=== PATIENT | female | born 1940 | race Caucasian/White ===

== ENCOUNTER → 2018-04-23 11:26 | Outpatient (CLI) | payer MEDICARE, SELFPAY ==
--- NOTE | 2018-04-23 11:29 | RAD_ITS ---
STUDY: X-RAY - LUMBAR SPINE REASON FOR EXAM: Female, 78 years old. Low back pain. TECHNIQUE: 5 view(s) of the lumbar spine were obtained. # of Images: 5 COMPARISON: 5 views of the lumbar spine December 20, 2013. FINDINGS: Normal lumbar lordosis. There is a 10 degree dextroscoliosis of the lumbar spine centered at L5. Stable minor anterolisthesis of L3 on L4. Mild anterolistheses of L4 on L5 as well as L5 on S1 are mildly worsened. There is stable multilevel endplate spondylosis of the lumbar vertebrae. There is multi-level degenerative disc disease with multi-level disc space narrowing. Disc height narrowing has worsened at L4-5 and L5-S1, and vacuum phenomena due to disc dehydration are now present at those levels. There is no demonstrated osseous destructive lesion or fracture. There is multilevel degenerative arthroses of the bilateral facet articulations. Are stable degenerative arthroses of the bilateral sacroiliac joints. The soft tissue structures are unremarkable. RAD/L/S Spine Min 4 Views IMPRESSION: Degenerative changes of the spine, as detailed above, progressed since 2013, is prominently at L4-5 and L5-S1. Electronically Signed: Teddy Barrera MD at 19:30 EDT , Service support ,
--- NOTE | 2018-04-23 11:29 | RAD_ITS ---
STUDY: X-RAY - PELVIS AND LEFT HIP REASON FOR EXAM: Female, 78 years old. Left hip pain. TECHNIQUE: Radiological exam, hip, unilateral, with pelvis when performed; 2 or 3 views. # of Images: 3 COMPARISON: 5 films of the lumbar spine December 20, 2013. FINDINGS: There is a non-specific bowel gas pattern. There is a small calcified phlebolith in the left pelvic soft tissues, and faint atherosclerotic vascular calcifications are noted. There is stable degenerative changes of the visualized lumbar spine. There is stable mild degenerative osteoarthritic changes bilateral sacroiliac joints. Normal bilateral iliac wings and visualized sacrum. Normal bilateral superior and inferior pubic rami. Normal pubic symphysis. Normal bilateral ischial tuberosities. Normal visualized femoral head. Cortical spurring noted along the greater trochanter. There is mild osteoarthritic spur formation of the acetabular rim. Normal hip joint. There is no demonstrated osseous destructive lesion or acute fracture. RAD/HIP, UNI W/ Pelvis 2-3 Views IMPRESSION: Mild degenerative changes of the lower lumbar spine, bilateral sacral iliac joints, and left hip. Electronically Signed: Teddy Barrera MD at 19:21 EDT , Service support ,
== END ==
PROVIDERS: Family Provider Internal Medicine; PCP Internal Medicine; Referring Provider Internal Medicine; Visit Provider Internal Medicine
DX: M54.5 Low back pain (principal); M25.552 Pain in left hip
CPT/HCPCS: 72110; 73502

== ENCOUNTER → 2018-05-11 09:28 | Outpatient (CLI) | payer MEDICARE, SELFPAY ==
[2018-05-11 10:27] LABS: Vitamin D,25 Hydroxy 27.8 ng/mL (29.95-100.01)
[2018-05-11 10:32] LABS: CRP, High Sensitivity Cardiac 8.72 mg/L; Free T3 2.6 pg/mL (2.18-3.98); T4 Total, Thyroxin 11.7 ug/dL (4.8-13.9); Thyroid Stim Hormone (TSH) 2.91 uIU/mL (0.358-3.74)
== END ==
PROVIDERS: Family Provider Internal Medicine; PCP Internal Medicine; Referring Provider Internal Medicine; Visit Provider Internal Medicine
DX: R94.6 Abnormal results of thyroid function studies (principal); E55.9 Vitamin D deficiency, unspecified; R79.82 Elevated C-reactive protein (CRP)
CPT/HCPCS: 36415; 82306; 84436; 84443; 84481; 86141

== ENCOUNTER → 2018-06-23 08:50 | Outpatient (CLI) | payer MEDICARE, SELFPAY ==
[2018-06-08 15:19] VITALS: BMI 32.6
--- NOTE | 2018-06-23 08:58 | CDU_ITS ---
Reason For Study: Carotid stenosis Rt. Velocities/BP Lt. Velocities/BP Prox CCA 81.5/15.2 cm/sec. Prox CCA 80.9/21.1 cm/sec. Mid CCA 85.0/20.5 cm/sec. Mid CCA 80.3/19.9 cm/sec. Dist CCA 78.6/19.3 cm/sec. Dist CCA 79.2/18.8 cm/sec. Prox ICA 58.6/14.7 cm/sec. Prox ICA 72.7/17.6 cm/sec. Mid ICA 80.3/21.9 cm/sec. Mid ICA 89.7/18.8 cm/sec. Dist ICA 65.7/15.2 cm/sec. Dist ICA 82.7/19.3 cm/sec. Rt. ICA/CCA = .94. Lt. ICA/CCA = 1.1. Prox ECA 99.1/12.3 cm/sec. Prox ECA 78.6/10.6 cm/sec. Rt. Vert. 61.0/15.8 cm/sec. Lt. Vert. 39.3/8.3 cm/sec. Right Extracranial There is intimal thickening but no significant atherosclerotic plaque noted in the right common carotid artery. There is heterogeneous, irregular atherosclerotic plaque noted in the right internal carotid artery. There is no significant atherosclerotic plaque noted in the right external carotid artery. Antegrade flow is noted in the right vertebral artery. Left Extracranial There is intimal thickening but no significant atherosclerotic plaque noted in the left common carotid artery. There is heterogeneous, irregular atherosclerotic plaque noted in the left internal carotid artery. There is no significant atherosclerotic plaque noted in the left external carotid artery. Antegrade flow is noted in the left vertebral artery. Procedure Carotid Duplex [id number]. Exam performed in department. Interpretation Summary Mild (<50%) stenosis right extracranial internal carotid. Mild (<50%) stenosis left extracranial internal carotid. Flow within the vertebral arteries is antegrade bilaterally. Ordering Physician: Sheridan Zaman Referring Physician: Sheridan Zaman Performed By: Brii Kruger RVT
--- NOTE | 2018-06-23 09:23 | BI_ITS ---
MAMMOGRAPHY - BILATERAL SCREENING REASON FOR EXAM: Female, 78 years old. Routine annual screening examination. PERTINENT HISTORY: Mother with breast cancer. TECHNIQUE: Digital bilateral breast haris (3D mammographic acquisition) in the CC and MLO projections. 2-D mediolateral oblique (MLO) and craniocaudad (CC) views of both breasts were obtained. CAD: Full Field Digital Mammography with Computer Added Detection was performed. COMPARISON: Comparison is made with prior study dated June 19, 2017 and June 18, 2016. FINDINGS: Breast Composition: The breasts are almost entirely fatty. There are no dominant masses or suspicious calcifications. No other significant abnormalities are identified. There has been no significant change since the prior study. BI/SCREENING MAMM (CAD), BILAT IMPRESSION: Stable bilateral screening mammogram. Yearly follow-up mammogram recommended. (A) ASSESSMENT CATEGORY: BIRADS Category 1: Negative. A letter regarding these results will be sent to the patient by the facility within 30 days. Approximately 10% of breast cancers are not detected by mammography. A normal mammogram should not delay biopsy of a clinically suspicious abnormality. [id number] Electronically Signed: Dayton Sheikh MD at 10:31 EST Tel [phone], Service support ,
--- NOTE | 2018-06-23 09:53 | BD_ITS ---
STUDY: DUAL ENERGY X-RAY ABSORPTIOMETRY / DXA REASON FOR EXAM: Female, 78 years old. The patient is postmenopausal. Loss of height. TECHNIQUE: Bone Mineral Density (BMD) measurements of lumbar spine and bilateral hips were obtained. COMPARISON: Comparison is made with prior study dated June 18, 2016. FINDINGS: Lumbar Spine (L1-L4): g/cm2 (1.114) / T-score (-0.4) / Z-score (1.4) Findings are suggestive of normal bone density with a low fracture risk. Left Femur Total: g/cm2 (0.933) / T-score (-0.6) / Z-score (1.3) Left Femoral Neck: g/cm2 (0.884) / T-score (-1.1) / Z-score (1.0) Right Femur Total: g/cm2 (0.961) / T-score (-0.4) / Z-score (1.5) Right Femoral Neck: g/cm2 (0.874) / T-score (-1.2) / Z-score (0.9) The T-Scores on the most recent prior examination were: Lumbar Spine (L1-L4): There has been improvement of bone density since the previous examination. Left Femur Total: which represents a worsening of 2.4%. Right Femur Total: which represents an improvement of 2.6%. BD/Dexa Bone Density Study IMPRESSION: The patient is considered osteopenic as outlined below according to World David Organization (WHO) criteria with a low fracture risk. There has been improvement of bone density since the previous examination. Reference Information: The T-score is the number of standard deviations above or below the standard which is normal for young adults at their peak bone mineral density. The World Health Organization (WHO) interprets the T-scores as follows: Above -1 Normal bone density Between -1 and -2.5 Osteopenia Equal to / or below -2.5 Osteoporosis As a practical clinical guideline, osteopenia may be graded as follows: Mild -1 through -1.5 Moderate -1.6 through -2.0 Severe -2.1 through -2.4 The Z-score is the number of standard deviations above or below age-matched controls. A Z-score of less than -1.5 would be considered abnormal. References: 1. NIH Osteoporosis and Related Bone Diseases http://www.osteo.org 2. International Society for Clinical Densitometry http://www.iscd.org 3. National Osteoporosis Foundation http://www.nof.org Electronically Signed: Dayton Sheikh MD at 14:19 EST Tel [phone], Service support ,
--- OUTSIDE RECORDS SUMMARY | 2018-09-24 14:56 | XMS RPT_ITS | Continuity of Care Document ---
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 Provider: Nelson Romero MD Age/Sex: 77/F Location: [facility] Status: Signed HPI HPI Chief Complaint: Follow-up visit. Details: FEMI NAYLOR, is a 77 F who presents to the office today for a follow-up visit. She is a lady with a history of supraventricular tachyarrhythmias who returns for a yearly follow-up visit. She tells me that she has been doing quite well except fo r 1 day when she had some salt laden soup and her blood pressure went high. Occasionally she does feel a fluttering sensation in her chest but nothing unusual. She has not had any dizziness or diaphores is no near syncope or syncope she continues to have bilateral pitting edema secondary to her knee replacement as well as varicose veins. Her physical exam today demonstrates clear lung alamo regular ra te and rhythm and 1+ edema. You do remember her last echocardiogram had demonstrated an ejection fraction of 55% with pulmonary artery systolic pressure of 30 mmHg. 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: No A ccompanied by: None Is patient in pain?: No Allergies No Known Allergies Allergy (Verified 11/13/17 09:09) Medications cholecalciferol (vitamin D3) 1,000 unit tablet 1,000 unit PO QDAY 11/10/17 [Hi story Confirmed 11/13/17] lorazepam 0.5 mg tablet 0.5 mg PO Q8H PRN tab 11/10/17 [History Confirmed 11/13/17] sertraline 25 mg tablet 12.5 mg PO QDAY tab 11/10/17 [History Confirmed 11/13/17] metoprolol succinate ER 25 mg tablet,extended release 24 hr 12.5 mg PO BID #180 tab 11/13/17 [Rx Confirmed 11/13/17] Ejection fraction %: 55 to 59 (55% per echo 03/04/2016 at [facility] Medical History (Reviewe d 11/13/17 @ 09:18 by Nelson Romero MD) RBBB (Chronic) Palpitations (Chronic) Borderline hyperlipidemia (Chronic) Sciatica (Chronic) Ventricular premature depolarization (Chronic) Paroxysmal SVT (suprav entricular tachycardia) (Chronic) Anxiety (Chronic) Carotid stenosis (Chronic) GERD (gastroesophageal reflux disease) (Chronic) PVCs (premature ventricular contractions) (Chronic) Surgical History (Re viewed 11/13/17 @ 09:18 by Nelson Romero MD) History of hysterectomy (Chronic) 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) Family History Mother Breast cancer Diabetes Father Heart disease Cancer Social History Smoking Status: Never smoker alcohol intake: current alcohol intake frequency: holidays/special occasions only Alc ohol type: beer, wine substance use type: does not use caffeine: Yes Type: coffee, tea, carbonated beverages what type of physical activity do you participate in: other details: Silver sneakers, lanre chi frequency: 3-4 times per week duration: 30-45 minutes/day seatbelt use: always do you feel safe at home: Yes ROS Const Const: Negative for body ache, fever(s), chills, night sweats, daytime sleepiness, difficulty sleeping, weight gain, weight loss, increased appetite, poor appetite, anorexia, other, frequent falls, headache(s), weakness, fatigue or excessive sweating Eyes Eyes: Negative f or blind spots, loss of peripheral vision, transient loss of vision, change in vision, floaters, tunnel vision, other, blurry vision or double vision ENT ENT: Positive for dry mouth; negative for hearin g loss, tinnitus, Nosebleed/epistaxis, post nasal drip, bleeding gums, hoarseness, neck pain, other, balance problems, dizziness or headache(s) Cardio Chest Pain: No Palpitations: Yes Edema: Bilateral ( lower extremities) Muscle aches with walking: None Resp Respiratory: Negative for SOB with activity, SOB at rest, SOB orthopnea\SOB lying down, Cough, Coughing up blood/hemoptysis, chest congestion, haleigh n on inspiration, snoring, stridor, wheezing, crackles, paroxysmal nocturnal dyspnea or other GI GI: Negative nausea, vomiting, heartburn, constipation, belching, bloating, cramping, vomiting blood/keith temesis, bright, red blood in stools, black,tarry stools, loose stools, Difficulty Swallowing or other : Negative for hematuria, frequent nighttime urination/ nocturia, erectile dysfunction or abno rmal vaginal bleeding Musc Musc: Positive for joint pain; negative for muscle aches/ myalgia, muscle weakness or balance problems Skin Skin: Negative redness, non-healing lesions, rash, unusual bruising , skin ulcer, wounds, jaundice or other Neuro Neuro: Positive for lightheadedness and vertigo; negative for dizziness, near syncope, syncope, orthostatic symptoms, frequent falls, headache(s), weakness, confusion, memory loss, restless legs, blurry vision, double vision, seizures, lack of coordination or other Keith Hematologic/Lymphatic: Negative for easy bleeding, easy bruising, enlarged lymph nodes or other Endo Endo: Negative for fatigue, cold intolerance, heat intolerance, excessive sweating, flushing, increased thirst/drinking, increased hunger, hair loss, hair growth or other Psych Psych: Posi tive for anxiety; negative for depression, thoughts of harming anyone, thoughts of harming yourself, visual hallucinations, panic attacks or audible hallucinations Allergy Allergy/Immunology: Negative f or rash Cardiology Exam Const Appearance: cooperative, healthy appearing, well developed, well groomed and no acute distress Nutritional Appearance: well nourished and average body habitus Orientation : alert, awake and oriented x3 Head Head: normal to inspection, normocephalic and atraumatic Ears: hearing grossly normal bilaterally and external ears normal Nose: external nose normal, nasal mucous me mbranes and turbinates normal, nares normal, septum normal, no nasal discharge Face and Sinus: face symmetric Mouth: oral mucosae normal, tongue normal, oropharynx normal and moist mucous membranes Teet h and gingiva: dentition normal Throat: posterior oropharynx normal, tonsils normal and uvula midline Eyes General: appearance normal, both eyes and all related structures Eyelids: eyelids normal Conjun ctivae: conjunctivae normal Pupils: PERRL, normal by confrontation and accommodation normal EOM: EOM intact bilaterally Neck Neck: normal visual inspection, trachea midline and no JVD JVD: +5 Carotids: normal carotid upstroke and bounding pulses Chest Chest inspection: normal inspection of the chest, symmetric chest movement and normal respiratory effort Auscultation: Bilateral: Clear to Auscultation Cardio Palpation: normal PMI Rate: regular rate Rhythm: regular rhythm Heart sounds: S1 normal, S2 normal and normal, physiologic split S2; negative rub, gallop or murmur GI GI: normal to inspection, so ft, no hepatosplenomegaly and bowel sounds present Neuro General: alert, awake, oriented x3, no focal sensory deficit, gait normal and moves all extremities Skin Skin: no rashes or lesions noted Extremi ties Pulses: Normal: Right Femoral Pulse, Left Femoral Pulse, Right Dorsalis Pedis Pulse, Left Dorsalis Pedis Pulse, Right Posterior Tibial Pulse, Left Posterior Tibial Pulse, Right Radial Pulse, Left R adial Pulse Lower Extremity Edema: None: Bilateral Musculoskel Musculoskeletal: No joint tenderness Psych Psychological: normal affect Assessment AND Plan 1. Paroxysmal SVT (supraventricular tachycard ia) I47.1 Plan Patient has a history of supraventricular tachyarrhythmia. The above appears to be doing quite well at this time with no recurrence my recommendation is for her to continue the current me dical therapy without making any changes. I have asked her that she can always take a as needed metoprolol if she should feel that she is getting into a tachyarrhythmia. At this time no other changes wi ll be made. Thank you for allowing me to participate in the care of your patient. Please don't hesitate to call if any issues arise Plan Detail Other Medications New: Follow Up 1 Year (drapery sewer hand) Coding Level of Care Code Off vis,est,level 3 Diagnoses Paroxysmal SVT (supraventricular tachycardia) I47.1 Coding Level of Care Code Off vis,est,level 3 Diagnoses Paroxysmal SVT (supraventricular tachycar eusebia) I47.1 11/13/17 0925 <Electronically signed by Nelson Romero MD> Date Nelson Romero MD Cosigner Signature: Date (if applicable) CC: Sheridan Zaman MD 11-Jul-2017 Knee 4 or More Views Result: Comments: See Note; NOTES: [facility] [address] [place] [id number] Knee 4 or More Views MR#: [id number] Acct: [id number] Name: FEMI NAYLOR Rep #: [id number] : 1940 F 77 From: Dayton Cordero MD PCP: Sheridan Zaman MD Status: REG CLI Study: Knee 4 or More Views Date of Exam: 07/11/17 Exam# [id number] Ordering Dr: Sheridan Zaman MD STUDY: X-RAY - RIGHT KNEE REASON FOR EXAM: Female, 77 years old. Knee pain. TECHNIQUE: 4 view(s) of the knee. COMPARISON: Comparison is made with prior examination dated November 08, 2014. FINDINGS: Normal visualized distal femur. Normal visualized proximal tibia and fibula. Normal proximal tibiofibular articulation. The patient is status post total knee replacement. There is goo d alignment. Small joint effusion. RAD/Knee 4 or More Views IMPRESSION: Status post total knee replacement. There is good alignment. Small joint effusion. Electronically Signed: Dayton Cordero MD at 14:18 EST Tel [phone], Service support , CC: Sheridan Zaman MD Commercial Teller: Signed 11-Jul-2017 Knee 4 or More Views Result: Comments: See Note; NOTES: [facility] [address] [place] [address] Knee 4 or More Views MR#: [id number] Acct: [id number] Name: FEMI NAYLOR Rep #: [id number] : 1940 F 77 From: Dayton Cordero MD PCP: Sheridan Zaman MD Status: REG CLI Study: Knee 4 or More Views Date of Exam: 07/11/17 Exam# [id number] Ordering Dr: Sheridan Zaman MD STUDY: X-RAY - LEFT KNEE REASON FOR EXAM: Female, 77 years old. Bilateral knee pain. TECHNIQUE: 4 view(s) of the knee. COMPARISON: Comparison is made with prior study of November 08, 2014. FINDINGS: Normal visualized distal femur. Normal visualized proximal tibia and fibula. Normal proximal tibiofibular articulation. There is mild degenerative arthrosis of the medial femorotibial compartment. There is severe degenerative arthrosis of the lateral femorotibial compartment with severe joint space narrowing. There is moderate degenerative arthrosis of the patellofemoral articulatio n. Joint effusion. RAD/Knee 4 or More Views IMPRESSION: Degenerative arthrosis. Joint effusion. Stable examination. Electronically Signed: Siobhan Cordero MD at 15:07 EST Tel [phone], Service support , CC: Sheridan Zaman MD Commercial Teller: Signed 19-Jun-2017 SCREENING MAMM (CAD), BILAT Result: Comments: See Note; NOTES: [facility] [address] [place] [address] SCREENING MAMM (CAD), BILAT MR#: [id number] Acct: [id number] Name: FEMI NAYLOR Rep #: [id number] : 1940 F 77 From: Dayton Cordero MD PCP: Sheridan Zaman MD Status: REG CLI Study: SCREENING MAMM (CAD), BILAT Date of Exam: 06/19/17 Exam# [id number] Ordering Dr: Sheridan Zaman MD MAMMOGRAPHY - BILATERAL SCREENING REASON FOR EXAM: Female, 77 years old. Routine annual screening examination. PERTINENT HISTORY: Mother with breast cancer. TECHNIQUE: Digital bilateral breast haris (3D mammographic acquisition) in the CC and MLO projections. 2-D mediolateral oblique (MLO) and craniocaudad (CC) views of both breasts were obtained. CAD: Full Field Digital Mammography with Computer A dded Detection was performed. COMPARISON: Comparison is made with prior study dated June 18, 2016 and June 16, 2015. FINDINGS: Breast Composition: The breas ts are almost entirely fatty. There are no dominant masses or suspicious calcifications. No other significant abnormalities are identified. There has been no significant change since the prior study. HPBI/SCREENING MAMM (CAD), BILAT IMPRESSION: Stable bilateral screening mammogram. Yearly follow-up mammogram recommended. (A) ASSESSMENT CATEGORY: BIRADS Category 1: Negative. A letter regarding these results will be sent to the patient by the facility within 30 days. Approximately 10% of breast cancers ar e not detected by mammography. A normal mammogram should not delay biopsy of a clinically suspicious abnormality. [id number] Electronically Signed: Dayton Cordero MD at 12:44 EST Tel [phone], Service support , CC: Sheridan Zaman MD Commercial Teller: Signed 31-Jan-2017 Inital Evaluation (1) - PT Result: Comments: See Note; NOTES: [facility] [address] [place], [place] [id number] Fax REHABILITATION SERVICES INITIAL EVALUATION MR#: [id number] Acct: [id number] Name: FEMI NAYLOR Rep #: [id number] : 1940 76 From: Lisa Fuchs PT Referring Dr.: Sheridan Zaman MD Status: REG RCR Insurance: [facility] Patient's Visit Information FEMI NAYLOR is a 76 year old F referred to Physical Therapy by Sheridan Zaman with a diagnosis of R Hamstring Strain. Date of Evaluation: 01/31/17 Physical Therapist: Consuelo Fuchs, PT - Visit Plan Frequency: 2x /Week Duration: 4 Weeks Plan: Therapeutic exercises and activities to target BLE strength. Exercises and activities also to target gait training, endurance, flexibility and range of motion. Modalies and manual as needed to decrease pain and improve motion. Incorporate HEP to promote maintainence and independence. - Subjective Subjective: Patient presents i n therapy today with chief complaint of hamstring pain. She states that she hurt it in July after transitioning too fast in Silver sneakers and doing backwards kicks. She states it never really heale d due to activities she does at home which caused her to go to her doctor about a two weeks ago. She pain is worse in the morning, walking, and WB activities. She states that she takes ibuprofen to help relieve the pain and has tried an ice pack and rice pack which seemed to help a little. Patient reported she tried stretching a little and that seemed to help a little as well. Reports periodic tinglin g in right foot. She saw Yusuf Holm PT, DPT last year for strengthening for hip drop. Typically patient walks with a cane in right hand but did not have one at evaluation. PMHx: R TKA 2013, PVCs contro lled, R thrombophelbitis - Pain right hamstring Pain Intensity (Out of 10): 3 Pain Intensity Range: 2, 8 Comment: worsen with activity. - Objective Posture: Sitting sloched in chair with increased posterior pelvic tilt; Static standing increased kyphotic posturing. Appearance/Palpation: Tenderness to palpation along BLE extremities around ankles with moderate swelling right and minimal left that is non pitting; Tenderness to palpation along right hamstrings with increased tenderness and pain when palpated medially. Range of Motion: BLE WNL; Right Knee 0-120 and Left knee 0-130. Flexibility: Mil d tightness of bilateral hamstrings lacking 10* of knee extension; Mild tightness bilateral hip flexors. Strength: BLE grossly 4+/5 except right knee flexion 4- /5, bilateral hip extension 4- /5, bilater al hip abduction 4/5, bilateral hip adduction 4/5, left knee extension 4/5, left knee flexion 4-/5, bilateral ER 4/5, bilateral IR 4/5; core 4-/5. Balance: Tandem stance 30 seconds bilaterally with mini mal sway right leading and moderate sway left leading. Gait: Patient ambulates with heel/toe to flat foot progression. She demonstrates hip drop bilaterally and increased toe off on the right to help cl ear LLE. Stair negotiation step to pattern with B handrail support right leading ascending and left leading descending. HEP: Added isometric hamstring hold 10 seconds x 10 patient reported mild soreness with activity. - Goals Goal 1:: Walk with a heel/toe foot progression 1 block with cane support safely and indepedently to perform ADLs Goal Time Frame: 4-6 Weeks Goal 2:: Patient will increase BLE st rength by 1 muscle grade for improved performance with functional activities Goal Time Frame: 4-6 Weeks Goal 3:: Patient will hold tandem stance bilaterally for 30 seconds with minimal sway for improved balance Goal Time Frame: 4-6 Weeks Goal 4:: Patient will be independent with HEP Goal Time Frame: 4-6 Weeks - Rehabilitation Potential Physical Therapy Diagnosis: Muscle Weakness, Impaired Gait Rehabi litation Potential: Good - Anticipated Interventions Patient/Client Instruction: Educate patient on: Condition, Plan of Care For the Purpose of:: To decrease pain, To increase ROM, To improve muscle pe rformance and motor function, To improve ability to perform ADL's, To improve ability of physical actions for home/ community/work/leisure, To improve gait and locomotor functions, To increase flexibili ty/ROM, To improve endurance, To improve balance, To improve safety with gait Therapeutic Exercise to Include: Strength training, Endurance training, Balance training, Body mechanics, Postural training, Flexibilty training, Gait and locomotor training, Passive ROM, Active ROM For the Purpose of:: To increase ROM, To improve muscle performance and motor function, To improve ability to perform ADL's, To improve ability of physical actions for home/community/ work/leisure, To improve gait and locomotor functions, To increase flexibility/ROM, To improve endurance, To improve balance, To improve safety w ith gait Functional Training to Include: Gait training For the Purpose of:: To improve gait and locomotor functions, To improve safety with gait Comment: MASSAGE NOT COVERED For the Purpose of:: To decr ease pain, To decrease swelling/inflammation, To increase ROM Iontophoresis (with Dexamethozone, with Acetic acid): - NOT COVERED For the Purpose of:: To decrease pain, To decrease swelling/inflammation , To increase ROM Thank you for the opportunity to evaluate your patient. For Medicare and Medicare HMO plans, please review the plan of care and approve it. It will need to be FAXED BACK to us at [phone] for Medicare purposes. Please let me know if there are questions or concerns regarding this plan of care. Physician Signature: Date: <Electronically signed by Lisa Fuchs PT> 01/31/17 0952 CC: Sheridan Zaman MD RICARDA Signed For Medicare only, by signing this I certify the plan o f care. Physicians Signature Date 15-Jul-2016 PT D/C Summary (1) Result: Comments: See Note; NOTES: [facility] [address] [place], [place] [address] Fax REHABILITATION SERVICES [facility] [facility] SUMMARY MR#: [id number] Acct: [id number] Name: FEMI NAYLOR Rep #: [id number] : 1940 76 From: Yusuf Holm DPT Referring Dr.: Sheridan Zaman MD Status: REG RCR [facility] - PT D/C Summary It has been my pleasure to treat FEMI NAYLOR under orders from Sheridan Zaman, for the diagnosis of left leg weakness, low back pain, and degenerative disc disease for a total of 5 visit(s). Discharge Date: 07/15/16 Please see the following information for a summary of their discharge status. - Subjective Subjective: Pt. reports I am doing pretty well. She r eports I don't have much back pain any more, but I still get some hip pain. She does sitll notice some limping, with days that are worse than others. He reports no back pain today, but has 1/10 L hip pain. - Pain L lumbar spine Pain Intensity (Out of 10): 0 L hip Pain Intensity (Out of 10): 1 - Objective Objective/Function: ROM: lumbar spine- flexion nil loss NE, ext min/mod loss NE, SB min loss NE bilaterally, rotation min loss bilaterally NE. HS length 80deg LLE, 92deg RLE. Pt. reports no back pain currently, 1/10 L hip (posterior/lateral). Pt. had an 3/8 of inch leg marvin gth discrepency pre treatment, 1/8 of an inch post PT. She continues to have lateral hip sway with L lateral lean during gait. - Goals Goal 1:: Pt. to be I with HEP. (pt. is currently I with HEP). Goal Progress: Goal Met Goal 2:: Pt. to have decreased lumbar spine pain to 0/10 while sitting and sleeping. (pt. currently having 0/10 pain in lumbar spine with sitting and sleeping, but does have L hip pa in at times, currently 1/10). Goal Progress: Goal Met Goal 3:: Pt. to have decreased lumbar spine pain to 0-1/10 while walking upto 1 mile allowing for increased recreational walking. (Pt. is currently able to ambulate without problems, but has not trialed walking upto a mile yet.) Goal Progress: Progressing Goal 4:: Pt. to have increased core strength to fair, reducing stress applied to lumbar spine with all functional mobility. (currently- Pt. has Fair- core strength at this point in time.) Goal Progress: Progressing - Plan Plan: Pt. will be DC to HEP and deshaun toro at this point in time at pt. request. - D/C Information Discharge Comments: Pt. has made progress with therapy, see reports being 50% better overall, but has days where she feels 75% better. She reports overall reduction in lo w back pain, but does continue to have intermittent posterior hip pain. She has progressed with core and lateral hip strengthening as expected. She does continue to have a slight leg length discrepency, but I do believe this to be a pelvic positioning issue secondary to core and hip weakness. I was able to correct discrepency with reduction (not full correction) in gait issues, but does return. She is to continue with current HEP with core and lateral hip strengthening to reduce hip sway with gait, increase pelvic positioning and reduce stress applied to lumbar spine with all functional mobility. If there are questions or concerns regarding this patient's physical therapy, please feel free to call me at [phone]. Thank you for the referral of this patient. Sincerely, Yusuf Holm < Electronically signed by Yusuf Holm DPT> 07/15/16 1800 CC: Sheridan Zaman MD CLS Signed 18-Jun-2016 Bilat Scrn Digital AND CAD Result: Comments: See Note; NOTES: [facility] [address] [place] [address] Verdana 4d Bilat Scrn Digital AND CAD MR#: [id number] Acct: [id number] Name: FEMI NAYLOR Rep #: [id number] : 1940 F 76 From: Dayton Cordero MD PCP: Sheridan Zaman MD Status: REG CLI Study: Bilat Scrn Digital AND CAD Date of Exam: 06/18/16 Exam# [id number] Ordering Dr: Sheridan Zaman MD MAMMOGRAPHY - BILATERAL SCREENING REASON FOR EXAM: Female, 76 years old. Routine annual screening examination. PERTINENT HISTORY: Mother with breast cancer. TECHNIQUE: Digital bilateral boogie ast haris (3D mammographic acquisition) in the CC and MLO projections. 2-D mediolateral oblique (MLO) and craniocaudad (CC) views of both breasts were obtained. CAD: Full Field Digital Mammography with C omputer Added Detection was performed. COMPARISON: Comparison is made with prior study dated June 16, 2015 and June 08, 2014. FINDINGS: Breast Composition: T here are scattered areas of fibroglandular density. There are no dominant masses or suspicious calcifications. No other significant abnormalities are identified. There has been no significant change s mono the prior study. HPBI/Bilat Scrn Digital AND CAD IMPRESSION: Stable bilateral screening mammogram. Yearly follow-up mammogram recommended. ( A) ASSESSMENT CATEGORY: BIRADS Category 1: Negative. A letter regarding these results will be sent to the patient by the facility within 30 days. Approximately 10% of breast cancers are not detected by mammography. A normal mammogram should not delay biopsy of a clinically suspicious abnormality. [id number] Electronically Signed: Dayton Cordero MD a t 14:09 EST Tel [phone], Service support [phone], CC: Sheridan Zaman MD Commercial Teller: Signed 18-Jun-2016 Dexa Bone Density Study (HP) Result: Comments: See Note; NOTES: [facility] [address] [place] [address] Verdana 4d Dexa Bone Density Study (HP) MR#: [id number] Acct: [id number] Name: ABIMAEL ANYLOR Rep #: [id number] : 1940 F 76 From: Dayton Cordero MD PCP: Sheridan Zaman MD Status: REG CLI Study: Dexa Bone Density Study () Date of Exam: 06/18/16 Exam# [id number] Ordering Dr: Sheridan Ledbetter MD STUDY: DUAL ENERGY X-RAY ABSORPTIOMETRY / DXA REASON FOR EXAM: Female, 76 years old. The patient is postmenopausal. TECHNIQUE: Bone Mineral Density (BMD) measurements of lumbar spine and bilateral hips were obtained. COMPARISON: Comparison is made with prior study dated June 08, 2014. FINDINGS: Lumbar Spine (L1-L4): g/cm2 (1.090) / T-score (-0. 6) / Z-score (1.1) Findings are suggestive of normal bone density with a low fracture risk. Left Femur Total: g/cm2 (0.956) / T-score (-0.4) / Z-score (1.4) Left Femoral Neck: g/cm2 (0.872) / T-score ( -1.2) / Z-score (0.8) Right Femur Total: g/cm2 (0.937) / T-score (-0.6) / Z-score (1.2) Right Femoral Neck: g/cm2 (0.846) / T-score (-1.4) / Z-score (0.6) The T-Scores on the most recent prior examinat ion were: Lumbar Spine (L1-L4): There has been worsening of bone density since the previous examination. Left Femur Total: which represents a worsening of 1.9%. Right Femur Total: which represents a w orsening of 4.0%. HPBD/Dexa Bone Density Study () IMPRESSION: The patient is considered osteopenic as outlined below according to World David O rganization (WHO) criteria with a moderate fracture risk. There has been worsening of bone density since the previous examination. Reference Information: The T-scor e is the number of standard deviations above or below the standard which is normal for young adults at their peak bone mineral density. The World Health Organization (WHO) interprets the T-scores as fol lows: Above -1 Normal bone density Between -1 and -2.5 Osteopenia Equal to / or below -2.5 Osteoporosis As a practical clinical guideline, osteopenia may be graded as follows: Mild -1 through -1.5 Mod erate -1.6 through -2.0 Severe -2.1 through -2.4 The Z-score is the number of standard deviations above or below age-matched controls. A Z-score of less than -1.5 would be considered abnormal. Referen ronald: 1. NIH Osteoporosis and Related Bone Diseases http://www.osteo.org 2. International Society for Clinical Densitometry http://www.iscd.org 3. National Osteoporosis Foundation http://www.nof.org Tayler ctronically Signed: Dayton Cordero MD at 13:38 EST Tel [phone], Service support [phone], CC: Sheridan Zaman MD Commercial Teller: Signed 11-Jun-2016 Inital Evaluation (1) - PT Result: Comments: See Note; NOTES: [facility] [place] [address] Fax REHABILITATION SERVICES INITIAL EVALUATION MR#: [id number] Acct: [id number] Name: FEMI NAYLOR Rep #: [id number] : 1940 76 From: Yusuf Holm DPT Referring Dr.: Sheridan Zaman MD Status: REG RCR Insurance: AETNA [facility] Patient's Visit Information FEMI NAYLOR is a 76 year old F referred to Physical Therapy by Sheridan Zaman with a diagnosis of left leg weakness, low back pain, and degenerative disc disease. Date of Evaluation: 06/10/16 Physical Therapist: Yusuf Holm - Visit Plan Frequency: 2x /Week Duration: 4 Weeks Plan: Start with SKTC/DKTC, light hip flexor stretching in SL to allow for greater glute acti vitation. Increase core and bilateral hip strength. Re assess leg length discrepency, as pt. uses lift to assist already. - Subjective Subjective: Pt. is here today for initial evaluation with left leg weakness, low back pain, and degenerative disc disease. She also has a history of R TKA and leg length discrepencey. She reports having low back pain on and off for the last 4 years. She also reports h aving a constant limp with her gait. She reports increased pain with prolonged standing and walking that reduces with sitting. She also have pain with any lifting. She reports trying lifts in shoes with minimal success. She reports recent increase in symptoms after going on trip with increased walking, plane ride and carrying objects. She denies pain down LEs. She has trialed ice and heat with success with heat, but does not last. She is hopeful to reduce symptoms in order get back to silver sneaks and gym exercises with walking with decreased symptoms. - Pain L lumbar spine Pain Intensity (Out of 10): 2 Pain Intensity Range: 0, 8 - Objective POSTURE: Pt. has decreased lumbar lordosis, slight flexed posture, fwrd head posture. PALAPTION: Pt. has increased tenderness to palpation of L PSIS, L side of lumbar paraspinals and L latissamus dorsi. Pt. does have increased edema of R knee and increased tenderness noted throughout R knee. NEUROLOGICAL: Pt. has normal sensation to light touch of bila teral LEs. Pt. has 2+ achilles and patellar DTR bilaterally. ROM: LUMBAR SPINE: flexion nil loss NE, Ext mod loss increase NW, SB R min loss NE, SB L min/mod loss increase NW, rotation nil/min loss bila terally NE. Hip- bilateral hip ROM WNL. L hip- IR 32deg, ER 41deg. R hip- IR 34deg, ER 40deg. No pain with hip rotation testing. Pt. has a 1/4inch leg length discrepency with L being shorter than R. MMT : RLE- ankle- 5/5 throughout; knee- 5/5 throughout; hip- flexion 4/5, abd 4/5, ext 4/5. LLE- ankle 5/5 throughout; knee 5/5 throughout; hip- flexion 4/5, abd 4/5, ext 4/5. Core strength- poor. GAIT- Pt. has increased contralateral hip drop bilaterally. She tends to have vault over here L LE. She is able to complete the stairs with mild icnrease in symptoms, and did report increased LLE weakness. - Sp ecial Tests L/S Slump test left side: Negative L/S Slump test right side: Negative L/S Left Straight Leg Raise: Negative L/S Right Straight Leg Raise: Negative Lumbar Standing: Flexion - Mechanical Resp onse: No effect Lumbar Standing: Flexion - Symptoms During Testing: No effect Lumbar Standing: Flexion - Symptoms After Testing: No effect Lumbar Standing: Extension - Mechanical Response: No effect Lum bar Standing: Extension - Symptoms During Testing: Increases Lumbar Standing: Extension - Symptoms After Testing: No worse - Goals Goal 1:: Pt. to be I with HEP. Goal Time Frame: 2-4 Weeks Goal 2:: Pt. to have decreased lumbar spine pain to 0/10 while sitting and sleeping. Goal Time Frame: 2-4 Weeks Goal 3:: Pt. to have decreased lumbar spine pain to 0-1/10 while walking upto 1 mile allowing for incr eased recreational walking. Goal Time Frame: 4-6 Weeks Goal 4:: Pt. to have increased core strength to fair, reducing stress applied to lumbar spine with all functional mobility. Goal Time Frame: 2-4 We eks - Rehabilitation Potential Physical Therapy Diagnosis: left leg weakness, low back pain, and degenerative disc disease with signs of lumbar spinal stenosis. She would benefit from PT to increase bi lateral and core strength to reduce stress applied to lumbar spine. She also presence with a leg length discrepency without elevation of either ASIS. Pt. to trial increased heel lifet to determine if be neficial. Rehabilitation Potential: Good - Anticipated Interventions Patient/Client Instruction: Educate patient on: Condition, Plan of Care, Risk Factors, Benefits of Fitness Program For the Purpose o f:: To improve safety, To improve health and function, To foster healthy habits, To improve decision making, To facilitate caregiver knowledge, To improve self management, To prevent re-injury Therapeut ic Exercise to Include: Strength training, Power training, Postural training, Flexibilty training, Gait and locomotor training, Passive ROM, Active ROM, Dynamic Lumbar Stabilization, [place] Exercises For the Purpose of:: To decrease pain, To increase ROM, To improve nutrient delivery to tissue, To improve muscle performance and motor function, To improve health of tissue, To decrease soft tissue res triction, To increase flexibility/ROM Manual Therapy Techniques to Include: Mobilization, Passive ROM, Soft tissue mobilization For the Purpose of:: To decrease pain, To increase ROM IF ES: Yes Cryother apy (ice pack, ice massage): Yes Ultrasound (thermal/non thermal): Yes For the Purpose of:: To decrease pain, To increase ROM Thank you for the opportunity to evaluate your patient. For Medicare an d Medicare HMO plans, please review the plan of care and approve it. It will need to be FAXED BACK to us at [phone] for Medicare purposes. Please let me know if there are questions or concerns re garding this plan of care. Physician Signature: Date: <Electronically signed by Yusuf Holm DPT> 06/11/16 0746 CC: Lux Zaman MD CLS Signed For Medicare only, by signing this I certify the plan of care. Physicians Signature Date 13-Mar-2016 Carotid Duplex Ultrasound Result: Comments: See Note; NOTES: [facility] Cardiovascular Services [address] [place] [address] Carotid Duplex Ultrasound 03/04/16 1004 MR#: [id number] Acct: [id number] Name: FEMI LUEVANO LT Rep #: [id number] : 1940 76 From: Tom Medel MD Attending Dr: Sheridan Zaman MD Status: REG CLI Ordering Dr: Sheridan Zaman MD Date: 03/04/16 Location: [facility] Sex: F C Admitted: Reason For Study: carotid stenosis Rt. Velocities/BP Lt. Velocities/BP Prox CCA 85.6/14.7 cm/sec. Prox CCA 79.7/18.2 cm/sec. Mid CCA 83.8/17.0 cm/sec. Mid CCA 83.3/21.7 cm/sec. Dist CCA 68.0/21.1 cm/s ec. Dist CCA 81.5/22.3 cm/sec. Prox ICA 55.0/14.5 cm/sec. Prox ICA 59.7/16.1 cm/sec. Mid ICA 87.9/25.8 cm/sec. Mid ICA 105.0/29.3 cm/sec. Dist ICA 56.6/18.1 cm/sec. Dist ICA 74.5/25.2 cm/sec. Rt. ICA/CC A = 87.9/83.8=1.0. Lt. ICA/CCA = 105.0/83.3=1.3. Prox ECA 70.4/11.7 cm/sec. Prox ECA 73.3/12.3 cm/sec. Rt. Vert. 29.5/1.96 cm/sec. Lt. Vert. 48.7/13.0 cm/sec. Right Extracranial There is homogeneous, s mooth atherosclerotic plaque noted in the right common carotid artery. There is heterogeneous, smooth atherosclerotic plaque noted in the right internal carotid artery. There is homogeneous, smooth athe rosclerotic plaque noted in the right external carotid artery. Antegrade flow is noted in the right vertebral artery. Left Extracranial There is homogeneous, smooth atherosclerotic plaque noted in the left common carotid artery. There is heterogeneous, smooth atherosclerotic plaque noted in the left internal carotid artery. There is homogeneous, smooth atherosclerotic plaque noted in the left externa l carotid artery. Antegrade flow is noted in the left vertebral artery. Procedure Carotid Duplex 12001. The exam was diagnostic. Exam performed in department. Interpretation Summary Mild (<50% ) stenosis right extracranial internal carotid. Mild (<50%) stenosis left extracranial internal carotid. Flow within the vertebral arteries is antegrade bilaterally. Ordering Physician: Sheridan Zaman Performed By: Kanchan Jackson, MITCH, RVT Electronically signed by: MD Tom Medel on 01/2016 08:16 AM 03/13/16815 Date Tom Medel MD CC: Sheridan Zaman MD Date Dictated: 03/04/16 1004 Date Transcribed: 03/13/16815 Commercial Teller: Signed 04-Mar-2016 Echocardiogram Complete Result: Comments: See Note; NOTES: [facility] Cardiovascular Services [address] [place] [address] Echo Complete 03/04/16 1034 MR#: [id number] Acct: [id number] Name: FEMI NAYLOR Rep #: [id number] : 1940 76 From: Jim Blankenship MD Attending Dr: Sheridan Zaman MD Status: REG CLI Ordering Dr: Sheridan Zaman MD Date: 03/04/16 Location: [facility] Sex: F C Admitted: Reason For Study: PVCs, arrhythmia. Procedure This was a 2D Doppler, Color Flow transthoracic echocardiogram. The exam was of fair technical quality due to diminished acoustic windows. The study was technically d ifficult. Exam performed in department. Left Ventricle Normal LV size. Sigmoid septum. Left ventricular systolic function is normal. The estimated ejection fraction is 55 %. No regional wall motion abn ormalities noted. Right Ventricle Normal RV size. Normal systolic function. Atria Normal left atrium. Normal right atrium. No doppler evidence for ASD. Mitral Valve There is no mitral annular calcifi cation. Normal mitral valve. Mild (1+) mitral valve insufficiency. Tricuspid Valve Normal tricuspid valve. Mild tricuspid valve insufficiency. Right ventricular systolic pressure estimated to be 30 mmH g. Aortic Valve Trisinus/trileaflet aortic valve. Normal aortic valve. Pulmonic Valve The pulmonic valve is not well visualized. Trivial pulmonic valve insufficiency. Great Vessels Normal sized aortic root. Pericardium/Pleural No pericardial effusion. MMode/2D Measurements & Calculations LVIDd: 4.8 cm IVSd: 1.1 cm Ao root diam: 2.5 cm LVIDs: 3.0 cm LVPWd: 1.1 cm LA dimension: 3.4 cm RVDd: 2.7 cm FS: 37.3 % LAV(MOD-bp): 51.8 ml LA A4 area: 18.0 cm2 RA A4 area: 14.8 cm2 LAV(MOD-bp) Indexed: 26.4 ml/m2 LAV(MOD -sp2): 51.5 ml LAV(MOD-sp4): 46.8 ml Doppler Measurements & Calculations MV E max chaz: 64.2 cm/sec Lat Peak E' Chaz: 4.9 cm/sec Med Peak E' Chaz: 5.3 cm/sec MV A max chaz: 84.8 cm/sec E/E' lat: 13 .0 E/E' med: 12.2 MV E/A: 0.76 Ao V2 max: 119.8 cm/sec LV V1 max: 70.4 cm/sec PA V2 max: 81.3 cm/sec Ao max P.8 mmHg LV V1 max P.0 mmHg TR max chaz: 259.5 cm/sec TR max P.9 mmHg Interpretation Summary The study was technically d ifficult. Left ventricular systolic function is normal. The estimated ejection fraction is 55 %. Sigmoid septum. Mild (1+) mitral valve insufficiency. Mild tricuspid valve insufficiency. Trivial pulmon ic valve insufficiency. Right ventricular systolic pressure estimated to be 30 mmHg. Ordering Phy sician: Sheridan Zaman Performed By: Kanchan Jackson, RDJULIO, RVT 03/04/16 1623 Date [facility] Krzysztof RODRIGUEZ CC: Sheridan Zaman MD Date Dictated: 03/04/16 1034 Date Transcribed: 03/04/161622 Commercial Teller: Signed 20-Jun-2015 Vascular Test/LEAS/UEAS Result: Comments: See Note; NOTES: [facility] Cardiovascular Services [address] [place] [address] Verdana 4d Lower Ext Art Exam w/o Exercis MR#: [id number] Acct: [id number] Name: FEMI NAYLOR Rep #: [id number] : 1940 75 From: Dangelo Hogue MD Primary Care: Sheridan Zaman MD Status: REG CLI Ordering Dr: Dangelo Hogue MD Sex: F C DATE OF SERVICE: NONINVASIVE LOWER EXTREMITY ARTERY STUDY: DATE OF STUDY: June 19, 2015. This is a 75-year-old female with bilateral pain, heaviness and discomfort in her lower extremities. Suspectin g the presence of atherosclerotic peripheral arterial occlusive disease, the patient was brought to the noninvasive vascular laboratory at this time for the purpose of bilateral noninvasive lower extr emity arterial assessment. Doppler signal assessment was used to evaluate the pulses at ankle level bilaterally. Posterior tibial and dorsalis pedis pulses were triphasic bilaterally. Segmental yi b pressures were obtained at ankle level bilaterally. The right ankle pressure, as determined by posterior tibial pulse, was measured at 174 mmHg. The right ankle pressure, as determined by dorsalis p bing pulse, was measured at 179 mmHg. The left ankle pressure, as determined by posterior tibial pulse, was measured at 193 mmHg. The left ankle pressure, as determined by dorsalis pedis pulse, was me asured at 190 mmHg. Resting ankle-brachial indices were calculated bilaterally. The resting right ankle-brachial index was calculated to be 1.11. Resting left ankle-brachial index was calculated to be 1.20. IMPRESSION: Based on the findings of this resting noninvasive lower extremity artery study, there is no evidence of significant atherosclerotic peripheral arterial occlusive disease in the lower extremities bilaterally. Triphasic wave forms were noted at ankle level bilaterally. Resting ankle-brachial indices were bilaterally normal. In summary, this represents a normal resting noninv asive lower extremity artery study bilaterally. Dangelo Hogue MD T: NTS JOB: [id number] 06/20/15 0736 <Electronically signed by Dangelo Hogue MD> Date Dangelo Hogue MD CC: Sheridan Zamna MD; Dangelo Hogue MD Date Dictated: 06/19/152229 Date Transcribed: 06/19/152229 Commercial Teller: Signed 16-Jun-2015 Bilat Scrn Digital AND CAD Result: Comments: See Note; NOTES: [facility] Imaging Services [address] [place] [address] Verdana 4d Bilat Scrn Digital AND CAD MR#: [id number] Acct: [id number] Name: FEMI NAYLOR Rep #: [id number] : 1940 F 75 From: Dayton Cordero MD PCP: Sheridan Zaman MD Status: REG CLI Study: Bilat Scrn Digital AND CAD Date of Exam: 06/16/15 Exam# [id number] Order ing Dr: Sheridan Zaman MD MAMMOGRAPHY - BILATERAL SCREENING REASON FOR EXAM: Female, 75 years old. Routine annual screening examination. PERTINENT HISTORY: Mother with breast cancer. TECHNIQUE : Digital examination. Mediolateral oblique (MLO) and craniocaudad (CC) views of both breasts were obtained. CAD: CAD was performed on this study. COMPARISON: Comparison is made with prior study kamilah ed June 08, 2014 and June 07, 2013. FINDINGS: Breast Composition: There are scattered areas of fibroglandular density. There are no dominant masses or mora spicious calcifications. No other significant abnormalities are identified. There has been no significant change since the prior study. IMPRESSION: Stable bila teral screening mammogram. Yearly follow-up recommended. (A) ASSESSMENT CATEGORY: BIRADS Category 1: Negative. A letter regarding these results will be sent to the patient by the facility within 30 days. Approximately 10% of breast cancers are not detected by mammography. A normal mammogram should not delay biopsy of a clinically suspicious abnormality. [id number] Electronically Signed: Dayton Cordero MD at 9:49 EST Tel [phone], Service support [phone], CC: Sheridan Zaman MD Commercial Teller: Signed 07-Jun-2015 Initial Evaluation - OT Result: Comments: See Note; NOTES: [facility] [address] [place] [address]. [address] [place] [address] Fax REHABILITATIO N SERVICES INITIAL EVALUATION MR#: [id number] Acct: [id number] Name: FEMI NAYLOR Rep #: [id number] : 1940 75 From: Vielka Baez Referring Dr.: Tracey Moore Status: DIS RCR Insura nce: [employer]ET[employer] MCR Eval Date: DATE OF SERVICE: PHYSICIAN: Dr. Tracey Moore. SUBJECTIVE: This 75-year-old female was seen for initial occupational therapy evaluation on May 25, 2015. The patie nt was referred with the diagnosis of right leg lymphedema. The patient after some discussion admitted that in her early 20s, her leg did start to swell. She just figured it was her makeup and that sh e had thicker ankles, and then the typical individual she states. She has been utilizing compression hose, thigh-high, Jobst 15-20 and it has not really seemed to help. The patient had a right total k nee replacement about 2 years ago and recently had a bout of cellulitis 5-6 weeks ago. The patient has been through multiple tasks and nothing conclusive with her right lower extremity. Currently, sh e is done with her antibiotics and appears to be doing well. OBJECTIVE: Left foot is 20.5 cm, right is 21 cm. Right ankle is 29 cm, left is 30. Right lower calf is 30 cm, left is 37. Right upper c bing is 41.5, left is 45. Left below knee is 39 cm, right is 43 cm. ASSESSMENT: The patient presents with good rehab potential. Functional problems include decreased understanding and knowledge of l ymphedema management, decreased knowledge of wrapping lower extremities and decreased knowledge of understanding of her lymph system physiology. GOALS: 1. The patient's spouse will demonstrate knowl edge and understanding of utilizing short stretch bandages and demonstrating independent wrapping to lower extremities by discharge. 2. The patient will demonstrate a reduction in edema by 20 percent or greater by discharge. 3. The patient will demonstrate proper donning and doffing of appropriate compression garment by discharge. TREATMENT PLAN: I plan to see the patient 2-3 visits to ensure the patient is understanding management of lymphedema, educating on manual lymph drainage, lymph exercises and proper donning and doffing of compression garments. A home exercise program will be desig cadence to meet the patient's needs and demonstrate level of understanding. G code status G8978 is CK, goal status 8979 is CJ. Vielka Baez OTR/L T: TREASURE JOB: [id number] <Electronically signed by Vielka Baez > 06/07/15 0846 CC: Signed For Medicare only, by signing this I certify the plan of care. Physicians Signature Date 07-Jun-2015 OT Discharge Summary Result: Comments: See Note; NOTES: [facility] [address] [place], [place] [address] Fax REHABILITATIO N SERVICES DISCHARGE SUMMARY MR#: [id number] Acct: [id number] Name: FEMI NAYLOR Rep #: [id number] : 1940 75 From: Vielka Baez Referring DrMacey: Tracey Moore Status: DIS RCR Eval Da te: Discharge Date: 05/29/15 DATE OF SERVICE: PHYSICIAN: Dr. Tracey Moore. This 75-year-old female was seen for initial occupational therapy evaluation on May 25, 2015. The patient was ref erred with a diagnosis of right lower extremity lymphedema. Today, she presents after utilizing short stretch bandages with a decrease in her limb size by 20 percent. The patient is agreeable to miladys nue with the short stretch bandaging and utilizing compression garment 20-30 mmHg. The patient demonstrated knowledge and understanding of therapeutic exercises that would be beneficial to her, utiliz ing Silver Sneakers and open pool time to help manage lymphedema. At this time, the patient has met functional goals set and is discharged. G code discharge status 8980 is CJ. LUIS Staley /L T: TREASURE JOB: [id number] <Electronically signed by Vielka Baez > 06/07/15 0846 CC: Signed 09-May-2015 Abdomen/Pelvis WITH Contrast Result: Comments: See Note; NOTES: [facility] Imaging Services [address] [place] [address] Nasreen 4d Abdomen/Pelvis WITH Contrast MR#: [id number] Acct: [id number] Name : FEMI NAYLOR Rep #: [id number] : 1940 F 75 From: Dayton Cordero MD PCP: Sheridan Zaman MD Status: REG CLI Study: Abdomen/Pelvis WITH Contrast Date of Exam: 05/09/15 Exam# [id number] O rdering Dr: Sheridan Zaman MD STUDY: CT ABDOMEN AND PELVIS WITH CONTRAST REASON FOR EXAM: Female, 75 years old. Bilateral lower extremity swelling. RADIATION DOSAGE (If Supplied By Facility): CT DIvol = ( 13.40 ) mGy, DLP = ( 1818.53 ) mGycm TECHNIQUE: Transaxial images were obtained from the dome of the diaphragm to the symphysis pubis without oral contrast. 100mL ml of Isovue 300 contras t was administered. Sagittal and coronal images were reconstructed. Delayed imaging was obtained as well. COMPARISON: Comparison is made with prior examination dated August 02, 2011. FINDINGS: Mild degree of linear scarring in the lingular segment of the left upper lobe. The previously seen nodular density is not seen at this time. Minimal scarring at the right lung base. The visualized portions of the heart are within normal limits. There is decreased attenuation of the liver consistent with steatosis. Stable 6 mm cyst in the dome of the right lobe of the liver. A tiny cyst is also seen along the anterior superior aspect of the left lobe of the liver. Normal gallbladder and extrahepatic biliary system. Normal spleen. There is diffuse atrophy o f the pancreas. Normal bilateral adrenal glands. Normal right kidney. Normal left kidney. There is a small hiatal hernia. Normal small intestine. Moderate amount of fecal material is seen in the rectosigmoid colon. The appendix is visualized and appears normal. There is scattered atherosclerotic calcification of the abdominal aorta, without a demonstrated aneurysm. Normal inferior vena cava . Normal retroperitoneum. Normal urinary bladder. There is absence of the uterus consistent with a prior hysterectomy. There is a small umbilical hernia containing fat. There are diffuse degenera tive changes of the visualized lumbar spine. IMPRESSION: No pelvic mass is seen. There has been essentially no change since prior study. Electronically Signed: Dayton Cordero MD at 12:40 EST Tel [phone], Service support [phone], CC: Sheridan Zaman MD Commercial Teller: Signed 22-Dec-2014 Ankle min 3 Views Result: Comments: See Note; NOTES: [facility] Imaging Services [address] [place] [address] Radiology Report MR#: [id number] Acct: [id number] Name: FEMI NAYLOR Rep #: [id number] : 1940 F 74 From: Sharri Boudreaux MD PCP: Sheridan Zaman MD Status: REG CLI Study: Ankle min 3 Views Date of Exam: 12/22/14 Exam# [id number] Ordering Dr: Camille Hernandez DO STUDY: X-RA Y - LEFT ANKLE REASON FOR EXAM: Female, 74 years old. Lateral ankle pain. TECHNIQUE: 3 view(s) of the ankle. COMPARISON: None. FINDINGS: Normal visualized d istal tibia and fibula. Normal medial and lateral malleoli. Normal tibiotalar articulation and ankle mortise. There are small superior and inferior calcaneal spurs. The visualized subtalar, talonav icular, calcaneocuboid and tarsal articulations are normal. There is marked soft tissue swelling over the lateral malleolus. IMPRESSION: Calcaneal spurs. Sof t tissue swelling. No acute osseous abnormality. Electronically Signed: Sharri Boudreaux MD at 14:24 EDT , Service support [phone], 0074 RAD/Ankle min 3 Views IMPRESSION: Calcaneal spurs. Soft tissue swelling. No acute osseous abnormality. Electronically Signed: Sharri Boudreaux MD at 14:24 EDT , Se rvice support [phone], CC: Camille Hernandez DO; Sheridan Zaman MD Commercial Teller: Signed 22-Dec-2014 Foot min 3 Views Result: Comments: See Note; NOTES: [facility] [address] [place] [address] Radiology Report MR#: [id number] Acct: [id number] Name: FEMI NAYLOR Rep #: [id number] : 1940 F 74 From: Sharri Boudreaux MD PCP: Sheridan Zamna MD Status: REG CLI Study: Foot min 3 Views Date of Exam: 12/22/14 Exam# [id number] Ordering Dr: Camille Hernandez DO STUDY: X-RAY - LEFT FOOT CLINICAL: Female, 74 years old. Pain across the top of the foot with swelling. No known injury. TECHNIQUE: 3 view(s) of the foot. COMPARISON: None. __ FINDINGS: There are small superior and inferior calcaneal spurs. Normal visualized subtalar, talonavicular, calcaneocuboid, tarsal and tarsometatarsal articulations. Normal metatarsi. There is degenerative arthrosis of the metatarsophalangeal joint of the hallux . Normal tibial and fibular sesamoid bones. There is degenerative arthrosis of the interphalangeal joint of the great toe. Nor mal phalanges of the great toe. There is mild arthrosis at the second through fifth metatarsal phalangeal and interphalangeal joints. There are hammertoe deformities. The soft tissue structures ar e unremarkable. IMPRESSION: Calcaneal spurs. Mild osteoarthritic change. Electronically Signed: Sharri Boudreaux MD at 14:25 EDT , S ervice support [phone], RAD/Foot min 3 Views IMPRESSION: Calcaneal spurs. Mild osteoarthritic change. Electronically Signed: Sharri Boudreaux MD at 14:25 EDT , Service support [phone], CC: Camille Hernandez DO; Sheridan Zaman MD Commercial Teller: Signed 08-Nov-2014 Knee 4 or More Views Result: Comments: See Note; NOTES: [facility] [address] [place] [address] Radiology Report MR#: [id number] Acct: [id number] Name: FEMI NAYLOR Rep #: [id number] : 1940 F 74 From: Sharri Boudreaux MD PCP: Sheridan Zaman MD Status: REG CLI Study: Knee 4 or More Views Date of Exam: 11/08/14 Exam# [id number] Ordering Dr: Camille Hernandez DO STUDY: X- RAY - LEFT KNEE REASON FOR EXAM: Female, 74 years old. Knee pain. TECHNIQUE: 4 view(s) of the knee. COMPARISON: None. FINDINGS: Normal visualized distal fem ur. Normal visualized proximal tibia and fibula. Normal proximal tibiofibular articulation. There is moderate degenerative arthrosis of the medial femorotibial compartment with moderate joint space narrowing. There is severe degenerative arthrosis of the lateral femorotibial compartment with severe joint space narrowing. There is moderate degenerative arthrosis of the patellofemoral articulatio n. There is a small suprapatellar joint effusion. The soft tissue structures are unremarkable. IMPRESSION: Tricompartmental arthrosis with suprapatellar effusi on. Electronically Signed: Sharri Boudreaux MD at 11:46 EDT , Service support [phone], CC: Camille Hernandez DO; Sheridan Zaman MD Commercial Teller: Signed 08-Jun-2014 Bilat Scrn Digital & CAD Result: Comments: See Note; NOTES: [facility] [address] [place] [address] Breast Imaging Report MR#: [id number] Acct: [id number] Name: FEMI NAYLOR Rep #: [id number] : 1940 F 74 From: Dayton Cordero MD PCP: Sheridan Zaman MD Status: REG CLI Exam# [id number] Ordering Dr: Sheridan Zaman MD MAMMOGRAPHY - BILATERAL SCREENING REASON FOR EXAM : Female, 74 years old. Routine annual screening examination. PERTINENT HISTORY: Mother with breast cancer. TECHNIQUE: Digital examination. Mediolateral oblique (MLO) and craniocaudad (CC) views o f both breasts were obtained. CAD: CAD was performed on this study. COMPARISON: Comparison is made with prior study dated June 07, 2013 and October 04, 2011. FINDINGS: Breast Composition: The breasts are almost entirely fatty. There are no dominant masses or suspicious calcifications. No other significant abnormalities are identified. There has been no significant change since the prior study. IMPRESSION: Stable bilateral screening mammogram. Yearly follow-up recommended. (A) _ ASSESSMENT CATEGORY: BIRADS Category 2: Benign. A letter regarding these results will be sent to the patient by the facility within 30 days. Approximately 10% of breast cancers are not detected by mammography. A normal mammogram should not delay biopsy of a clinically suspicious abnormality. Electronically Signed: Dayton Cordero MD at 9:08 EST Tel [phone], Service sup port [phone], CC: Sheridan Zaman MD Commercial Teller: Signed 08-Jun-2014 Dexa Bone Density Study (HP) Result: Comments: See Note; NOTES: [facility] [address] [place] [address] Bone Density Report MR#: [id number] Acct: [id number] Name: FEMI NAYLOR Rep #: [id number] : 1940 F 74 From: Dayton Cordero MD PCP: Sheridan Zaman MD Status: REG CLI Study: Dexa Bone Density Study (HP) Date of Exam: 06/08/14 Exam# [id number] Ordering Dr: Sheridan Zaman STUDY: DUAL ENERGY X-RAY ABSORPTIOMETRY / DXA REASON FOR EXAM: Female, 74 years old. The patient is postmenopausal. TECHNIQUE: Bone Mineral Density (BMD) measurements of lumbar spine and bila teral hips were obtained. COMPARISON: None. FINDINGS: Lumbar Spine (L1-L4): g/cm2 (1.102) / T-score (-0.5) / Z-score (1.2) Findings are suggestive of normal b one density with a low fracture risk. Left Femur Total: g/cm2 (0.975) / T-score (-0.3) / Z-score (1.4) Left Femoral Neck: g/cm2 (0.908) / T-score (0.9) / Z- score (0.9) Right Femur Total: g/cm2 (0.97 6) / T-score (-0.3) / Z-score (1.4) Right Femoral Neck: g/cm2 (0.899) / T-score (-1.0) / Z-score (0.9) IMPRESSION: The patient is considered normal as outlined below according to World David Organization (WHO) criteria with a low fracture risk. Reference Information: The T- score is the number of standard deviations abov e or below the standard which is normal for young adults at their peak bone mineral density. The World Health Organization (WHO) interprets the T-scores as follows: Above -1 Normal bone density Be tween -1 and -2.5 Osteopenia Equal to / or below -2.5 Osteoporosis As a practical clinical guideline, osteopenia may be graded as follows: Mild -1 through -1.5 Moderate -1.6 through -2.0 Severe -2 .1 through -2.4 The Z-score is the number of standard deviations above or below age-matched controls. A Z-score of less than -1.5 would be considered abnormal. References: 1. NIH Osteoporosis and Related Bone Diseases http://www.osteo.org 2. International Society for Clinical Densitometry http://www.iscd.org 3. National Osteoporosis Foundation http://www.nof.org Electronically Signed: Jose J Cordero MD at 11:28 EST Tel [phone], Service support [phone], CC: Sheridan Zaman MD Commercial Teller: Signed 13-Jan-2014 PT Discharge Summary Result: Comments: See Note; NOTES: [facility] [facility] [address] [place], [place] [address] Fax REHABILITATION SERVICES DISCHARGE SUMMARY MR#: [id number] Acct: [id number] Name: FEMI NAYLOR Rep #: [id number] : 1940 73 From: Alisha Pandey Referring DrMacey: Alec Mcwilliams Status: PRE RCR Eval Date: Discharge Date: DATE OF SERVICE: Femi Naylor was referred to our care by Dr. Mcwilliams on the date of November 10, 2013. She attended physical therapy for 7 sessions. Her last session, she canceled because she was ill and did not reschedule and has not been seen since December 01, 2013. PT feels at this point, it is appropriate that she be discharged from [facility] and return to doctor's ca re. Alisha Pandey DPT T: NTS JOB: [id number] <Electronically signed by Alisha Pandey > 01/13/14 0737 CC: Signed 20-Dec-2013 L/S Spine Min 4 Views Result: Comments: See Note; NOTES: [facility] [address] [place] [address] Radiology Report MR#: [id number] Acct: [id number] Name: FEMI NAYLOR Rep #: [id number] : 1940 F 73 From: Dayton Cordero MD PCP: Sheridan Zaman MD Status: REG CLI Study: L/S Spine Min 4 Views Date of Exam: 12/20/13 Exam# [id number] Ordering Dr: Alec Mcwilliams Y: X-RAY - LUMBAR SPINE REASON FOR EXAM: Female, 73 years old. Back pain. TECHNIQUE: 5 view(s) of the lumbar spine were obtained including oblique views. COMPARISON: None FINDINGS: Normal lumbar lordosis. There is no substantial scoliosis. Minimal anterior listhesis of L3 on L4 and L4 on L5. There is multilevel endplate spondylosis of the lumbar verteb kelsy. There is multi-level degenerative disc disease with multi-level disc space narrowing. Facet joint osteoarthritis. The soft tissue structures are unremarkable. __ IMPRESSION: Degenerative changes of the spine, as detailed above. Electronically Signed: Dayton Cordero MD at 14:50 EDT Tel [phone], Service support [phone], Fax CC: Sheridan Zaman MD; Alec Mcwilliams Commercial Teller: Signed 03-Dec-2013 Foot min 3 Views Result: Comments: See Note; NOTES: [facility] [address] [place] [address] Radiology Report MR#: [id number] Acct: [id number] Name: FEMI NAYLOR Rep #: [id number] : 1940 F 73 From: Dayton Cordero MD PCP: Sheridan Zaman MD Status: REG CLI Study: Foot min 3 Views Date of Exam: 12/03/13 Exam# [id number] Ordering Dr: Alec Mcwilliams DO STUDY: X- RAY - RIGHT FOOT CLINICAL: Female, 73 years old. Pain of the third fourth and fifth metatarsals following injury. TECHNIQUE: 3 view(s) of the foot. COMPARISON: None. FINDINGS: There is a plantar calcaneal spur. Normal visualized subtalar, talonavicular, calcaneocuboid, tarsal and tarsometatarsal articulations. Normal metatarsi. Normal metatarsophal angeal joint of the great toe. Normal tibial and fibular sesamoid bones. Normal interphalangeal joint of the great toe. Normal phalanges of the great toe. Normal second through fifth metatarsophalan geal joints. Normal interphalangeal joints and phalanges of the lesser toes. Periarticular osteopenia. RSD should be ruled out. Diffuse soft tissue swelling. IMPRESSION: Soft tissue swelling. RSD should be ruled out. Electronically Signed: Dayton Cordero MD at 14:32 EDT Tel [phone], Service support [phone], RAD/Foot min 3 Views IMPRESSION: Soft tissue swelling. RSD should be ruled out. Electronically Signed: Dayton Cordero MD at 14:32 EDT Tel [phone], Service support [phone], CC: Sheridan Zaman MD; Alec Mcwilliams Commercial Teller: Signed 11-Nov-2013 Inital Evaluation - PT Result: Comments: See Note; NOTES: [facility] [address] [facility] [address] [place], [place] [address] Fax REHABILITATION SERVICES INITIAL EVALUATION MR#: [id number] Acct: [id number] Name: FEMI NAYLOR Rep #: [id number] : 1940 73 From: Alisha Pandey Referring Dr.: Alec Mcwilliams Status: REG RCR Insurance: [facility] R O Eval Date: DATE OF SERVICE: 11/10/2013 Femi Naylor is a 73-year-old female referred to physical therapy by Dr. Mcwilliams with a medical diagnosis of left hip. SUBJECTIVE: The patient repo rts that she has had ongoing hip problems on the right side for approximately [address] Izaiah Stuart, PT, who did a balance assessment and noticed that she was having significant problems w ith her right knee. She had a right total knee replacement. When she was rehabbing for her right total knee replacement, she was doing a leg press and felt a pop in her left knee and has now had left hip problems. She reports that she had cortisone injection 2 weeks ago with decreased pain, but not decreased hip pain. She reports it calmed it down, but did not make it go away. Pain at its wors t is a 4/10, best is 0/10. She reports she has significant left knee pain, pinching in the meniscus in the left, aggravated by rolling in bed. Eases are a glass of wine before she goes to bed. The pa roberta reports she has been bending over gardening seems to start up the problems. 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 She has no other exercises except for those classes. She does wear a shoe lift on the left side. PAST MEDICAL HISTORY: Includes a right total knee replacement [place] and anxiety. MEDICATIONS: Ibuprofen. OBJECTIVE: POSTURE: Forward head, rounded lucius ulders, increased kyphosis. GAIT: Antalgic. She has decreased stance time on the left lower extremity. She walks and has a Trendelenburg gait pattern. PALPATION: Tender along paraspinals and the glu teus on the upper right side and the left side. RANGE OF MOTION: Significant knee pain with any motion of knee, flexion or extension. When attempting to do any hip motion, she reports pain in her kn ee. Hip is within normal limits. SENSATION/REFLEXES: Intact. FLEXIBILITY: Hamstrings have a moderate restriction, gastrocs has a moderate restriction. Hip flexibility has a severe restriction. ST RENGTH: Hip is 2+/5. She is unable to straight leg raise without assistance. BALANCE: She is unable to single leg stance; however, she can weight shift. SPECIAL TESTS: Ascend and descend stairs non- reciprocally. INITIAL TREATMENT EVALUATION: Educated the patient on diagnosis and plan of care. The patient agreeable to plan of care. Instructed the patient on home exercise program which included postural education. ASSESSMENT: Femi Naylor is a 73-year-old female referred to physical therapy with medical diagnosis of left hip pain. The patient presents with hypomobility. The patient has decreased lower extremity strength, flexibility, muscular endurance and decreased core strength/stabilization and no abnormal gait pattern. The patient's rehabilitation potential is fair. The rolando ent will benefit from skilled physical therapy to solve some problems and meet the following goals. PROBLEM LIST: 1. Decreased knowledge of exercise program. 2. Decreased strength. 3. Abnormal ga it pattern. 4. Decreased core strength/stabilization. GOALS: 1. The patient will be independent with home exercise program progression. 2. The patient will demonstrate 4+/5 strength in the left low er extremity where deficit to ease ADLs. 3. The patient will ambulate greater than 300 feet with a more normalized gait pattern and least restrictive device. 4. The patient will maintain proper pos ture throughout treatment session to demonstrate increased core strength/stabilization. PLAN OF CARE: The patient will be seen 2-3 times a week for 4 weeks. The patient will be educated on diagno sis and plan of care. The patient will be educated on home exercise program progression. Interventions to include therapeutic exercise, therapeutic activity, neuromuscular education, gait and manual modalities. The patient's anticipated discharge plan is independent with home exercise program and return to [place] [employer] with decreased pain. Alisha Pandey DPT T: TREASURE JOB: [id number] &amp ;#60;Electronically signed by Alisha Pandey > 11/11/13 0947 CC: Signed For Medicare only, by signing this I certify the plan of care. Physicians Signature Date 07-Jun-2013 Bilat Scrn Digital & CAD Result: Comments: See Note; NOTES: [facility] [address] [facility] [place] [address] Breast Imaging Report MR#: [id number] Acct: [id number] Name: FEMI NAYLOR Rep #: [id number] : 1940 F 73 From: Dayton Cordero MD PCP: Sheridan Zaman MD Status: REG CLI Exam# [id number] Ordering Dr: Sheridan Zaman MD MAMMOGRAPHY - BILATERAL SCREENING REASON FOR EXAM : Female, 73 years old. Routine annual screening examination. PERTINENT HISTORY: Mother with breast cancer. TECHNIQUE: Digital examination. Mediolateral oblique (MLO) and craniocaudad (CC) views o f both breasts were obtained. CAD: CAD was performed on this study. COMPARISON: Comparison is made with prior examination dated October 04, 2011 and August 28, 2010. ____ FINDINGS: The breast composition is almost entirely fat. Glandular tissue is less than 25%. There are no dominant masses or suspicious calcifications. No other significant abnormalities are identified. There has been no significant change since the prior study. IMPRESSION: Stable bilateral screening mammogram. Yearly follow-up recommended. (A) ___ ASSESSMENT CATEGORY: BIRADS Category 2: Benign finding(s). A letter regarding these results will be sent to the patient by the facility within 30 days. Approximate ly 10% of breast cancers are not detected by mammography. A normal mammogram should not delay biopsy of a clinically suspicious abnormality. Electronically Signed: Dayton Cordero M.D. at 16:31 EST , Service support [phone], CC: Sheridan Zaman MD Commercial Teller: Signed Immunization Name Dates Details Influenza, injectable, quadrivalent Comments: [facility] 03-20 Family History Unknown Family Member Name Dates Details Daughter 1 Comments: healthy Status: Active Father Comments: bladder cancer in 70's, mild [place] later, alcoholism after first . Status: Active Mother Comments: , 56 y.o. breast at 35 yo & 56 and ovarian cancer 56 yo diabetic. 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 chair yoga at [employer] with dragan bernardo done silver sneakereliana Status: Active Living Situation Comments: , Lives with spouse Status: Active No Drug Use Status: Active Non Smoker/No Tobacco Use Status: Active Tobacco use: Never smoker. Status: Active Smoking Status Name Dates Details Never smoker Vital Signs Date Test Result Details [id number]:04 Comments: had half ativan this am Temperature 97.6 f Comments: Method: Temporal Pulse 70 /min Comments: Pattern: Regular Respiration Rate 20 /min Comments: Pattern: Unlabored O2 SAT 98 % Comments: Room air BP Systolic 104 mm[Hg] Comments: Patient Position: Sitting; Cuff Location: Left Arm; Cuff Size: Large BP Diastolic 74 mm[Hg] Comments: Patient Position: Sitting; Cuff Location: Left Arm; Cuff Size: Large Weight 196 lb Height 66 in Body Mass Index Calculated 31.63 kg/m2 Body Surface Area Calculated 1.98 m2 :10 Temperature 98 f Comments: Method: Temporal Pulse 82 /min Comments: Pattern: Regular Respiration Rate 20 /min Comments: Pattern: Unlabored O2 SAT 97 % Comments: Room air BP Systolic 140 mm[Hg] Comments: Patient Position: Sitting; Cuff Location: Left Arm; Cuff Size: Large BP Diastolic 80 mm[Hg] Comments: Patient Position: Sitting; Cuff Location: Left Arm; Cuff Size: Large Weight 196 lb Height 66 in Body Mass Index Calculated 31.63 kg/m2 Body Surface Area Calculated 1.98 m2 :56 Temperature 97.8 f Comments: Method: Temporal Pulse 84 /min Comments: Pattern: Regular Respiration Rate 20 /min Comments: Pattern: Unlabored O2 SAT 98 % Comments: Room air BP Systolic 118 mm[Hg] Comments: Patient Position: Sitting; Cuff Location: Left Arm; Cuff Size: Large BP Diastolic 80 mm[Hg] Comments: Patient Position: Sitting; Cuff Location: Left Arm; Cuff Size: Large Weight 195 lb Height 67 in Body Mass Index Calculated 30.54 kg/m2 Body Surface Area Calculated 2 m2 [id number]:28 Weight 195 lb Height 67 in Body Mass Index Calculated 30.54 kg/m2 Body Surface Area Calculated 2 m2 :34 Temperature 97.9 f Comments: Method: Temporal Pulse 84 /min Comments: Pattern: Regular Respiration Rate 20 /min Comments: Pattern: Unlabored O2 SAT 97 % Comments: Room air BP Systolic 118 mm[Hg] Comments: Patient Position: Sitting; Cuff Location: Left Arm; Cuff Size: Large BP Diastolic 78 mm[Hg] Comments: Patient Position: Sitting; Cuff Location: Left Arm; Cuff Size: Large Weight 196 lb Height 67 in Body Mass Index Calculated 30.7 kg/m2 Body Surface Area Calculated 2 m2 :12 Temperature 97.9 f Comments: Method: Temporal Pulse 90 /min Comments: Pattern: Regular Respiration Rate 20 /min Comments: Pattern: Unlabored O2 SAT 98 % Comments: Room air BP Systolic 120 mm[Hg] Comments: Patient Position: Sitting; Cuff Location: Left Arm; Cuff Size: Large BP Diastolic 74 mm[Hg] Comments: Patient Position: Sitting; Cuff Location: Left Arm; Cuff Size: Large Weight 196 lb Height 67 in Body Mass Index Calculated 30.7 kg/m2 Body Surface Area Calculated 2 m2 :10 Temperature 97.2 f Comments: Method: Temporal Pulse 93 /min Comments: Pattern: Regular Respiration Rate 16 /min Comments: Pattern: Unlabored O2 SAT 97 % Comments: Room air BP Systolic 132 mm[Hg] Comments: Patient Position: Sitting; Cuff Location: Left Arm; Cuff Size: Standard BP Diastolic 70 mm[Hg] Comments: Patient Position: Sitting; Cuff Location: Left Arm; Cuff Size: Standard Weight 195 lb Height 67 in Body Mass Index Calculated 30.54 kg/m2 Body Surface Area Calculated 2 m2 :18 Temperature 97 f Comments: Method: Temporal Pulse 83 /min Comments: Pattern: Regular Respiration Rate 18 /min Comments: Pattern: Unlabored O2 SAT 97 % Comments: Room air BP Systolic 142 mm[Hg] Comments: Patient Position: Sitting; Cuff Location: Left Arm; Cuff Size: Large BP Diastolic 82 mm[Hg] Comments: Patient Position: Sitting; Cuff Location: Left Arm; Cuff Size: Large Weight 192 lb Height 67 in Body Mass Index Calculated 30.07 kg/m2 Body Surface Area Calculated 1.99 m2 :05 Temperature 97.6 f Comments: Method: Temporal Pulse 76 /min Comments: Pattern: Regular Respiration Rate 18 /min Comments: Pattern: Unlabored O2 SAT 98 % Comments: Room air BP Systolic 142 mm[Hg] Comments: Patient Position: Sitting; Cuff Location: Left Arm; Cuff Size: Standard BP Diastolic 86 mm[Hg] Comments: Patient Position: Sitting; Cuff Location: Left Arm; Cuff Size: Standard Weight 192 lb Height 67 in Body Mass Index Calculated 30.07 kg/m2 Body Surface Area Calculated 1.99 m2 :28 Temperature 97.6 f Comments: Method: Temporal Pulse 72 /min Comments: Pattern: Regular Respiration Rate 20 /min Comments: Pattern: Unlabored O2 SAT 97 % Comments: Room air BP Systolic 140 mm[Hg] Comments: Patient Position: Sitting; Cuff Location: Left Arm; Cuff Size: Large BP Diastolic 90 mm[Hg] Comments: Patient Position: Sitting; Cuff Location: Left Arm; Cuff Size: Large Weight 192 lb Height 67 in Body Mass Index Calculated 30.07 kg/m2 Body Surface Area Calculated 1.99 m2 :29 Temperature 96.5 f Comments: Method: Temporal Pulse 83 /min Comments: Pattern: Regular Respiration Rate 16 /min Comments: Pattern: Unlabored O2 SAT 98 % Comments: Room air BP Systolic 138 mm[Hg] Comments: Patient Position: Sitting; Cuff Location: Left Arm; Cuff Size: Standard BP Diastolic 62 mm[Hg] Comments: Patient Position: Sitting; Cuff Location: Left Arm; Cuff Size: Standard Weight 192 lb Height 67 in Body Mass Index Calculated 30.07 kg/m2 Body Surface Area Calculated 1.99 m2 :03 Temperature 97.6 f Comments: Method: Temporal Pulse 70 /min Comments: Pattern: Regular Respiration Rate 20 /min Comments: Pattern: Unlabored O2 SAT 95 % Comments: Room air BP Systolic 120 mm[Hg] Comments: Patient Position: Sitting; Cuff Location: Left Arm; Cuff Size: Large BP Diastolic 78 mm[Hg] Comments: Patient Position: Sitting; Cuff Location: Left Arm; Cuff Size: Large Weight 195 lb Height 67 in Body Mass Index Calculated 30.54 kg/m2 Body Surface Area Calculated 2 m2 :14 Pulse 87 /min Comments: Pattern: Regular Respiration Rate 16 /min Comments: Pattern: Unlabored O2 SAT 98 % Comments: Room air BP Systolic 126 mm[Hg] Comments: Patient Position: Sitting; Cuff Location: Left Arm; Cuff Size: Standard BP Diastolic 64 mm[Hg] Comments: Patient Position: Sitting; Cuff Location: Left Arm; Cuff Size: Standard Weight 195 lb Height 67 in Body Mass Index Calculated 30.54 kg/m2 Body Surface Area Calculated 2 m2 :52 Temperature 97.8 f Comments: Method: Temporal Pulse 86 /min Comments: Pattern: Regular Respiration Rate 20 /min Comments: Pattern: Unlabored O2 SAT 97 % Comments: Room air BP Systolic 122 mm[Hg] Comments: Patient Position: Sitting; Cuff Location: Left Arm; Cuff Size: Large BP Diastolic 78 mm[Hg] Comments: Patient Position: Sitting; Cuff Location: Left Arm; Cuff Size: Large Weight 195 lb Height 67 in Body Mass Index Calculated 30.54 kg/m2 Body Surface Area Calculated 2 m2 :37 Temperature 97.6 f Comments: Method: Temporal Pulse 74 /min Comments: Pattern: Regular Respiration Rate 20 /min Comments: Pattern: Unlabored O2 SAT 98 % Comments: Room air BP Systolic 120 mm[Hg] Comments: Patient Position: Sitting; Cuff Location: Left Arm; Cuff Size: Large BP Diastolic 78 mm[Hg] Comments: Patient Position: Sitting; Cuff Location: Left Arm; Cuff Size: Large Weight 188 lb Height 67 in Body Mass Index Calculated 29.44 kg/m2 Body Surface Area Calculated 1.97 m2 :12 Temperature 97.9 f Comments: Method: Temporal Pulse 84 /min Comments: Pattern: Regular Respiration Rate 20 /min Comments: Pattern: Unlabored O2 SAT 97 % Comments: Room air BP Systolic 140 mm[Hg] Comments: Patient Position: Sitting; Cuff Location: Left Arm; Cuff Size: Large BP Diastolic 90 mm[Hg] Comments: Patient Position: Sitting; Cuff Location: Left Arm; Cuff Size: Large Weight 188 lb Height 67 in Body Mass Index Calculated 29.44 kg/m2 Body Surface Area Calculated 1.97 m2 :23 Temperature 97.6 f Comments: Method: Temporal Pulse 74 /min Comments: Pattern: Regular Respiration Rate 20 /min Comments: Pattern: Unlabored O2 SAT 98 % Comments: Room air BP Systolic 120 mm[Hg] Comments: Patient Position: Sitting; Cuff Location: Left Arm; Cuff Size: Large BP Diastolic 80 mm[Hg] Comments: Patient Position: Sitting; Cuff Location: Left Arm; Cuff Size: Large Weight 188 lb Height 67 in Body Mass Index Calculated 29.44 kg/m2 Body Surface Area Calculated 1.97 m2 :03 Temperature 97.6 f Comments: Method: Temporal Pulse 82 /min Comments: Pattern: Regular Respiration Rate 20 /min Comments: Pattern: Unlabored O2 SAT 97 % Comments: Room air BP Systolic 116 mm[Hg] Comments: Patient Position: Sitting; Cuff Location: Left Arm; Cuff Size: Large BP Diastolic 76 mm[Hg] Comments: Patient Position: Sitting; Cuff Location: Left Arm; Cuff Size: Large Weight 188 lb Height 67 in Body Mass Index Calculated 29.44 kg/m2 Body Surface Area Calculated 1.97 m2 :55 Temperature 97.6 f Comments: Method: Temporal Pulse 86 /min Comments: Pattern: Regular Respiration Rate 20 /min Comments: Pattern: Unlabored O2 SAT 97 % Comments: Room air BP Systolic 120 mm[Hg] Comments: Patient Position: Sitting; Cuff Location: Left Arm; Cuff Size: Large BP Diastolic 80 mm[Hg] Comments: Patient Position: Sitting; Cuff Location: Left Arm; Cuff Size: Large Weight 193 lb Height 67 in Body Mass Index Calculated 30.23 kg/m2 Body Surface Area Calculated 1.99 m2 :44 Temperature 96.8 f Pulse 68 /min Comments: Pattern: Regular Respiration Rate 16 /min Comments: Pattern: Unlabored O2 SAT 94 % Comments: Room air BP Systolic 124 mm[Hg] Comments: Patient Position: Sitting; Cuff Location: Left Arm; Cuff Size: Standard BP Diastolic 82 mm[Hg] Comments: Patient Position: Sitting; Cuff Location: Left Arm; Cuff Size: Standard Weight 193 lb Height 67 in Body Mass Index Calculated 30.23 kg/m2 Body Surface Area Calculated 1.99 m2 :40 Temperature 97.9 f Comments: Method: Temporal Pulse 78 /min Comments: Pattern: Regular Respiration Rate 18 /min Comments: Pattern: Unlabored O2 SAT 98 % Comments: Room air BP Systolic 146 mm[Hg] Comments: Patient Position: Sitting; Cuff Location: Left Arm; Cuff Size: Large BP Diastolic 84 mm[Hg] Comments: Patient Position: Sitting; Cuff Location: Left Arm; Cuff Size: Large Weight 193 lb Height 67 in Body Mass Index Calculated 30.23 kg/m2 Body Surface Area Calculated 1.99 m2 :07 Temperature 97.6 f Comments: Method: Oral Pulse 86 /min Comments: Pattern: Regular Respiration Rate 16 /min Comments: Pattern: Unlabored O2 SAT 98 % Comments: Room air BP Systolic 118 mm[Hg] Comments: Patient Position: Sitting; Cuff Location: Left Arm; Cuff Size: Standard BP Diastolic 70 mm[Hg] Comments: Patient Position: Sitting; Cuff Location: Left Arm; Cuff Size: Standard Weight 190.375 lb Height 67 in Body Mass Index Calculated 29.82 kg/m2 Body Surface Area Calculated 1.98 m2 :44 Temperature 97.1 f Comments: Method: Oral Pulse 89 /min Comments: Pattern: Regular Respiration Rate 16 /min Comments: Pattern: Unlabored O2 SAT 98 % Comments: Room air BP Systolic 124 mm[Hg] Comments: Patient Position: Sitting; Cuff Location: Left Arm; Cuff Size: Standard BP Diastolic 68 mm[Hg] Comments: Patient Position: Sitting; Cuff Location: Left Arm; Cuff Size: Standard Weight 190.375 lb Height 67 in Body Mass Index Calculated 29.82 kg/m2 Body Surface Area Calculated 1.98 m2 :07 Temperature 98.2 f Comments: Method: Oral Pulse 102 /min Comments: Pattern: Regular Respiration Rate 16 /min O2 SAT 97 % Comments: Room air BP Systolic 160 mm[Hg] Comments: Patient Position: Sitting; Cuff Location: Left Arm; Cuff Size: Standard BP Diastolic 98 mm[Hg] Comments: Patient Position: Sitting; Cuff Location: Left Arm; Cuff Size: Standard Weight 190.375 lb Height 67 in Body Mass Index Calculated 29.82 kg/m2 Body Surface Area Calculated 1.98 m2 :51 Temperature 97.5 f Pulse 98 /min Comments: Pattern: Regular Respiration Rate 18 /min Comments: Pattern: Unlabored O2 SAT 97 % Comments: Room air BP Systolic 116 mm[Hg] Comments: Patient Position: Sitting; Cuff Location: Left Arm; Cuff Size: Standard BP Diastolic 78 mm[Hg] Comments: Patient Position: Sitting; Cuff Location: Left Arm; Cuff Size: Standard Weight 189.25 lb Height 67 in Body Mass Index Calculated 29.64 kg/m2 Body Surface Area Calculated 1.98 m2 :22 Temperature 97 f Pulse 98 /min Comments: Pattern: Regular Respiration Rate 16 /min Comments: Pattern: Unlabored O2 SAT 98 % Comments: Room air BP Systolic 122 mm[Hg] Comments: Patient Position: Sitting; Cuff Location: Left Arm; Cuff Size: Standard BP Diastolic 78 mm[Hg] Comments: Patient Position: Sitting; Cuff Location: Left Arm; Cuff Size: Standard Weight 189.25 lb Height 67 in Body Mass Index Calculated 29.64 kg/m2 Body Surface Area Calculated 1.98 m2 :08 Temperature 96.3 f Comments: Method: Temporal Pulse 87 /min Comments: Pattern: Regular Respiration Rate 18 /min Comments: Pattern: Unlabored O2 SAT 98 % Comments: Room air BP Systolic 137 mm[Hg] Comments: Patient Position: Sitting; Cuff Location: Left Arm; Cuff Size: Standard BP Diastolic 86 mm[Hg] Comments: Patient Position: Sitting; Cuff Location: Left Arm; Cuff Size: Standard Weight 189.25 lb Height 67 in Body Mass Index Calculated 29.64 kg/m2 Body Surface Area Calculated 1.98 m2 :20 Pulse 93 /min Comments: Pattern: Regular Respiration Rate 16 /min Comments: Pattern: Unlabored BP Systolic 115 mm[Hg] Comments: Patient Position: Sitting; Cuff Location: Left Arm; Cuff Size: Standard BP Diastolic 70 mm[Hg] Comments: Patient Position: Sitting; Cuff Location: Left Arm; Cuff Size: Standard Weight 194.25 lb Height 67 in Body Mass Index Calculated 30.42 kg/m2 Body Surface Area Calculated 2 m2 :48 Temperature 97 f Comments: Method: Temporal Pulse 83 /min Comments: Pattern: Regular Respiration Rate 15 /min Comments: Pattern: Unlabored O2 SAT 97 % Comments: Room air BP Systolic 122 mm[Hg] Comments: Patient Position: Sitting; Cuff Location: Left Arm; Cuff Size: Standard BP Diastolic 74 mm[Hg] Comments: Patient Position: Sitting; Cuff Location: Left Arm; Cuff Size: Standard Weight 192.4 lb Height 67 in Body Mass Index Calculated 30.13 kg/m2 Body Surface Area Calculated 1.99 m2 :13 Temperature 97.2 f Pulse 82 /min Comments: Pattern: Regular Respiration Rate 16 /min Comments: Pattern: Unlabored BP Systolic 140 mm[Hg] Comments: Patient Position: Sitting; Cuff Location: Left Arm; Cuff Size: Large BP Diastolic 82 mm[Hg] Comments: Patient Position: Sitting; Cuff Location: Left Arm; Cuff Size: Large Weight 188 lb Height 67 in Body Mass Index Calculated 29.44 kg/m2 Body Surface Area Calculated 1.97 m2 :40 Temperature 97.6 f Comments: Method: Oral Pulse 70 /min Comments: Pattern: Regular Respiration Rate 20 /min Comments: Pattern: Unlabored BP Systolic 142 mm[Hg] Comments: Patient Position: Sitting; Cuff Location: Left Arm; Cuff Size: Large BP Diastolic 84 mm[Hg] Comments: Patient Position: Sitting; Cuff Location: Left Arm; Cuff Size: Large Weight 185 lb Height 67 in Body Mass Index Calculated 28.97 kg/m2 Body Surface Area Calculated 1.96 m2 :04 Temperature 97.4 f Comments: Method: Oral Pulse 111 /min Comments: Pattern: Regular Respiration Rate 20 /min Comments: Pattern: Unlabored O2 SAT 98 % Comments: Room air BP Systolic 120 mm[Hg] Comments: Patient Position: Sitting; Cuff Location: Left Arm; Cuff Size: Large BP Diastolic 78 mm[Hg] Comments: Patient Position: Sitting; Cuff Location: Left Arm; Cuff Size: Large Weight 185 lb Height 67 in Body Mass Index Calculated 28.97 kg/m2 Body Surface Area Calculated 1.96 m2 :34 Temperature 98.5 f Comments: Method: Oral Pulse 70 /min Comments: Pattern: Regular Respiration Rate 16 /min Comments: Pattern: Unlabored BP Systolic 118 mm[Hg] Comments: Patient Position: Sitting; Cuff Location: Left Arm; Cuff Size: Standard BP Diastolic 80 mm[Hg] Comments: Patient Position: Sitting; Cuff Location: Left Arm; Cuff Size: Standard Weight 185 lb Height 67 in Body Mass Index Calculated 28.97 kg/m2 Body Surface Area Calculated 1.96 m2 :07 Temperature 98 f Comments: Method: Oral Pulse 72 /min Comments: Pattern: Regular Respiration Rate 18 /min Comments: Pattern: Unlabored BP Systolic 118 mm[Hg] Comments: Patient Position: Sitting; Cuff Location: Left Arm; Cuff Size: Standard BP Diastolic 72 mm[Hg] Comments: Patient Position: Sitting; Cuff Location: Left Arm; Cuff Size: Standard Weight 185 lb Height 67 in Body Mass Index Calculated 28.97 kg/m2 Body Surface Area Calculated 1.96 m2 :28 Temperature 98 f Pulse 72 /min Comments: Pattern: Regular Respiration Rate 18 /min Comments: Pattern: Unlabored BP Systolic 128 mm[Hg] Comments: Patient Position: Sitting; Cuff Location: Left Arm; Cuff Size: Large BP Diastolic 72 mm[Hg] Comments: Patient Position: Sitting; Cuff Location: Left Arm; Cuff Size: Large Weight 185 lb Height 67 in Body Mass Index Calculated 28.97 kg/m2 Body Surface Area Calculated 1.96 m2 :25 Temperature 98.2 f Comments: Method: Oral Pulse 72 /min Comments: Pattern: Regular Respiration Rate 16 /min Comments: Pattern: Unlabored BP Systolic 132 mm[Hg] Comments: Patient Position: Sitting; Cuff Location: Left Arm; Cuff Size: Standard BP Diastolic 76 mm[Hg] Comments: Patient Position: Sitting; Cuff Location: Left Arm; Cuff Size: Standard Weight 185 lb Height 67 in Body Mass Index Calculated 28.97 kg/m2 Body Surface Area Calculated 1.96 m2 :07 Temperature 97.9 f Comments: Method: Oral Pulse 76 /min Comments: Pattern: Regular Respiration Rate 16 /min Comments: Pattern: Unlabored BP Systolic 130 mm[Hg] Comments: Patient Position: Sitting; Cuff Location: Left Arm; Cuff Size: Large BP Diastolic 82 mm[Hg] Comments: Patient Position: Sitting; Cuff Location: Left Arm; Cuff Size: Large Weight 185 lb Height 67 in Body Mass Index Calculated 28.97 kg/m2 Body Surface Area Calculated 1.96 m2 :55 Temperature 97.2 f Pulse 72 /min Comments: Pattern: Regular Respiration Rate 18 /min Comments: Pattern: Unlabored BP Systolic 118 mm[Hg] Comments: Patient Position: Sitting; Cuff Location: Left Arm; Cuff Size: Large BP Diastolic 72 mm[Hg] Comments: Patient Position: Sitting; Cuff Location: Left Arm; Cuff Size: Large Weight 184 lb Height 67 in Body Mass Index Calculated 28.82 kg/m2 Body Surface Area Calculated 1.95 m2 :43 Comments: patient refuses weight today Temperature 98 f Comments: Method: Oral Pulse 64 /min Comments: Pattern: Regular Respiration Rate 18 /min Comments: Pattern: Unlabored BP Systolic 120 mm[Hg] Comments: Patient Position: Sitting; Cuff Location: Left Arm; Cuff Size: Standard BP Diastolic 78 mm[Hg] Comments: Patient Position: Sitting; Cuff Location: Left Arm; Cuff Size: Standard Height 67 in :36 Temperature 97.9 f Comments: Method: Oral Pulse 68 /min Comments: Pattern: Regular Respiration Rate 18 /min Comments: Pattern: Unlabored BP Systolic 124 mm[Hg] Comments: Patient Position: Sitting; Cuff Location: Left Arm; Cuff Size: Standard BP Diastolic 78 mm[Hg] Comments: Patient Position: Sitting; Cuff Location: Left Arm; Cuff Size: Standard Weight 183 lb Height 67 in Body Mass Index Calculated 28.66 kg/m2 Body Surface Area Calculated 1.95 m2 :38 Temperature 97.9 f Comments: Method: Oral Pulse 74 /min Comments: Pattern: Regular Respiration Rate 18 /min Comments: Pattern: Unlabored BP Systolic 120 mm[Hg] Comments: Patient Position: Sitting; Cuff Location: Left Arm; Cuff Size: Standard BP Diastolic 80 mm[Hg] Comments: Patient Position: Sitting; Cuff Location: Left Arm; Cuff Size: Standard Weight 182 lb Height 67 in Body Mass Index Calculated 28.5 kg/m2 Body Surface Area Calculated 1.94 m2 :44 Temperature 98.1 f Comments: Method: Oral Pulse 85 /min Comments: Pattern: Regular Respiration Rate 18 /min Comments: Pattern: Unlabored O2 SAT 98 % Comments: Room air BP Systolic 130 mm[Hg] Comments: Patient Position: Sitting; Cuff Location: Left Arm; Cuff Size: Standard BP Diastolic 78 mm[Hg] Comments: Patient Position: Sitting; Cuff Location: Left Arm; Cuff Size: Standard Weight 182 lb Height 67 in Body Mass Index Calculated 28.5 kg/m2 Body Surface Area Calculated 1.94 m2 :45 Temperature 98.2 f Comments: Method: Oral Pulse 76 /min Comments: Pattern: Regular Respiration Rate 16 /min Comments: Pattern: Unlabored BP Systolic 124 mm[Hg] Comments: Patient Position: Sitting; Cuff Location: Left Arm; Cuff Size: Standard BP Diastolic 64 mm[Hg] Comments: Patient Position: Sitting; Cuff Location: Left Arm; Cuff Size: Standard Weight 182 lb Height 67 in Body Mass Index Calculated 28.5 kg/m2 Body Surface Area Calculated 1.94 m2 :48 Temperature 97.9 f Comments: Method: Oral Pulse 72 /min Comments: Pattern: Regular Respiration Rate 16 /min Comments: Pattern: Unlabored BP Systolic 138 mm[Hg] Comments: Patient Position: Sitting; Cuff Location: Left Arm; Cuff Size: Standard BP Diastolic 76 mm[Hg] Comments: Patient Position: Sitting; Cuff Location: Left Arm; Cuff Size: Standard Weight 188.7 lb Height 67 in Body Mass Index Calculated 29.55 kg/m2 Body Surface Area Calculated 1.97 m2 :54 Temperature 97.7 f Comments: Method: Oral Pulse 74 /min Comments: Pattern: Regular Respiration Rate 18 /min Comments: Pattern: Unlabored BP Systolic 134 mm[Hg] Comments: Patient Position: Sitting; Cuff Location: Left Arm; Cuff Size: Standard BP Diastolic 74 mm[Hg] Comments: Patient Position: Sitting; Cuff Location: Left Arm; Cuff Size: Standard Weight 180 lb Height 67 in Body Mass Index Calculated 28.19 kg/m2 Body Surface Area Calculated 1.93 m2 :18 Temperature 97.8 f Comments: Method: Oral Pulse 58 /min Comments: Pattern: Regular Respiration Rate 16 /min Comments: Pattern: Unlabored BP Systolic 140 mm[Hg] Comments: Patient Position: Sitting; Cuff Location: Left Arm; Cuff Size: Standard BP Diastolic 78 mm[Hg] Comments: Patient Position: Sitting; Cuff Location: Left Arm; Cuff Size: Standard Weight 180.0375 lb Height 67 in Body Mass Index Calculated 28.2 kg/m2 Body Surface Area Calculated 1.93 m2 :03 Temperature 97 f Comments: Method: Oral Pulse 70 /min Comments: Pattern: Regular Respiration Rate 16 /min Comments: Pattern: Unlabored BP Systolic 132 mm[Hg] Comments: Patient Position: Sitting; Cuff Location: Left Arm; Cuff Size: Standard BP Diastolic 72 mm[Hg] Comments: Patient Position: Sitting; Cuff Location: Left Arm; Cuff Size: Standard Weight 180.5 lb Height 67 in Body Mass Index Calculated 28.27 kg/m2 Body Surface Area Calculated 1.94 m2 :12 Pulse 68 /min Comments: Pattern: Regular Respiration Rate 20 /min Comments: Pattern: Unlabored BP Systolic 142 mm[Hg] Comments: Patient Position: Sitting; Cuff Location: Left Arm; Cuff Size: Standard BP Diastolic 82 mm[Hg] Comments: Patient Position: Sitting; Cuff Location: Left Arm; Cuff Size: Standard Weight 181 lb Height 67 in Body Mass Index Calculated 28.35 kg/m2 Body Surface Area Calculated 1.94 m2 :01 Temperature 97.6 f Comments: Method: Oral Pulse 76 /min Comments: Pattern: Regular Respiration Rate 18 /min Comments: Pattern: Unlabored BP Systolic 130 mm[Hg] Comments: Patient Position: Sitting; Cuff Location: Left Arm; Cuff Size: Standard BP Diastolic 80 mm[Hg] Comments: Patient Position: Sitting; Cuff Location: Left Arm; Cuff Size: Standard Weight 181 lb Height 67 in Body Mass Index Calculated 28.35 kg/m2 Body Surface Area Calculated 1.94 m2 :26 Temperature 98.2 f Comments: Method: Oral Pulse 74 /min Comments: Pattern: Regular Respiration Rate 18 /min Comments: Pattern: Unlabored BP Systolic 144 mm[Hg] Comments: Patient Position: Sitting; Cuff Location: Left Arm; Cuff Size: Standard BP Diastolic 84 mm[Hg] Comments: Patient Position: Sitting; Cuff Location: Left Arm; Cuff Size: Standard Weight 181 lb Height 67 in Body Mass Index Calculated 28.35 kg/m2 Body Surface Area Calculated 1.94 m2 :01 Temperature 98.3 f Comments: Method: Oral Pulse 86 /min Comments: Pattern: Regular Respiration Rate 20 /min Comments: Pattern: Unlabored BP Systolic 164 mm[Hg] Comments: Patient Position: Sitting; Cuff Location: Left Arm; Cuff Size: Standard BP Diastolic 100 mm[Hg] Comments: Patient Position: Sitting; Cuff Location: Left Arm; Cuff Size: Standard Weight 181 lb Height 67 in Body Mass Index Calculated 28.35 kg/m2 Body Surface Area Calculated 1.94 m2 :06 Temperature 96.9 f Comments: Method: Oral Pulse 72 /min Comments: Pattern: Regular Respiration Rate 18 /min Comments: Pattern: Unlabored BP Systolic 142 mm[Hg] Comments: Patient Position: Sitting; Cuff Location: Left Arm; Cuff Size: Standard BP Diastolic 80 mm[Hg] Comments: Patient Position: Sitting; Cuff Location: Left Arm; Cuff Size: Standard Weight 181 lb Height 67 in Body Mass Index Calculated 28.35 kg/m2 Body Surface Area Calculated 1.94 m2 :04 Temperature 97.9 f Comments: Method: Oral Pulse 72 /min Comments: Pattern: Regular Respiration Rate 18 /min Comments: Pattern: Unlabored BP Systolic 130 mm[Hg] Comments: Patient Position: Sitting; Cuff Location: Left Arm; Cuff Size: Standard BP Diastolic 78 mm[Hg] Comments: Patient Position: Sitting; Cuff Location: Left Arm; Cuff Size: Standard Weight 181 lb Height 67 in Body Mass Index Calculated 28.35 kg/m2 Body Surface Area Calculated 1.94 m2 :25 Temperature 97.3 f Pulse 84 /min Comments: Pattern: Regular Respiration Rate 18 /min Comments: Pattern: Unlabored BP Systolic 126 mm[Hg] Comments: Patient Position: Sitting; Cuff Location: Left Arm; Cuff Size: Large BP Diastolic 78 mm[Hg] Comments: Patient Position: Sitting; Cuff Location: Left Arm; Cuff Size: Large Weight 182 lb :43 Temperature 98.2 f Comments: Method: Oral Pulse 80 /min Comments: Pattern: Regular Respiration Rate 20 /min Comments: Pattern: Unlabored BP Systolic 140 mm[Hg] Comments: Patient Position: Sitting; Cuff Location: Left Arm; Cuff Size: Large BP Diastolic 80 mm[Hg] Comments: Patient Position: Sitting; Cuff Location: Left Arm; Cuff Size: Large Weight 184 lb Height 67 in Body Mass Index Calculated 28.82 kg/m2 Body Surface Area Calculated 1.95 m2 :06 Temperature 98.1 f Pulse 80 /min Comments: Pattern: Regular Respiration Rate 18 /min Comments: Pattern: Unlabored BP Systolic 158 mm[Hg] Comments: Patient Position: Sitting; Cuff Location: Left Arm; Cuff Size: Standard BP Diastolic 88 mm[Hg] Comments: Patient Position: Sitting; Cuff Location: Left Arm; Cuff Size: Standard Weight 182 lb :21 Temperature 97.1 f Comments: Method: Oral Pulse 72 /min Comments: Pattern: Regular Respiration Rate 16 /min Comments: Pattern: Unlabored BP Systolic 126 mm[Hg] Comments: Patient Position: Sitting; Cuff Location: Left Arm; Cuff Size: Standard BP Diastolic 78 mm[Hg] Comments: Patient Position: Sitting; Cuff Location: Left Arm; Cuff Size: Standard Weight 186 lb :15 Temperature 97 f Comments: Method: Oral Pulse 78 /min Comments: Pattern: Regular Respiration Rate 16 /min Comments: Pattern: Unlabored BP Systolic 134 mm[Hg] Comments: Patient Position: Sitting; Cuff Location: Left Arm; Cuff Size: Standard BP Diastolic 72 mm[Hg] Comments: Patient Position: Sitting; Cuff Location: Left Arm; Cuff Size: Standard Weight 186 lb :54 Pulse 80 /min Comments: Pattern: Regular Respiration Rate 20 /min Comments: Pattern: Unlabored BP Systolic 130 mm[Hg] Comments: Patient Position: Sitting; Cuff Location: Left Arm; Cuff Size: Standard BP Diastolic 78 mm[Hg] Comments: Patient Position: Sitting; Cuff Location: Left Arm; Cuff Size: Standard Weight 186 lb :56 Pulse 74 /min Comments: Pattern: Regular Respiration Rate 16 /min Comments: Pattern: Unlabored BP Systolic 132 mm[Hg] Comments: Patient Position: Sitting; Cuff Location: Left Arm; Cuff Size: Standard BP Diastolic 82 mm[Hg] Comments: Patient Position: Sitting; Cuff Location: Left Arm; Cuff Size: Standard :19 Temperature 98.3 f Comments: Method: Oral Pulse 72 /min Comments: Pattern: Regular Respiration Rate 16 /min Comments: Pattern: Unlabored BP Systolic 122 mm[Hg] Comments: Patient Position: Sitting; Cuff Location: Left Arm; Cuff Size: Large BP Diastolic 78 mm[Hg] Comments: Patient Position: Sitting; Cuff Location: Left Arm; Cuff Size: Large Weight 189 lb Height 0 in Head Circumference 0.00 cm :01 Pulse 86 /min Comments: Pattern: Irregular Respiration Rate 18 /min Comments: Pattern: Unlabored BP Systolic 152 mm[Hg] Comments: Patient Position: Sitting; Cuff Location: Left Arm; Cuff Size: Standard BP Diastolic 84 mm[Hg] Comments: Patient Position: Sitting; Cuff Location: Left Arm; Cuff Size: Standard Weight 0 lb Height 0 in Head Circumference 0.00 cm :15 Pulse 76 /min Comments: Pattern: Regular Respiration Rate 16 /min Comments: Pattern: Unlabored BP Systolic 126 mm[Hg] Comments: Patient Position: Sitting; Cuff Location: Left Arm; Cuff Size: Large BP Diastolic 84 mm[Hg] Comments: Patient Position: Sitting; Cuff Location: Left Arm; Cuff Size: Large Weight 0 lb Height 0 in Head Circumference 0.00 cm :08 Pulse 70 /min Comments: Pattern: Regular Respiration Rate 16 /min Comments: Pattern: Unlabored BP Systolic 124 mm[Hg] Comments: Patient Position: Sitting; Cuff Location: Left Arm; Cuff Size: Large BP Diastolic 80 mm[Hg] Comments: Patient Position: Sitting; Cuff Location: Left Arm; Cuff Size: Large Weight 0 lb Height 0 in Head Circumference 0.00 cm :01 Pulse 68 /min Comments: Pattern: Regular BP Systolic 134 mm[Hg] Comments: Patient Position: Sitting; Cuff Location: Left Arm; Cuff Size: Large BP Diastolic 80 mm[Hg] Comments: Patient Position: Sitting; Cuff Location: Left Arm; Cuff Size: Large Weight 188 lb Height 0 in Head Circumference 0.00 cm :52 Temperature 98.2 f Comments: Method: Oral Pulse 70 /min Comments: Pattern: Regular Respiration Rate 16 /min Comments: Pattern: Unlabored BP Systolic 140 mm[Hg] Comments: Patient Position: Sitting; Cuff Location: Left Arm; Cuff Size: Large BP Diastolic 78 mm[Hg] Comments: Patient Position: Sitting; Cuff Location: Left Arm; Cuff Size: Large Weight 0 lb Height 0 in Head Circumference 0.00 cm :51 Temperature 97.3 f Comments: Method: Oral Pulse 72 /min Comments: Pattern: Regular Respiration Rate 17 /min Comments: Pattern: Unlabored BP Systolic 126 mm[Hg] Comments: Patient Position: Sitting; Cuff Location: Left Arm; Cuff Size: Standard BP Diastolic 80 mm[Hg] Comments: Patient Position: Sitting; Cuff Location: Left Arm; Cuff Size: Standard Weight 187.375 lb Height 66 in Body Mass Index Calculated 30.24 kg/m2 Body Surface Area Calculated 1.95 m2 Head Circumference 0.00 cm :38 Pulse 80 /min Comments: Pattern: Regular Respiration Rate 16 /min Comments: Pattern: Unlabored BP Systolic 138 mm[Hg] Comments: Patient Position: Sitting; Cuff Location: Left Arm; Cuff Size: Standard BP Diastolic 78 mm[Hg] Comments: Patient Position: Sitting; Cuff Location: Left Arm; Cuff Size: Standard Weight 187.375 lb Height 66 in Body Mass Index Calculated 30.24 kg/m2 Body Surface Area Calculated 1.95 m2 Head Circumference 0.00 cm :31 Temperature 97.6 f Comments: Method: Oral Pulse 70 /min Comments: Pattern: Regular Respiration Rate 18 /min Comments: Pattern: Unlabored BP Systolic 120 mm[Hg] Comments: Patient Position: Sitting; Cuff Location: Left Arm; Cuff Size: Standard BP Diastolic 80 mm[Hg] Comments: Patient Position: Sitting; Cuff Location: Left Arm; Cuff Size: Standard Weight 0 lb Height 0 in Head Circumference 0.00 cm :29 Temperature 97.8 f Comments: Method: Oral Pulse 70 /min Comments: Pattern: Regular Respiration Rate 18 /min Comments: Pattern: Unlabored BP Systolic 120 mm[Hg] Comments: Patient Position: Sitting; Cuff Location: Left Arm; Cuff Size: Standard BP Diastolic 80 mm[Hg] Comments: Patient Position: Sitting; Cuff Location: Left Arm; Cuff Size: Standard Weight 187 lb Height 0 in Head Circumference 0.00 cm :29 Temperature 98.2 f Comments: Method: Oral Pulse 70 /min Comments: Pattern: Regular Respiration Rate 18 /min Comments: Pattern: Unlabored BP Systolic 120 mm[Hg] Comments: Patient Position: Sitting; Cuff Location: Left Arm; Cuff Size: Standard BP Diastolic 78 mm[Hg] Comments: Patient Position: Sitting; Cuff Location: Left Arm; Cuff Size: Standard Weight 0 lb Height 0 in Head Circumference 0.00 cm :31 Temperature 98.4 f Comments: Method: Oral Pulse 64 /min Comments: Pattern: Regular Respiration Rate 18 /min Comments: Pattern: Unlabored BP Systolic 120 mm[Hg] Comments: Patient Position: Sitting; Cuff Location: Left Arm; Cuff Size: Standard BP Diastolic 80 mm[Hg] Comments: Patient Position: Sitting; Cuff Location: Left Arm; Cuff Size: Standard Weight 187 lb Height 0 in Head Circumference 0.00 cm :05 Temperature 98.6 f Comments: Method: Oral Pulse 72 /min Comments: Pattern: Regular Respiration Rate 18 /min Comments: Pattern: Unlabored BP Systolic 122 mm[Hg] Comments: Patient Position: Sitting; Cuff Location: Left Arm; Cuff Size: Standard BP Diastolic 80 mm[Hg] Comments: Patient Position: Sitting; Cuff Location: Left Arm; Cuff Size: Standard Weight 188 lb Height 0 in Head Circumference 0.00 cm :39 Pulse 80 /min Comments: Pattern: Regular BP Systolic 130 mm[Hg] Comments: Patient Position: Standing; Cuff Location: Left Arm; Cuff Size: Standard BP Diastolic 90 mm[Hg] Comments: Patient Position: Standing; Cuff Location: Left Arm; Cuff Size: Standard Weight 0 lb Height 0 in Head Circumference 0.00 cm :38 Pulse 78 /min Comments: Pattern: Regular BP Systolic 128 mm[Hg] Comments: Patient Position: Sitting; Cuff Location: Left Arm; Cuff Size: Standard BP Diastolic 90 mm[Hg] Comments: Patient Position: Sitting; Cuff Location: Left Arm; Cuff Size: Standard Weight 0 lb Height 0 in Head Circumference 0.00 cm :37 Temperature 97.6 f Comments: Method: Oral Pulse 74 /min Comments: Pattern: Regular Respiration Rate 20 /min Comments: Pattern: Unlabored BP Systolic 140 mm[Hg] Comments: Patient Position: Supine; Cuff Location: Left Arm; Cuff Size: Standard BP Diastolic 90 mm[Hg] Comments: Patient Position: Supine; Cuff Location: Left Arm; Cuff Size: Standard Weight 184 lb Height 0 in Head Circumference 0.00 cm :07 Pulse 84 /min Comments: Pattern: Regular BP Systolic 118 mm[Hg] Comments: Patient Position: Sitting; Cuff Location: Left Arm; Cuff Size: Standard BP Diastolic 74 mm[Hg] Comments: Patient Position: Sitting; Cuff Location: Left Arm; Cuff Size: Standard Weight 0 lb Height 0 in Head Circumference 0.00 cm :13 Temperature 98 f Comments: Method: Oral Pulse 84 /min Comments: Pattern: Regular Respiration Rate 14 /min Comments: Pattern: Unlabored BP Systolic 136 mm[Hg] Comments: Patient Position: Sitting; Cuff Location: Left Arm; Cuff Size: Standard BP Diastolic 80 mm[Hg] Comments: Patient Position: Sitting; Cuff Location: Left Arm; Cuff Size: Standard Weight 183.4375 lb Height 66 in Body Mass Index Calculated 29.61 kg/m2 Body Surface Area Calculated 1.93 m2 Head Circumference 0.00 cm Results Date Description Value Details :34 CRP, High Sensitivity Cardiac Comments: [facility] Mypefxznoq[address] [place], [id number] CRP HIGH SENS 8.72 mg/L (Abnormal) Comments: Low Relative Risk of CVD <1.0 mg/L Average Relative Risk of CVD 1.0 - 3.0 mg/L High Relative Risk of CVD >3.0 mg/L :34 Free T3 Comments: [address] [place], [address] FREE T3 2.6 pg/mL (Normal) Range: 2.18-3.98 :34 T4 Total, Thyroxin Comments: [address] [place], [address] T4 THYROXIN 11.7 ug/dL (Normal) Range: 4.8-13.9 :34 Thyroid Stim Hormone (TSH) Comments: [address] [place], [address] TSH 2.91 {uIU/mL} (Normal) Range: 0.358-3.74 :34 Vitamin D,25 Hydroxy Comments: [address] [place], [id number] Vitamin D 25-OH 27.8 ng/mL (Abnormal) Range: 29.95-100.01 Comments: Vitamin D 25(OH) Status Range Deficiency <20 ng/mL (50nmol/L) Insuffciency 20 - 30 ng/mL (50 - 75 nmol/L) Sufficiency 30 - 100 ng/mL (75 - 250 nmol/L) Toxicity >100 ng/mL (>250 nmol/L) :17 MICROALBUMIN: CREATININE RATIO Comments: PATIENT WAS FASTINGPERFORMED BY: Avnera Tllpxq7177 [facility] [id number] (69393) AND (85314) Alb/Creat Ratio <6.5 {mg/g_creat} (Normal) Range: 0.0-30.0 Comments: Normal: 0.0 - 30.0 Albuminuria: 31.0 - 300.0 Clinical albuminuria: >300.0 Albumin, Urine <3.0 ug/mL (Normal) Creatinine, Urine 46.4 mg/dL (Normal) :17 URINALYSIS (14393) Comments: PATIENT WAS FASTINGPERFORMED BY: imbookin (Pogby) [facility] [id number] Microscopic Examination MICNIP (Normal) Comments: Microscopic not indicated and not performed. Nitrite, Urine Negative (Normal) Urobilinogen,Semi-Qn 0.2 mg/dL (Normal) Range: 0.2-1.0 Bilirubin Negative (Normal) Occult Blood Negative (Normal) Ketones Negative (Normal) Glucose Negative (Normal) Protein Negative (Normal) WBC Esterase Negative (Normal) Appearance Clear (Normal) Urine-Color Yellow (Normal) pH 7.0 (Normal) Range: 5.0-7.5 Specific Presho 1.015 (Normal) Range: 1.005-1.030 :17 Metabolic Panel, Comprehensive Comments: PATIENT WAS FASTINGPERFORMED BY: Avnera Akabhl5362 [facility] [id number] (90161) ALT (SGPT) 9 [iU]/L (Normal) Range: 0-32 AST (SGOT) 12 [iU]/L (Normal) Range: 0-40 Alkaline Phosphatase 81 [iU]/L (Normal) Range: 39-117 Bilirubin, Total 0.6 mg/dL (Normal) Range: 0.0-1.2 A/G Ratio 1.3 (Normal) Range: 1.2-2.2 Globulin, Total 2.9 g/dL (Normal) Range: 1.5-4.5 Albumin 3.9 g/dL (Normal) Range: 3.5-4.8 Protein, Total 6.8 g/dL (Normal) Range: 6.0-8.5 Calcium 9.1 mg/dL (Normal) Range: 8.7-10.3 Carbon Dioxide, Total 23 mmol/L (Normal) Range: 20-29 Chloride 104 mmol/L (Normal) Range: 96-106 Potassium 4.1 mmol/L (Normal) Range: 3.5-5.2 Sodium 143 mmol/L (Normal) Range: 134-144 BUN/Creatinine Ratio 33 (Abnormal) Range: 12-28 eGFR If Africn Am 102 mL/min/1.73 (Normal) eGFR If NonAfricn Am 89 mL/min/1.73 (Normal) Creatinine 0.58 mg/dL (Normal) Range: 0.57-1.00 BUN 19 mg/dL (Normal) Range: 8-27 Glucose 97 mg/dL (Normal) Range: 65-99 56-Gwm-54110:17 CBC WITH MANUAL DIFF (15772) Comments: PATIENT WAS FASTINGPERFORMED BY: [facility] Tfhgfy8546 [facility] [id number] Immature Grans (Abs) 0.0 {x10E3/uL} (Normal) Range: 0.0-0.1 Immature Granulocytes 0 % (Normal) Baso (Absolute) 0.0 {x10E3/uL} (Normal) Range: 0.0-0.2 Eos (Absolute) 0.1 {x10E3/uL} (Normal) Range: 0.0-0.4 Monocytes(Absolute) 0.3 {x10E3/uL} (Normal) Range: 0.1-0.9 Lymphs (Absolute) 1.3 {x10E3/uL} (Normal) Range: 0.7-3.1 Neutrophils (Absolute) 2.4 {x10E3/uL} (Normal) Range: 1.4-7.0 Basos 1 % (Normal) Eos 3 % (Normal) Monocytes 7 % (Normal) Lymphs 32 % (Normal) Neutrophils 57 % (Normal) Platelets 242 {x10E3/uL} (Normal) Range: 150-379 RDW 14.2 % (Normal) Range: 12.3-15.4 MCHC 33.8 g/dL (Normal) Range: 31.5-35.7 MCH 28.9 pg (Normal) Range: 26.6-33.0 MCV 86 fL (Normal) Range: 79-97 Hematocrit 38.8 % (Normal) Range: 34.0-46.6 Hemoglobin 13.1 g/dL (Normal) Range: 11.1-15.9 RBC 4.54 {x10E6/uL} (Normal) Range: 3.77-5.28 WBC 4.2 {x10E3/uL} (Normal) Range: 3.4-10.8 96-Lnf-769880:10 HgA1C , Office (48134) HgA1C , Office 5.9 % (Normal) Range: 4.6 - 7.1 34-Pep-690639:00 VANDANA CULTURE-OTHER (06419) Comments: PATIENT NOT FASTINGPERFORMED BY: MedaforMarlton Rehabilitation HospitalUuvygy[address] [place] [address] [id number] Information: SRC: Result 1 RRF (Normal) Comments: Routine respiratory yamila Upper Respiratory Culture Final report (Normal) :36 Rapid Strep Test, Office (89968) Rapid Strep Test, Office Negative (Normal) :25 HgA1C , Office (54176) HgA1C , Office 5.8 % (Normal) Range: 4.6 - 7.1 51-Qgk-37613:39 CBC with auto diff Comments: PATIENT WAS FASTINGPERFORMED BY: [address] [id number] BY: MedaforMarlton Rehabilitation HospitalAoeese8371 [facility] [id number] (51448) Immature Grans (Abs) 0.0 {x10E3/uL} (Normal) Range: 0.0-0.1 Immature Granulocytes 0 % (Normal) Baso (Absolute) 0.0 {x10E3/uL} (Normal) Range: 0.0-0.2 Eos (Absolute) 0.2 {x10E3/uL} (Normal) Range: 0.0-0.4 Monocytes(Absolute) 0.3 {x10E3/uL} (Normal) Range: 0.1-0.9 Lymphs (Absolute) 1.4 {x10E3/uL} (Normal) Range: 0.7-3.1 Neutrophils (Absolute) 2.2 {x10E3/uL} (Normal) Range: 1.4-7.0 Basos 1 % (Normal) Eos 4 % (Normal) Monocytes 8 % (Normal) Lymphs 33 % (Normal) Neutrophils 54 % (Normal) Platelets 247 {x10E3/uL} (Normal) Range: 150-379 RDW 15.0 % (Normal) Range: 12.3-15.4 MCHC 33.2 g/dL (Normal) Range: 31.5-35.7 MCH 28.0 pg (Normal) Range: 26.6-33.0 MCV 85 fL (Normal) Range: 79-97 Hematocrit 38.9 % (Normal) Range: 34.0-46.6 Hemoglobin 12.9 g/dL (Normal) Range: 11.1-15.9 RBC 4.60 {x10E6/uL} (Normal) Range: 3.77-5.28 WBC 4.1 {x10E3/uL} (Normal) Range: 3.4-10.8 82-Yoa-27037:39 HGB A1C (48628) Comments: PATIENT WAS FASTINGPERFORMED BY: [employer] [place] [address] [id number] BY: AvneraCrownpoint Health Care FacilityHebslo4050 [facility] [id number] Hemoglobin A1c 5.7 % (Abnormal) Range: 4.8-5.6 Comments: . Pre-diabetes: 5.7 - 6.4 Diabetes: >6.4 Glycemic control for adults with diabetes: <7.0 93-Jfk-88835:39 CALCIFIDIOL (01948) VIT D Comments: PATIENT WAS FASTINGPERFORMED BY: [facility] [id number] BY: Avnera Szfejb7864 [facility] [id number] 25 Vitamin D, 25-Hydroxy 30.8 ng/mL (Normal) Range: 30.0-100.0 Comments: Vitamin D deficiency has been defined by the [place] ofMedicine and an Endocrine Society practice guideline as alevel of serum 25-OH vitamin D less than 20 ng/mL (1,2).The Endocrine Society went on to further define vitamin Dinsufficiency as a level between 21 and 29 ng/mL (2).1. IOM ([place] of Medicine). 2010. Dietary reference intakes for calcium and D. [place]: The National Academies Press.2. Carlota MF, Ursula BACON, Taryn RECINOS, et al. Evaluation, treatment, and prevention of vitamin D deficiency: an Endocrine Society clinical practice guideline. JCEM. 2010; 96(7):1911-30. 84-Ytm-96249:39 Metabolic Panel, Comments: PATIENT WAS FASTINGPERFORMED BY: BN [facility] Zdrhstnkjy3592 [facility] [id number] BY: CB [facility] Xnrzrq7911 [facility] [id number] Comprehensive (58041) ALT (SGPT) 10 [iU]/L (Normal) Range: 0-32 AST (SGOT) 11 [iU]/L (Normal) Range: 0-40 Alkaline Phosphatase 75 [iU]/L (Normal) Range: 39-117 Bilirubin, Total 0.6 mg/dL (Normal) Range: 0.0-1.2 A/G Ratio 1.5 (Normal) Range: 1.2-2.2 Globulin, Total 2.6 g/dL (Normal) Range: 1.5-4.5 Albumin 3.9 g/dL (Normal) Range: 3.5-4.8 Protein, Total 6.5 g/dL (Normal) Range: 6.0-8.5 Calcium 9.0 mg/dL (Normal) Range: 8.7-10.3 Carbon Dioxide, Total 23 mmol/L (Normal) Range: 18-29 Chloride 102 mmol/L (Normal) Range: 96-106 Potassium 4.1 mmol/L (Normal) Range: 3.5-5.2 Sodium 141 mmol/L (Normal) Range: 134-144 BUN/Creatinine Ratio 40 (Abnormal) Range: 12-28 eGFR If Africn Am 101 mL/min/1.73 (Normal) eGFR If NonAfricn Am 87 mL/min/1.73 (Normal) Creatinine 0.62 mg/dL (Normal) Range: 0.57-1.00 BUN 25 mg/dL (Normal) Range: 8-27 Glucose 98 mg/dL (Normal) Range: 65-99 32-Von-32437:39 LIPOPROTEIN, BLD, BY NMR Comments: PATIENT WAS FASTINGPERFORMED BY: BN [facility] Eyzbjehumd2318 [facility] [id number] BY: CB [facility] Tvvmcf3549 [facility] [id number] (85746) LP-IR Score 31 (Normal) Comments: INSULIN RESISTANCE MARKER <--Insulin Sensitive Insulin Resistant--> Percentile in Reference PopulationInsulin Resistance ScoreLP-IR Score Low 25th 50th 75th High <27 27 45 63 >63LP-IR Score is inaccurate if patient is non-fasting. .The LP-IR score is a laboratory developed i [facility] [place] that has beenassociated with insulin resistance and diabetes risk and should beused as one component of a physician's clinical assessment. TheLP-IR score listed above has not been cleared by the [place] Food andDrug Administration. LDL Size 20.9 nm (Normal) Comments: INTERPRETATIVE INFORMATION PARTICLE CONCENTRATION AND SIZE <--Lower CVD Risk Highe r CVD Risk--> LDL AND HDL PARTICLES Percentile in Reference Population HDL-P (total) High 75th 50th 25th Low >34.9 34.9 30.5 26.7 <26.7 . Small LDL-P Low 25th 50th 75th High <117 117 527 839 >839 . LDL Size <-Large (Pattern A)-> <-Small (Pattern B)-> 23.0 20.6 20.5 19.0 Small LDL-P and LDL Size are associated with CVD risk, but not afterLDL-P is taken into account. .These assays were developed and their performance characteristicsdetermined by [employer]. These assays have not been cleared by [place] Food and Drug Administration. The clinical utility of theselaboratory values have not been fully established. Small LDL-P 285 nmol/L (Normal) HDL-P (Total) 32.9 umol/L (Normal) Cholesterol, Total 157 mg/dL (Normal) Range: 100-199 Triglycerides 84 mg/dL (Normal) Range: 0-149 HDL-C 48 mg/dL (Normal) LDL-C 92 mg/dL (Normal) Range: 0-99 Comments: . Optimal < 100 Above optimal 100 - 129 Borderline 1 30 - 159 High 160 - 189 Very high > 189 .LDL-C is inaccurate if patient is non-fasting. LDL-P 864 nmol/L (Normal) Comments: Low < 1000 Moderate 1000 - 1299 Borderline-High 1300 - 1599 High 1600 - 2000 Very High > 2000 03-Vha-42449:39 C-REACT PROT HIGH Comments: PATIENT WAS FASTINGPERFORMED BY: Medafor[address] [id number] BY: [employer]70 [facility] [facility] TechnologiesSpring [facility] Hospital [id number]; can review on 10/16 SENS(hsCRP) (24063) C-Reactive Protein, Cardiac 5.80 mg/L (Abnormal) Range: 0.00-3.00 Comments: Relative Risk for Future Cardiovascular Event Low <1.00 Average 1.00 - 3.00 High >3.00 90-Wvw-412400:43 C-REACT PROT HIGH SENS(hsCRP) Comments: PATIENT NOT FASTINGPERFORMED BY: [employer]70 [facility] [id number] (24807) C-Reactive Protein, Cardiac 26.86 mg/L (Abnormal) Range: 0.00-3.00 Comments: Results confirmed ondilution. Relative Risk for Future Cardiovascular Event Low <1.00 Average 1.00 - 3.00 High >3.00 95-Nys-372278:43 CALCIFIDIOL (11664) VIT D 25 Comments: PATIENT NOT FASTINGPERFORMED BY: [employer]70 [facility]Nov[facility] [id number] Vitamin D, 25-Hydroxy 29.8 ng/mL (Abnormal) Range: 30.0-100.0 Comments: Vitamin D deficiency has been defined by the [place] ofMedicine and an Endocrine Society practice guideline as alevel of serum 25-OH vitamin D less than 20 ng/mL (1,2).The Endocrine Society went on to further define vitamin Dinsufficiency as a level between 21 and 29 ng/mL (2).1. IOM ([place] of Medicine). 2010. Dietary reference intakes for calcium and D. [place]: The National Academies Press.2. Carlota MF, Ursula BACON, Taryn RECINOS, et al. Evaluation, treatment, and prevention of vitamin D deficiency: an Endocrine Society clinical practice guideline. JCEM. 2010; 96(7):1911-30. 59-Pge-711050:37 MICROALBUMIN: CREATININE RATIO Comments: PATIENT NOT FASTINGPERFORMED BY: [employer] [id number] (39694) AND (59200) Microalb/Creat Ratio 6.0 {mg/g_creat} (Normal) Range: 0.0-30.0 Microalbumin, Urine 9.7 ug/mL (Normal) Creatinine, Urine 160.5 mg/dL (Normal) :37 URINALYSIS (12870) Comments: PATIENT NOT FASTINGPERFORMED BY: [employer]6370 [facility]Nov[facility] [id number] Microscopic Examination MICNIP (Normal) Comments: Microscopic not indicated and not performed. Nitrite, Urine Negative (Normal) Urobilinogen,Semi-Qn 0.2 mg/dL (Normal) Range: 0.2-1.0 Bilirubin Negative (Normal) Occult Blood Negative (Normal) Ketones Trace (Abnormal) Glucose Negative (Normal) Protein Negative (Normal) WBC Esterase Negative (Normal) Appearance Clear (Normal) Urine-Color Yellow (Normal) pH 6.0 (Normal) Range: 5.0-7.5 Specific Presho 1.021 (Normal) Range: 1.005-1.030 :37 CBC WITH MANUAL DIFF Comments: PATIENT NOT FASTINGPERFORMED BY: friendfundNovant Health [facility] [id number] Information: NURSE DRAW (09340) Immature Grans (Abs) 0.0 {x10E3/uL} (Normal) Range: 0.0-0.1 Immature Granulocytes 0 % (Normal) Baso (Absolute) 0.0 {x10E3/uL} (Normal) Range: 0.0-0.2 Eos (Absolute) 0.1 {x10E3/uL} (Normal) Range: 0.0-0.4 Monocytes(Absolute) 0.5 {x10E3/uL} (Normal) Range: 0.1-0.9 Lymphs (Absolute) 1.1 {x10E3/uL} (Normal) Range: 0.7-3.1 Neutrophils (Absolute) 3.1 {x10E3/uL} (Normal) Range: 1.4-7.0 Basos 0 % (Normal) Eos 2 % (Normal) Monocytes 11 % (Normal) Lymphs 23 % (Normal) Neutrophils 64 % (Normal) Platelets 303 {x10E3/uL} (Normal) Range: 150-379 RDW 14.8 % (Normal) Range: 12.3-15.4 MCHC 31.9 g/dL (Normal) Range: 31.5-35.7 MCH 26.7 pg (Normal) Range: 26.6-33.0 MCV 84 fL (Normal) Range: 79-97 Hematocrit 39.2 % (Normal) Range: 34.0-46.6 Hemoglobin 12.5 g/dL (Normal) Range: 11.1-15.9 RBC 4.69 {x10E6/uL} (Normal) Range: 3.77-5.28 WBC 4.9 {x10E3/uL} (Normal) Range: 3.4-10.8 67-Xvr-410221:37 Metabolic Panel, Comprehensive Comments: PATIENT NOT FASTINGPERFORMED BY: LabCoMarlton Rehabilitation HospitalMeitsm7748 [facility] [id number] (34510) ALT (SGPT) 12 [iU]/L (Normal) Range: 0-32 AST (SGOT) 11 [iU]/L (Normal) Range: 0-40 Alkaline Phosphatase, S 80 [iU]/L (Normal) Range: 39-117 Bilirubin, Total 0.7 mg/dL (Normal) Range: 0.0-1.2 A/G Ratio 1.4 (Normal) Range: 1.2-2.2 Globulin, Total 2.8 g/dL (Normal) Range: 1.5-4.5 Albumin, Serum 4.0 g/dL (Normal) Range: 3.5-4.8 Protein, Total, Serum 6.8 g/dL (Normal) Range: 6.0-8.5 Calcium, Serum 8.9 mg/dL (Normal) Range: 8.7-10.3 Carbon Dioxide, Total 22 mmol/L (Normal) Range: 18-29 Chloride, Serum 99 mmol/L (Normal) Range: 96-106 Potassium, Serum 3.9 mmol/L (Normal) Range: 3.5-5.2 Sodium, Serum 142 mmol/L (Normal) Range: 134-144 BUN/Creatinine Ratio 40 (Abnormal) Range: 12-28 eGFR If Africn Am 103 mL/min/1.73 (Normal) eGFR If NonAfricn Am 90 mL/min/1.73 (Normal) Creatinine, Serum 0.57 mg/dL (Normal) Range: 0.57-1.00 BUN 23 mg/dL (Normal) Range: 8-27 Glucose, Serum 110 mg/dL (Abnormal) Range: 65-99 20-Flp-308469:44 CALCIFIDIOL (91453) VIT D 25 Comments: PATIENT NOT FASTINGPERFORMED BY: LabCoMarlton Rehabilitation HospitalWanzdg2280 [facility] [id number] Vitamin D, 25-Hydroxy 29.8 ng/mL (Abnormal) Range: 30.0-100.0 Comments: Vitamin D deficiency has been defined by the [place]akeman ofBerger Hospitalcine and an Endocrine Society practice guideline as alevel of serum 25-OH vitamin D less than 20 ng/mL (1,2).The Endocrine Society went on to further define vitamin Dinsufficiency as a level between 21 and 29 ng/mL (2).1. IOM ([place] of Medicine). 2010. Dietary reference intakes for calcium and D. [place]: The National Academies Press.2. Carlota MF, Ursula BACON, Taryn RECINOS, et al. Evaluation, treatment, and prevention of vitamin D deficiency: an Endocrine Society clinical practice guideline. JCEM. 2010; 96(7):1911-30. 99-Hdd-487950:44 Metabolic Panel, Comprehensive Comments: PATIENT NOT FASTINGPERFORMED BY: LabCoMarlton Rehabilitation HospitalKfvhqv9573 [facility] [id number] (62093) ALT (SGPT) 10 [iU]/L (Normal) Range: 0-32 AST (SGOT) 15 [iU]/L (Normal) Range: 0-40 Alkaline Phosphatase, S 83 [iU]/L (Normal) Range: 39-117 Bilirubin, Total 0.4 mg/dL (Normal) Range: 0.0-1.2 A/G Ratio 1.3 (Normal) Range: 1.2-2.2 Globulin, Total 2.9 g/dL (Normal) Range: 1.5-4.5 Albumin, Serum 3.9 g/dL (Normal) Range: 3.5-4.8 Protein, Total, Serum 6.8 g/dL (Normal) Range: 6.0-8.5 Calcium, Serum 9.2 mg/dL (Normal) Range: 8.7-10.3 Carbon Dioxide, Total 24 mmol/L (Normal) Range: 18-29 Chloride, Serum 105 mmol/L (Normal) Range: 96-106 Potassium, Serum 4.5 mmol/L (Normal) Range: 3.5-5.2 Sodium, Serum 144 mmol/L (Normal) Range: 134-144 BUN/Creatinine Ratio 36 (Abnormal) Range: 12-28 eGFR If Africn Am 100 mL/min/1.73 (Normal) eGFR If NonAfricn Am 87 mL/min/1.73 (Normal) Creatinine, Serum 0.64 mg/dL (Normal) Range: 0.57-1.00 BUN 23 mg/dL (Normal) Range: 8-27 Glucose, Serum 123 mg/dL (Abnormal) Range: 65-99 92-Ypn-717892:57 HgA1C , Office (70826) HgA1C , Office 5.7 % (Normal) Range: 4.6 - 7.1 11-Sij-999040:00 Methymalonic Acid, Serum Comments: PATIENT NOT FASTINGPERFORMED BY: LabCoMarlton Rehabilitation HospitalMbmhid9156 [facility] [id number] BY: [address] [id number] (70611) Methylmalonic Acid, Serum 157 nmol/L (Normal) Range: 0-378 87-Aql-552879:00 Vitamin B-12 Comments: PATIENT NOT FASTINGPERFORMED BY: [facility] Bhmool7864 [address]choa RoadDublin [place] [id number] BY: [address] [id number] (cyanocobalamin) (80543) Vitamin B12 778 pg/mL (Normal) Range: 211-946 76-Qbe-721164:00 CALCIFIDIOL (42070) VIT D Comments: PATIENT NOT FASTINGPERFORMED BY: CB [facility] Bxesyv1269 [address]choa RoadDublin [place] [id number] BY: LabCo[address] [id number]; fu 2-28 25 Vitamin D, 25-Hydroxy 27.7 ng/mL (Abnormal) Range: 30.0-100.0 Comments: Vitamin D deficiency has been defined by the [place] ofMedicine and an Endocrine Society practice guideline as alevel of serum 25-OH vitamin D less than 20 ng/mL (1,2).The Endocrine Society went on to further define vitamin Dinsufficiency as a level between 21 and 29 ng/mL (2).1. IOM ([place] of Medicine). 2010. Dietary reference intakes for calcium and D. [place]: The National Academies Press.2. Carlota MF, Ursula NC, Taryn RECINOS, et al. Evaluation, treatment, and prevention of vitamin D deficiency: an Endocrine Society clinical practice guideline. JCEM. 2010; 96(7):1911-30. 06-Fkb-583204:48 Sed Rate Erythrocyte Comments: PATIENT NOT FASTINGPERFORMED BY: CB [facility] Domhmo0697 [address] RoadDublin [place] [id number] Information: [id number] (75304) Sedimentation Rate-Westergren 13 mm/h (Normal) Range: 0-40 97-Ahc-499373:48 C-Reactive Protein (40329) Comments: PATIENT NOT FASTINGPERFORMED BY: CB [facility] Qhgzyx2201 [address] RoadDublin [place] [id number] C-Reactive Protein, Quant 20.2 mg/L (Abnormal) Range: 0.0-4.9 :43 CBC W/Diff, Automated Comments: [facility] [address] [place], [address] Absolute Lymph 0.82 {X10_3/ul} (Abnormal) Range: 0.83-4.51 Absolute Neut 2.8 {X10_3/uL} (Normal) Range: 2.0-7.7 IM GRAN % 0.200 % (Normal) Range: 0.0-0.9 Comments: IG% - Immature Granulocytes (promyelocytes, myelocytes andmetamyelocytes) > 1% indicates that a LEFT SHIFT is Present. BASO% 0.4 % (Normal) Range: 0-1 EO% 2.9 % (Normal) Range: 0-5 MONO% 15.1 % (Abnormal) Range: 0-10 LY% 18.2 % (Abnormal) Range: 19-41 NEUT% 63.2 % (Normal) Range: 47-70 MPV 9.0 fL (Normal) Range: 6.2-12.0 PLT 305 K/mm3 (Normal) Range: 150-450 RDW SD 42.5 fL (Normal) Range: 35.1-43.9 RDW CV 13.5 % (Normal) Range: 11.6-14.6 MCHC 32.6 {g/gl} (Normal) Range: 32-36 MCH 27.9 pg (Normal) Range: 27.0-32.0 MCV 85.6 fL (Normal) Range: 81-99 HCT 38.6 % (Normal) Range: 37-47 HGB 12.6 g/dL (Normal) Range: 12.0-15.0 RBC 4.51 {M/mm3} (Normal) Range: 4.2-5.4 WBC 4.5 K/mm3 (Normal) Range: 4.4-11.0 :43 Comprehensive Metabolic Profil Comments: [facility] [address] [place], [place], [id number] ; [address] GAP 7 (Normal) Range: 5-15 CO2 27.0 mmol/L (Normal) Range: 21.0-32.0 CL 107 mmol/L (Normal) Range: 98-107 K 4.2 mmol/L (Normal) Range: 3.5-5.1 NA 141 mmol/L (Normal) Range: 136-145 T BILI 0.50 mg/dL (Normal) Range: 0.20-1.00 ALT 18 U/L (Normal) Range: 12-78 ALK P 89 U/L (Normal) Range: 50-136 AST 17 U/L (Normal) Range: 15-37 CA 8.6 mg/dL (Normal) Range: 8.5-10.1 A/G 0.8 {RATIO} (Abnormal) Range: 0.9-2.4 GLOB 4.1 g/dL (Abnormal) Range: 2.3-3.5 ALB 3.2 g/dL (Abnormal) Range: 3.4-5.0 T PROT 7.3 g/dL (Normal) Range: 6.4-8.2 BUN/CRE 29.7 {RATIO} (Abnormal) Range: 10-20 EST GFR - AA 98 mL/min (Normal) Comments: GFR Calc EST GFR 81 mL/min (Normal) Comments: Non- GFR Calc CREAT,SERUM 0.74 mg/dL (Normal) Range: 0.55-1.20 Comments: The validity of the calculated GFR AND GFRAA in patients over70 years has not been determined. Clinical correlation isessential. BUN 22 mg/dL (Abnormal) Range: 7-18 GLU 96 mg/dL (Normal) Range: 70-110 0-Vjz-529256:43 T4 Free Direct Comments: [facility] [address] [place], [address] T4 FREE DIRECT 1.24 ng/dL (Normal) Range: 0.76-1.46 2-Awr-941441:43 Thyroid Stim Hormone (TSH) Comments: [facility] [address] [place], [address] TSH 1.97 {uIU/mL} (Normal) Range: 0.358-3.74 02-Lbo-83981:33 MICROALBUMIN: CREATININE Comments: PATIENT NOT FASTINGPERFORMED BY: [facility] [place] [id number] Information: [id number] RATIO (32115) AND (26742) Microalb/Creat Ratio 4.3 {mg/g_creat} (Normal) Range: 0.0-30.0 Microalbumin, Urine 5.2 ug/mL (Normal) Range: 0.0-17.0 Creatinine, Urine 120.2 mg/dL (Normal) Range: 15.0-278.0 25-Chm-455874:30 CBCD ALC 1.09 {X10_3/ul} (Normal) Range: 0.83-4.51 ANC 2.2 {X10_3/uL} (Normal) Range: 2.0-7.7 IG% 0.300 % (Normal) Range: 0.0-0.9 Comments: IG% - Immature Granulocytes (promyelocytes, myelocytes andmetamyelocytes) > 1% indicates that a LEFT SHIFT is Present. B% 0.3 % (Normal) Range: 0-1 E% 3.1 % (Normal) Range: 0-5 M% 10.5 % (Abnormal) Range: 0-10 L% 28.5 % (Normal) Range: 19-41 N% 57.3 % (Normal) Range: 47-70 MPV 9.4 fL (Normal) Range: 6.2-12.0 PLT 273 K/mm3 (Normal) Range: 150-450 RDWSD 40.5 fL (Normal) Range: 35.1-43.9 RDWCV 13.1 % (Normal) Range: 11.6-14.6 MCHC 33.5 {g/gl} (Normal) Range: 32-36 MCH 29.1 pg (Normal) Range: 27.0-32.0 MCV 86.8 fL (Normal) Range: 81-99 HCT 39.4 % (Normal) Range: 37-47 HGB 13.2 g/dL (Normal) Range: 12.0-15.0 RBC 4.54 {M/mm3} (Normal) Range: 4.2-5.4 WBC 3.8 K/mm3 (Abnormal) Range: 4.4-11.0 :30 CPK 67 U/L (Normal) Range: 26-192 :30 PROEL tPROELN Comment (Normal) Comments: The SPE pattern appears essentially unremarkable. Evidenceof monoclonal protein is not apparent.Performed at: [address] [id number] Director: uTtu Cobian PhD, Phone: [phone] tPROELIN Comment (Normal) Comments: Protein electrophoresis scan will follow via computer,mail, or puzzle assembler delivery. tPROELAG 1.3 (Normal) Range: 0.7-2.0 tPROELGL 2.7 g/dL (Normal) Range: 2.0-4.5 tPROELMS (Normal) Comments: NOT OBSERVED G/DL tPROELGA 0.9 g/dL (Normal) Range: 0.5-1.6 tPROELBE 0.9 g/dL (Normal) Range: 0.6-1.3 tPROELAL2 0.6 g/dL (Normal) Range: 0.4-1.2 tPROELAL1 0.2 g/dL (Normal) Range: 0.1-0.4 tPROELALB 3.6 g/dL (Normal) Range: 3.2-5.6 $tPROELTP 6.3 g/dL (Normal) Range: 6.0-8.5 :30 URIC 3.1 mg/dL (Normal) Range: 2.6-6.0 74-Rws-426025:05 Microscopic Examination Comments: PATIENT NOT FASTINGPERFORMED BY: [employer] [id number] BY: [address] [id number] Bacteria Few (Normal) Mucus Threads Present (Normal) Crystal Type Calcium Oxalate (Normal) Crystals Present (Abnormal) Epithelial Cells (non renal) 0-10 {/hpf} (Normal) Range: 0 - 10 RBC 0-2 {/hpf} (Normal) Range: 0 - 2 WBC 0-5 {/hpf} (Normal) Range: 0 - 5 34-Ngd-257875:05 URINALYSIS, W/ MICRO Comments: PATIENT NOT FASTINGPERFORMED BY: [address] [id number] BY: [facility] [id number] (83363) Microscopic Examination See below: (Normal) Comments: Microscopic was indicated and was performed. Microscopic Examination MICRON (Normal) Comments: Microscopic follows if indicated. Nitrite, Urine Negative (Normal) Urobilinogen,Semi-Qn 0.2 mg/dL (Normal) Range: 0.0-1.9 Bilirubin Negative (Normal) Occult Blood Negative (Normal) Ketones Negative (Normal) Glucose Negative (Normal) Protein Negative (Normal) WBC Esterase Negative (Normal) Appearance Clear (Normal) Urine-Color Yellow (Normal) pH 6.0 (Normal) Range: 5.0-7.5 Specific Presho 1.022 (Normal) Range: 1.005-1.030 71-Fdz-119449:05 CCP ANTIBODY (04971) Comments: PATIENT NOT FASTINGPERFORMED BY: [employer] [facility] [id number] BY: [address] [id number] CCP Antibodies IgG/IgA 23 {units} (Abnormal) Range: 0-19 Comments: Negative <20 Weak positive 20 - 39 Moderate positive 40 - 59 Strong positive >59 71-Vym-333729:05 SED RATE ERYTHROCYTE Comments: PATIENT NOT FASTINGPERFORMED BY: [facility] HospitalGhdolq3321 [facility] [id number] BY: [place] [id number] (38113) Sedimentation Rate-Westergren 13 mm/h (Normal) Range: 0-40 71-Ojt-460973:05 C-REACTIVE PROTEIN Comments: PATIENT NOT FASTINGPERFORMED BY: [facility] Znmxbx7558 [facility] [id number] BY: [place] [id number] (79455) C-Reactive Protein, Quant 4.5 mg/L (Normal) Range: 0.0-4.9 43-Mxv-070446:05 TSH (97882) Comments: PATIENT NOT FASTINGPERFORMED BY: [employer] [address] [place] [address] [id number] BY: [address] [id number] TSH 2.750 {uIU/mL} (Normal) Range: 0.450-4.500 08-Zvt-221136:05 RHEUMATOID FACTOR-QUANT Comments: PATIENT NOT FASTINGPERFORMED BY: LabCoRonald [place] 5918770 [facility] [id number] BY: [address] [id number] (15007) RA Latex Turbid. 7.4 {IU/mL} (Normal) Range: 0.0-13.9 52-Xbe-413206:05 JAELYN (ANTINUCLEAR ANTIBODY) Comments: PATIENT NOT FASTINGPERFORMED BY: [facility] HospitalItjhyd1751 [facility] [id number] BY: [address] [id number] (40017) JAELYN Direct Negative (Normal) 14-Yyr-756013:05 METABOLIC PANEL, Comments: PATIENT NOT FASTINGPERFORMED BY: [facility]CoR[place] 5918770 [facility] [id number] BY: [address] [id number] Inf ormation: [id number] COMPREHENSIVE (86183) ALT (SGPT) 12 [iU]/L (Normal) Range: 0-32 AST (SGOT) 13 [iU]/L (Normal) Range: 0-40 Alkaline Phosphatase, S 87 [iU]/L (Normal) Range: 39-117 Bilirubin, Total 0.6 mg/dL (Normal) Range: 0.0-1.2 A/G Ratio 1.6 (Normal) Range: 1.1-2.5 Globulin, Total 2.7 g/dL (Normal) Range: 1.5-4.5 Albumin, Serum 4.3 g/dL (Normal) Range: 3.5-4.8 Protein, Total, Serum 7.0 g/dL (Normal) Range: 6.0-8.5 Calcium, Serum 9.4 mg/dL (Normal) Range: 8.6-10.2 Carbon Dioxide, Total 25 mmol/L (Normal) Range: 18-29 Chloride, Serum 100 mmol/L (Normal) Range: 97-108 Potassium, Serum 4.4 mmol/L (Normal) Range: 3.5-5.2 Sodium, Serum 142 mmol/L (Normal) Range: 134-144 BUN/Creatinine Ratio 33 (Abnormal) Range: 11-26 eGFR If Africn Am 104 mL/min/1.73 (Normal) eGFR If NonAfricn Am 90 mL/min/1.73 (Normal) Creatinine, Serum 0.60 mg/dL (Normal) Range: 0.57-1.00 BUN 20 mg/dL (Normal) Range: 8-27 Glucose, Serum 96 mg/dL (Normal) Range: 65-99 35-Ept-72716:45 Urinalysis, Office (18292) UA - BILIRUBIN Negative (Normal) UA - BLOOD Negative (Normal) UA - GLUCOSE Negative (Normal) UA - KETONES Negative mg/dL (Normal) UA - LEUKOCYTE ESTERASE Negative (Normal) UA - NITRITE Negative (Normal) UA - PH 6.0 (Normal) UA - PROTEIN Negative mg/dL (Normal) UA - SPECIFIC GRAVITY 1.020 (Normal) URINE UROBILINGN KATE TIMED Normal mg/dL (Normal) 71-Tfl-275565:37 CERV SPINE,MIN 4 VIEWS Radiology Report See Note (Normal) Comments: PROCEDURE: X-RAY - CERVICAL SPINE REASON FOR EXAM: Female, 72 years old. Pain TECHNIQUE: Six views of the cervical spine were obtained. COMPARISON: None FINDINGS:Normal craniovertebral junction . Normal anterior atlantoaxialarticulation. Normal odontoid process. Normal cervical lordosis. Normal vertebral bodies and posterior osseouselements. Normal disc space heights. Minimal degenerative d isease C5-6. Normalvisualized intervertebral neuroforamina. Normal visualized soft tissue structures. The bones are osteopenic. IMPRESSION:Minimal degenerative changes with no bony injury of the cerv ical spine. Signed:Sharad Campbell D.O.May 18, 2012 at 11:19:02 PM [id number] Signed IF/IF If you are the referring physician and would like to consult with theradiologist who provided this interpretation, please contact Sharad Campbell D.O.at [phone]. If this radiologist is unavailable, you will be directedto another radiologist to assist. If you are a patient with a question regardin g this report, pleasecontactyour referring physician directly. Professional Interpretation Provided By: [employer], Phone , These documents contain legally protected and c onfidential healthinformation intended only for the use of the individual or entity namedabove. If you are not the intended recipient, you are hereby notifiedthatany disclosure, copying, distribution, o r other use of these documents isstrictly prohibited. If you have received this information in error,pleasenotify the sender immediately and arrange for the return or destructionofthese documents. Di ctated on 05/18/12 1406 by Adrian LUNA,IainTranscribed on 05/18/122322 by ITS IMPORTSign by Adrian LUNA,Sharad on 05/18/122323 Sign by: Sharad Campbell DO 20-Hvf-927242:37 SHOULDER,MIN 2 VIEWS Radiology Report See Note (Normal) Comments: PROCEDURE: X-RAY - RIGHT SHOULDER REASON FOR EXAM: Female, 72 years old. Pain TECHNIQUE: Four views of the shoulder. COMPARISON: None. FINDINGS:Normal glenohumeral articulation. Normal acromio clavicular joint.Normalacromion. Normal humeral head and visualized proximal humerus. Normal visualizedscapula. There is no demonstrated soft tissue abnormality. Normal visualized pulmonary apex. IMPRE SSION:Normal x-ray examination of the shoulder. Signed:Sharad Campbell D.O.May 18, 2012 at 11:01:01 PM [phone] Signed IF/IF If you are the referring physician and would like to cons ult with theradiologist who provided this interpretation, please contact Sharad Campbell D.O.at [phone]. If this radiologist is unavailable, you will be directedto another radiologist to assist. If you ar e a patient with a question regarding this report, pleasecontactyour referring physician directly. Professional Interpretation Provided By: [employer], Phone , These docum ents contain legally protected and confidential healthinformation intended only for the use of the individual or entity namedabove. If you are not the intended recipient, you are hereby notifiedthatany disclosure, copying, distribution, or other use of these documents isstrictly prohibited. If you have received this information in error,pleasenotify the sender immediately and arrange for the return or destructionofthese documents. Dictated on 05/18/12 1402 by Danya Campbell DOinTranscribed on 05/18/122304 by ITS IMPORTSign by Sharad Campbell DO on 05/18/122305 Sign by: Sharad Campbell DO 38-Ads-31505:15 METABOLIC PANEL, COMPREHENSIVE Comments: PATIENT WAS FASTINGPERFORMED BY: [facility]Co[facility] HospitalHudymd0037 [facility] [id number] (63865) ALT (SGPT) 17 [iU]/L (Normal) Range: 0-40 AST (SGOT) 17 [iU]/L (Normal) Range: 0-40 Alkaline Phosphatase, S 69 [iU]/L (Normal) Range: 25-165 Bilirubin, Total 0.9 mg/dL (Normal) Range: 0.0-1.2 A/G Ratio 2.2 (Normal) Range: 1.1-2.5 Globulin, Total 2.0 g/dL (Normal) Range: 1.5-4.5 Albumin, Serum 4.3 g/dL (Normal) Range: 3.5-4.8 Protein, Total, Serum 6.3 g/dL (Normal) Range: 6.0-8.5 Calcium, Serum 9.0 mg/dL (Normal) Range: 8.6-10.2 Carbon Dioxide, Total 22 mmol/L (Normal) Range: 20-32 Chloride, Serum 105 mmol/L (Normal) Range: 97-108 Potassium, Serum 4.0 mmol/L (Normal) Range: 3.5-5.2 Sodium, Serum 142 mmol/L (Normal) Range: 134-144 BUN/Creatinine Ratio 31 (Abnormal) Range: 11-26 eGFR If Africn Am 106 mL/min/1.73 (Normal) eGFR If NonAfricn Am 92 mL/min/1.73 (Normal) Creatinine, Serum 0.59 mg/dL (Normal) Range: 0.57-1.00 BUN 18 mg/dL (Normal) Range: 8-27 Glucose, Serum 100 mg/dL (Abnormal) Range: 65-99 :15 LIPID PANEL (88804) Comments: PATIENT WAS FASTINGPERFORMED BY: [employer] [place]3 [facility] [id number] LDL/HDL Ratio 1.5 {ratio_units} (Normal) Range: 0.0-3.2 LDL Cholesterol Calc 95 mg/dL (Normal) Range: 0-99 Comments: Please note reference interval change VLDL Cholesterol Osmin 19 mg/dL (Normal) Range: 5-40 HDL Cholesterol 62 mg/dL (Normal) Comments: According to ATP-III Guidelines, HDL-C >59 mg/dL is considered anegative risk factor for CHD. Triglycerides 94 mg/dL (Normal) Range: 0-149 Comments: Please note reference interval change Cholesterol, Total 176 mg/dL (Normal) Range: 100-199 Comments: Please note reference interval change :15 CBC WITH MANUAL DIFF Comments: PATIENT WAS FASTINGPERFORMED BY: [employer] Qazgmj0396 [facility] [id number] Information: [id number] (17765) Immature Grans (Abs) 0.0 {x10E3/uL} (Normal) Range: 0.0-0.1 Immature Granulocytes 0 % (Normal) Range: 0-2 Baso (Absolute) 0.0 {x10E3/uL} (Normal) Range: 0.0-0.2 Eos (Absolute) 0.1 {x10E3/uL} (Normal) Range: 0.0-0.4 Monocytes(Absolute) 0.3 {x10E3/uL} (Normal) Range: 0.1-1.0 Lymphs (Absolute) 1.5 {x10E3/uL} (Normal) Range: 0.7-4.5 Neutrophils (Absolute) 1.8 {x10E3/uL} (Normal) Range: 1.8-7.8 Basos 1 % (Normal) Range: 0-3 Eos 3 % (Normal) Range: 0-7 Monocytes 9 % (Normal) Range: 4-13 Lymphs 39 % (Normal) Range: 14-46 Neutrophils 48 % (Normal) Range: 40-74 Platelets 230 {x10E3/uL} (Normal) Range: 140-415 RDW 13.6 % (Normal) Range: 12.3-15.4 MCHC 33.3 g/dL (Normal) Range: 31.5-35.7 MCH 29.0 pg (Normal) Range: 26.6-33.0 MCV 87 fL (Normal) Range: 79-97 Hematocrit 41.4 % (Normal) Range: 34.0-46.6 Hemoglobin 13.8 g/dL (Normal) Range: 11.1-15.9 RBC 4.76 {x10E6/uL} (Normal) Range: 3.77-5.28 WBC 3.8 {x10E3/uL} (Abnormal) Range: 4.0-10.5 80-Pxx-404290:03 Microscopic Examination Comments: PATIENT NOT FASTINGPERFORMED BY: [employer]6370 [facility] [id number] Bacteria None seen (Normal) Mucus Threads Present (Normal) Epithelial Cells (non renal) 0-10 {/hpf} (Normal) Range: 0 - 10 RBC None seen {/hpf} (Normal) Range: 0 - 3 WBC None seen {/hpf} (Normal) Range: 0 - 5 :03 URINALYSIS, W/ MICRO (46080) Comments: PATIENT NOT FASTINGPERFORMED BY: [employer]6370 [facility] [id number] Microscopic Examination See below: (Normal) Microscopic Examination MICRON (Normal) Comments: Microscopic follows if indicated. Nitrite, Urine Negative (Normal) Urobilinogen,Semi-Qn 0.2 mg/dL (Normal) Range: 0.0-1.9 Bilirubin Negative (Normal) Occult Blood Negative (Normal) Ketones Negative (Normal) Glucose Negative (Normal) Protein Negative (Normal) WBC Esterase Negative (Normal) Appearance Clear (Normal) Urine-Color Yellow (Normal) pH 7.5 (Normal) Range: 5.0-7.5 Specific Presho 1.014 (Normal) Range: 1.005-1.030 37-Pba-613518:03 TSH (40356) Comments: PATIENT NOT FASTINGPERFORMED BY: [facility]6370 [facility] [id number] TSH 2.440 {uIU/mL} (Normal) Range: 0.450-4.500 43-Axg-559189:03 CBC WITH MANUAL DIFF Comments: PATIENT NOT FASTINGPERFORMED BY: [facility]6370 [facility] [id number] Information: [id number] (16964) Immature Grans (Abs) 0.0 {x10E3/uL} (Normal) Range: 0.0-0.1 Immature Granulocytes 0 % (Normal) Range: 0-2 Baso (Absolute) 0.0 {x10E3/uL} (Normal) Range: 0.0-0.2 Eos (Absolute) 0.1 {x10E3/uL} (Normal) Range: 0.0-0.4 Monocytes(Absolute) 0.4 {x10E3/uL} (Normal) Range: 0.1-1.0 Lymphs (Absolute) 1.1 {x10E3/uL} (Normal) Range: 0.7-4.5 Neutrophils (Absolute) 3.4 {x10E3/uL} (Normal) Range: 1.8-7.8 Basos 0 % (Normal) Range: 0-3 Eos 2 % (Normal) Range: 0-7 Monocytes 8 % (Normal) Range: 4-13 Lymphs 22 % (Normal) Range: 14-46 Neutrophils 68 % (Normal) Range: 40-74 Platelets 227 {x10E3/uL} (Normal) Range: 140-415 RDW 13.8 % (Normal) Range: 12.3-15.4 MCHC 33.8 g/dL (Normal) Range: 31.5-35.7 MCH 29.6 pg (Normal) Range: 26.6-33.0 MCV 88 fL (Normal) Range: 79-97 Hematocrit 42.0 % (Normal) Range: 34.0-46.6 Hemoglobin 14.2 g/dL (Normal) Range: 11.1-15.9 RBC 4.80 {x10E6/uL} (Normal) Range: 3.77-5.28 WBC 5.1 {x10E3/uL} (Normal) Range: 4.0-10.5 33-Xzq-360426:03 METABOLIC PANEL, COMPREHENSIVE Comments: PATIENT NOT FASTINGPERFORMED BY: PETRONA [facility] Homzuf6744 [facility] [id number] ([id number]) ALT (SGPT) 16 [iU]/L (Normal) Range: 0-40 AST (SGOT) 17 [iU]/L (Normal) Range: 0-40 Alkaline Phosphatase, S 72 [iU]/L (Normal) Range: 25-165 Bilirubin, Total 0.9 mg/dL (Normal) Range: 0.0-1.2 A/G Ratio 2.1 (Normal) Range: 1.1-2.5 Globulin, Total 2.2 g/dL (Normal) Range: 1.5-4.5 Albumin, Serum 4.6 g/dL (Normal) Range: 3.5-4.8 Protein, Total, Serum 6.8 g/dL (Normal) Range: 6.0-8.5 Calcium, Serum 9.1 mg/dL (Normal) Range: 8.6-10.2 Carbon Dioxide, Total 24 mmol/L (Normal) Range: 20-32 Chloride, Serum 104 mmol/L (Normal) Range: 97-108 Potassium, Serum 3.9 mmol/L (Normal) Range: 3.5-5.2 Sodium, Serum 142 mmol/L (Normal) Range: 134-144 BUN/Creatinine Ratio 30 (Abnormal) Range: 11-26 eGFR If Africn Am 110 mL/min/1.73 (Normal) eGFR If NonAfricn Am 95 mL/min/1.73 (Normal) Creatinine, Serum 0.54 mg/dL (Abnormal) Range: 0.57-1.00 BUN 16 mg/dL (Normal) Range: 8-27 Glucose, Serum 88 mg/dL (Normal) Range: 65-99 0-Rkb-851434:19 METANEPHRINES - URINE (57586) Comments: PATIENT NOT FASTINGPERFORMED BY: [facility] Bpwcqvhisi8665 [facility] [id number] Metanephrine, U,24hr 118 {ug/24_hr} (Normal) Range: 45-290 Comments: (Hypertensive) >17 years 11 months: 35 - 460 . Please note reference interval change Metanephrine, Ur 94 ug/L (Normal) Normetanephr.,U,24h 248 {ug/24_hr} (Normal) Range: 82-500 Comments: (Hypertensive) >17 years 11 months: 110 - 1050 Normetanephrine, Ur 198 ug/L (Normal) 9-Taw-240203:19 URINE VMA (67184) Comments: PATIENT NOT FASTINGPERFORMED BY: CEYX [facility] R[address]ourtj[address] [id number] VMA, Urine, 24hr 3.1 {mg/24_hr} (Normal) Range: 0.0-7.5 VMA, Urine 2.5 mg/L (Normal) 1-Dff-877885:19 CATECHOLAMINES TOTAL, URINE Comments: PATIENT NOT FASTINGPERFORMED BY: CEYX [facility] Pqyelrkiaz[address] [id number] Information: SRC:LANDEN [id number] START 2@730AM FIN BETH; f/u 01/22/12 (56802) Dopamine, Ur, 24hr 229 {ug/24_hr} (Normal) Range: 0-510 Dopamine, Urine 183 ug/L (Normal) Norepinephrine,U,24h 53 {ug/24_hr} (Normal) Range: 0-135 Norepinephrine, Ur 42 ug/L (Normal) Epinephrine, U, 24hr 5 {ug/24_hr} (Normal) Range: 0-20 Epinephrine, Urine 4 ug/L (Normal) 97-Cyp-71946:24 CHEST WITHOUT CONTRAST Radiology Report See Note (Normal) Comments: PROCEDURE: CT CHEST WITHOUT CONTRAST REASON FOR EXAM: Female, 71 years old. TECHNIQUE: High resolution transaxial imaging was performed without theadministration of intravenous contrast material. COMPARISON: CT abdomen/pelvis August 02, 2011. FINDINGS: The lungs are normal. There is no demonstrated pleural abnormality.Mildscarring in the left base. The previously noted partially seen nodula rdensity in the left base is not seen. Normal heart and pericardium. Small nodes of the mediastinum. Normal hilar regions. Normal unenhancedpulmonary arteries. Normal unenhanced thoracic aorta and vi sualizedgreatvessels. Normal osseous structures. Right renal calculi. IMPRESSION:Normal unenhanced CT Chest. To consult with a radiologist regarding this report, please call our [id number] line @ [phone] Dictated on 10/04/11 0959 by Danya Campbell DOinTranscribed on 10/04/112208 by ITS IMPORTSign by Sharad Campbell DO on 10/04/112208 Sign by: Sharad Campbell DO :23 BILAT SCRN DIGITAL & CAD Radiology Report See Note (Normal) Comments: MAMMOGRAPHY - BILATERAL SCREENING REASON FOR EXAM: Female, 71 years old. Routine annual screeningexamination. PERTINENT HISTORY: Non-contributory. TECHNIQUE: Digital examination. Med iolateral ob lique (MLO) andcraniocaudad (CC) views of both breasts were obtained. CAD: CAD wasperformed on this study. COMPARISON: Comparison is made with prior study dated August. FINDINGS:The breast c omposition is composed of scattered fibroglandular densities. There are no dominant masses or suspicious calcifications. No other significant abnormalities are identified. There has been nosignificant change since the prior study. IMPRESSION:Stable bilateral screening mammogram. Yearly follow-up recommended. (A) ASSESSMENT CATEGORY:BIRADS Category 2: Benign finding(s). A letter regarding these r esultswill be sent to the patient by the facility within 30 days. Approximately 10% of breast cancers are not detected by mammography. Anormal mammogram should not delay biopsy of a clinically suspicio usabnormality. To consult with a radiologist regarding this report, please call our [id number] line @ Dictated on 10/04/11 0940 by Heike Cordero MDbed on 10/04/11 1025 by ITS IMPORTSign by Dayton Cordero MD on 10/04/111025 Sign by: Dayton Cordero MD 99-Ovt-97311:49 ABDOMEN/PELVIS WITH CONTRAST Radiology Report See Note (Normal) Comments: PROCEDURE: CT ABDOMEN AND PELVIS WITH CONTRAST REASON FOR EXAM: Female, 71 years old. Right-sided abdominal pain withtenderness. TECHNIQUE: Transaxial images were obtained from the dome of thediap hragmto the symphysis pubis with oral contrast. 100mL ml of Isovue 300contrastwas administered. Multiplanar coronal and sagittal images werereformatted. COMPARISON: None. FINDINGS:There is evidence of an 8.1-mm, noncalcified nodule adjacent to a linearscar in the anterior aspect of the left lower lobe. There is a 6 mm cyst in the dome of the right lobe of the liver. A tinycyst is also seen in the peripheral aspect of the right lobe Normalgallbladder and extrahepatic biliary system. Normal enhanced spleen.There is diffuse atrophy of the pancreas. Normal bilateral adrenal glands. Normal size of the right kidney. There is prominence of the renalpapillae. There are no right renal calculi. There is no righthydronephrosis. Normal visualized right ureter. Normal size of the left kidney. There is prominence of the renalpapillae.There are no left renal calculi. There is no left hydronephrosis.Normalvisualized left ureter. Normal visualized stomach. Normal small intestine. There is a fattyil eocecal valve. Normal colon. The appendix is visualized and appearsnormal. There is no demonstrated peritoneal fluid. Normal abdominal aorta. Normal inferior vena cava. Normalretroperitoneum. Normal urinary bladder. There is no pelvic mass lesion orlymphadenopathy.There is no pelvic fluid. There is absence of the uterus consistent witha prior hysterectomy. There is a small umbilical hernia contai pooja fat. There are diffusedegenerative changes of the visualized lumbar spine. IMPRESSION:Subcentimeter hepatic cysts.There is prominence of the renal papillae bilaterally. To consult with a radiologi st regarding this report, please call our [id number] line @ Dictated on 08/02/11 0813 by Vikram Cordero MDranscribed on 08/02/11 1519 by ITS IMPORTSign by [place] Cordero MD on 08/02/11 1520 Sign by: Aguilar RODRIGUEZ,[place] :42 SERUM CRE & GFR CREAT,SERUM 0.6 mg/dL (Normal) Range: 0.6-1.0 :56 MIACRE tMICROCREAT 10.2 {mg/g_CRE} (Normal) MIALB 7.1 mg/L (Normal) CREU 69.5 mg/dL (Normal) :56 CMP GAP 8 (Normal) Range: 5-15 CO2 28.0 mmol/L (Normal) Range: 21.0-32.0 CL 105 mmol/L (Normal) Range: 98-107 K 3.9 mmol/L (Normal) Range: 3.5-5.1 NA 141 mmol/L (Normal) Range: 136-145 BIT 0.80 mg/dL (Normal) Range: 0.00-1.00 ALT 25 U/L (Normal) Range: 12-78 ALK 64 U/L (Normal) Range: 50-136 AST 13 U/L (Abnormal) Range: 15-37 CA 8.8 mg/dL (Normal) Range: 8.5-10.1 AG 1.2 {RATIO} (Normal) Range: 0.9-2.4 GLOB 3.2 g/dL (Normal) Range: 2.7-4.2 ALB 3.9 g/dL (Normal) Range: 3.4-5.0 TPROT 7.1 g/dL (Normal) Range: 6.4-8.2 BC 31.7 {RATIO} (Abnormal) Range: 10-20 CREAT 0.6 mg/dL (Normal) Range: 0.6-1.0 BUN 19 mg/dL (Abnormal) Range: 7-18 GLU 99 mg/dL (Normal) Range: 70-110 :56 LIPID VLDL 16 mg/dL (Normal) Range: 5-40 LDL 114 mg/dL (Normal) Range: 0-130 HDL 60 mg/dL (Normal) Comments: Reference Range HDL <40 mg/dL Low HDL Cholesterol HDL >or= 60 mg/dL High HDL Cholesterol TRIG 79 mg/dL (Normal) Comments: Serum Triglycerides Reference Interval Normal <150 mg/dL Borderline high 150 - 199 mg/dL High 200 - 499 mg/dL Very High > or = 500 mg/dL CHOL 190 mg/dL (Normal) Comments: <200 mg/dL Desirable 200-240 mg/dL Borderline >240 mg/dL High Risk :56 CBCMD RBCM NORM C+C {NORMAL} (Normal) PE ADEQUATE (Normal) EOS 1 % (Normal) Range: 0-5 MON 5 % (Normal) Range: 0-10 LYMPH 48 % (Abnormal) Range: 19-41 PMN 46 % (Abnormal) Range: 47-70 JAMEEL 100 (Normal) ANC 1.7 3/uL (Abnormal) Range: 2.0-7.7 PLT 237 K/mm3 (Normal) Range: 150-450 RDW 12.8 % (Normal) Range: 11.6-14.6 MCHC 35.3 g/dL (Normal) Range: 32-36 MCH 30.8 pg (Normal) Range: 27.0-32.0 MCV 87.5 fL (Normal) Range: 81-99 HCT 39.0 % (Normal) Range: 37-47 HGB 13.8 g/dL (Normal) Range: 12.0-16.0 RBC 4.46 {M/mm3} (Normal) Range: 4.2-5.4 WBC 3.9 K/mm3 (Abnormal) Range: 4.4-11.0 :49 Microscopic Examination Comments: PATIENT WAS FASTINGPERFORMED BY: PatientFocus6370 [facility]uble[facility] MediaFormerly [facility] [id number] Bacteria None seen (Normal) Mucus Threads Present (Normal) Epithelial Cells (non renal) 0-10 {/hpf} (Normal) Range: 0 - 10 RBC None seen {/hpf} (Normal) Range: 0 - 3 WBC 0-5 {/hpf} (Normal) Range: 0 - 5 :49 TSH ([id number]) Comments: PATIENT WAS FASTINGPERFORMED BY: ShoeSize.Me70 [facility] [id number] TSH 3.680 {uIU/mL} (Normal) Range: 0.450-4.500 :49 URINALYSIS, W/ MICRO ([id number]) Comments: PATIENT WAS FASTINGPERFORMED BY: [employer]Me70 [facility] ClearMyMailFormerly [facility] [id number] Microscopic Examination See below: (Normal) Microscopic Examination MICRON (Normal) Comments: Microscopic follows if indicated. Nitrite, Urine Negative (Normal) Urobilinogen,Semi-Qn 0.2 mg/dL (Normal) Range: 0.0-1.9 Bilirubin Negative (Normal) Occult Blood Negative (Normal) Ketones Negative (Normal) Glucose Negative (Normal) Protein Negative (Normal) WBC Esterase Negative (Normal) Appearance Clear (Normal) Urine-Color Yellow (Normal) pH 6.5 (Normal) Range: 5.0-7.5 Specific Presho 1.016 (Normal) Range: 1.005-1.030 53-Csd-20886:49 METABOLIC PANEL, COMPREHENSIVE Comments: PATIENT WAS FASTINGPERFORMED BY: [facility] Zyvmbt5023 [facility] [id number] (22012) ALT (SGPT) 15 [iU]/L (Normal) Range: 0-40 AST (SGOT) 14 [iU]/L (Normal) Range: 0-40 Alkaline Phosphatase, S 66 [iU]/L (Normal) Range: 25-165 Bilirubin, Total 1.0 mg/dL (Normal) Range: 0.0-1.2 A/G Ratio 1.8 (Normal) Range: 1.1-2.5 Globulin, Total 2.3 g/dL (Normal) Range: 1.5-4.5 Albumin, Serum 4.2 g/dL (Normal) Range: 3.5-4.8 Protein, Total, Serum 6.5 g/dL (Normal) Range: 6.0-8.5 Calcium, Serum 9.3 mg/dL (Normal) Range: 8.6-10.2 Carbon Dioxide, Total 26 mmol/L (Normal) Range: 20-32 Chloride, Serum 104 mmol/L (Normal) Range: 97-108 Potassium, Serum 4.2 mmol/L (Normal) Range: 3.5-5.2 Sodium, Serum 141 mmol/L (Normal) Range: 135-145 BUN/Creatinine Ratio 25 (Normal) Range: 11-26 eGFR If Africn Am 101 mL/min/1.73 (Normal) Comments: Note: A persistent eGFR <60 mL/min/1.73 m2 (3 months or more) mayindicate chronic kidney disease. An eGFR >59 mL/min/1.73 m2 with anelevated urine protein also may indicate chronic kidney disease.Calculated using CKD-EPI formula. eGFR If NonAfricn Am 88 mL/min/1.73 (Normal) Creatinine, Serum 0.69 mg/dL (Normal) Range: 0.57-1.00 BUN 17 mg/dL (Normal) Range: 8-27 Glucose, Serum 91 mg/dL (Normal) Range: 65-99 :49 LIPID PANEL (85703) Comments: PATIENT WAS FASTINGPERFORMED BY: imbookin (Pogby) [facility] [id number] LDL/HDL Ratio 1.5 {ratio_units} (Normal) Range: 0.0-3.2 LDL Cholesterol Calc 93 mg/dL (Normal) Range: 0-99 VLDL Cholesterol Osmin 20 mg/dL (Normal) Range: 5-40 HDL Cholesterol 64 mg/dL (Normal) Comments: According to ATP-III Guidelines, HDL-C >59 mg/dL is considered anegative risk factor for CHD. Triglycerides 98 mg/dL (Normal) Range: 0-149 Cholesterol, Total 177 mg/dL (Normal) Range: 100-199 :49 CBC WITH MANUAL DIFF Comments: PATIENT WAS FASTINGPERFORMED BY: [employer].Me70 [facility] [id number] Information: [id number] ([id number]) Immature Grans (Abs) 0.0 {x10E3/uL} (Normal) Range: 0.0-0.1 Immature Granulocytes 0 % (Normal) Range: 0-2 Baso (Absolute) 0.0 {x10E3/uL} (Normal) Range: 0.0-0.2 Eos (Absolute) 0.2 {x10E3/uL} (Normal) Range: 0.0-0.4 Monocytes(Absolute) 0.4 {x10E3/uL} (Normal) Range: 0.1-1.0 Lymphs (Absolute) 1.8 {x10E3/uL} (Normal) Range: 0.7-4.5 Neutrophils (Absolute) 2.1 {x10E3/uL} (Normal) Range: 1.8-7.8 Basos 0 % (Normal) Range: 0-3 Eos 4 % (Normal) Range: 0-7 Monocytes 9 % (Normal) Range: 4-13 Lymphs 40 % (Normal) Range: 14-46 Neutrophils 47 % (Normal) Range: 40-74 Platelets 210 {x10E3/uL} (Normal) Range: 140-415 RDW 13.9 % (Normal) Range: 11.7-15.0 MCHC 34.7 g/dL (Normal) Range: 32.0-36.0 MCH 30.3 pg (Normal) Range: 27.0-34.0 MCV 87 fL (Normal) Range: 80-98 Hematocrit 40.4 % (Normal) Range: 34.0-44.0 Hemoglobin 14.0 g/dL (Normal) Range: 11.5-15.0 RBC 4.62 {x10E6/uL} (Normal) Range: 3.80-5.10 WBC 4.5 {x10E3/uL} (Normal) Range: 4.0-10.5 87-Lnr-953961:02 [facility] Radiology Report See Note (Normal) Comments: MAMMOGRAPHY - BILATERAL SCREENING INDICATION:Female, 70 years old. Routine annual screening examination. PERTINENT HISTORY:Mother with breast cancer two times. TECHNIQUE:Digital examination. Mediolatera l oblique (MLO) and craniocaudad (CC)viewsof both breasts were obtained. CAD was performed on this study. A molemarker was placed on the right breast. COMPARISON:June 21 2009. FINDINGS:The breast co mposition is composed of a few scattered fibroglandulardensities. There are no masses or suspicious microcalcifications. No other significant abnormalities are identified. IMPRESSION:Normal bilateral sc reening mammogram. Yearly follow-up recommended. ASSESSMENT CATEGORY:BIRADS Category 1: Negative. A letter regarding these results will besentto the patient by the facility within 30 days. Approximately 10% of breast cancers are not detected by mammography. Anormal mammogram should not delay biopsy of a clinically suspiciousabnormality. Dictated on 08/28/10 1015 by ANNIE PETITTranscribed on 08/08 08/17 1201 by ITS IMPORTSign by ANNIE PETIT on 08/28/10 1202 Sign by: ANNIE PETIT 1-Lor-435130:52 Aerobic Bacterial Culture Comments: PERFORMED BY: CB [facility] Lsudpy4940 [place] [id number] Information: SRC:FI LEFT FINGER Result 1 NG36 (Normal) Comments: No growth in 36 - 48 hours. Aerobic Bacterial Culture Final report (Normal) [id number]-Wxb-[id number]:23 Thin prep Pap (30004) Comments: Source.............VaginalNo. of containers..01 CYTYC Thin Prep VialPATIENT NOT FASTINGPERFORMED BY: WB [facility] [address] [id number] Information: [id number] Note: PAPSMR (Normal) Comments: The Pap smear is a screening test designed to aid in the detection ofpremalignant and malignant conditions of the uterine cervix. It is not adiagnostic procedure and should not be used as the sole mean s of detectingcervical cancer. Both false-positive and false-negative reports do occur. .The HPV DNA reflex criteria were not met with this specimen resulttherefore, no HPV testing was performed. . See Note . (Normal) DIAGNOSIS: SPRCS (Normal) Comments: NEGATIVE FOR INTRAEPITHELIAL LESION AND MALIGNANCY.Satisfactory for evaluation. No endocervical cells are present. This isconsistent with a history of hysterectomy.V72.31 ; Routine gynecological exami Eric Gomez Speck Dyer (ASCP) :52 CBCD,SMEAR DIFF PLT EST SeeNote (Normal) Comments: Result: ADEQUATE RED CELL MORPH SeeNote {NORMAL} (Normal) Comments: Result: NORM C+C ABSOLUTE NEUT 1.8 3/uL (Abnormal) Range: 2.0-7.7 CELLS COUNTED 100 (Normal) EOS 4 % (Normal) Range: 0-5 LYMPH 46 % (Abnormal) Range: 19-41 MCH 31.2 pg (Normal) Range: 27.0-32.0 MCHC 34.7 g/dL (Normal) Range: 32-36 MCV 90.1 fL (Normal) Range: 81-99 MONOCYTE 1 % (Normal) Range: 0-10 PLT 236 K/mm3 (Normal) Range: 150-450 RDW 12.8 % (Normal) Range: 11.6-14.6 SEGS 49 % (Normal) Range: 47-70 HCT 37.6 % (Normal) Range: 37-47 HGB 13.0 g/dL (Normal) Range: 12.0-16.0 RBC 4.17 {M/mm3} (Abnormal) Range: 4.2-5.4 WBC 3.6 K/mm3 (Abnormal) Range: 4.4-11.0 :52 COMP METABOLIC CL 108 mmol/L (Abnormal) Range: 98-107 CO2 27.0 mmol/L (Normal) Range: 21.0-32.0 GAP 8 (Normal) Range: 5-15 K 3.7 mmol/L (Normal) Range: 3.5-5.1 NA 143 mmol/L (Normal) Range: 136-145 T BILI 0.80 mg/dL (Normal) Range: 0.00-1.00 A/G 1.2 {RATIO} (Normal) Range: 0.9-2.4 ALB 3.5 g/dL (Normal) Range: 3.4-5.0 ALK P 65 U/L (Normal) Range: 50-136 ALT 19 U/L (Normal) Range: 12-78 AST 10 U/L (Abnormal) Range: 15-37 CA 8.4 mg/dL (Abnormal) Range: 8.5-10.1 GLOB 2.9 g/dL (Normal) Range: 2.7-4.2 BUN/CRE 38.3 {RATIO} (Abnormal) Range: 10-20 T PROT 6.4 g/dL (Normal) Range: 6.4-8.2 BUN 23 mg/dL (Abnormal) Range: 7-18 CREAT,SERUM 0.6 mg/dL (Normal) Range: 0.6-1.0 EST GFR 105 mL/min (Normal) EST GFR - AA 127 mL/min (Normal) GLU 87 mg/dL (Normal) Range: 70-110 :52 COMPLETE UA BACTERIA 0 SEEN {/hpf} (Normal) LEUK ESTERASE SeeNote (Normal) Comments: Result: NEGATIVE MUCUS, URINE 0 SEEN {/hpf} (Normal) RBC-UA 0 SEEN {/hpf} (Normal) Range: 0-5 SQUAM EPI 0 SEEN {/hpf} (Normal) Range: 5-10 WBC SeeNote {/hpf} (Normal) Range: 0-5 Comments: Result: 0-5 SEEN BILIRUBIN URINE SeeNote (Normal) Comments: Result: NEGATIVE GLUCOSE, UR SeeNote (Normal) Comments: Result: NEGATIVE KETONE UR SeeNote mg/dL (Normal) Comments: Result: NEGATIVE NITRITE UR SeeNote (Normal) Comments: Result: NEGATIVE OCCULT BLOOD-UR SeeNote (Normal) Comments: Result: NEGATIVE pH UR 6.0 (Normal) Range: 5.0-8.0 PROT DIPSTX SeeNote (Normal) Comments: Result: NEGATIVE SP.GR. DIPSTX 1.015 (Normal) Range: 1.002-1.030 UROBILI 0.2 EU/dl (Normal) Range: 0.2 - 1.0 CLARITY CLEAR (Normal) COLOR YELLOW (Normal) :52 LIPID HDL 59 mg/dL (Normal) Comments: Reference Range HDL <40 mg/dL Low HDL Cholesterol HDL >or= 60 mg/dL High HDL Cholesterol LDL 93 mg/dL (Normal) Range: 0-130 TRIG 68 mg/dL (Normal) Comments: Serum Triglycerides Reference Interval Normal <150 mg/dL Borderline high 150 - 199 mg/dL High 200 - 499 mg/dL Very High > or = 500 mg/dL VLDL 14 mg/dL (Normal) Range: 5-40 CHOL 166 mg/dL (Normal) Comments: <200 mg/dL Desirable 200-240 mg/dL Borderline >240 mg/dL High Risk :52 MICROALB:CRE UR MALB:CREAT 9.7 {mg/g_CRE} (Normal) MICROALBUMIN,UR 9.7 mg/L (Normal) UR CREAT 99.1 mg/dL (Normal) :52 TSH 3.37 {uIU/mL} (Normal) Range: 0.358-3.74 :28 BILAT [facility] DIGITAL & CAD Radiology Report See Note (Normal) Comments: Exam Number: [id number] DIGITAL BILATERAL MAMMOGRAM Digital oblique and craniocaudal views were obtained. Comparison ismade with the prior examination dated June 20, 2008. Interpretation was made w ith the benefit of the CAD system. There is a small amount of fibroglandular tissue. No dominant masslesion is seen. No cluster of microcalcification is present. Theoverlying skin is not thickened. There has been no change since priorexamination. IMPRESSION1. There has been no change since prior examination.2. Routine annual mammographic followup is suggested.3. Negative. BIRADS Category 1. A letter regarding the results has been sent to the patient. This interpretation was rendered by a radiologist certified under theMammography Quality Standards Act of 1992 (MQSA). The mammograms wereals o examined with computer-aided detection software ([employer] Reported By: DAYTON CORDERO :33 Aldolase 2.5 U/L (Normal) Comments: PERFORMED BY: [facility] Cwirrf0085 [facility] [id number] Range: 1.2-7.6 :33 Antinuclear Antibodies Direct Comments: PERFORMED BY: [employer] Rivpbg1158 [facility] [id number] JAELYN Direct Negative (Normal) :3 C-Reactive Protein, 2.4 mg/L (Normal) Comments: PERFORMED BY: [employer] Mlgucl5003 [facility] [id number] 3 Quant Range: 0.0-4.9 :33 CBC With Differential/Platelet Comments: PERFORMED BY: [employer]IA Pharmaceuticalslin6370 [facility] [id number] Baso (Absolute) 0.0 {x10E3/uL} (Normal) Range: 0.0-0.2 Basos 1 % (Normal) Range: 0-3 Eos 3 % (Normal) Range: 0-7 Eos (Absolute) 0.1 {x10E3/uL} (Normal) Range: 0.0-0.4 Hematocrit 41.9 % (Normal) Range: 34.0-44.0 Hemoglobin 14.2 g/dL (Normal) Range: 11.5-15.0 Lymphs 30 % (Normal) Range: 14-46 Lymphs (Absolute) 1.4 {x10E3/uL} (Normal) Range: 0.7-4.5 MCH 30.0 pg (Normal) Range: 27.0-34.0 MCHC 33.9 g/dL (Normal) Range: 32.0-36.0 MCV 88 fL (Normal) Range: 80-98 Monocytes 8 % (Normal) Range: 4-13 Monocytes(Absolute) 0.4 {x10E3/uL} (Normal) Range: 0.1-1.0 Neutrophils 58 % (Normal) Range: 40-74 Neutrophils (Absolute) 2.7 {x10E3/uL} (Normal) Range: 1.8-7.8 Platelets 258 {x10E3/uL} (Normal) Range: 140-415 RBC 4.75 {x10E6/uL} (Normal) Range: 3.80-5.10 RDW 13.1 % (Normal) Range: 11.7-15.0 WBC 4.7 {x10E3/uL} (Normal) Range: 4.0-10.5 :33 Comp. Metabolic Panel (14) Comments: PERFORMED BY: [facility]6370 [facility] [id number] A/G Ratio 1.7 (Normal) Range: 1.1-2.5 Albumin, Serum 4.5 g/dL (Normal) Range: 3.6-4.8 Alkaline Phosphatase, S 77 [iU]/L Range: 25-165 (Normal) ALT (SGPT) 22 [iU]/L Range: 0-40 (Normal) AST (SGOT) 18 [iU]/L Range: 0-40 (Normal) Bilirubin, Total 0.8 mg/dL Range: 0.1-1.2 (Normal) BUN 25 mg/dL (Normal) Range: 5-26 BUN/Creatinine Ratio 34 (Abnormal) Range: 8-27 Calcium, Serum 9.6 mg/dL Range: 8.5-10.6 (Normal) Carbon Dioxide, Total 25 mmol/L Range: 20-32 (Normal) Chloride, Serum 104 mmol/L Range: 97-108 (Normal) Creatinine, Serum 0.73 mg/dL Range: 0.57-1.00 (Normal) eGFR >59 mL/min/1.73 (Normal) eGFR AfricanAmerican >59 mL/min/1.73 Comments: Note: Persistent reduction for 3 months or more in an eGFR<60 mL/min/1.73 m2 defines CKD. Patients with eGFR values>/=60 mL/min/1.73 m2 may also have CKD if evidence of persistentproteinuria is (Normal) present. Additional information may be found [email or web address].org. Globulin, Total 2.6 g/dL (Normal) Range: 1.5-4.5 Glucose, Serum 111 mg/dL Range: 65-99 (Abnormal) Potassium, Serum 4.0 mmol/L Range: 3.5-5.2 (Normal) Protein, Total, Serum 7.1 g/dL (Normal) Range: 6.0-8.5 Sodium, Serum 142 mmol/L Range: 135-145 (Normal) 03-Apr-2009 Creatine 77 U/L (Normal) Comments: PERFORMED BY: [facility] [id number] 9:33 Kinase,Total,Serum Range: 24-173 03-Apr-2009 Sedimentation 8 mm/h (Normal) Comments: PERFORMED BY: [facility] [id number] 9:33 Rate-Westergren Range: 0-30 03-Apr-2009 TSH 3.500 {uIU/mL} Comments: PERFORMED BY: [facility] [id number] 9:33 (Normal) Range: 0.450-4.500 06-Sep-20088:47 DEXA BONE DENSITY STUDY (HP) Radiology Report See Note (Normal) Comments: Exam Number: [id number] BONE DENSITOMETRY HISTORYPostmenopausal. TECHNIQUE Bone densitometry of the lumbar spine and left hip was performed. Thebest criteria for evaluation of osteoporosis is the T- value, whichrepresents the comparison of the patient's bone mass to an expectedpeak bone mass. For most patients, the mean T-value of L1 through L4is used to evaluate the lumbar spine. Based on the [facility] WorldHealth Organization classifications, the hip is evaluated by utilizingthe lower of the T-value of the total hip or the T-value of thefemoral neck. FINDINGSIn this patient, the mean T-value o f L1 through L4 is 0.3 which isnormal. Bone mineral density is measured at 2.5% less than in 2002.Digital lateral view for evaluation of vertebral deformity only demonstrates no obvious compression fra ctures. The T-value of theleft femoral neck is 0.5 which is normal. The T-value of the totalhip is 0.7 which is normal. Bone mineral density is measured at13.5% less than in 2000. IMPRESSIONBone den sitometry of the lumbar spine and left hip is within normallimits. Reported By: ANNIE PETIT M.D. 63-Cxu-113279:42 Thin prep Pap ([id number]) Comments: LMP / Prev Treat...EQC=170068;HystNo. of containers..01 CYTYC Thin Prep VialPATIENT NOT FASTINGClinical Information: ADD [id number] PERFORMED BY: Med[facility] [id number] . . (Normal) DIAGNOSIS: SPRCS (Normal) Comments: NEGATIVE FOR INTRAEPITHELIAL LESION AND MALIGNANCY.Satisfactory for evaluation. No endocervical cells are present. This isconsistent with a history of hysterectomy.V72.31 ; Routine gynecological exami Desiree Bartholomew Speck Dyer (ASCP) Note: PAPSMR (Normal) Comments: The Pap smear is a screening test designed to aid in the detection ofpremalignant and malignant conditions of the uterine cervix. It is not adiagnostic procedure and should not be used as the sole mean s of detectingcervical cancer. Both false-positive and false-negative reports do occur. .The HPV DNA reflex criteria were not met with this specimen resulttherefore, no HPV testing was performed. . 72-Ybf-340080:43 CBCD,SMEAR DIFF BAND 1 % (Normal) Range: 0-5 CELLS COUNTED 100 (Normal) EOS 4 % (Normal) Range: 0-5 HCT 38.0 % (Normal) Range: 37-47 HGB 13.1 g/dL (Normal) Range: 12.0-16.0 LYMPH 35 % (Normal) Range: 19-41 MCH 30.1 pg (Normal) Range: 27.0-32.0 MCHC 34.5 g/dL (Normal) Range: 32-36 MCV 87.4 fL (Normal) Range: 81-99 MONOCYTE 14 % (Abnormal) Range: 0-10 PLT 247 K/mm3 (Normal) Range: 150-450 PLT EST SeeNote (Normal) Comments: Result: ADEQUATE RBC 4.35 {M/mm3} (Normal) Range: 4.2-5.4 RDW 13.2 % (Normal) Range: 11.6-14.6 RED CELL MORPH SeeNote {NORMAL} (Normal) Comments: Result: NORM C+C SEGS 46 % (Abnormal) Range: 47-70 WBC 3.7 K/mm3 (Abnormal) Range: 4.4-11.0 02-Kwe-66000:00 BILAT [facility] DIGITAL & CAD Radiology Report See Note (Normal) Comments: Exam Number: [id number] BILATERAL SCREENING DIGITAL MAMMOGRAM CLINICAL INFORMATIONScreening. Bilateral digital mammography was performed as a screening exam. Standard CC and MLO views were ob tained. Comp arison is made to February 17, 2006, and June 09, 2007. FINDINGSThere has been no significant change in the overall appearance of thebreasts. There are minimal residual fibroglandular elementsbilatera lly. No dominant masses are evident and no suspicious groupsof calcifications are seen. There are a few benign calcifications bilaterally including vascular calcifications. No areas ofspiculation or distortion are found. IMPRESSION1. Stable appearance of the breasts with no specific mammographicevidence of malignancy. Annual mammography is recommended.2. BIRADS 2 with 1-year followup. A letter r egarding the results has been sent to the patient. This interpretation was rendered by a radiologist certified underthe Mammography Quality Standards Act of 1992 (MQSA). The mammogramswere also examine d with computer-aided detection software([employer] Reported By: SHARRI DE LA GARZA M.D. 59-Doj-863498:56 LOWER EXT.JOINT ONLY (ROUTINE) Radiology Report See Note (Normal) Comments: Exam Number: [id number] MRI RIGHT KNEE CLINICAL STATEMENTPain, swelling, worse medial knee. Sagittal proton density and coronal T1 images were obtained along withvariably T2-weighted fat-suppressed axial , sagittal and coronalsequences. There are varicosities in subcutaneous fat. There is moderate jointeffusion. There is a lobular septate, complex- appearing poplitealcyst deep to the medial gastrocne mius head. Anterior and posteriorcruciate ligaments are intact although there is high signal within theposterior cruciate ligament suggesting there may be intrasubstancepartial tear. Medial meniscal c artilage is intact. The lateralmeniscus is severely fragmented or possibly resected at the anteriorhorn and body. There is marked thinning of articular cartilage in thelateral femoral-tibial compartme nt with osteophyte around thearticular margins. The collateral ligaments are intact. Subarticularmarrow signal is appropriate in the medial compartment with mild edemain the lateral tibial plateau. A t the patellofemoral joint articularthickness and subchondral marrow are normal. IMPRESSION1. 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 Complex septate popliteal cyst.3. Cruciate ligaments appear intact although there is someintrasubstance hig h-signal in the proximal PCL that could represent apartial tear.4. Joint effusion.5. Subcutaneous venous varicosities. Reported By: RIMMA DAMIAN M.D. 12-Gxw-02747:16 KNEE,4 OR MORE VIEWS Radiology Report See Note (Normal) Comments: Exam Number: [id number] RIGHT KNEE 4 VIEWS STATEMENTPain and swelling. COMPARISON STUDIESRight knee of May 19, 2006. No acute fracture or joint dislocation is identified. There are mild tricompartme nt degenerative changes present with joint space narrowingand hypertrophic spurring noted. There is no joint effusion. Thereare no suspicious bone lesions. Soft tissues are unremarkable. Therehas be en no significant change. IMPRESSIONMild tricompartment degenerative changes. No acute osseousabnormality or significant change. Reported By: SHARRI HERRERA M.D. 5-Klg-906372:23 [facility] DIGITAL & CAD Radiology Report See Note (Normal) Comments: Exam Number: [id number] MAMMOGRAM, BILATERAL SCREENING DIGITAL AND CAD HISTORYRoutine screening. Full field digital images were obtained in mediolateral oblique andcraniocaudal projections. CAD images w ere reviewed. Small metalmarkers were placed on moles. The current study is compared to the examinations of April 2004 andFebruary 2006. There is a mild to moderate extent of fibroglandular parenchymap resent. There is no skin thickening or retraction, architecturaldistortion, or cluster of suspicious microcalcifications. There isno dominant mass or significant interval change seen. If there is nos uspicious palpable abnormality, followup mammogram in 1 year isrecommended. IMPRESSIONThere is no radiographic evidence of malignancy identified. FINAL ASSESSMENTNegative. BIRADS Category 1. A letter regarding these results has been sent to the patient. This interpretation was rendered by a radiologist certified under theMammography Quality Standards Act of 1992 (MQSA). The mammograms werealso exa mined with computer-aided detection software ([employer] Reported By: ANNIE PETIT M.D. :18 CBCD BASO% 0.7 % (Normal) Range: 0-1 EO% 2.9 % (Normal) Range: 0-5 HCT 38.4 % (Normal) Range: 37-47 HGB 13.6 g/dL (Normal) Range: 12.0-16.0 LY% 40.9 % (Normal) Range: 19-41 MCH 31.1 pg (Normal) Range: 27.0-32.0 MCHC 35.4 g/dL (Normal) Range: 32-36 MCV 87.8 fL (Normal) Range: 81-99 MONO% 9.1 % (Normal) Range: 0-10 MPV 7.3 fL (Normal) Range: 6.5-12.0 NEUT% 46.4 % (Abnormal) Range: 47-70 PLT 248 K/mm3 (Normal) Range: 150-450 RBC 4.38 {M/mm3} (Normal) Range: 4.2-5.4 RDW 12.2 % (Normal) Range: 11.6-14.6 WBC 3.6 K/mm3 (Abnormal) Range: 4.4-11.0 :18 COMP METABOLIC A/G 1.3 {RATIO} (Normal) Range: 0.9-2.4 ALB 3.7 g/dL (Normal) Range: 3.4-5.0 ALK P 64 U/L (Normal) Range: 50-136 ALT 33 [iU]/L (Normal) Range: 30-65 AST 17 U/L (Normal) Range: 15-37 BUN 22 mg/dL (Abnormal) Range: 7-18 BUN/CRE 36.7 {RATIO} (Abnormal) Range: 10-20 CA 9.0 mg/dL (Normal) Range: 8.5-10.1 CL 105 mmol/L (Normal) Range: 98-107 CO2 30.4 mmol/L (Normal) Range: 21.0-32.0 Comments: Please Note Reference Interval Change CREAT,SERUM 0.6 mg/dL (Normal) Range: 0.6-1.0 GAP 4 (Abnormal) Range: 5-15 GLOB 2.9 g/dL (Normal) Range: 2.7-4.2 Comments: Please Note Reference Interval Change GLU 96 mg/dL (Normal) Range: 70-110 K 3.7 mmol/L (Normal) Range: 3.5-5.1 NA 139 mmol/L (Normal) Range: 136-145 T BILI 0.86 mg/dL (Normal) Range: 0.00-1.00 T PROT 6.6 g/dL (Normal) Range: 6.4-8.2 :18 LIPID CHOL 166 mg/dL (Normal) Comments: <200 mg/dL Desirable 200-240 mg/dL Borderline >240 mg/dL High Risk HDL 59 mg/dL (Normal) Comments: Reference Range HDL <40 mg/dL Low HDL Cholesterol HDL >or= 60 mg/dL High HDL Cholesterol LDL 94 mg/dL (Normal) Range: 0-130 TRIG 67 mg/dL (Normal) Comments: Serum Triglycerides Reference Interval Normal <150 mg/dL Borderline high 150 - 199 mg/dL High 200 - 499 mg/dL Very High > or = 500 mg/dL VLDL 13 mg/dL (Normal) Range: 5-40 :18 TSH 2.46 {uIU/mL} (Normal) Range: 0.34-4.82 06-Oxb-510753:55 Urinalysis, Office (75979) UA - BILIRUBIN Negative (Normal) UA - BLOOD Negative (Normal) UA - GLUCOSE Negative (Normal) UA - KETONES Negative mg/dL (Normal) UA - LEUKOCYTE ESTERASE Negative (Normal) UA - NITRITE Negative (Normal) UA - PH 5.0 (Normal) UA - PROTEIN Negative mg/dL (Normal) UA - SPECIFIC GRAVITY 1.000 (Normal) URINE UROBILINGN KATE TIMED Normal mg/dL (Normal) Plan of Care Name Dates Details Instructions Left leg weakness : Eprescribed prescriptions (G8553) Indication: Left leg weakness Acute pharyngitis : Sore throat: diagnosis and treatment Indication: Acute pharyngitis Current nonsmoker (Renamed from Current non-smoker) : Eprescribed prescriptions (G8553) Indication: Current nonsmoker (Renamed from Current non-smoker) Encounter for health maintenance examination with abnormal findings : Eprescribed prescriptions (G8553) Indication: Encounter for health maintenance examination with abnormal findings Pulled hamstring : Eprescribed prescriptions (G8553) Indication: Pulled hamstring Current nonsmoker (Renamed from Current non-smoker) : Eprescribed prescriptions (G8553) Indication: Current nonsmoker (Renamed from Current non-smoker) Lymphedema, limb : Lymphedema: edema Indication: Lymphedema, limb Lymphedema, limb : Eprescribed prescriptions (G8553) Indication: Lymphedema, limb Abdominal discomfort in right lower quadrant : Flu (Influenza) *: flu Indication: Abdominal discomfort in right lower quadrant Abdominal discomfort in right lower quadrant : Eprescribed prescriptions (G8553) Indication: Abdominal discomfort in right lower quadrant Right leg swelling : Follow up as needed Indication: Right leg swelling Sebaceous cyst : I/D Cyst/Abscess Indication: Sebaceous cyst Trigger finger, left : *Trigger Point Injections Indication: Trigger finger, left Trigger finger, left : Joint Aspiration (Arthrocentesis): joint Indication: Trigger finger, left Trigger finger, left : Eprescribed prescriptions (G8553) Indication: Trigger finger, left Encounter for health maintenance examination with abnormal findings : Eprescribed prescriptions (G8553) Indication: Encounter for health maintenance examination with abnormal findings Knee pain : Knee Injections Indication: Knee pain Vertigo : Positional Vertigo *: dizziness Indication: Vertigo GERD (gastroesophageal reflux disease) : Heartburn *: indigestion Indication: GERD (gastroesophageal reflux disease) Limb pain : Muscle Strains *: muscle pain Indication: Limb pain Benign essential HTN : High Blood Pressure (Essential Hypertension) *: blood pressure Indication: Benign essential HTN Benign essential HTN : *Quinn Inhibitor Side Effects Indication: Benign essential HTN Benign essential HTN : HTN/CAD Red Flags Indication: Benign essential HTN Neoplasm of uncertain behavior of skin : I/D Cyst/Abscess Indication: Neoplasm of uncertain behavior of skin Well woman exam : SELF BREAST EXAM Indication: Well woman exam Well woman exam : *Well Female Maintenance (KF) Indication: Well woman exam Well woman exam : Pap/Pelvic/Bimanual/Rectal/Breast Exam was done. Indication: Well woman exam Pain in unspecified hip : FOLLOW UP IN 2 WEEKS Indication: Pain in unspecified hip Knee pain : Knee Injections Indication: Knee pain Knee pain : Knee Injections Indication: Knee pain Pain in unspecified hip : Hip Bursa Indication: Pain in unspecified hip Well woman exam : Well Female Maintenance (KF) Indication: Well woman exam Well woman exam : Pap/Pelvic/Bimanual/Rectal/Breast Exam was done. Indication: Well woman exam Pain in unspecified hip : FOLLOW UP IN 2 WEEKS Indication: Pain in unspecified hip Pain in unspecified hip : exercises Indication: Pain in unspecified hip Knee pain : FOLLOW UP NEEDED Indication: Knee pain Anxiety : Antidepressant Usage Indication: Anxiety Knee pain : Physical Therapy Indication: Knee pain Well woman exam : Pap/Pelvic/Bimanual/Rectal/Breast Exam was done. Indication: Well woman exam Well woman exam : Well Female Maintenance (KF) Indication: Well woman exam Planned Observations CALCIFIDIOL (96960) VIT D 25Indication: Vitamin D deficiency On: 13-Erj-414293:37 Request C-REACT PROT HIGH SENS(hsCRP) (39457)Indication: CRP elevated On: :29 Request CALCIFIDIOL (12553) VIT D 25Indication: Vitamin D deficiency On: :29 Request TSH (40622)Indication: Abnormal TSH On: :29 Request T4, TOTAL (51546)Indication: Abnormal TSH On: :29 Request T3, FREE (TRIDOTHYRONINE) (67992)Indication: Abnormal TSH On: :29 Request CBC (Auto) ([id number])Indication: Benign essential HTN On: :45 Request Metabolic Panel, Comprehensive ([id number])Indication: Benign essential HTN On: :45 Request Vitamin B-12 (cyanocobalamin) (69848)Indication: Balance disorder On: :45 Request CALCIFIDIOL (52281) VIT D 25Indication: Vitamin D deficiency On: :45 Request C-REACTIVE PROTEIN (79679)Indication: Pain in the joints On: :56 Request Comments: 6 weeks T4, FREE (THYROXINE) (12790)Indication: Right leg swelling On: :48 Request TSH ([id number])Indication: Right leg swelling On: :48 Request CBC, Platelets & Auto Diff (75942)Indication: Abdominal discomfort in right lower quadrant On: :48 Request Metabolic Panel, Comprehensive (41251)Indication: Abdominal discomfort in right lower quadrant On: :48 Request CBC WITH MANUAL DIFF ([id number])Indication: Benign essential HTN On: :52 Request MICROALBUMIN: CREATININE RATIO (60153) AND (37282)Indication: Benign essential HTN On: :52 Request METABOLIC PANEL, COMPREHENSIVE (13294)Indication: Benign essential HTN On: :52 Request LIPID PANEL (05738)Indication: Benign essential HTN On: :52 Request CBC WITH MANUAL DIFF ([id number])Indication: Benign essential HTN On: :33 Request METANEPHRINES - URINE (83328)Indication: Benign essential HTN On: :28 Request CATECHOLAMINES TOTAL, URINE (52725)Indication: Benign essential HTN On: :28 Request URINE VMA ([id number])Indication: Benign essential HTN On: :28 Request METABOLIC PANEL, COMPREHENSIVE (53681)Indication: Benign essential HTN On: :25 Request LIPID PANEL (15756)Indication: Benign essential HTN On: :25 Request CBC WITH MANUAL DIFF ([id number])Indication: Benign essential HTN On: :25 Request VANDANA CULTURE-OTHER ([id number])Indication: Neoplasm of uncertain behavior of skin On: :25 Request Comments: from left finger LIPID PANEL (71452)Indication: Benign essential HTN On: :29 Request TSH ([id number])Indication: Benign essential HTN On: :29 Request URINALYSIS, W/ MICRO (85309)Indication: Benign essential HTN On: :29 Request MICROALBUMIN: CREATININE RATIO (59593) AND (88120)Indication: Benign essential HTN On: :29 Request METABOLIC PANEL, COMPREHENSIVE (56225)Indication: Benign essential HTN On: :29 Request CBC WITH MANUAL DIFF ([id number])Indication: Benign essential HTN On: :29 Request Metabolic Panel, Comprehensive (99978)Indication: Myalgia and myositis On: :13 Request TSH (43597)Indication: Myalgia and myositis On: :13 Request ALDOLASE (87502)Indication: Myalgia and myositis On: :13 Request Sed Rate Erythrocyte (15827)Indication: Myalgia and myositis On: :12 Request Creatine Kinase Total (09397)Indication: Myalgia and myositis On: :12 Request C-Reactive Protein (76629)Indication: Myalgia and myositis On: 79-Wqq-85158:12 Request JAELYN (ANTINUCLEAR ANTIBODY) (36822)Indication: Myalgia and myositis On: :12 Request CBC with manual diff (74201)Indication: Neutropenia, unspecified type On: 46-Qrt-055120:50 Request TSH (07643)Indication: Anxiety On: 35-Xhk-806178:13 Request CBC (Auto) ([id number])Indication: Anxiety On: 35-Fmg-116406:13 Request Metabolic Panel, Comprehensive ([id number])Indication: Anxiety On: 07-Way-877756:13 Request Lipid Panel (64293)Indication: Anxiety On: 21-Zjz-781260:13 Request Thin prep Pap (06343)Indication: Well woman exam On: 98-Vxj-074554:55 Request Planned Encounters Medical; [facility] 2 Month FU - On: 21-Jul-2018 13:00 [facility] Austyn RODRIGUEZ, Sheridan Bradshaw MD Planned Procedures US DOPPLER CAROTID BILATERAL On: 17-Apr-2018 Intent (98934)By: Austyn RODRIGUEZ, Sheridan Zaman MD, Sheridan Engel Radiology - Lumbar SpineBy: On: 17-Apr-2018 Intent Sheridan Zaman MD, MD, Dana M Radiology - Hip - LeftBy: Austyn On: 17-Apr-2018 Intent Sheridan RODRIGUEZ MD, Dana M Bone Density StudyBy: Austyn RODRIGUEZ, On: 17-Apr-2018 Intent Sheridan Bradshaw MD Comments: due after 06-18-18 MAMMOGRAM BREAST BILATERAL On: 17-Apr-2018 Intent SCREENING DIGITAL (55259)By: Comments: due after 06-22-18 Sheridan Zaman MD, MD, Dana M Flu Vaccine (Quadrivalent) On: 27-Mar-2018 Intent [id number]: Sheridan Zaman MD Comments: Lot: [id number]: 01/03/19Site: L dltd, IMDose prefilled syringegiven by: CManchakVIS reviewed and ABN signed Sheridan Zaman MD SPECIMEN HNDLNG/TRNSPRT, OFFC > On: 24-Oct-2017 Intent LAB (08281)By: Sheridan Zaman MD, MD, Dana M DRAIN/INJECT MAJOR JOINT OR BURSA On: 08-May-2017 Intent ()By: Sheridan Zaman MD Comments: lot: [id number]:intra articular left knee dose:2ml given by:Dr. Zaman ABN signedER, CHEMICAL PUMPER Euflexxa injection number 3 Sheridan Zaman MD DRAIN/INJECT MAJOR JOINT OR BURSA On: 28-Apr-2017 Intent ()By: Sheridan Zaman MD Comments: lot:[id number]:intra articular dose:2ml given by:Dr. Zaman ABN signedER, CHEMICAL PUMPER Euflexxa injection left knee #2 Sheridan Zaman MD DRAIN/INJECT MAJOR JOINT OR BURSA On: 21-Apr-2017 Intent ()By: Sheridan Zaman MD Comments: lot:[id number]:intra articular dose:2ml given by:Dr. Zaman ABN signedER, CHEMICAL PUMPER Sheridan Zaman MD SCREENING DIGITAL TOMOSYNTHESIS On: 08-Apr-2017 Intent OF BREAST ([id number])By: Austyn RODRIGUEZ, Comments: due after 06-22 Sheridan Bradshaw MD Radiology - Knee - Right - Weight On: 08-Apr-2017 Intent BearingBy: Sheridan Zaman MD, MD, Dana M Radiology - Knee - Left - Weight On: 08-Apr-2017 Intent BearingBy: Sheridan Zaman MD, MD, Dana M Flu Vaccine (Quadrivalent) On: 08-Apr-2017 Intent 06006Ah: Sheridan Zaman MD Comments: lot: [id number]: 12/22/17ite/route: L elzbieta, IMamt: 0.5mlVIS and ABN signed when applicableELVIN Nieves MD, Dana M US DOPPLER CAROTID BILATERAL On: 28-Feb-2016 Intent (24546)By: Sheridan Zaman MD, MD, Dana M Echo CompleteBy: Sheridan Zaman MD On: 28-Feb-2016 Intent Sheridan Henriquez MD Holter Monitor 24 hrsBy: Austyn On: 28-Feb-2016 Intent Sheridan RODRIGUEZ MD, Dana M Comments: plan in 3 weeks before see. MAMMOGRAM, SCREENING, BOTH BREAST On: 28-Feb-2016 Intent (75047)By: Sheridan Zaman MD, MD, Dana M DEXA SCAN AXIAL SKELETON On: 28-Feb-2016 Intent (81829)By: Sheridan Zaman MD, MD, Dana M ELECTROCARDIOGRAM, COMPLETE (ECG) On: 28-Feb-2016 Intent (32722)By: Tonio Concepcion MAMMOGRAM, SCREENING, BOTH BREAST On: 23-May-2015 Intent ([id number])By: Sheridan Zaman MD, MD, Dana M CT - Abdomen & Pelvis (IV On: 09-May-2015 Intent Contrast Needed)By: Sheridan Zaman MD, MD, Dana M Doppler Ultrasound OtherBy: Fast On: 28-Apr-2015 Intent DO, Dena A Comments: stat call wet read Kenalog Injection, 10 mgm On: 07-Sep-2014 Intent (J3301)By: Sheridan Zaman MD, MD, Sheridan Engel Kenalog Injection, 10 mgm On: 07-Sep-2014 Intent (J3301)By: Sheridan Zaman MD, MD, Dana M Bone Density StudyBy: Austyn RODRIGUEZ, On: 13-May-2014 Intent Sheridan Bradshaw MD BILATERAL MAMMOGRAMS (03940)By: On: 13-May-2014 Intent Sheridan Zaman MD, MD, Dana M Doppler Ultrasound OtherBy: Fast On: 05-Apr-2014 Intent Dena LUNA Comments: stat today call results Kenalog Injection, 10 mgm On: 21-Oct-2013 Intent (J3301)By: Sheridan Zaman MD, MD, Sheridan Engel Kenalog Injection, 10 mgm On: 21-Oct-2013 Intent (J3301)By: Sheridan Zaman MD, MD, Dana M Kenalog Injection, 10 mgm On: 21-Oct-2013 Intent (J3301)By: Sheridan Zaman MD, MD, Sheridan Engel Kenalog Injection, 10 mgm On: 21-Oct-2013 Intent (J3301)By: Sheridan Zaman MD, MD, Dana M Breast Screening - BilateralBy: On: 17-May-2013 Intent Sheridan Zaman MD, MD, Dana M Eprescribed prescriptions On: 18-Mar-2013 Intent (G8553)By: Maddy Briceno LPN Eprescribed prescriptions On: 16-Oct-2012 Intent (G8553)By: Lizbeth Leung Radiology - Cervical SpineBy: On: 18-May-2012 Intent Fast DODena A Comments: call wetnread Radiology - Shoulder - RightBy: On: 18-May-2012 Intent Fast DODena A Comments: ac joint as well ADMINISTRATION OF INFLUENZA VIRUS On: 18-May-2012 Intent VACCINE (G0008)By: Brigid, Comments: Lot #:[id number] date: 12/17Amount given:prefilled syringeSite given:L Dltd, IMGiven by: BRYON Serrano FLU VAC, SPLIT, >3 YEARS, On: 18-May-2012 Intent INTRAMUSC (32868)By: Ciara Rainey EKG (74087)By: Dena Cash DO On: 03-Jan-2012 Intent Comments: ekg showed normal sinus rhythym, normal axis rbbb and lapfb no change Cartoid DopplerBy: Dena Cash DO On: 03-Jan-[address] - ChestBy: Sheridan Zaman MD On: 26-Sep-2011 Intent Sheridan Zaamn MD Comments: attention left lower lung 8 mm nodule Breast Screening - BilateralBy: On: 26-Sep-2011 Intent Sheridan Zaman MD, MD, Dana M CT - ChestBy: Sheridan Zaman MD On: 05-Aug-2011 Intent Sheridan Zaman MD Comments: and attention to liver CT - Abdomen & PelvisBy: Shailesh LUNA, On: 30-Jul-2011 Intent Dena Tarango FLU VAC, SPLIT, >3 YEARS, On: 16-Apr-2011 Intent INTRAMUSC (31509)By: Corby CABEZAS, Comments: Lot #[id number]-L arm, IMDose prefilledgiven by:MONROE Acuña ADMINISTRATION OF INFLUENZA VIRUS On: 16-Apr-2011 Intent VACCINE (G0008)By: Dawna Tavarez LPN TDAP VACCINE >7 IM (78148)By: On: 26-Jun-2010 Intent Dawna Tavarez LPN Comments: Lot #[id number]-L ARMDosePREMEASURED SYRINGEgiven by: MAMMOGRAM, SCREENING, BOTH On: 26-Jun-2010 Intent BREASTS (20069)By: Sheridan Zaman MD, MD, Dana M Cartoid DopplerBy: Dena Cash DO On: 11-Apr-2010 Intent A EKG (35311)By: Dena Cash DO On: 11-Apr-2010 Intent Comments: ekg showed normal sinus rhythym, normal axis, no acute st/t wave changes rbbb and lpfb- no change- PHYSICAL THERAPY EVALUATION On: 18-Jan-2010 Intent (40512)By: Teresa DEL CASTILLOTracey Kenalog Injection, 10 mgm On: 24-Nov-2009 Intent (J3301)By: Austyn RODRIGUEZ, Sheridan Zaman MD, Sheridan Engel Kenalog Injection, 10 mgm On: 24-Nov-2009 Intent (J3301)By: Sheridan Zaman MD, MD, Sheridan Engel Kenalog Injection, 10 mgm On: 24-Nov-2009 Intent (J3301)By: Sheridan Zaman MD, MD, Sheridan Engel Kenalog Injection, 10 mgm On: 24-Nov-2009 Intent (J3301)By: Sheridan Zaman MD, MD, Dana M MAMMOGRAM, SCREENING, BOTH On: 18-Apr-2009 Intent BREASTS ([id number])By: Austyn RODRIGUEZ, Comments: 06-14 Sheridan Zaman MD, Sheridan Engel DXA, BONE DENSITY, AXIAL SKELETON On: 28-Jul-2008 Intent ([id number])By: Sheridan Zaman MD, MD, Sheridan Engel Toradol Injection, 30 mg On: 17-Dec-2007 Intent (J1885)By: Teresa DEL CASTILLO Tracey Proctor Comments: Lot #[id number]-left dvxJqid0zv/30mggiven by Dimple Reyes LPN Radiology - Knee - RightBy: Teresa On: 23-Jul-2007 Intent Tracey DEL CASTILLO IMMUNIZ ADMNIN, 1 VAC, SNGL/COMBO On: 20-May-2007 Intent (46953)By: ROBERTO Woodard Comments: Lot #:[id number] date:19-77-47Dtkmvd given:.65mlRoute: IMSite given:left deltoid Given by: kwan. brought from pharmacy to be given MAMMOGRAM, SCREENING, BOTH On: 20-May-2007 Intent BREASTS (21058)By: Austyn RODRIGUEZ, Sheridan Bradshaw MD Radiology - Knee - RightBy: On: 19-May-2006 Intent JUSTINO CORCORAN CNP Planned Medications INJECTION, TRIAMCINOLONE ACETONIDE, NOT OTHERWISE SPECIFIED, 10 MG Ordered: 21-Oct-2013 Pending Austyn RODRIGUEZ, Sheridan Zaman MD, Sheridan Engel INJECTION, TRIAMCINOLONE ACETONIDE, NOT OTHERWISE SPECIFIED, 10 MG Ordered: 21-Oct-2013 Pending Austyn RODRIGUEZ, Sheridan Zaman MD, Sheridan Engel INJECTION, TRIAMCINOLONE ACETONIDE, NOT OTHERWISE SPECIFIED, 10 MG Ordered: 21-Oct-2013 Tyrelling Austyn RODRIGUEZ, Sheridan Zaman MD, Sheridan Engel INJECTION, TRIAMCINOLONE ACETONIDE, NOT OTHERWISE SPECIFIED, 10 MG Ordered: 21-Oct-2013 Pending Austyn RODRIGUEZ, Sheridan Zaman MD, Sheridan Engel INJECTION, TRIAMCINOLONE ACETONIDE, NOT OTHERWISE SPECIFIED, 10 MG Ordered: 07-Sep-2014 Rodney Zaman MD, Sheridan Zaman MD, Sheridan Engel INJECTION, TRIAMCINOLONE ACETONIDE, NOT OTHERWISE SPECIFIED, 10 MG Ordered: 07-Sep-2014 Tyrelling Austyn RODRIGUEZ, Sheridan Zaman MD, Sheridan Engel Instructions Name Dates Details Left leg weakness : How to access health information online Indication: Left leg weakness Left leg weakness : How to access health information online - Detail Indication: Left leg weakness Encounter for health maintenance examination with abnormal findings : How to access health information online Indication: Encounter for health maintenance examination with abnormal findings Encounter for health maintenance examination with abnormal findings : How to access health information online - Detail Indication: Encounter for health maintenance examination with abnormal findings Encounter for health maintenance examination with abnormal findings : Patient Instructions Indication: Encounter for health maintenance examination with abnormal findings Encounter for health maintenance examination with abnormal findings : How to access health information online Indication: Encounter for health maintenance examination with abnormal findings Encounter for health maintenance examination with abnormal findings : How to access health information online - Detail Indication: Encounter for health maintenance examination with abnormal findings Encounter for health maintenance examination with abnormal findings : Patient Instructions Indication: Encounter for health maintenance examination with abnormal findings BMI 30.0-30.9,adult : How to access health information online Indication: BMI 30.0-30.9,adult BMI 30.0-30.9,adult : How to access health information online - Detail Indication: BMI 30.0-30.9,adult BMI 30.0-30.9,adult : Patient Instructions Indication: BMI 30.0-30.9,adult Encounter for health maintenance examination with abnormal findings : How to access health information online Indication: Encounter for health maintenance examination with abnormal findings Encounter for health maintenance examination with abnormal findings : How to access health information online - Detail Indication: Encounter for health maintenance examination with abnormal findings Encounter for health maintenance examination with abnormal findings : Patient Instructions Indication: Encounter for health maintenance examination with abnormal findings Current nonsmoker (Renamed from Current non-smoker) : How to access health information online Indication: Current nonsmoker (Renamed from Current non-smoker) Current nonsmoker (Renamed from Current non-smoker) : How to access health information online - Detail Indication: Current nonsmoker (Renamed from Current non-smoker) Current nonsmoker (Renamed from Current non-smoker) : Patient Instructions Indication: Current nonsmoker (Renamed from Current non-smoker) Osteoarthritis, knee : How to access health information online Indication: Osteoarthritis, knee Osteoarthritis, knee : How to access health information online - Detail Indication: Osteoarthritis, knee Osteoarthritis, knee : Patient Instructions Indication: Osteoarthritis, knee Osteoarthritis, knee : How to access health information online Indication: Osteoarthritis, knee Osteoarthritis, knee : How to access health information online - Detail Indication: Osteoarthritis, knee Osteoarthritis, knee : Patient Instructions Indication: Osteoarthritis, knee Osteoarthritis, knee : How to access health information online Indication: Osteoarthritis, knee Osteoarthritis, knee : How to access health information online - Detail Indication: Osteoarthritis, knee Osteoarthritis, knee : Patient Instructions Indication: Osteoarthritis, knee Encounter for health maintenance examination with abnormal findings : How to access health information online Indication: Encounter for health maintenance examination with abnormal findings Encounter for health maintenance examination with abnormal findings : How to access health information online - Detail Indication: Encounter for health maintenance examination with abnormal findings Encounter for health maintenance examination with abnormal findings : Patient Instructions Indication: Encounter for health maintenance examination with abnormal findings BMI 30.0-30.9,adult : How to access health information online Indication: BMI 30.0-30.9,adult BMI 30.0-30.9,adult : How to access health information online - Detail Indication: BMI 30.0-30.9,adult BMI 30.0-30.9,adult : Patient Instructions Indication: BMI 30.0-30.9,adult Pulled hamstring : How to access health information online Indication: Pulled hamstring Pulled hamstring : How to access health information online - Detail Indication: Pulled hamstring Pulled hamstring : Patient Instructions Indication: Pulled hamstring BMI 30.0-30.9,adult : How to access health information online Indication: BMI 30.0-30.9,adult BMI 30.0-30.9,adult : How to access health information online - Detail Indication: BMI 30.0-30.9,adult BMI 30.0-30.9,adult : Patient Instructions Indication: BMI 30.0-30.9,adult Pulled hamstring : How to access health information online Indication: Pulled hamstring Pulled hamstring : How to access health information online - Detail Indication: Pulled hamstring Pulled hamstring : Patient Instructions Indication: Pulled hamstring BMI 29.0-29.9,adult : How to access health information online Indication: BMI 29.0-29.9,adult BMI 29.0-29.9,adult : How to access health information online - Detail Indication: BMI 29.0-29.9,adult BMI 29.0-29.9,adult : Patient Instructions Indication: BMI 29.0-29.9,adult Rash : How to access health information online Indication: Rash Rash : How to access health information online - Detail Indication: Rash Rash : Patient Instructions Indication: Rash Osteoarthritis, knee : How to access health information online Indication: Osteoarthritis, knee Osteoarthritis, knee : How to access health information online - Detail Indication: Osteoarthritis, knee Osteoarthritis, knee : Patient Instructions Indication: Osteoarthritis, knee PVC (premature ventricular contraction) : How to access health information online Indication: PVC (premature ventricular contraction) PVC (premature ventricular contraction) : How to access health information online - Detail Indication: PVC (premature ventricular contraction) PVC (premature ventricular contraction) : Patient Instructions Indication: PVC (premature ventricular contraction) Current nonsmoker (Renamed from Current non-smoker) : How to access health information online Indication: Current nonsmoker (Renamed from Current non-smoker) Current nonsmoker (Renamed from Current non-smoker) : How to access health information online - Detail Indication: Current nonsmoker (Renamed from Current non-smoker) Current nonsmoker (Renamed from Current non-smoker) : Patient Instructions Indication: Current nonsmoker (Renamed from Current non-smoker) Lymphedema, limb : How to access health information online Indication: Lymphedema, limb Lymphedema, limb : How to access health information online - Detail Indication: Lymphedema, limb Lymphedema, limb : Patient Instructions Indication: Lymphedema, limb Lymphedema, limb : How to access health information online Indication: Lymphedema, limb Lymphedema, limb : How to access health information online - Detail Indication: Lymphedema, limb Lymphedema, limb : Patient Instructions Indication: Lymphedema, limb Abdominal discomfort in right lower quadrant : How to access health information online Indication: Abdominal discomfort in right lower quadrant Abdominal discomfort in right lower quadrant : How to access health information online - Detail Indication: Abdominal discomfort in right lower quadrant Abdominal discomfort in right lower quadrant : Patient Instructions Indication: Abdominal discomfort in right lower quadrant Right leg swelling : Patient Instructions Indication: Right leg swelling Trigger finger, left : How to access health information online Indication: Trigger finger, left Trigger finger, left : How to access health information online - Detail Indication: Trigger finger, left Trigger finger, left : Patient Instructions Indication: Trigger finger, left Encounter for health maintenance examination with abnormal findings : How to access health information online Indication: Encounter for health maintenance examination with abnormal findings Encounter for health maintenance examination with abnormal findings : How to access health information online - Detail Indication: Encounter for health maintenance examination with abnormal findings Encounter for health maintenance examination with abnormal findings : Patient Instructions Indication: Encounter for health maintenance examination with abnormal findings Pain in the joints : Patient Instructions Indication: Pain in the joints Vertigo : Patient Instructions Indication: Vertigo Polyuria : Patient Instructions Indication: Polyuria GERD (gastroesophageal reflux disease) : Patient Instructions Indication: GERD (gastroesophageal reflux disease) Limb pain : Patient Instructions Indication: Limb pain Encounters Office Visit On: 20-May-2018 13:04 Encounter Reason: Follow up acute care visit - The patient feels the same. Patient has been compliant with instructions. Current medication use: no side effects and compliant with dosing regimen. Patient sleeps 7 hours p End: 20-May-2018 14:38 er night. Impact of disease: emotional impact-mild. Nutrition: balanced diet and supplemental vitamins. The medical issues the patient is following up for include other (leg weakness, aches and pains).Encounter Diagnosis: BMI 31.0-31.9,adult, Current nonsmoker (Renamed from Current non-smoker), Left leg weakness, Benign neoplasm of colon, Degeneration of intervertebral disc of lumbar region, PVC (premature ventricular contraction), Benign essential HTN, Primary osteoarthritis of knee, unspecified laterality, Abnormal blood sugar, Osteopenia, unspecified location, Low back pain, RBBB, GERD (gastroesophageal reflux disease), Abnormal ECG, CRP elevated, Allergic rhinitis, Paroxysmal SVT (supraventricular tachycardia), Vitamin D deficiency, Abnormal TSH, Carotid stenosis, Obesity (BMI 30-39.9), History of breast cancer in female, Bilateral hearing loss, unspecified hearing loss type, Anxiety [facility] Office Visit On: 17-Apr-2018 9:57 Encounter Reason: Physical female exam - Last seen between 3-6 months ago. General health: feels well with minor complaints and has decreased energy level. The patient's appetite is normal. Nutrition: normal/adequate. Ex End: 20-Apr-2018 9:38 ercises 0 days per week. Sleeps on average 7 hours per night. Normal bowel and bladder habits. Safety measures include appropriate use of safety belts and home smoke detectors. Current emotional problem s include anxiety. screening, colonoscopy (2015), screening, mammography (), screening, Pap smear (over 70 ??[place]BS[place]) and screening, visual acuity (Summer 2017).Encounter Diagnosis: BMI 31.0-31.9,adult, Encounter for health maintenance examination with abnormal findings, Current nonsmoker (Renamed from Current non-smoker), Encounter for screening mammogram for breast cancer (Renamed from Encounter for screening mammogram f or malignant neoplasm of breast), Osteopenia, unspecified location, Abnormal blood sugar, Pain in unspecified hip, Low back pain, GERD (gastroesophageal reflux disease), RBBB, Degeneration of intervertebral disc of lumbar region, Allergic rhinitis, Vitamin D deficiency, Benign neoplasm of colon, PVC (premature ventricular contraction), Balance disorder, Anxiety, Primary osteoarthritis of knee, unspecified laterality, Benign essential HTN, Abnormal ECG, Obesity (BMI 30-39.9), CRP elevated, Carotid stenosis, BMI 30.0-30.9,adult, History of breast cancer in female, Bilateral hearing loss, unspecified hearing loss type, Paroxysmal SVT (supraventricular tachycardia), Abnormal TSH, Left leg weakness [facility] Office Visit On: 27-Mar-2018 9:27 Encounter Reason: Injections - The medication the patient is here to receive is other (influenza).Encounter Diagnosis: Need for prophylactic vaccination and inoculation against influenza (Renamed from Need for immunization against influenza) End: 31-Mar-2018 9:44 [facility] Lab Order On: 19-Mar-2018 15:52 Encounter Diagnosis: Benign essential HTN End: 19-Mar-2018 15:54 [facility] Office Visit On: 16-Jan-2018 9:56 Encounter Reason: Annual Medicare Exam - The patient had reviewed and updated the family history, medication/s, past medical history and social history. Yes the patient did have a mini mental status exam done today. The End: 16-Jan-2018 10:41 activities of daily living the patient needs help with are housework (has a girl who helps do floors). The patient has had urinary incontinence, driven in past 6 months, put area rugs through house (fal l risk handout given) and put handrails in bathroom, but the patient has not had fecal incontinence, missed or ran out of medications to soon, fallen in the past 6 months, gotten lost or has a medalert necklace or bracelet. The patient has completed the following preventative measures: mammography (06-22) and colonoscopy (). The patient does have durable power of ingot header and living will. The pa rboerta has noticed lack of energy. Other providers contributing to the patient's care are sales contracts analyst (Dr. Romero), disability liaison officer (Dr. Torres), gastrologist (Dr. Faith) and other: (Dr. Rolon/Dr. Dina cisneros).Encounter Diagnosis: Current nonsmoker (Renamed from Current non-smoker), BMI 30.0-30.9,adult, Encounter for health maintenance examination with abnormal findings, Abnormal blood sugar, Vitamin D deficiency, Allergic rhinitis, PVC (premature ventricular contraction), Benign neoplasm of colon, Osteopenia, unspecified location, RBBB, Benign essential HTN, GERD (gastroesophageal reflux disease), Degeneration of intervertebral disc of lumbar region, Paroxysmal VT, Balance disorder, Obesity (BMI 30-39.9), CRP elevated , Pain in unspecified hip, Carotid stenosis, Abnormal ECG, Anxiety, Primary osteoarthritis of knee, unspecified laterality [facility] Nurse Visit (Non-[facility]) On: 13-Nov-2017 10:28 Encounter Diagnosis: Obesity (BMI 30-39.9) End: 14-Nov-2017 15:42 [facility] Office Visit On: 24-Oct-2017 9:34 Encounter Reason: Sore Throat - Symptoms include sore throat, dysphagia, nasal congestion and postnasal drainage. The symptoms are symmetrical.Encounter Diagnosis: BMI 30.0-30.9,adult, Current nonsmoker (Renamed from Current non-smoker), End: 24-Oct-2017 10:06 Acute pharyngitis [facility] Office Visit On: 16-Oct-2017 9:12 Encounter Reason: Annual Medicare Exam - The patient had reviewed and updated the family history, medication/s, past medical history and social history. Yes the patient did have a mini mental status exam done today. The End: 16-Oct-2017 10:30 activities of daily living the patient needs help with are housework. The patient has driven in past 6 months (mostly local. she will drive to [place] with .), put area rugs through house (fall risk handout given) and put handrails in bathroom, but the patient has not had fecal incontinence, had urinary incontinence, missed or ran out of medications to soon, fallen in the past 6 months, gotten lost or has a medalert necklace or bracelet. The patient has completed the following preventative measures: mammography (2016) and colonoscopy (2015). The patient does have durable power of ingot header and sachin ing will. The patient has noticed nothing from the geriatic depression scale. Other providers contributing to the patient's care are sales contracts analyst and disability liaison officer.Encounter Diagnosis: Current nonsmoker (Renamed from Current non-smoker), BMI 30.0-30.9,adult, Encounter for health maintenance examination with abnormal findings, Abnormal blood sugar, Benign neoplasm of colon, Vitamin D deficiency, Carotid stenosis, Abnormal ECG, PVC (premature ventricular contraction), Degeneration of intervertebral disc of lumbar region, RBBB, Benign essential HTN, Allergic rhinitis, Osteopenia, unspecified location, Depression, unspecified depression type, Anxiety, Primary osteoarthritis of knee, unspecified laterality, CRP elevated, GERD (gastroesophageal reflux disease), Paroxysmal VT, Balance disorder, Pain in unspecified hip, BMI 29.0-29.9,adult, Obesity (BMI 30-39.9) [facility] Office Visit On: 15-Jul-2017 10:04 Encounter Reason: Follow up for chronic medical issues - The patient feels well with minor complaints (pain in L knee, did have x-rays), has decreased energy level and is sleeping well. Patient has been compliant with in End: 15-Jul-2017 11:03 structions. Current medication use: no side effects, compliant with dosing regimen and considered effective by patient. Patient sleeps 7 hours per night. Impact of disease: emotional impact-mild. Nutrit ion: balanced diet and supplemental vitamins. The medical issues the patient is following up for include blood sugar issues, cardiac issues, depression (anxiety ), gastric reflux, high blood pressure an d other (allergic rhinitis, DDD, obesity, DDD, chronic pain )., [ADDITIONAL REASON] Follow up tests - Date: (07/11/17 x-ray and 06/2017 blood work). Encounter Diagnosis: Current nonsmoker (Renamed from Current non-smoker), Depression, unspecified depression type, BMI 30.0-30.9,adult, Pain in unspecified hip, Arthritis, RBBB, Degeneration of intervertebral disc of lumbar region, Anxiety, Allergic rhinitis, Benign essential HTN, Osteoarthritis, knee, Sciatica, unspecified laterality, Balance disorder, PVC (premature ventricular contraction), Traumatic injury of head, initial encounter, Neck pain, Vitamin D deficiency, CRP elevated, Abnormal blood sugar, Benign neoplasm of colon, Abnormal ECG, Carotid stenosis, Osteopenia, unspecified location, Paroxysmal VT, GERD (gastroesophageal reflux disease), BMI 29.0-29.9,adult, Encounter for health maintenance examination with abnormal findings, Primary osteoarthritis of knee, unspecified laterality [facility] Office Visit On: 08-May-2017 7:58 Encounter Reason: Injections - The medication the patient is here to receive is other (Euflexxa injection number 3 left knee).Encounter Diagnosis: BMI 30.0- 30.9,adult, Osteoarthritis, knee, Current nonsmoker (Renamed from Current non-smoker) End: 08-May-2017 8:48 [facility] Office Visit On: 28-Apr-2017 9:36 Encounter Reason: Injections - The medication the patient is here to receive is other (Euflexxa injection #2).Encounter Diagnosis: Osteoarthritis, knee, Current nonsmoker (Renamed from Current non-smoker), BMI 30.0-30.9,adult End: 28-Apr-2017 12:37 [facility] Office Visit On: 21-Apr-2017 11:49 Encounter Reason: Injections - The medication the patient is here to receive is other (Euflexxa injection #1 left knee).Encounter Diagnosis: Osteoarthritis, knee, Current nonsmoker (Renamed from Current non-smoker), BMI 30.0-30.9,adult, End: 21-Apr-2017 13:41 Traumatic injury of head, initial encounter, Neck pain [facility] Office Visit On: 08-Apr-2017 8:21 Encounter Reason: Follow up tests - Date: (03/21 blood work)., [ADDITIONAL REASON] Physical female exam - Last seen between 1-3 months ago. General health: feels w End: 14-Apr-2017 19:38 ell with minor complaints (not able to exercise as much now because of sciatica pain. Not walking as well as she was becasue having problems with knee so asking for a possible referal to an ortho. Izzy rned about glucose being elevated in blood work), has decreased energy level (somedays ok) and is sleeping well. The patient's appetite is normal. Nutrition: normal/adequate. Exercises 0 (sciatica pain) days per week. Sleeps on average 7 hours per night. Elimination problems include urinary frequency (at night) and urinary incontinence (urge incontience). screening, colonoscopy and screening, mammography. Encounter Diagnosis: Encounter for health maintenance examination with abnormal findings, Current nonsmoker (Renamed from Current non-smoker), BMI 30.0-30.9,adult, Need for prophylactic vaccination and inoculation against influenza (Renamed from Need for immunizati on against influenza), Vitamin D deficiency, Benign neoplasm of colon, Anxiety, RBBB, Carotid stenosis, Abnormal blood sugar, Depression, unspecified depression type, Degeneration of intervertebral disc of lumbar region, Pain in unspecified hip, PVC (premature ventricular contraction), Sciatica, unspecified laterality, Benign essential HTN, Arthritis, Allergic rhinitis, Balance disorder, Abnormal ECG, Paroxysmal VT, GERD (gastroesophageal reflux disease), Knee pain (719.46), Osteopenia, unspecified location, CRP elevated, Encounter for screening mammogram for breast cancer (Renamed from Encounter for screening mammogram for malignant neoplasm of breast) [facility] Lab Order On: 09-Mar-2017 17:53 Encounter Diagnosis: Benign essential HTN End: 09-Mar-2017 17:56 [facility] Office Visit On: 25-Feb-2017 13:03 Encounter Diagnosis: BMI 30.0-30.9,adult, Current nonsmoker (Renamed from Current non-smoker), Pulled hamstring End: 25-Feb-2017 13:25 [facility] Office Visit On: 30-Jan-2017 8:09 Encounter Reason: Follow up acute care visit - The patient does not feel well. Patient has been compliant with instructions.Encounter Diagnosis: BMI 29.0-29.9,adult, Current nonsmoker (Renamed from Current non-smoker), Pulled hamstring End: 30-Jan-2017 8:25 [facility] Phone Encounter On: 22-Jan-2017 14:56 Encounter Diagnosis: Sciatica, unspecified laterality End: 22-Jan-2017 15:00 [facility] Office Visit On: 03-Dec-2016 12:52 Encounter Reason: Follow up for chronic medical issues - The patient feels well with minor complaints and has decreased energy level. Patient has been compliant with instructions. Current medication use: no side effects, End: 03-Dec-2016 13:27 compliant with dosing regimen and considered effective by patient. Patient sleeps 7 hours per night. Impact of disease: emotional impact-mild. Nutrition: balanced diet and supplemental vitamins. The me dical issues the patient is following up for include blood sugar issues, cardiac issues, depression (anxiety ), gastric reflux, high blood pressure and other (allergic rhinitis, DDD, obesity, DDD, chronic pain ).Encounter Diagnosis: BMI 30.0-30.9,adult, Current nonsmoker (Renamed from Current non-smoker), Abnormal fasting glucose, Pain in unspecified hip, Depression, unspecified depression type, Carotid stenosis, Benign essential HTN, Benign neoplasm of colon, Post-menopausal, Vitamin D deficiency, RBBB, Anxiety, Abnormal ECG, Degeneration of intervertebral disc of lumbar region, Paroxysmal VT, Left knee pain, PVC (premature ventricular contraction), Arthritis, GERD (gastroesophageal reflux disease), Allergic rhinitis, Balance disorder, Pain in the joints, Pulled hamstring, Rash, BMI 29.0-29.9,adult, Swelling of Limb (Renamed from Limb swelling) [facility] Office Visit On: 04-Oct-2016 11:37 Encounter Diagnosis: BMI 29.0-29.9,adult, Pulled hamstring, Current nonsmoker (Renamed from Current non-smoker) End: 04-Oct-2016 12:31 [facility] Office Visit On: 03-Sep-2016 10:41 Encounter Reason: Annual Medicare Exam - The patient had reviewed and updated the family history, medication/s, past medical history and social history. Yes the patient did have () a mini mental status exam done tod End: 03-Sep-2016 16:37 ay. The activities of daily living the patient needs help with are housework (has help with cleaning floors). The patient has put area rugs through house and put handrails in bathroom, but the patient h as not had fecal incontinence, had urinary incontinence, missed or ran out of medications to soon, driven in past 6 months, fallen in the past 6 months, gotten lost or has a medalert necklace or bracele t. The patient has completed the following preventative measures: PAP smear, mammography and colonoscopy. The patient does have durable power of ingot header and living will. The patient has noticed nothing from the geriatic depression scale. Other providers contributing to the patient's care are sales contracts analyst (Nick) and surgeon (omari). Note for Annual Medicare Exam: Vision screen with glaucoma done yearlyEncounter Diagnosis: Allergic rhinitis, Current nonsmoker (Renamed from Current non-smoker), BMI 29.0-29.9,adult, GERD (gastroesophageal reflux disease), Carotid stenosis, Benign neoplasm of colon, Benign essential HTN, Paroxysmal VT, Arthritis, PVC (premature ventricular contraction), Pain in the joints, Cyst of vulva, Balance disorder, Left knee pain, Pain in unspecified hip, Rash, Anxiety, Degeneration of intervertebral disc of lumbar region, Prediabetes, RBBB, Vitamin D deficiency, Abnormal ECG, Post-menopausal, Depression, unspecified depression type, BMI 30.0-30.9,adult, Encounter for health maintenance examination with abnormal findings [facility] Office Visit On: 13-Aug-2016 15:10 Encounter Reason: Follow up acute care visit - The patient feels the same. Patient has been compliant with instructions. Current medication use: no side effects, compliant with dosing regimen and considered effective by End: 13-Aug-2016 15:27 patient. Patient sleeps 7 hours per night. Impact of disease: emotional impact-mild. Nutrition: balanced diet and supplemental vitamins. The medical issues the patient is following up for include other (rash behind right knee ).Encounter Diagnosis: BMI 29.0-29.9,adult, Current nonsmoker (Renamed from Current non-smoker), Rash [facility] Office Visit On: 17-Jun-2016 10:22 Encounter Diagnosis: Current nonsmoker (Renamed from Current non-smoker), BMI 29.0- 29.9,adult, Rash End: 17-Jun-2016 10:59 [facility] Office Visit On: 04-Jun-2016 14:57 Encounter Diagnosis: Left knee pain, Current nonsmoker (Renamed from Current non- smoker), Degeneration of intervertebral disc of lumbar region, Anxiety, Carotid stenosis End: 04-Jun-2016 15:29 [facility] Office Visit On: 08-Apr-2016 10:54 Encounter Reason: Follow up acute care visit - The patient feeling better since last seen and improving. Patient has been compliant with instructions. Current medication use: no side effects, compliant with dosing regime End: 08-Apr-2016 11:31 n and considered effective by patient. Patient sleeps 7 hours per night. Impact of disease: emotional impact-moderate. Nutrition: balanced diet and supplemental vitamins. The medical issues the patient is following up for include other (anxiety, palpatations ).Encounter Diagnosis: PVC (premature ventricular contraction), Current nonsmoker (Renamed from Current non-smoker), Paroxysmal VT, Anxiety, Encounter for screening mammogram for breast cancer (Renamed from Encounter for screening mammogram for malignant neoplasm of breast) [facility] Prescription Refill On: 22-Mar-2016 15:18 Encounter Diagnosis: Paroxysmal VT End: 22-Mar-2016 15:27 [facility] Office Visit On: 28-Feb-2016 7:55 Encounter Reason: Physical female exam - General health: feels well with minor complaints (stressed and alot of anxiety, and I have issues with walking distances...I have compressed vertebret, and now have partially torn End: 01-Mar-2016 6:40 a meniscus in my left knee...per Dr. Bhatt). The patient's appetite is normal. Nutrition: normal/adequate. Exercises 7 days per week. Sleeps on average 7 hours per night. Elimination problems include urinary frequency (gets up at lease 2x to pee at night). Safety measures include appropriate use of safety belts and home smoke detectors , but do not include appropriate use of helmets, counseling rega rding safe sex/HIV or counseling regarding substance abuse. Current emotional problems include anxiety. screening, colonoscopy, screening, mammography and screening, visual acuity.Encounter Diagnosis: Abnormal ECG, BMI 30.0-30.9,adult, Current nonsmoker (Renamed from Current non-smoker), Anxiety, Depression, unspecified depression type, Post-menopausal, Encounter for screening for malignant neoplasm of cervix, Trigger finger, left, Benign essential HTN, Pain in the joints, Benign neoplasm of colon, Arthritis, Pain in unspecified hip, Allergic rhinitis, Lymphedema, limb, GERD (gastroesophageal reflux disease), Carotid stenosis, Cyst of vulva, Degenerative Disc Disease - Lumbar (722.52), Encounter for Medicare annual wellness exam, Encounter for screening mammogram for breast cancer (Renamed from Encounter for screening mammogram for malignant neoplasm of breast), PVC (premature ventricular contraction), RBBB, Prediabetes, Vitamin D deficiency, Balance disorder [facility] Nurse Visit (Non-[facility]) On: 13-Feb-2016 8:51 [facility] End: 13-Feb-2016 8:52 Office Visit On: 18-Aug-2015 13:40 Encounter Reason: Follow up acute care visit - The patient feeling better since last seen and improving. Patient has been compliant with instructions. Current medication use: no side effects, compliant with dosing regime End: 18-Aug-2015 14:28 n and considered effective by patient. Patient sleeps 7 hours per night. Impact of disease: emotional impact-moderate. Nutrition: balanced diet and supplemental vitamins. The medical issues the patient is following up for include other (lymphedema right leg ).Encounter Diagnosis: Lymphedema, limb, Current nonsmoker (Renamed from Current non-smoker), Anxiety [facility] Office Visit On: 04-Jul-2015 10:53 Encounter Reason: Follow up acute care visit - The patient feeling better since last seen and improving. Patient has been compliant with instructions. Current medication use: no side effects and compliant with dosing regimen.Encounter Diagnosis: End: 04-Jul-2015 12:08 Lymphedema, limb, Benign essential hypertension (401.1), Anxiety (300.00) [facility] Phone Encounter On: 25-May-2015 11:55 Encounter Diagnosis: Pain in the joints End: 25-May-2015 11:57 [facility] Office Visit On: 23-May-2015 10:36 Encounter Reason: Follow up tests - Date: (05/[address] scan)., [ADDITIONAL REASON] Follow up acute care visit - The patient feeling better since last seen and improving. Patient has been compliant with instructions. Encounter Diagnosis: End: 23-May-2015 11:36 Abdominal discomfort in right lower quadrant, Right leg swelling, Lymphedema, limb, Encounter for screening mammogram for breast cancer (Renamed from Encounter for screening mammogram for malignant neoplasm of breast), Pain in the joints [facility] Office Visit On: 09-May-2015 9:04 Encounter Reason: Follow up acute care visit - The patient does not feel well and worsening. Patient has been compliant with instructions. Current medication use: no side effects, compliant with dosing regimen and not co End: 10-May-2015 7:22 nsidered effective by patient. Patient sleeps 8 hours per night. The medical issues the patient is following up for include All identified problems below and cellulitis.Encounter Diagnosis: Abdominal discomfort in right lower quadrant, Right leg swelling [facility] Office Visit On: 01-May-2015 8:42 Encounter Reason: Leg Pain - This condition occurred without any known injury. The patient sustained an injury to the right knee. Symptoms include leg pain, swelling, redness, stiffness, difficulty bearing weight, diffic End: 01-May-2015 9:24 ulty ambulating and calf tenderness. The pain is located in the right anterior lower leg and in the right posterior lower leg. The pain radiates to the right thigh. The patient describes the pain as dul l (tightness). Onset was gradual 3 day(s) ago. The symptoms occur constantly. The episodes occur daily and last for 3 days. The patient describes symptoms as moderate in severity and worsening. Symptoms are exacerbated by weight bearing, walking and ankle plantar flexion. Symptoms are not relieved by rest, ice, compression, elevation, activity modification, nonsteroidal anti-inflammatory drugs, non-op ioid analgesics or opioid analgesics. Associated symptoms include knee pain and warmth. Current treatment includes ice. By report there is good compliance with treatment. Risk factors do not include obe sity, travel, surgery, immobility, anatomic abnormality, improper conditioning, tobacco use, alcohol abuse or illicit drug use. Pertinent family history does not include osteoarthritis, osteoporosis, co agulopathy, diabetes or cardiovascular disease. The patient is currently able to do activities of daily living with limitations. Previous presentation included leg pain, redness, swelling, stiffness, di fficulty bearing weight and difficulty ambulating. This problem has not been previously evaluated. Past treatment has included rest and ice. Note for Leg pain: no trauma no trasvel since december- knee tight and calf painful- not sob no cp Encounter Diagnosis: Cellulitis (682.9), Right leg swelling [facility] Visit On: 28-Apr-2015 8:18 Encounter Reason: Leg Pain - This condition occurred without any known injury. Symptoms include leg pain, swelling, redness, stiffness, difficulty bearing weight, difficulty ambulating and calf tenderness. The pain is lo End: 30-Apr-2015 22:10 cated in the right anterior lower leg and in the right posterior lower leg. The pain radiates to the right thigh. The patient describes the pain as dull (tightness). Onset was gradual 3 day(s) ago. The symptoms occur constantly. The episodes occur daily and last for 3 days. The patient describes symptoms as moderate in severity and worsening. Symptoms are exacerbated by weight bearing, walking and ank le plantar flexion. Symptoms are not relieved by rest, ice, compression, elevation, activity modification, nonsteroidal anti-inflammatory drugs, non-opioid analgesics or opioid analgesics. Associated sy mptoms include knee pain and warmth. Current treatment includes ice. By report there is good compliance with treatment. Risk factors do not include obesity, travel, surgery, immobility, anatomic abnorma lity, improper conditioning, tobacco use, alcohol abuse or illicit drug use. Pertinent family history does not include osteoarthritis, osteoporosis, coagulopathy, diabetes or cardiovascular disease. The patient is currently able to do activities of daily living with limitations. Previous presentation included leg pain, redness, swelling, stiffness, difficulty bearing weight and difficulty ambulating. This problem has not been previously evaluated. Past treatment has included rest and ice. Note for Leg pain: no trauma no trasvel since december- knee tight and calf painful- not sob no cpEncounter Diagnosis: Right leg swelling [facility] Office Visit On: 03-Feb-2015 9:01 Encounter Reason: Skin Lesions - The last clinic visit was 6 month(s) ago. Symptoms include multiple skin lesions (4). Lesion(s) are located on the right buttock (Right Vulvula area). The patient describes the lesion(s) End: 06-Feb-2015 8:19 as itchy, painless and white. Onset was gradual. The patient describes this as moderate in severity and worsening. Associated symptoms do not include chills, fever, joint pain, nausea, bleeding, numbness, shortness of breath, vomiting or wheezing. Encounter Diagnosis: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 months. The course has been increasing. The pain is described as moderate. Encounter Diagnosis: Myalgia(729.1) End: 03-Apr-2009 9:25 [facility] Phone Encounter On: 19-Sep-2008 15:00 [facility] End: 19-Sep-2008 15:02 Office Visit On: 16-Sep-2008 11:14 Encounter Reason: Injections - The medication the patient is here to receive is other (2 cc marcaine 1 cc kenalog left hip ). Encounter Diagnosis: Pelvis/Thigh/Hip Pain (719.45) End: 16-Sep-2008 11:36 [facility] Office Visit On: 16-Aug-2008 11:08 Encounter Diagnosis: Skin Tag, Irritated (701.9) End: 16-Aug-2008 11:36 [facility] Office Visit On: 28-Jul-2008 11:00 Encounter Reason: Well Women Exam - The patient feels well with minor complaints ,has good energy level and is sleeping well. Pap smear: date of last pap: (2005 ). Contraceptive history: The patient is not using any meth End: 28-Jul-2008 11:30 od of contraception at this time. Patient exercises a weekly. The patient's libido is decreased. The patient reports that she performs monthly self breast exam. Calcium intake includes 1 serving milk da christopher. Previous evaluations: hysterectomy (still has cervix ). Encounter Diagnosis: Well Woman Exam (V72.31) (Pap,Mammo,Routine Female), Benign neoplasm of colon (211.3) [facility] Office Visit On: 26-May-2008 10:52 Encounter Reason: Follow up acute care visit - The patient feels the same. Patient has been compliant with instructions. Current medication use: no side effects and compliant with dosing regimen. Patient sleeps 7 hours p End: 26-May-2008 11:13 er night. Impact of disease: emotional impact-mild. Nutrition: balanced diet. The medical issues the patient is following up for include other (left hip pain ). Encounter Diagnosis: Pelvis/Thigh/Hip Pain (719.45) [facility] Office Visit On: 31-Dec-2007 10:41 Encounter Reason: Follow up acute care visit - The patient feeling better since last seen (did get prednisone ) and improving. Patient has been compliant with instructions. Current medication use: no side effects ,compli End: 31-Dec-2007 11:18 ant with dosing regimen and not considered effective by patient. Patient sleeps 6 hours per night. Impact of disease: no overall impact. Nutrition: balanced diet. The medical issues the patient is follo wing up for include All identified problems below and other (hip pain ). Note for Follow up acute care visit: did see Dr Thayer, and had chiropractor Tx Encounter Diagnosis: Pelvis/Thigh/Hip Pain (719.45), Knee pain (719.46) [facility] Office Visit On: 17-Dec-2007 7:38 Encounter Reason: Hip Pain - The onset of the hip pain has been sudden (after i lifted something heavy I hurt my left hip) and has been occurring in a persistent pattern for 1 months. The course has been constant. The hi End: 17-Dec-2007 9:38 p pain is described as a moderate to severe dull aching. The hip pain is described as being located in the hip and anterior thigh. The pain is aggravated by general physical activity. There are no relie ving factors. There has been no associated catching or locking. There have been no previous diagnostic tests. There have been no previous evaluations. There has been no previous physical therapy. There has been no previous surgeries. There has been no need for use of assistive devices. Previous medications have included Tylenol. Encounter Diagnosis: Pelvis/Thigh/Hip Pain (719.45) [facility] Office Visit On: 06-Oct-2007 8:31 Encounter Reason: Follow up acute care visit - The patient feels the same. Patient has been compliant with instructions. Current medication use: no side effects and compliant with dosing regimen. Patient sleeps 6 hours p End: 06-Oct-2007 9:00 er night. Impact of disease: emotional impact-mild. Nutrition: balanced diet. The medical issues the patient is following up for include other (right knee pain ). Encounter Diagnosis: Knee pain (719.46) [facility] Office Visit On: 30-Jul-2007 8:29 Encounter Reason: Physical female exam - Last seen less than 1 month ago. General health: feels well with minor complaints ,has good energy level and is sleeping well. The patient's appetite is normal. Nutrition: normal/ End: 30-Jul-2007 9:03 adequate. Exercises 2 days per week. Sleeps on average 7 hours per night. Normal bowel and bladder habits. Safety measures include appropriate use of safety belts and home smoke detectors. Current emoti onal problems include anxiety. screening, colonoscopy (2005 ) ,screening, mammography () ,screening, Pap smear (2006, hx hysterectomy ) and screening, visual acuity (2006 Dr. Arroyo ). Note for Ph ysical female exam: feel good off it not able to take celexa--nausea. had trouble with right knee. 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 The course has been gradually worsening. The knee pain End: 23-Jul-2007 12:24 is mild to moderate. The knee pain is characterized as a dull aching. The knee pain is described as being located in the entire knee. The knee pain is aggravated by squatting ,stairs ,prolonged standin g and prolonged rest. There were no relieving factors. The symptoms have been associated with painful ROM ,difficulty arising from chair and difficulty going up and down stairs. Previous diagnostic test s include plain radiographs. Previous physical therapy includes stretching exercises ,strengthening exercises and active range of motion exercises. Note for Knee Pain: Swelling rt knee, stiffness. Pt with known osteoarthritis of rt knee Encounter Diagnosis: Knee pain (719.46) [facility] Office Visit On: 22-Jun-2007 13:31 Encounter Reason: Follow up, Diagnostic Procedure Results - Diagnostic tests include mammography. Date: (06-09-07 ). Follow up visit with no current symptoms. Past medical history includes emotional problems (depression ) End: 22-Jun-2007 13:52 and other (GERD, allergic rhinitis, hx breast cancer ). Note for Follow up, Diagnostic Procedure Results: prilosec work well tookfor 1 week and help now frances to eat anything. had [place] vacation and better. sleep betterEncounter Diagnosis: Anxiety (300.00), GERD (530.81), Leukopenia (288.50) [facility] Nurse Visit On: 20-May-2007 12:19 Encounter Diagnosis: Need for prophylactic vaccination and inoculation against other specified disease (V05.8) End: 20-May-2007 12:22 [facility] Office Visit On: 20-May-2007 12:11 Encounter Diagnosis: Well Woman Exam (V72.31) (Pap,Mammo,Routine Female), GERD (530.81), Anxiety (300.00) End: 20-May-2007 12:14 [facility] Office Visit On: 20-May-2007 11:05 Encounter Reason: Physical female exam - Last seen between 3-6 months ago. General health: feels well with minor complaints ,has decreased energy level and is sleeping poorly (wakes up and cannot go back to sleep has elaine End: 20-May-2007 11:30 uts of this ). The patient's appetite is normal. Nutrition: normal/adequate. Exercises 2 days per week. Sleeps on average 8 hours per night. Normal bowel and bladder habits. Safety measures include bianka ropriate use of safety belts and home smoke detectors. There are no current emotional problems. screening, colonoscopy ([address] Bets ) ,screening, mammography (2005 ) ,screening, Pap sme ar (2005) and screening, visual acuity (2006 Dr. Arroyo ). Note for Physical female exam: note pain ruq not with fatty foods but with acid foods and stress, prilosec works not episode for 5 years. started on nsaids, new supplement Encounter Diagnosis: arthritis,unspecified (716.90), Breast Cancer (174.9), Allergic Rhinitis(477.9), Colon Cancer (153.9), GERD (530.81), Vertigo (780.4), Benign neoplasm of colon (211.3), Well Woman Exam (V72.31) (Pap,Mammo,Routine Female), Anxiety (300.00) [facility] Erroneous Entry On: 15-May-2007 15:03 Encounter Diagnosis: Unspecified Diagnosis End: 15-May-2007 15:04 [facility] Office Visit On: 21-Nov-2006 11:33 Encounter Reason: Dizziness/ - The onset of the dizziness/ has been acute and has been occurring in an intermittent pattern for 24 hours. The course has been recurrent. The dizziness/ is characterized as lightheadedness End: 21-Nov-2006 12:00 ,spinning of the environment and feeling in the head. The dizziness/ is precipitated by position change ,head turning and riding in a car. The symptoms have been associated with nausea ,sensation of ful lness and tinnitus. The dizziness/ is relieved by keeping head still and laying down. Note for Dizziness/: 40 years ago got ater fly. up flight of steps--severe room spin, not fall not syncope or ligh thead. tried to sit up induce more, if shut eyes better, last month had weightless feeling, having allergy signs and symptoms use flonase little, slight blurred in vision with movement in eyes last 1 se c. no headache, sinus fullnes, no other vision or gait or speech change, no W/P/P. better todayEncounter Diagnosis: Allergic Rhinitis(477.9), Vertigo (780.4) [facility] Office Visit On: 19-May-2006 11:07 Encounter Reason: Knee Pain - The onset of the knee pain has been gradual (Started about 6 months ago - did alot of kneeling over the summer.) and has been occurring in an intermittent (pain comes and goes) pattern for 3 End: 19-May-2006 14:28 months. The course has been gradually worsening. The knee pain is mild to moderate (Tightness in right knee). The knee pain is characterized as a dull aching (more of a tightness). The knee pain is dragan cribed as being located in the anterior knee ,lateral pain and under patella. The knee pain is aggravated by squatting and kneeling. The knee pain is relieved by ice. The symptoms have been associated w ith muscle swelling ,muscle weakness ,lateral pain and popping/crepitus, while the symptoms have not been associated with muscle atrophy ,muscle cramps ,muscle stiffness ,giving way ,catching ,locking , joint swelling ,medial pain ,instability ,pain under patella ,painful ROM ,decreased ROM ,warmth ,erythema ,burning sensation ,fever ,chills ,difficulty arising from chair ,difficulty going up and down stairs ,difficulty with sports activities or other joint complaints. Note for Knee Pain: Top of knee hurts. Stiff on top of knee, going steps, bending bothers. Putting on pantyhose hurts a lot. Aqua e xercise was also bother her. Rest has helped. Aleve and very little helps, ASA also. Ice helps. Tightness. Feels like top of knee could rip. Sometimes it snaps. 8 years ago jammed knee. Since then occ asionally swells. Gardening may have set it off. Encounter Diagnosis: Knee pain (719.46) [facility] Office Visit On: 01-Apr-2006 14:13 Encounter Reason: Well Women Exam - The patient feels well with minor complaints. Pap smear: history of abnormal pap (1968 weeping cervix/ cryo therapy). Patient exercises 3 - 4 times per week. The patient's libido is de End: 01-Apr-2006 17:02 creased. The patient reports that she performs monthly self breast exam. Calcium intake includes 1200 mg daily supplment. Previous evaluations: hysterectomy/bilateral salpingotomy (1995). The patient de nies the use of hormone replacement therapy (off hormone patch x 5 mo). Note for Well Women Exam: occas hotflash, sleep disturabanceEncounter Diagnosis: arthritis,unspecified (716.90), GERD (530.81), Breast Cancer (174.9), Colon Cancer (153.9), Allergic Rhinitis(477.9), Benign neoplasm of colon (211.3), Dyspareunia (625.0), Urinary Urge Incontinence (788.31), Well Woman Exam (V72.31) (Pap,Mammo,Routine Female) [facility] Historical Summary On: 31-Mar-2006 19:17 [facility] End: 31-Mar-2006 19:26 Payers [employer]/MedicareLORETTA NAULT; philomena guarantor
--- OUTSIDE RECORDS SUMMARY | 2018-09-24 14:57 | XMS RPT_ITS | Continuity of Care Document ---
:1940 Author Organization [facility] Address [address] [place] [address] Phone Care Team Providers Name Role Phone [...] right now. checkin with cand[facility] at [facility]. meds good and less crying. still hard [...] 04-17-18 [facility]IP 4-18 AMP colonoscopy - 02/2016 kvgts-97-24-17, BD 06-18-16, still needs Prevnar 13 and [...] Start : 16-Jan-2018 Active Comments:thirty Vitamin D3 69809 UNIT Oral Capsule 1 (one) Capsule Capsule [...] : 19-Sep-2008 End : 03-Apr-2009 Inactive Nystatin 913961 UNIT/GM External Powder 1 (one) Powder bid [...] Ordered:09-May-2015 Austyn RODRIGUEZ, Sheridan Meraz MD, Sheridan Egnel Start : 09-May-2015 End : 16-May-2015 Inactive [...] End : 03-Apr-2009 Inactive ZOSTER VACCINE LIVE, 08573IFL/0.65ML (Subcutaneous Solution Reconstituted) 1 (one) For Solution [...] encounter (S09.90XA, 959.01) Comments: hit side of taoism yesterday. no signs of skul fracture or [...] Dates Details broke R wrist -- saw [facility] ER and [facility] Completed TAHBSO cervix there Completed Comments: dermoid cyst on ovary Total Knee Replacement - Right Completed Comments: 02/22/13 Date Value Details 23-Apr-2018 HIP, UNI W/ Pelvis 2-3 Views Result: Comments: See Note; NOTES: [facility] Imaging Services [address] [place] [address] HIP, UNI W/ Pelvis 2-3 Views MR#: [id number] Acct: [id number] Name: FEMI NAYLOR Rep #: [id number] : 1940 F 78 From: Jay Barrera MD PCP: Sheridan Zaman MD Status: REG CLI Study: HIP, UNI W/ Pelvis 2-3 Views Date of Exam: 04/23/18 Exam# [id number] Ordering Dr: Sheridan Zaman MD TERRANCE DY: [...] Service support , CC: Sheridan Zaman MD Professor Of Education: Signed 23-Apr-2018 L/S Spine Min 4 Views Result: Comments: See Note; NOTES: [facility] Imaging Services [address] [place] [address] L/S Spine Min 4 Views MR#: [id number] Acct: [id number] Name: FEMI NAYLOR Rep #: [id number] : 1940 F 78 From: Jay Barrera MD PCP: Sheridan Zaman MD Status: REG CLI Study: L/S Spine Min 4 Views Date of Exam: 04/23/18 Exam# [id number] Ordering Dr: Sheridan Zaman MD STUDY: X-RAY [...] Service support , CC: Sheridan Zaman MD Professor Of Education: Signed 13-Nov-2017 Cardiology Visit Report Result: Comments: See Note; NOTES: [facility] 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) Coding Level of Care Code Off vis,est,level 3 Diagnoses Paroxysmal SVT (supraventricular tachycardia) I47.1 Coding Level of Care Code Off vis,est,level 3 Diagnoses Paroxysmal SVT (supraventricular tachycar eusebia) I47.1 11/13/17 0925 <Electronically signed by Nelson Romero MD> Date Nelson Romero MD Cosigner Signature: Date (if applicable) CC: Sheridan Zaman MD 11-Jul-2017 Knee 4 or More Views Result: Comments: See Note; NOTES: [facility] Imaging Services [address] [place] [address] Knee 4 or More Views MR#: [id number] Acct: [id number] Name: FEMI NAYLOR Rep #: [id number] : 1940 F 77 From: Dayton Cordero MD PCP: Sheridan Zaman MD Status: REG CLI Study: Knee 4 or More Views Date of Exam: 07/11/17 Exam# [id number] Ordering Dr: Sheridan Zaman MD STUDY: X-RAY [...] Dayton Cordero MD at 14:18 EST Tel [phone], Service support , CC: Sheridan Zaman MD Professor Of Education: Signed 11-Jul-2017 Knee 4 or More Views Result: Comments: See Note; NOTES: [facility] Imaging Services [address] [address] Knee 4 or More Views MR#: [id number] Acct: [id number] Name: FEMI NAYLOR Rep #: [id number] : 1940 F 77 From: Dayton Cordero MD PCP: Sheridan Zaman MD Status: REG CLI Study: Knee 4 or More Views Date of Exam: 07/11/17 Exam# [id number] Ordering Dr: Sheridan Zaman MD STUDY: X-RAY [...] Siobhan Cordero MD at 15:07 EST Tel [phone], Service support , CC: Sheridan Zaman MD Professor Of Education: Signed 19-Jun-2017 SCREENING MAMM (CAD), BILAT Result: Comments: See Note; NOTES: [facility] Imaging Services [address] [place] [address] SCREENING MAMM (CAD), BILAT MR#: [id number] Acct: [id number] Name: FEMI NAYLOR Rep #: [id number] : 1940 F 77 From: Dayton Cordero MD PCP: Sheridan Zaman MD Status: REG CLI Study: SCREENING MAMM (CAD), BILAT Date of Exam: 06/19/17 Exam# [id number] Ordering Dr: Sheridan Zaman MD MAMMOGRAPHY - [...] delay biopsy of a clinically suspicious abnormality. [id number] Electronically Signed: Dayton Cordero MD at 12:44 EST Tel [phone], Service support , CC: Sheridan Zaman MD Professor Of Education: Signed 31-Jan-2017 Inital Evaluation (1) - PT Result: Comments: See Note; NOTES: [facility] Physical Therapy [facility] [address] [place], [place] [address] Fax REHABILITATION SERVICES INITIAL EVALUATION MR#: [id number] Acct: [id number] Name: FEMI NAYLOR Rep #: [id number] : 1940 76 From: Lisa Fuchs PT Referring Dr.: Sheridan Zaman MD Status: REG RCR Insurance: [facility] Patient's Visit Information FEMI NAYLOR [...] to be FAXED BACK to us at [phone] for Medicare purposes. Please let me know if there are questions or concerns regarding this plan of care. Physician Signature: Date: <Electronically signed by Lisa Fuchs PT> 01/31/17 0952 CC: Sheridan Zaman MD RICARDA Signed For Medicare only, by signing this I certify the plan o f care. Physicians Signature Date 15-Jul-2016 PT D/C Summary (1) Result: Comments: See Note; NOTES: [facility] [address] [place], [place] [address] Fax REHABILITATION SERVICES DAKOTA MORATAYA SUMMARY MR#: [id number] Acct: [id number] Name: FEMI NAYLOR Rep #: [id number] : 1940 76 From: Yusuf Holm DPT Referring Dr.: Sheridan Zaman MD Status: REG RCR [facility] - PT D/C Summary It has [...] Pt. had an 3/8 of inch leg amrvin gth discrepency pre treatment, 1/8 of an [...] please feel free to call me at [phone]. Thank you for the referral of this patient. Sincerely, Yusuf Holm < Electronically signed by Yusuf Holm DPT> 07/15/16 1800 CC: Sheridan Zaman MD CLS Signed 18-Jun-2016 Bilat Scrn Digital AND CAD Result: Comments: See Note; NOTES: [facility] Imaging Services [address] [place] [address] Verdana 4d Bilat Scrn Digital AND CAD MR#: [id number] Acct: [id number] Name: FEMI NAYLOR Rep #: [id number] : 1940 F 76 From: Dayton Cordero MD PCP: Sheridan Zaman MD Status: REG CLI Study: Bilat Scrn Digital AND CAD Date of Exam: 06/18/16 Exam# [id number] Ordering Dr: Sheridan Zaman MD MAMMOGRAPHY - [...] delay biopsy of a clinically suspicious abnormality. [id number] Electronically Signed: Dayton Cordero MD a t 14:09 EST Tel [phone], Service support [phone], CC: Sheridan Zaman MD Professor Of Education: Signed 18-Jun-2016 Dexa Bone Density Study (HP) Result: Comments: See Note; NOTES: [facility] Imaging Services [address] [place] [address] Verdana 4d Dexa Bone Density Study (HP) MR#: [id number] Acct: [id number] Name: ABIMAEL NAYLOR Rep #: [id number] : 1940 F 76 From: Dayton Cordero MD PCP: Sheridan Zaman MD Status: REG CLI Study: Dexa Bone Density Study () Date of Exam: 06/18/16 Exam# [id number] Ordering Dr: Sheridan Ledbetter MD STUDY: DUAL [...] Dayton Cordero MD at 13:38 EST Tel [phone], Service support [phone], CC: Sheridan Zaman MD Professor Of Education: Signed 11-Jun-2016 Inital Evaluation (1) - PT Result: Comments: See Note; NOTES: [facility] Physical Therapy [address] [place] [address] Fax REHABILITATION SERVICES INITIAL EVALUATION MR#: [id number] Acct: [id number] Name: FEMI NAYLOR Rep #: [id number] : 1940 76 From: Yusuf Holm DPT Referring Dr.: Sheridan Zaman MD Status: REG RCR [facility]: [facility] Patient's Visit Information FEMI NAYLOR is [...] to be FAXED BACK to us at [phone] for Medicare purposes. Please let me know if there are questions or concerns re garding this plan of care. Physician Signature: Date: <Electronically signed by Yusuf Holm DPT> 06/11/16 0746 CC: Lux Zaman MD CLS Signed For Medicare only, by signing this I certify the plan of care. Physicians Signature Date 13-Mar-2016 Carotid Duplex Ultrasound Result: Comments: See Note; NOTES: [facility] Cardiovascular Services [address] [place] [address] Carotid Duplex Ultrasound 03/04/16 1004 MR#: [id number] Acct: [id number] Name: FEMI LUEVANO LT Rep #: [id number] : 1940 76 From: Tom Medel MD [...] the left vertebral artery. Procedure Carotid Duplex 29746. The exam was diagnostic. Exam performed in [...] Date Dictated: 03/04/16 1004 Date Transcribed: 03/13/16815 Professor Of Education: Signed 04-Mar-2016 Echocardiogram Complete Result: Comments: See Note; NOTES: [facility] Cardiovascular Services [address] [place] [address] Echo Complete 03/04/16 1034 MR#: [id number] Acct: [id number] Name: FEMI NAYLOR Rep #: [id number] : 1940 76 From: Jim Blankenship MD Attending Dr: Sheridan Zaman MD Status: REG CLI Ordering Dr: Sheridan Zaman MD Date: 03/04/16 Location: [facility] Sex: F C Admitted: Reason For Study: [...] Kanchan Jackson, RDJULIO, RVT 03/04/16 1623 Date [facility] [address] [place] CC: Sheridan Zaman MD Date Dictated: 03/04/16 1034 Date Transcribed: 03/04/161622 Professor Of Education: Signed 20-Jun-2015 Vascular Test/LEAS/UEAS Result: Comments: See Note; NOTES: [facility] Cardiovascular Services [address] [place] [address] Verdana 4d Lower Ext Art Exam w/o Exercis MR#: [id number] Acct: [id number] Name: FEMI NAYLOR Rep #: [id number] : 1940 75 From: Dangelo Hogue MD [...] bilaterally. Dangelo Hogue MD T: NTS JOB: [id number] 06/20/15 0736 <Electronically signed by Dangelo Hogue MD> Date Dangelo Hogue MD CC: Sheridan Zaman MD; Dangelo Hogue MD Date Dictated: 06/19/152229 Date Transcribed: 06/19/152229 Professor Of Education: Signed 16-Jun-2015 Bilat Scrn Digital AND CAD Result: Comments: See Note; NOTES: [facility] Imaging Services [address] [place] [address] Verdana 4d Bilat Scrn Digital AND CAD MR#: [id number] Acct: [id number] Name: FEMI NAYLOR Rep #: [id number] : 1940 F 75 From: Dayton Cordero MD PCP: Sheridan Zaman MD Status: REG CLI Study: Bilat Scrn Digital AND CAD Date of Exam: 06/16/15 Exam# [id number] Order ing Dr: Sheridan Zaman MD MAMMOGRAPHY [...] delay biopsy of a clinically suspicious abnormality. [id number] Electronically Signed: Dayton Cordero MD at 9:49 EST Tel [phone], Service support [phone], CC: Sheridan Zaman MD Professor Of Education: Signed 07-Jun-2015 Initial Evaluation - OT Result: Comments: See Note; NOTES: [facility] Occupational Therapy [facility] [address] [place] [address]. [address] [place] [address] Fax REHABILITATIO N SERVICES INITIAL EVALUATION MR#: [id number] Acct: [id number] Name: FEMI NAYLOR Rep #: [id number] : 1940 75 From: Vielka Baez Referring [...] CJ. Vielka Baez OTR/L T: TREASURE JOB: [id number] <Electronically signed by Vielka Baez > 06/07/15 0846 CC: Signed For Medicare only, by signing this I certify the plan of care. Physicians Signature Date 07-Jun-2015 OT Discharge Summary Result: Comments: See Note; NOTES: [facility] Occupational Therapy [facility] [place], [place] [address] Fax REHABILITATIO N SERVICES DISCHARGE SUMMARY MR#: [id number] Acct: [id number] Name: FEMI NAYLOR Rep #: [id number] : 1940 75 From: Vielka Baez Referring [...] CJ. LUIS Staley /L T: TREASURE JOB: [id number] <Electronically signed by Vielka Baez > 06/07/15 0846 CC: Signed 09-May-2015 Abdomen/Pelvis WITH Contrast Result: Comments: See Note; NOTES: [facility] Imaging Services [address] [place] [address] Nasreen 4d Abdomen/Pelvis WITH Contrast MR#: [id number] Acct: [id number] Name : FEMI NAYLOR Rep #: [id number] : 1940 F 75 From: Dayton Cordero MD PCP: Sheridan Zaman MD Status: REG CLI Study: Abdomen/Pelvis WITH Contrast Date of Exam: 05/09/15 Exam# [id number] O rdering Dr: Sheridan Zaman MD STUDY: [...] Dayton Cordero MD at 12:40 EST Tel [phone], Service support [phone], CC: Sheridan Zaman MD Professor Of Education: Signed 22-Dec-2014 Ankle min 3 Views Result: Comments: See Note; NOTES: [facility] Imaging Services [address] [place] [address] Radiology Report MR#: [id number] Acct: [id number] Name: FEMI NAYLOR Rep #: [id number] : 1940 F 74 From: Sharri Boudreaux MD PCP: Sheridan Zaman MD Status: REG CLI Study: Ankle min 3 Views Date of Exam: 12/22/14 Exam# [id number] Ordering Dr: Camille Hernandez DO STUDY: X-RA [...] MD at 14:24 EDT , Service support [phone], 0074 RAD/Ankle min 3 Views IMPRESSION: Calcaneal spurs. Soft tissue swelling. No acute osseous abnormality. Electronically Signed: Sharri Boudreaux MD at 14:24 EDT , Se rvice support [phone], CC: Camille Hernandez DO; Sheridan Zaman MD Professor Of Education: Signed 22-Dec-2014 Foot min 3 Views Result: Comments: See Note; NOTES: [facility] Imaging Services [address] [place] [address] Radiology Report MR#: [id number] Acct: [id number] Name: FEMI NAYLOR Rep #: [id number] : 1940 F 74 From: Sharri Boudreaux MD PCP: Sheridan Zaman MD Status: REG CLI Study: Foot min 3 Views Date of Exam: 12/22/14 Exam# [id number] Ordering Dr: Camille Hernandez DO STUDY: X-RAY [...] at 14:25 EDT , S ervice support [phone], RAD/Foot min 3 Views IMPRESSION: Calcaneal spurs. Mild osteoarthritic change. Electronically Signed: Shrari Boudreaux MD at 14:25 EDT , Service support [phone], CC: Camille Hernandez DO; Sheridan Zaman MD Professor Of Education: Signed 08-Nov-2014 Knee 4 or More Views Result: Comments: See Note; NOTES: [facility] Imaging Services [address] [place] [address] Radiology Report MR#: [id number] Acct: [id number] Name: FEMI NAYLOR Rep #: [id number] : 1940 F 74 From: Sharri Boudreaux MD PCP: Sheridan Zaman MD Status: REG CLI Study: Knee 4 or More Views Date of Exam: 11/08/14 Exam# [id number] Ordering Dr: Camille Hernandez DO STUDY: X- [...] MD at 11:46 EDT , Service support [phone], CC: Camille Hernandez DO; Sheridan Zaman MD Professor Of Education: Signed 08-Jun-2014 Bilat Scrn Digital & CAD Result: Comments: See Note; NOTES: [facility] Imaging Services [address] [place] [address] Breast Imaging Report MR#: [id number] Acct: [id number] Name: FEMI NAYLOR Rep #: [id number] : 1940 F 74 From: Dayton Cordero MD PCP: Sheridan Zaman MD Status: REG CLI Exam# [id number] Ordering Dr: Sheridan Zaman MD MAMMOGRAPHY - [...] Dayton Cordero MD at 9:08 EST Tel [phone], Service sup port [phone], CC: Sheridan Zaman MD Professor Of Education: Signed 08-Jun-2014 Dexa Bone Density Study (HP) Result: Comments: See Note; NOTES: [facility] Imaging Services [address] [place] [address] Bone Density Report MR#: [id number] Acct: [id number] Name: FEMI NAYLOR Rep #: [id number] : 1940 F 74 From: Dayton Cordero MD PCP: Sheridan Zaman MD Status: REG CLI Study: Dexa Bone Density Study (HP) Date of Exam: 06/08/14 Exam# [id number] Ordering Dr: Sheridan Zaman STUDY: DUAL ENERGY [...] J Cordero MD at 11:28 EST Tel [phone], Service support [phone], CC: Sheridan Zaman MD Professor Of Education: Signed 13-Jan-2014 PT Discharge Summary Result: Comments: See Note; NOTES: [facility] [place], [place] [address] Fax REHABILITATION SERVICES DISCHARGE SUMMARY MR#: [id number] Acct: [id number] Name: FEMI NAYLOR Rep #: [id number] : 1940 73 From: Alisha Pandey Referring [...] that she be discharged from [facility] and return to doctor's ca re. Alisha Pandey DPT T: NTS JOB: [id number] <Electronically signed by Alisha Pandey > 01/13/14 0737 CC: Signed 20-Dec-2013 L/S Spine Min 4 Views Result: Comments: See Note; NOTES: [facility] Imaging Services [address] [place] [address] Radiology Report MR#: [id number] Acct: [id number] Name: FEMI NAYLOR Rep #: [id number] : 1940 F 73 From: Dayton Cordero MD PCP: Sheridan Zaman MD Status: REG CLI Study: L/S Spine Min 4 Views Date of Exam: 12/20/13 Exam# [id number] Ordering Dr: Alec Mcwilliams Y: X-RAY - [...] Dayton Cordero MD at 14:50 EDT Tel [phone], Service support [phone], Fax CC: Sheridan Zaman MD; Alec Mcwilliams Professor Of Education: Signed 03-Dec-2013 Foot min 3 Views Result: Comments: See Note; NOTES: [facility] Imaging Services [address] [place] [address] Radiology Report MR#: [id number] Acct: [id number] Name: FEMI NAYLOR Rep #: [id number] : 1940 F 73 From: Dayton Cordero MD PCP: Sheridan Zaman MD Status: REG CLI Study: Foot min 3 Views Date of Exam: 12/03/13 Exam# [id number] Ordering Dr: Alec Mcwilliams DO STUDY: X- [...] Dayton Cordero MD at 14:32 EDT Tel [phone], Service support [phone], RAD/Foot min 3 Views IMPRESSION: Soft tissue swelling. RSD should be ruled out. Electronically Signed: Dayton Cordero MD at 14:32 EDT Tel [phone], Service support [phone], CC: Sheridan Zaman MD; Alec Mcwilliams Professor Of Education: Signed 11-Nov-2013 Inital Evaluation - PT Result: Comments: See Note; NOTES: [facility] [address] [place], [place] [address] Fax REHABILITATION SERVICES INITIAL EVALUATION MR#: [id number] Acct: [id number] Name: FEMI NAYLOR Rep #: [id number] : 1940 73 From: Alisha Pandey Referring Dr.: Alec Mcwilliams Status: REG RCR Insurance: [facility] R O Eval Date: DATE OF [...] HISTORY: Includes a right total knee replacement [place] and anxiety. MEDICATIONS: Ibuprofen. OBJECTIVE: POSTURE: Forward [...] with home exercise program and return to [place] Sneakers with decreased pain. Alisha Pandey DPT T: TREASURE JOB: [id number] &amp ;#60;Electronically signed by Alisha Pandey > 11/11/13 0947 CC: Signed For Medicare only, by signing this I certify the plan of care. Physicians Signature Date 07-Jun-2013 Bilat Scrn Digital & CAD Result: Comments: See Note; NOTES: [facility] Imaging Services [address] [facility] [place] [address] Breast Imaging Report MR#: [id number] Acct: [id number] Name: FEMI NAYLOR Rep #: [id number] : 1940 F 73 From: Dayton Cordero MD PCP: Sheridan Zaman MD Status: REG CLI Exam# [id number] Ordering Dr: Sheridan Zaman MD MAMMOGRAPHY - [...] M.D. at 16:31 EST , Service support [phone], CC: Sheridan Zaman MD Professor Of Education: Signed Immunization Name Dates Details Influenza, injectable, quadrivalent Comments: [facility], [facility] 03-20 Family History Unknown Family Member Name Dates Details Daughter 1 Comments: healthy Status: Active Father Comments: bladder cancer in 70's, mild [place] later, alcoholism after first . Status: Active [...] smoker Vital Signs Date Test Result Details 26-Eqj-840119:04 Comments: had half ativan this am Temperature [...] kg/m2 Body Surface Area Calculated 2 m2 34-Hrz-842939:28 Weight 195 lb Height 67 in Body [...] Details :34 CRP, High Sensitivity Cardiac Comments: [facility] [id number] [place], [id number] CRP HIGH SENS 8.72 mg/L (Abnormal) Comments: Low Relative Risk of CVD <1.0 mg/L Average Relative Risk of CVD 1.0 - 3.0 mg/L High Relative Risk of CVD >3.0 mg/L :34 Free T3 Comments: [address] [place], [address] FREE T3 2.6 pg/mL (Normal) Range: 2.18-3.98 :34 T4 Total, Thyroxin Comments: [address] [place], [address] T4 THYROXIN 11.7 ug/dL (Normal) Range: 4.8-13.9 :34 Thyroid Stim Hormone (TSH) Comments: [address] [place], [address] TSH 2.91 {uIU/mL} (Normal) Range: 0.358-3.74 :34 Vitamin D,25 Hydroxy Comments: [address] [place], [id number] Vitamin D 25-OH 27.8 ng/mL (Abnormal) Range: 29.95-100.01 Comments: Vitamin D 25(OH) Status Range Deficiency <20 ng/mL (50nmol/L) Insuffciency 20 - 30 ng/mL (50 - 75 nmol/L) Sufficiency 30 - 100 ng/mL (75 - 250 nmol/L) Toxicity >100 ng/mL (>250 nmol/L) :17 MICROALBUMIN: CREATININE RATIO Comments: PATIENT WAS FASTINGPERFORMED BY: [facility] Rnwhiu5784 [facility] [id number] (24335) AND (20366) Alb/Creat Ratio <6.5 {mg/g_creat} (Normal) Range: 0.0-30.0 Comments: Normal: 0.0 - 30.0 Albuminuria: 31.0 - 300.0 Clinical albuminuria: >300.0 Albumin, Urine <3.0 ug/mL (Normal) Creatinine, Urine 46.4 mg/dL (Normal) :17 URINALYSIS (01229) Comments: PATIENT WAS FASTINGPERFORMED BY: [email or web address] [facility] [id number] Microscopic Examination MICNIP (Normal) Comments: Microscopic not indicated and not performed. Nitrite, Urine Negative (Normal) Urobilinogen,Semi-Qn 0.2 mg/dL (Normal) Range: 0.2-1.0 Bilirubin Negative (Normal) Occult Blood Negative (Normal) Ketones Negative (Normal) Glucose Negative (Normal) Protein Negative (Normal) WBC Esterase Negative (Normal) Appearance Clear (Normal) Urine-Color Yellow (Normal) pH 7.0 (Normal) Range: 5.0-7.5 Specific [place] 1.015 (Normal) Range: 1.005-1.030 :17 Metabolic Panel, Comprehensive Comments: PATIENT WAS FASTINGPERFORMED BY: [facility] Ihcboq8773 [facility] [id number] (59801) ALT (SGPT) 9 [iU]/L (Normal) Range: 0-32 [...] 8-27 Glucose 97 mg/dL (Normal) Range: 65-99 43-Lat-66854:17 CBC WITH MANUAL DIFF (52381) Comments: PATIENT WAS FASTINGPERFORMED BY: [facility] Gpdvng9697 [facility] [id number] Immature Grans (Abs) 0.0 {x10E3/uL} (Normal) Range: [...] 3.77-5.28 WBC 4.2 {x10E3/uL} (Normal) Range: 3.4-10.8 53-Uqe-037991:10 HgA1C , Office (74358) HgA1C , Office 5.9 % (Normal) Range: 4.6 - 7.1 65-Qom-262599:00 VANDANA CULTURE-OTHER (38959) Comments: PATIENT NOT FASTINGPERFORMED BY: [facility] SystemPinsud[address] [place] [address] [id number] Information: SRC: Result 1 RRF (Normal) Comments: Routine respiratory yamila Upper Respiratory Culture Final report (Normal) :36 Rapid Strep Test, Office (40914) Rapid Strep Test, Office Negative (Normal) :25 HgA1C , Office (24361) HgA1C , Office 5.8 % (Normal) Range: 4.6 - 7.1 41-Cvj-62237:39 CBC with auto diff Comments: PATIENT WAS FASTINGPERFORMED BY: [address] [id number] BY: [facility]Cent[facility] Healthcare SystemPrwwjj8561 [facility] [id number] (08343) Immature Grans (Abs) 0.0 {x10E3/uL} (Normal) Range: [...] 3.77-5.28 WBC 4.1 {x10E3/uL} (Normal) Range: 3.4-10.8 91-Atx-63179:39 HGB A1C (48158) Comments: PATIENT WAS FASTINGPERFORMED BY: [employer] [place] [address] [id number] BY: [facility]iZuni HospitalMwpkfk8818 [facility] [id number] Hemoglobin A1c 5.7 % (Abnormal) Range: 4.8-5.6 Comments: . Pre-diabetes: 5.7 - 6.4 Diabetes: >6.4 Glycemic control for adults with diabetes: <7.0 01-Owg-38217:39 CALCIFIDIOL (05913) VIT D Comments: PATIENT WAS FASTINGPERFORMED BY: Labochema[address] [id number] BY: Skiipi Zfiohj1348 [facility] [id number] 25 Vitamin D, 25-Hydroxy 30.8 ng/mL (Normal) Range: 30.0-100.0 Comments: Vitamin D deficiency has been defined by the [place] of[place] and an Endocrine Society practice guideline as alevel of serum 25-OH vitamin D less than 20 ng/mL (1,2).The Endocrine Society went on to further define vitamin Dinsufficiency as a level between 21 and 29 ng/mL (2).1. IOM ([place] of [place]). 2010. Dietary reference intakes for calcium and D. [place]: The National Academies Press.2. Carlota MF, Ursula BACON, Taryn RECINOS, et al. Evaluation, treatment, and prevention of vitamin D deficiency: an Endocrine Society clinical practice guideline. JCEM. 2010; 96(7):1911-30. 06-Ubk-68402:39 Metabolic Panel, Comments: PATIENT WAS FASTINGPERFORMED BY: BN [facility] Qfvhucbzqy6906 [facility] [id number] BY: CB [facility] Gmgzdd0257 [facility] [id number] Comprehensive (77770) ALT (SGPT) 10 [iU]/L (Normal) Range: 0-32 [...] 8-27 Glucose 98 mg/dL (Normal) Range: 65-99 16-Dbp-32309:39 LIPOPROTEIN, BLD, BY NMR Comments: PATIENT WAS FASTINGPERFORMED BY: BN [facility] Rozothfhgp2022 [facility] [id number] BY: CB [facility] Ujobwu2707 [facility] [id number] (67659) LP-IR Score 31 (Normal) Comments: INSULIN RESISTANCE MARKER <--Insulin Sensitive Insulin Resistant--> Percentile in Reference PopulationInsulin Resistance ScoreLP-IR Score Low 25th 50th 75th High <27 27 45 63 >63LP-IR Score is inaccurate if patient is non-fasting. .The LP-IR score is a laboratory developed i [facility] that has beenassociated with insulin resistance [...] were developed and their performance characteristicsdetermined by [employer]. These assays have not been cleared by [...] 1600 - 2000 Very High > 2000 20-Pga-19653:39 C-REACT PROT HIGH Comments: PATIENT WAS FASTINGPERFORMED BY: BrainRush[address] [id number] BY: LOAG70 [facility] PhotonicsCar[facility] Hospital [id number]; can review on 10/16 SENS(hsCRP) (30393) C-Reactive Protein, Cardiac 5.80 mg/L (Abnormal) Range: 0.00-3.00 Comments: Relative Risk for Future Cardiovascular Event Low <1.00 Average 1.00 - 3.00 High >3.00 89-Yjg-198977:43 C-REACT PROT HIGH SENS(hsCRP) Comments: PATIENT NOT FASTINGPERFORMED BY: LOAG70 [facility] [id number] (85401) C-Reactive Protein, Cardiac 26.86 mg/L (Abnormal) Range: 0.00-3.00 Comments: Results confirmed ondilution. Relative Risk for Future Cardiovascular Event Low <1.00 Average 1.00 - 3.00 High >3.00 06-Ijh-836990:43 CALCIFIDIOL (15578) VIT D 25 Comments: PATIENT NOT FASTINGPERFORMED BY: LOAG70 [facility] RobotD[facility] Hospital [id number] Vitamin D, 25-Hydroxy 29.8 ng/mL (Abnormal) Range: 30.0-100.0 Comments: Vitamin D deficiency has been defined by the [place] of[place] and an Endocrine Society practice guideline as alevel of serum 25-OH vitamin D less than 20 ng/mL (1,2).The Endocrine Society went on to further define vitamin Dinsufficiency as a level between 21 and 29 ng/mL (2).1. IOM ([place]). 2010. Dietary reference intakes for calcium and D. [place]: The National Academies Press.2. Carlota MF, Ursula BACON, Taryn RECINOS, et al. Evaluation, treatment, and prevention of vitamin D deficiency: an Endocrine Society clinical practice guideline. JCEM. 2010; 96(7):1911-30. 84-Kmd-477841:37 MICROALBUMIN: CREATININE RATIO Comments: PATIENT NOT FASTINGPERFORMED BY: [employer] [place] [id number] (80054) AND (24314) Microalb/Creat Ratio 6.0 {mg/g_creat} (Normal) Range: 0.0-30.0 Microalbumin, Urine 9.7 ug/mL (Normal) Creatinine, Urine 160.5 mg/dL (Normal) :37 URINALYSIS (71762) Comments: PATIENT NOT FASTINGPERFORMED BY: [employer]6370 [facility]otD[facility] [id number] Microscopic Examination MICNIP (Normal) Comments: Microscopic not indicated and not performed. Nitrite, Urine Negative (Normal) Urobilinogen,Semi-Qn 0.2 mg/dL (Normal) Range: 0.2-1.0 Bilirubin Negative (Normal) Occult Blood Negative (Normal) Ketones Trace (Abnormal) Glucose Negative (Normal) Protein Negative (Normal) WBC Esterase Negative (Normal) Appearance Clear (Normal) Urine-Color Yellow (Normal) pH 6.0 (Normal) Range: 5.0-7.5 Specific [place] 1.021 (Normal) Range: 1.005-1.030 :37 CBC WITH MANUAL DIFF Comments: PATIENT NOT FASTINGPERFORMED BY: [facility]leD[facility] Hospital [id number] Information: NURSE DRAW (68185) Immature Grans (Abs) 0.0 {x10E3/uL} (Normal) Range: [...] 3.77-5.28 WBC 4.9 {x10E3/uL} (Normal) Range: 3.4-10.8 90-Iih-675651:37 Metabolic Panel, Comprehensive Comments: PATIENT NOT FASTINGPERFORMED BY: LabCoCentraState Healthcare SystemXwwnlu5654 [facility] [id number] (28753) ALT (SGPT) 12 [iU]/L (Normal) Range: 0-32 [...] Glucose, Serum 110 mg/dL (Abnormal) Range: 65-99 07-Xey-669089:44 CALCIFIDIOL (24986) VIT D 25 Comments: PATIENT NOT FASTINGPERFORMED BY: LabCoCentraState Healthcare SystemThuljx9711 [facility] [id number] Vitamin D, 25-Hydroxy 29.8 ng/mL (Abnormal) Range: 30.0-100.0 Comments: Vitamin D deficiency has been defined by the [place] of[facility] and an Endocrine Society practice guideline as alevel of serum 25-OH vitamin D less than 20 ng/mL (1,2).The Endocrine Society went on to further define vitamin Dinsufficiency as a level between 21 and 29 ng/mL (2).1. IOM ([place]). 2010. Dietary reference intakes for calcium and D. [place]: The National Academies Press.2. Carlota MF, Urusla BACON, Taryn RECINOS, et al. Evaluation, treatment, and prevention of vitamin D deficiency: an Endocrine Society clinical practice guideline. JCEM. 2010; 96(7):1911-30. 29-Imo-398601:44 Metabolic Panel, Comprehensive Comments: PATIENT NOT FASTINGPERFORMED BY: LabCoCentraState Healthcare SystemImujnk7863 [facility] [id number] (12676) ALT (SGPT) 10 [iU]/L (Normal) Range: 0-32 [...] Glucose, Serum 123 mg/dL (Abnormal) Range: 65-99 45-Kym-839074:57 HgA1C , Office (41775) HgA1C , Office 5.7 % (Normal) Range: 4.6 - 7.1 85-Atw-843442:00 Methymalonic Acid, Serum Comments: PATIENT NOT FASTINGPERFORMED BY: LabCoCentraState Healthcare SystemKgzvgb5837 [facility] [id number] BY: [address] [id number] (56015) Methylmalonic Acid, Serum 157 nmol/L (Normal) Range: 0-378 05-Ndj-806003:00 Vitamin B-12 Comments: PATIENT NOT FASTINGPERFORMED BY: [facility] Enlnnd5001 Ochoa RoadDublin [place] [id number] BY: Lab[address] [id number] (cyanocobalamin) (05400) Vitamin B12 778 pg/mL (Normal) Range: 211-946 56-Hih-526505:00 CALCIFIDIOL (93936) VIT D Comments: PATIENT NOT FASTINGPERFORMED BY: CB [facility] Lwxzoh8265 Ochoa RoadDublin [place] [id number] BY: LabCo[address] [id number]; fu 2-28 25 Vitamin D, 25-Hydroxy 27.7 ng/mL (Abnormal) Range: 30.0-100.0 Comments: Vitamin D deficiency has been defined by the [place] of[place] and an Endocrine Society practice guideline as alevel of serum 25-OH vitamin D less than 20 ng/mL (1,2).The Endocrine Society went on to further define vitamin Dinsufficiency as a level between 21 and 29 ng/mL (2).1. IOM ([place]). 2010. Dietary reference intakes for calcium and D. [place]: The National Academies Press.2. Carlota MF, Ursula [place], Taryn RECINOS, et al. Evaluation, treatment, and prevention of vitamin D deficiency: an Endocrine Society clinical practice guideline. JCEM. 2010; 96(7):1911-30. 09-Bcv-678030:48 Sed Rate Erythrocyte Comments: PATIENT NOT FASTINGPERFORMED BY: CB [facility] Cevrah9775 Ochoa RoadDublin [place] [id number] Information: [id number] (47063) Sedimentation Rate-Westergren 13 mm/h (Normal) Range: 0-40 85-Ove-242680:48 C-Reactive Protein (32337) Comments: PATIENT NOT FASTINGPERFORMED BY: CB [facility] Ywxmct0111 Ochoa RoadDublin [place] [id number] C-Reactive Protein, Quant 20.2 mg/L (Abnormal) Range: 0.0-4.9 :43 CBC W/Diff, Automated Comments: [facility] [address] [place], [address] Absolute Lymph 0.82 {X10_3/ul} (Abnormal) [...] Range: 4.4-11.0 :43 Comprehensive Metabolic Profil Comments: [facility] [address] [place], [place], [id number] ; [address] GAP 7 (Normal) Range: [...] 7-18 GLU 96 mg/dL (Normal) Range: 70-110 0-Ucp-825577:43 T4 Free Direct Comments: [facility] [address] [place], [address] T4 FREE DIRECT 1.24 ng/dL (Normal) Range: 0.76-1.46 2-Iaf-515094:43 Thyroid Stim Hormone (TSH) Comments: [facility] [address] [place], [address] TSH 1.97 {uIU/mL} (Normal) Range: 0.358-3.74 55-Etl-64485:33 MICROALBUMIN: CREATININE Comments: PATIENT NOT FASTINGPERFORMED BY: LabBeaumont Hospital6370 [facility] [id number] Information: [id number] RATIO (73836) AND (16366) Microalb/Creat Ratio 4.3 {mg/g_creat} (Normal) Range: 0.0-30.0 Microalbumin, Urine 5.2 ug/mL (Normal) Range: 0.0-17.0 Creatinine, Urine 120.2 mg/dL (Normal) Range: 15.0-278.0 31-Ayo-858017:30 CBCD ALC 1.09 {X10_3/ul} (Normal) Range: 0.83-4.51 [...] Evidenceof monoclonal protein is not apparent.Performed at: [address] [id number] Director: Tutu Cobian PhD, Phone: [phone] tPROELIN Comment (Normal) Comments: Protein electrophoresis scan will follow via computer,mail, or floor winder delivery. tPROELAG 1.3 (Normal) Range: 0.7-2.0 tPROELGL 2.7 g/dL (Normal) Range: 2.0-4.5 tPROELMS (Normal) Comments: NOT OBSERVED G/DL tPROELGA 0.9 g/dL (Normal) Range: 0.5-1.6 tPROELBE 0.9 g/dL (Normal) Range: 0.6-1.3 tPROELAL2 0.6 g/dL (Normal) Range: 0.4-1.2 tPROELAL1 0.2 g/dL (Normal) Range: 0.1-0.4 tPROELALB 3.6 g/dL (Normal) Range: 3.2-5.6 $tPROELTP 6.3 g/dL (Normal) Range: 6.0-8.5 :30 URIC 3.1 mg/dL (Normal) Range: 2.6-6.0 10-Nix-529681:05 Microscopic Examination Comments: PATIENT NOT FASTINGPERFORMED BY: Amiato[address] [id number] BY: [address] [id number] Bacteria Few (Normal) Mucus Threads Present (Normal) Crystal Type Calcium Oxalate (Normal) Crystals Present (Abnormal) Epithelial Cells (non renal) 0-10 {/hpf} (Normal) Range: 0 - 10 RBC 0-2 {/hpf} (Normal) Range: 0 - 2 WBC 0-5 {/hpf} (Normal) Range: 0 - 5 34-Igi-517710:05 URINALYSIS, W/ MICRO Comments: PATIENT NOT FASTINGPERFORMED BY: [address] [id number] BY: BN Lab[address] [id number] (01008) Microscopic Examination See below: (Normal) Comments: Microscopic was indicated and was performed. Microscopic Examination MICRON (Normal) Comments: Microscopic follows if indicated. Nitrite, Urine Negative (Normal) Urobilinogen,Semi-Qn 0.2 mg/dL (Normal) Range: 0.0-1.9 Bilirubin Negative (Normal) Occult Blood Negative (Normal) Ketones Negative (Normal) Glucose Negative (Normal) Protein Negative (Normal) WBC Esterase Negative (Normal) Appearance Clear (Normal) Urine-Color Yellow (Normal) pH 6.0 (Normal) Range: 5.0-7.5 Specific [place] 1.022 (Normal) Range: 1.005-1.030 80-Smw-404109:05 CCP ANTIBODY (15480) Comments: PATIENT NOT FASTINGPERFORMED BY: [employer] icomasoft [facility] [id number] BY: [address] [id number] CCP Antibodies IgG/IgA 23 {units} (Abnormal) Range: 0-19 Comments: Negative <20 Weak positive 20 - 39 Moderate positive 40 - 59 Strong positive >59 22-Wna-722562:05 SED RATE ERYTHROCYTE Comments: PATIENT NOT FASTINGPERFORMED BY: SkiipiCentraState Healthcare SystemTsnzke8895 [facility] [id number] BY: [place] [id number] (29592) Sedimentation Rate-Westergren 13 mm/h (Normal) Range: 0-40 23-Zpv-891930:05 C-REACTIVE PROTEIN Comments: PATIENT NOT FASTINGPERFORMED BY: Skiipi Ayqstv1261 [facility] [id number] BY: [place] [id number] (16938) C-Reactive Protein, Quant 4.5 mg/L (Normal) Range: 0.0-4.9 18-Dpu-216923:05 TSH (44683) Comments: PATIENT NOT FASTINGPERFORMED BY: [employer] Lmlrwz[address] [place] [address] [id number] BY: [address] [id number] TSH 2.750 {uIU/mL} (Normal) Range: 0.450-4.500 68-Dpu-293049:05 RHEUMATOID FACTOR-QUANT Comments: PATIENT NOT FASTINGPERFORMED BY: LabCoDonald Ville 2687470 [facility] [id number] BY: [address] [id number] (32080) RA Latex Turbid. 7.4 {IU/mL} (Normal) Range: 0.0-13.9 16-Gfm-989622:05 JAELYN (ANTINUCLEAR ANTIBODY) Comments: PATIENT NOT FASTINGPERFORMED BY: LabCoCentraState Healthcare SystemBsrbyt2908 [facility] [id number] BY: [address] [id number] (94536) JAELYN Direct Negative (Normal) 90-Mmp-949037:05 METABOLIC PANEL, Comments: PATIENT NOT FASTINGPERFORMED BY: LabCoDonald [place] 2687470 [facility] [id number] BY: [address] [id number] ormation: 140736,[id number] COMPREHENSIVE (99898) ALT (SGPT) 12 [iU]/L (Normal) Range: 0-32 [...] Glucose, Serum 96 mg/dL (Normal) Range: 65-99 14-Gey-00988:45 Urinalysis, Office (24169) UA - BILIRUBIN Negative (Normal) UA - BLOOD Negative (Normal) UA - GLUCOSE Negative (Normal) UA - KETONES Negative mg/dL (Normal) UA - LEUKOCYTE ESTERASE Negative (Normal) UA - NITRITE Negative (Normal) UA - PH 6.0 (Normal) UA - PROTEIN Negative mg/dL (Normal) UA - SPECIFIC GRAVITY 1.020 (Normal) URINE UROBILINGN KATE TIMED Normal mg/dL (Normal) 79-Hxu-815313:37 CERV SPINE,MIN 4 VIEWS Radiology Report See [...] Campbell D.O.May 18, 2012 at 11:19:02 PM [id number] Signed IF/IF If you are the referring physician and would like to consult with theradiologist who provided this interpretation, please contact Sharad Campbell D.O.at [phone]. If this radiologist is unavailable, you will be directedto another radiologist to assist. If you are a patient with a question regardin g this report, pleasecontactyour referring physician directly. Professional Interpretation Provided By: [facility], Phone , These documents contain legally protected [...] LUNA,IainTranscribed on 05/18/122322 by ITS IMPORTSign by Adiran LUNA,Sharad on 05/18/122323 Sign by: Sharad Campbell DO 37-Yok-839345:37 SHOULDER,MIN 2 VIEWS Radiology Report See Note [...] Campbell D.O.May 18, 2012 at 11:01:01 PM [id number] Signed IF/IF If you are the referring physician and would like to cons ult with theradiologist who provided this interpretation, please contact Sharad Campbell D.O.at [phone]. If this radiologist is unavailable, you will be directedto another radiologist to assist. If you ar e a patient with a question regarding this report, pleasecontactyour referring physician directly. Professional Interpretation Provided By: [facility], Phone , These docum ents contain legally [...] on 05/18/122305 Sign by: Sharad Campbell DO 15-Weh-38156:15 METABOLIC PANEL, COMPREHENSIVE Comments: PATIENT WAS FASTINGPERFORMED BY: LabCoCentraState Healthcare SystemMostua0766 [facility] [id number] (52732) ALT (SGPT) 17 [iU]/L (Normal) Range: 0-40 [...] mg/dL (Abnormal) Range: 65-99 :15 LIPID PANEL (33814) Comments: PATIENT WAS FASTINGPERFORMED BY: [employer] Pzktcs7762 [facility] [id number] LDL/HDL Ratio 1.5 {ratio_units} (Normal) Range: 0.0-3.2 [...] MANUAL DIFF Comments: PATIENT WAS FASTINGPERFORMED BY: [employer] Ndpqda3560 [facility] [id number] Information: [id number] (53193) Immature Grans (Abs) 0.0 {x10E3/uL} (Normal) Range: [...] 3.77-5.28 WBC 3.8 {x10E3/uL} (Abnormal) Range: 4.0-10.5 23-Sar-889400:03 Microscopic Examination Comments: PATIENT NOT FASTINGPERFORMED BY: [employer]6370 [facility] [id number] Bacteria None seen (Normal) Mucus Threads Present (Normal) Epithelial Cells (non renal) 0-10 {/hpf} (Normal) Range: 0 - 10 RBC None seen {/hpf} (Normal) Range: 0 - 3 WBC None seen {/hpf} (Normal) Range: 0 - 5 :03 URINALYSIS, W/ MICRO (01858) Comments: PATIENT NOT FASTINGPERFORMED BY: [employer]6370 [facility] [id number] Microscopic Examination See below: (Normal) Microscopic Examination MICRON (Normal) Comments: Microscopic follows if indicated. Nitrite, Urine Negative (Normal) Urobilinogen,Semi-Qn 0.2 mg/dL (Normal) Range: 0.0-1.9 Bilirubin Negative (Normal) Occult Blood Negative (Normal) Ketones Negative (Normal) Glucose Negative (Normal) Protein Negative (Normal) WBC Esterase Negative (Normal) Appearance Clear (Normal) Urine-Color Yellow (Normal) pH 7.5 (Normal) Range: 5.0-7.5 Specific [place] 1.014 (Normal) Range: 1.005-1.030 02-Szp-934291:03 TSH (53568) Comments: PATIENT NOT FASTINGPERFORMED BY: [facility]6370 [facility] [id number] TSH 2.440 {uIU/mL} (Normal) Range: 0.450-4.500 67-Dfk-396973:03 CBC WITH MANUAL DIFF Comments: PATIENT NOT FASTINGPERFORMED BY: [facility]6370 [facility] [id number] Information: [id number] (25839) Immature Grans (Abs) 0.0 {x10E3/uL} (Normal) Range: [...] 3.77-5.28 WBC 5.1 {x10E3/uL} (Normal) Range: 4.0-10.5 44-Rlv-007175:03 METABOLIC PANEL, COMPREHENSIVE Comments: PATIENT NOT FASTINGPERFORMED BY: PETRONA [facility] Yvzqzq6414 [facility] [id number] (81050) ALT (SGPT) 16 [iU]/L (Normal) Range: 0-40 [...] Glucose, Serum 88 mg/dL (Normal) Range: 65-99 9-Ska-199461:19 METANEPHRINES - URINE (82034) Comments: PATIENT NOT FASTINGPERFORMED BY: [facility] Bkwmsqafcr1351 [facility] [id number] Metanephrine, U,24hr 118 {ug/24_hr} (Normal) Range: 45-290 Comments: (Hypertensive) >17 years 11 months: 35 - 460 . Please note reference interval change Metanephrine, Ur 94 ug/L (Normal) Normetanephr.,U,24h 248 {ug/24_hr} (Normal) Range: 82-500 Comments: (Hypertensive) >17 years 11 months: 110 - 1050 Normetanephrine, Ur 198 ug/L (Normal) 1-Oxp-813195:19 URINE VMA (84690) Comments: PATIENT NOT FASTINGPERFORMED BY: [employer] [facility] [address]ws[address] [id number] VMA, Urine, 24hr 3.1 {mg/24_hr} (Normal) Range: 0.0-7.5 VMA, Urine 2.5 mg/L (Normal) 5-Chi-643752:19 CATECHOLAMINES TOTAL, URINE Comments: PATIENT NOT FASTINGPERFORMED BY: [employer] [facility] Lfvqttjulj[address] [id number] Information: SRC:LANDEN [id number] START 2@730AM FIN BETH; f/u 01/22/12 (38835) Dopamine, Ur, 24hr 229 {ug/24_hr} (Normal) Range: 0-510 Dopamine, Urine 183 ug/L (Normal) Norepinephrine,U,24h 53 {ug/24_hr} (Normal) Range: 0-135 Norepinephrine, Ur 42 ug/L (Normal) Epinephrine, U, 24hr 5 {ug/24_hr} (Normal) Range: 0-20 Epinephrine, Urine 4 ug/L (Normal) 24-Onk-91717:24 CHEST WITHOUT CONTRAST Radiology Report See Note [...] radiologist regarding this report, please call our 07C7mvvrfna line @ Dictated on 10/04/11 0959 by Danya Campbell [...] radiologist regarding this report, please call our 12R0bsvopuc line @ Dictated on 10/04/11 0940 by Heike Cordero MDbed on 10/04/11 1025 by ITS IMPORTSign by Dayton Cordero MD on 10/04/111025 Sign by: Dayton Cordero MD 44-Bma-18060:49 ABDOMEN/PELVIS WITH CONTRAST Radiology Report See Note [...] st regarding this report, please call our 16D4eipshpn line @ Dictated on 08/02/11 0813 by [...] Microscopic Examination Comments: PATIENT WAS FASTINGPERFORMED BY: [employer]6370 [facility] [id number] Bacteria None seen (Normal) Mucus Threads Present (Normal) Epithelial Cells (non renal) 0-10 {/hpf} (Normal) Range: 0 - 10 RBC None seen {/hpf} (Normal) Range: 0 - 3 WBC 0-5 {/hpf} (Normal) Range: 0 - 5 :49 TSH (96588) Comments: PATIENT WAS FASTINGPERFORMED BY: LOAG70 [facility] RobotD[facility] Hospital [id number] TSH 3.680 {uIU/mL} (Normal) Range: 0.450-4.500 :49 URINALYSIS, W/ MICRO (45671) Comments: PATIENT WAS FASTINGPERFORMED BY: LOAG70 [place] [facility] DefenceNov[facility] [id number] Microscopic Examination See below: (Normal) Microscopic Examination MICRON (Normal) Comments: Microscopic follows if indicated. Nitrite, Urine Negative (Normal) Urobilinogen,Semi-Qn 0.2 mg/dL (Normal) Range: 0.0-1.9 Bilirubin Negative (Normal) Occult Blood Negative (Normal) Ketones Negative (Normal) Glucose Negative (Normal) Protein Negative (Normal) WBC Esterase Negative (Normal) Appearance Clear (Normal) Urine-Color Yellow (Normal) pH 6.5 (Normal) Range: 5.0-7.5 Specific [place] 1.016 (Normal) Range: 1.005-1.030 65-Ham-83865:49 METABOLIC PANEL, COMPREHENSIVE Comments: PATIENT WAS FASTINGPERFORMED BY: [facility] Nybhbh5627 [facility] [id number] (42418) ALT (SGPT) 15 [iU]/L (Normal) Range: 0-40 [...] mg/dL (Normal) Range: 65-99 :49 LIPID PANEL (05954) Comments: PATIENT WAS FASTINGPERFORMED BY: [employer] [facility] [id number] LDL/HDL Ratio 1.5 {ratio_units} (Normal) Range: 0.0-3.2 [...] MANUAL DIFF Comments: PATIENT WAS FASTINGPERFORMED BY: LOAG70 [facility] [id number] Information: [id number] (59011) Immature Grans (Abs) 0.0 {x10E3/uL} (Normal) Range: [...] 3.80-5.10 WBC 4.5 {x10E3/uL} (Normal) Range: 4.0-10.5 00-Wzl-009725:02 [facility] D[facility] CAD Radiology Report See Note [...] on 08/28/10 1202 Sign by: ANNIE PETIT 7-Rpv-589461:52 Aerobic Bacterial Culture Comments: PERFORMED BY: CB [facility] Vtbffy9897 [place] [id number] Information: SRC:FI LEFT FINGER Result 1 NG36 (Normal) Comments: No growth in 36 - 48 hours. Aerobic Bacterial Culture Final report (Normal) 84-Ftd-797389:23 Thin prep Pap (94165) Comments: Source.............VaginalNo. of containers..01 CYTYC Thin Prep VialPATIENT NOT FASTINGPERFORMED BY: WB [facility] [address] [id number] Information: [id number] Note: PAPSMR (Normal) Comments: The Pap smear [...] hysterectomy.V72.31 ; Routine gynecological exami Eric Gomez Head Cook (ASCP) :52 CBCD,SMEAR DIFF PLT EST SeeNote [...] Report See Note (Normal) Comments: Exam Number: [id number] DIGITAL BILATERAL MAMMOGRAM Digital oblique and craniocaudal [...] wereals o examined with computer-aided detection software ([employer].). Reported By: DAYTON CORDERO :33 Aldolase 2.5 U/L (Normal) Comments: PERFORMED BY: [employer] Yzfovd6126 [facility] [id number] Range: 1.2-7.6 :33 Antinuclear Antibodies Direct Comments: PERFORMED BY: [employer] Qjknhf1902 [facility] [id number] JAELYN Direct Negative (Normal) :3 C-Reactive Protein, 2.4 mg/L (Normal) Comments: PERFORMED BY: [employer] Qtssvi4021 [facility] [id number] 3 Quant Range: 0.0-4.9 :33 CBC With Differential/Platelet Comments: PERFORMED BY: [employer]6370 [facility] [id number] Baso (Absolute) 0.0 {x10E3/uL} (Normal) Range: 0.0-0.2 [...] Comp. Metabolic Panel (14) Comments: PERFORMED BY: [facility]6370 [facility] [id number] A/G Ratio 1.7 (Normal) Range: 1.1-2.5 Albumin, [...] Creatine 77 U/L (Normal) Comments: PERFORMED BY: [facility]LabSaint [facility] [id number] 9:33 Kinase,Total,Serum Range: 24-173 03-Apr-2009 Sedimentation 8 mm/h (Normal) Comments: PERFORMED BY: [facility]LabSaint [facility] [id number] 9:33 Rate-Westergren Range: 0-30 03-Apr-2009 TSH 3.500 {uIU/mL} Comments: PERFORMED BY: [facility]Saint [facility] [id number] 9:33 (Normal) Range: 0.450-4.500 06-Sep-20088:47 DEXA BONE DENSITY STUDY (HP) Radiology Report See Note (Normal) Comments: Exam Number: [id number] BONE DENSITOMETRY HISTORYPostmenopausal. TECHNIQUE Bone densitometry of the lumbar spine and left hip was performed. Thebest criteria for evaluation of osteoporosis is the T- value, whichrepresents the comparison of the patient's bone mass to an expectedpeak bone mass. For most patients, the mean T-value of L1 through L4is used to evaluate the lumbar spine. Based on the [facility] WorldHealth Organization classifications, the hip is evaluated [...] within normallimits. Reported By: ANNIE PETIT M.D. 91-Xyb-899172:42 Thin prep Pap (11213) Comments: LMP / Prev Treat...ACU=[id number];HystNo. of containers..01 CYTYC Thin Prep VialPATIENT NOT FASTINGClinical Information: ADD [id number] PERFORMED BY: [employer] [id number] . . (Normal) DIAGNOSIS: SPRCS (Normal) Comments: NEGATIVE FOR INTRAEPITHELIAL LESION AND MALIGNANCY.Satisfactory for evaluation. No endocervical cells are present. This isconsistent with a history of hysterectomy.V72.31 ; Routine gynecological exami Desiree Bartholomew Head Cook (ASCP) Note: PAPSMR (Normal) Comments: The Pap [...] resulttherefore, no HPV testing was performed. . 69-Ucw-723908:43 CBCD,SMEAR DIFF BAND 1 % (Normal) Range: [...] 47-70 WBC 3.7 K/mm3 (Abnormal) Range: 4.4-11.0 41-Sdr-74103:00 BILAT SCRN DIGITAL & CAD Radiology Report See Note (Normal) Comments: Exam Number: [id number] BILATERAL SCREENING DIGITAL MAMMOGRAM CLINICAL INFORMATIONScreening. Bilateral [...] mammogramswere also examine d with computer-aided detection software([employer] Reported By: SHARRI DE LA GARZA M.D. 72-Xlt-532064:56 LOWER EXT.JOINT ONLY (ROUTINE) Radiology Report See Note (Normal) Comments: Exam Number: [id number] MRI RIGHT KNEE CLINICAL STATEMENTPain, swelling, worse [...] venous varicosities. Reported By: RIMMA DAMIAN M.D. 92-Hww-50646:16 KNEE,4 OR MORE VIEWS Radiology Report See Note (Normal) Comments: Exam Number: [id number] RIGHT KNEE 4 VIEWS STATEMENTPain and swelling. [...] significant change. Reported By: SHARRI HERRERA M.D. 7-Zzn-668115:23 [facility] DIGITAL & CAD Radiology Report See Note (Normal) Comments: Exam Number: [id number] MAMMOGRAM, BILATERAL SCREENING DIGITAL AND CAD HISTORYRoutine [...] werealso exa mined with computer-aided detection software ([employer] Reported By: ANNIE PETIT M.D. :18 CBCD [...] :18 TSH 2.46 {uIU/mL} (Normal) Range: 0.34-4.82 92-Cex-457824:55 Urinalysis, Office (79737) UA - BILIRUBIN Negative (Normal) UA - [...] Indication: Well woman exam Planned Observations CALCIFIDIOL (25438) VIT D 25Indication: Vitamin D deficiency On: 09-Nmj-128177:37 Request C-REACT PROT HIGH SENS(hsCRP) (90474)Indication: CRP elevated On: :29 Request CALCIFIDIOL (54888) VIT D 25Indication: Vitamin D deficiency On: :29 Request TSH (10771)Indication: Abnormal TSH On: :29 Request T4, TOTAL (73743)Indication: Abnormal TSH On: :29 Request T3, FREE (TRIDOTHYRONINE) (05428)Indication: Abnormal TSH On: :29 Request CBC (Auto) (30177)Indication: Benign essential HTN On: :45 Request Metabolic Panel, Comprehensive (13308)Indication: Benign essential HTN On: :45 Request Vitamin B-12 (cyanocobalamin) (65830)Indication: Balance disorder On: :45 Request CALCIFIDIOL (23730) VIT D 25Indication: Vitamin D deficiency On: :45 Request C-REACTIVE PROTEIN (82838)Indication: Pain in the joints On: :56 Request Comments: 6 weeks T4, FREE (THYROXINE) (43543)Indication: Right leg swelling On: :48 Request TSH (89773)Indication: Right leg swelling On: :48 Request CBC, Platelets & Auto Diff (03578)Indication: Abdominal discomfort in right lower quadrant On: :48 Request Metabolic Panel, Comprehensive (32133)Indication: Abdominal discomfort in right lower quadrant On: :48 Request CBC WITH MANUAL DIFF (62021)Indication: Benign essential HTN On: :52 Request MICROALBUMIN: CREATININE RATIO (11806) AND (58545)Indication: Benign essential HTN On: :52 Request METABOLIC PANEL, COMPREHENSIVE (03898)Indication: Benign essential HTN On: :52 Request LIPID PANEL (12509)Indication: Benign essential HTN On: :52 Request CBC WITH MANUAL DIFF (95620)Indication: Benign essential HTN On: :33 Request METANEPHRINES - URINE (95669)Indication: Benign essential HTN On: :28 Request CATECHOLAMINES TOTAL, URINE (15276)Indication: Benign essential HTN On: :28 Request URINE VMA (12172)Indication: Benign essential HTN On: :28 Request METABOLIC PANEL, COMPREHENSIVE (37241)Indication: Benign essential HTN On: :25 Request LIPID PANEL (91878)Indication: Benign essential HTN On: :25 Request CBC WITH MANUAL DIFF (77833)Indication: Benign essential HTN On: :25 Request VANDANA CULTURE-OTHER (14147)Indication: Neoplasm of uncertain behavior of skin On: :25 Request Comments: from left finger LIPID PANEL (55286)Indication: Benign essential HTN On: :29 Request TSH (11102)Indication: Benign essential HTN On: :29 Request URINALYSIS, W/ MICRO (28796)Indication: Benign essential HTN On: :29 Request MICROALBUMIN: CREATININE RATIO (44473) AND (17239)Indication: Benign essential HTN On: :29 Request METABOLIC PANEL, COMPREHENSIVE (88408)Indication: Benign essential HTN On: :29 Request CBC WITH MANUAL DIFF (79757)Indication: Benign essential HTN On: :29 Request Metabolic Panel, Comprehensive (46840)Indication: Myalgia and myositis On: :13 Request TSH (06124)Indication: Myalgia and myositis On: :13 Request ALDOLASE (65313)Indication: Myalgia and myositis On: :13 Request Sed Rate Erythrocyte (33798)Indication: Myalgia and myositis On: :12 Request Creatine Kinase Total (51699)Indication: Myalgia and myositis On: :12 Request C-Reactive Protein (18489)Indication: Myalgia and myositis On: 36-Why-63041:12 Request JAELYN (ANTINUCLEAR ANTIBODY) (95862)Indication: Myalgia and myositis On: :12 Request CBC with manual diff (27229)Indication: Neutropenia, unspecified type On: 27-Xyc-303259:50 Request TSH (65895)Indication: Anxiety On: 62-Zvf-830836:13 Request CBC (Auto) (72695)Indication: Anxiety On: 90-Hts-530604:13 Request Metabolic Panel, Comprehensive (27536)Indication: Anxiety On: 90-Zpl-811507:13 Request Lipid Panel (31988)Indication: Anxiety On: 47-Xod-465698:13 Request Thin prep Pap (57512)Indication: Well woman exam On: 36-Bvi-535218:55 Request Planned Encounters Medical; [facility] 2 Month FU - On: 21-Jul-2018 13:00 [facility] Austyn RODRIGUEZ, Sheridan Bradshaw MD Planned Procedures US DOPPLER CAROTID BILATERAL On: 17-Apr-2018 Intent (71607)By: Austyn RODRIGUEZ, Sheridan Zaman MD, Sheridan Engel Radiology - Lumbar SpineBy: On: 17-Apr-2018 Intent Sheridan Zaman MD, MD, Dana M Radiology - Hip - LeftBy: Austyn On: 17-Apr-2018 Intent Sheridan RODRIGUEZ MD, Dana M Bone Density StudyBy: Austyn RODRIGUEZ, On: 17-Apr-2018 Intent Sheridan Bradshaw MD Comments: due after 06-18-18 MAMMOGRAM BREAST BILATERAL On: 17-Apr-2018 Intent SCREENING DIGITAL (55322)By: Comments: due after 06-22-18 Sheridan Zaman MD, MD, Dana M Flu Vaccine (Quadrivalent) On: 27-Mar-2018 Intent 14709Bu: Sheridan Zaman MD Comments: Lot: [id number]: 01/03/19Site: L dltd, IMDose prefilled syringegiven by: CManchakVIS reviewed and ABN signed Sheridan Zaman MD SPECIMEN HNDLNG/TRNSPRT, OFFC > On: 24-Oct-2017 Intent LAB (54133)By: Sheridan Zaman MD, MD, Dana M DRAIN/INJECT MAJOR JOINT OR BURSA On: 08-May-2017 Intent ()By: Sheridan Zaman MD Comments: lot: [id number]:intra articular left knee dose:2ml given by:Dr. Zaman ABN signedER, SECURITY ALARM TECHNICIAN Euflexxa injection number 3 Sheridan Zaman MD DRAIN/INJECT MAJOR JOINT OR BURSA On: 28-Apr-2017 Intent ()By: Sheridan Zaman MD Comments: lot:[id number]:intra articular dose:2ml given by:Dr. Zaman ABN signedER, SECURITY ALARM TECHNICIAN Euflexxa injection left knee #2 Sheridan Zaman MD DRAIN/INJECT MAJOR JOINT OR BURSA On: 21-Apr-2017 Intent ()By: Sheridan Zaman MD Comments: lot:[id number]:intra articular dose:2ml given by:Dr. Zaman ABN signedER, SECURITY ALARM TECHNICIAN Sheridan Zaman MD SCREENING DIGITAL TOMOSYNTHESIS On: 08-Apr-2017 Intent OF BREAST (54149)By: Austyn RODRIGUEZ, Comments: due after 06-22 Sheridan Bradshaw MD Radiology - Knee - Right - Weight On: 08-Apr-2017 Intent BearingBy: Sheridan Zaman MD, MD, Dana M Radiology - Knee - Left - Weight On: 08-Apr-2017 Intent BearingBy: Sheridan Zaman MD, MD, Dana M Flu Vaccine (Quadrivalent) On: 08-Apr-2017 Intent 23408Cu: Sheridan Zaman MD Comments: lot: [id number]: 12/22/17ite/route: L elzbieta, IMamt: 0.5mlVIS and ABN signed when applicableELVIN Nieves MD, Dana M US DOPPLER CAROTID BILATERAL On: 28-Feb-2016 Intent (64449)By: Sheridan Zaman MD, MD, Dana M Echo CompleteBy: Sheridan Zaman MD On: 28-Feb-2016 Intent Sheridan Henriquez MD Holter Monitor 24 hrsBy: Austyn On: 28-Feb-2016 Intent Sheridan RODRIGUEZ MD, Dana M Comments: plan in 3 weeks before see. MAMMOGRAM, SCREENING, BOTH BREAST On: 28-Feb-2016 Intent (41831)By: Sheridan Zaman MD, MD, Dana M DEXA SCAN AXIAL SKELETON On: 28-Feb-2016 Intent (75418)By: Sheridan Zaman MD, MD, Dana M ELECTROCARDIOGRAM, COMPLETE (ECG) On: 28-Feb-2016 Intent (90163)By: Tonio Concepcion MAMMOGRAM, SCREENING, BOTH BREAST On: 23-May-2015 Intent (82283)By: Sheridan Zaman MD, MD, Dana M CT [...] 13-May-2014 Intent Sheridan Bradshaw MD BILATERAL MAMMOGRAMS (75939)By: On: 13-May-2014 Intent Sheridan Zaman MD, MD, [...] 18-May-2012 Intent VACCINE (G0008)By: Brigid, Comments: Lot #:[id number] date: 12/17Amount given:prefilled syringeSite given:L Dltd, IMGiven by: BRYON Serrano FLU VAC, SPLIT, >3 YEARS, On: 18-May-2012 Intent INTRAMUSC (58002)By: Ciara Rainey EKG (08062)By: Dena Cash DO On: 03-Jan-2012 Intent Comments: ekg showed normal sinus rhythym, normal axis rbbb and lapfb no change Cartoid DopplerBy: Dena Cash DO On: 03-Jan-[address] - ChestBy: Sheridan Zamna MD On: 26-Sep-2011 Intent Sheridan Zaman MD Comments: attention left lower lung 8 mm nodule Breast Screening - BilateralBy: On: 26-Sep-2011 Intent Sheridan Zaman MD, MD, Dana M CT - ChestBy: Sheridan Zaman MD On: 05-Aug-2011 Intent Sheridan Zaman MD Comments: and attention to liver CT - Abdomen & PelvisBy: Shailesh LUNA, On: 30-Jul-2011 Intent Dena Tarango FLU VAC, SPLIT, >3 YEARS, On: 16-Apr-2011 Intent INTRAMUSC (57934)By: Corby CABEZAS, Comments: Lot #[id number]-L arm, IMDose prefilledgiven by:MONROE Acuña [facility] On: 16-Apr-2011 Intent VACCINE (G0008)By: Dawna Tavarez LPN TDAP VACCINE >7 IM (06836)By: On: 26-Jun-2010 Intent Dawna Tavarez LPN Comments: Lot #[id number]-L ARMDosePREMEASURED SYRINGEgiven by: MAMMOGRAM, SCREENING, BOTH On: 26-Jun-2010 Intent BREASTS (07028)By: Sheridan Zaman MD, MD, Dana M Cartoid DopplerBy: Dena Cash DO On: 11-Apr-2010 Intent A EKG (65245)By: Dena Cash DO On: 11-Apr-2010 Intent Comments: ekg showed normal sinus rhythym, normal axis, no acute st/t wave changes rbbb and lpfb- no change- PHYSICAL THERAPY EVALUATION On: 18-Jan-2010 Intent (74293)By: Teresa DEL CASTILLOTracey Kenalog Injection, 10 mgm [...] MAMMOGRAM, SCREENING, BOTH On: 18-Apr-2009 Intent BREASTS (95507)By: Austyn RODRIGUEZ, Comments: 06-14 Sheridan Zaman MD, Sheridan Engel DXA, BONE DENSITY, AXIAL SKELETON On: 28-Jul-2008 Intent (81323)By: Sheridan Zaman MD, MD, Sheridan Engel Toradol Injection, 30 mg On: 17-Dec-2007 Intent (J1885)By: Teresa DEL CASTILLO Tracey Proctor Comments: Lot #[id number]-left aaeGbid6ke/30mggiven by Dimple Reyes LPN Radiology - Knee - RightBy: Teresa On: 23-Jul-2007 Intent Tracey DEL CASTILLO IMMUNIZ ADMNIN, 1 VAC, SNGL/COMBO On: 20-May-2007 Intent (11706)By: ROBERTO Woodard Comments: Lot #:[id number] date:07-22-19Eisboc given:.65mlRoute: IMSite given:left deltoid Given by: kwan. brought from pharmacy to be given MAMMOGRAM, SCREENING, BOTH On: 20-May-2007 Intent BREASTS (51042)By: Austyn RODRIGUEZ, Sheridan Bradshaw MD Radiology - [...] The patient does have durable power of litigation attorney and living will. The pa roberta has noticed lack of energy. Other providers contributing to the patient's care are washer meat (Dr. Romero), novelty candy maker (Dr. Torres), gastrologist (Dr. Faith) and other: [...] months (mostly local. she will drive to [place] with .), put area rugs through house [...] The patient does have durable power of litigation attorney and sachin ing will. The patient has noticed nothing from the geriatic depression scale. Other providers contributing to the patient's care are washer meat and novelty candy maker.Encounter Diagnosis: Current nonsmoker (Renamed from Current non-smoker), [...] The patient does have durable power of litigation attorney and living will. The patient has noticed nothing from the geriatic depression scale. Other providers contributing to the patient's care are washer meat (Nick) and surgeon (omari). Note for Annual [...] The patient does have durable power of litigation attorney and living will. The patient has noticed lack of energy. Other providers contributing to the patient's care are other: (will see rheum next week, check in [facility] Candi boyer ).[facility] [...] (will see rheum next week, check in [facility] ). Encounter Diagnosis: Well [...] recently received care from an emergency room ([facility] Acute indigestion )., [ADDITIONAL REASON] Follow up [...] running 110-120/70-80- she is working out at [employer]- she thinks had some bps highe End: [...] running 110-120/70-80- she is working out at [employer]- she thinks had some bps higher because [...] has alot of sinus problems- came to [facility] and had bp taken - 169 over [...] or leg- her bps at home though 120-/62-69-dipjldpv alot of caffeine and sudafed Encounter Diagnosis: [...] screening, colonoscopy ([address] Best ) ,screening, mammography (2005 ) ,screening, Pap [...]
--- OUTSIDE RECORDS SUMMARY | 2018-09-24 14:59 | XMS RPT_ITS | Continuity of Care Document ---
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 >3.00 11-Ztz-624355:43 C-REACT PROT HIGH SENS(hsCRP) Comments: PATIENT NOT FASTINGPERFORMED BY: [employer]70 [place] [id number] (34371) C-Reactive Protein, Cardiac 26.86 mg/L (Abnormal) Range: 0.00-3.00 Comments: Results confirmed ondilution. Relative Risk for Future Cardiovascular Event Low <1.00 Average 1.00 - 3.00 High >3.00 21-Ndv-733245:43 CALCIFIDIOL (42411) VIT D 25 Comments: PATIENT NOT FASTINGPERFORMED BY: [employer]70 [facility] [id number] Vitamin D, 25-Hydroxy 29.8 ng/mL (Abnormal) Range: 30.0-100.0 Comments: Vitamin D deficiency has been defined by the [place] of[place]icine and an Endocrine Society practice guideline as alevel of serum 25-OH vitamin D less than 20 ng/mL (1,2).The Endocrine Society went on to further define vitamin Dinsufficiency as a level between 21 and 29 ng/mL (2).1. IOM ([place] of Medicine). 2010. Dietary reference intakes for calcium and D. [place]: The National Academies Press.2. Carlota MF, Ursula BACON, Taryn RECINOS, et al. Evaluation, treatment, and prevention of vitamin D deficiency: an Endocrine Society clinical practice guideline. JCEM. 2010; 96(7):1911-30. 51-Kct-900792:37 MICROALBUMIN: CREATININE RATIO Comments: PATIENT NOT FASTINGPERFORMED BY: [employer] [place] [id number] (20368) AND (46039) Microalb/Creat Ratio 6.0 {mg/g_creat} (Normal) Range: 0.0-30.0 Microalbumin, Urine 9.7 ug/mL (Normal) Creatinine, Urine 160.5 mg/dL (Normal) :37 URINALYSIS (19127) Comments: PATIENT NOT FASTINGPERFORMED BY: [employer]6370 [facility] [id number] Microscopic Examination MICNIP (Normal) Comments: Microscopic not indicated and not performed. Nitrite, Urine Negative (Normal) Urobilinogen,Semi-Qn 0.2 mg/dL (Normal) Range: 0.2-1.0 Bilirubin Negative (Normal) Occult Blood Negative (Normal) Ketones Trace (Abnormal) Glucose Negative (Normal) Protein Negative (Normal) WBC Esterase Negative (Normal) Appearance Clear (Normal) Urine-Color Yellow (Normal) pH 6.0 (Normal) Range: 5.0-7.5 Specific [place] 1.021 (Normal) Range: 1.005-1.030 :37 CBC WITH MANUAL DIFF Comments: PATIENT NOT FASTINGPERFORMED BY: Excaliard PharmaceuticalsSelect Specialty Hospital [id number] Information: NURSE DRAW (65876) Immature Grans (Abs) 0.0 {x10E3/uL} (Normal) Range: [...] 3.77-5.28 WBC 4.9 {x10E3/uL} (Normal) Range: 3.4-10.8 47-Ooh-099070:37 Metabolic Panel, Comprehensive Comments: PATIENT NOT FASTINGPERFORMED BY: LabCoHealth[facility] Hospital of UnionCbxpcc9510 [facility] [id number] (00888) ALT (SGPT) 12 [iU]/L (Normal) Range: 0-32 [...] Glucose, Serum 110 mg/dL (Abnormal) Range: 65-99 58-App-874171:44 CALCIFIDIOL (13990) VIT D 25 Comments: PATIENT NOT FASTINGPERFORMED BY: LabCoHealthSouth - [facility] Hospital of UnionXpjsrb6289 [facility] [id number] Vitamin D, 25-Hydroxy 29.8 ng/mL (Abnormal) Range: 30.0-100.0 Comments: Vitamin D deficiency has been defined by the [place] ofKettering Healthcine and an Endocrine Society practice guideline as alevel of serum 25-OH vitamin D less than 20 ng/mL (1,2).The Endocrine Society went on to further define vitamin Dinsufficiency as a level between 21 and 29 ng/mL (2).1. IOM ([place] of Medicine). 2010. Dietary reference intakes for calcium and D. [place]: The National Academies Press.2. Carlota MF, Ursula BACON, Taryn RECINOS, et al. Evaluation, treatment, and prevention of vitamin D deficiency: an Endocrine Society clinical practice guideline. JCEM. 2010; 96(7):1911-30. 56-Iap-800457:44 Metabolic Panel, Comprehensive Comments: PATIENT NOT FASTINGPERFORMED BY: LabCoHealth[facility] Hospital of UnionRbogvg2966 [facility] [id number] (93733) ALT (SGPT) 10 [iU]/L (Normal) Range: 0-32 [...] Glucose, Serum 123 mg/dL (Abnormal) Range: 65-99 61-Vko-626956:57 HgA1C , Office (43825) HgA1C , Office 5.7 % (Normal) Range: 4.6 - 7.1 71-Cwj-814224:00 Methymalonic Acid, Serum Comments: PATIENT NOT FASTINGPERFORMED BY: LabCoHealth[facility] Hospital of UnionOovcqt4279 [facility] [id number] BY: [address] [id number] (42620) Methylmalonic Acid, Serum 157 nmol/L (Normal) Range: 0-378 51-Pmz-877426:00 Vitamin B-12 Comments: PATIENT NOT FASTINGPERFORMED BY: [facility] Vzoxml4219 Ochoa RoadDublin [place] [id number] BY: Lab[address] [id number] (cyanocobalamin) (87591) Vitamin B12 778 pg/mL (Normal) Range: 211-946 87-Krv-852703:00 CALCIFIDIOL (46493) VIT D Comments: PATIENT NOT FASTINGPERFORMED BY: CB [facility] Yhspxx7216 Ochoa RoadDublin [place] [id number] BY: LabCo[address] [id number]; fu 2-28 25 Vitamin D, 25-Hydroxy 27.7 ng/mL (Abnormal) Range: 30.0-100.0 Comments: Vitamin D deficiency has been defined by the [place] of[place]icine and an Endocrine Society practice guideline as alevel of serum 25-OH vitamin D less than 20 ng/mL (1,2).The Endocrine Society went on to further define vitamin Dinsufficiency as a level between 21 and 29 ng/mL (2).1. IOM ([place] of [place]). 2010. Dietary reference intakes for calcium and D. [place]: The National Academies Press.2. Carlota MF, Ursula [place], Taryn RECINOS, et al. Evaluation, treatment, and prevention of vitamin D deficiency: an Endocrine Society clinical practice guideline. JCEM. 2010; 96(7):1911-30. 27-Cwi-493959:48 Sed Rate Erythrocyte Comments: PATIENT NOT FASTINGPERFORMED BY: CB [facility] Nmpddc0236 Ochoa RoadDublin [place] [id number] Information: [id number] (47174) Sedimentation Rate-Westergren 13 mm/h (Normal) Range: 0-40 39-Rbv-021439:48 C-Reactive Protein (12154) Comments: PATIENT NOT FASTINGPERFORMED BY: CB [facility] Qfssgn7484 Ochoa RoadDublin [place] [id number] C-Reactive Protein, Quant 20.2 mg/L (Abnormal) Range: 0.0-4.9 :43 CBC W/Diff, Automated Comments: [facility] [address] [place], [address] Absolute Lymph 0.82 {X10_3/ul} (Abnormal) [...] Range: 4.4-11.0 :43 Comprehensive Metabolic Profil Comments: [facility] X[address]iy[address] [place], [place], [id number] ; [address] GAP 7 (Normal) Range: [...] 7-18 GLU 96 mg/dL (Normal) Range: 70-110 5-Uij-463138:43 T4 Free Direct Comments: [facility] [address] [place], [address] T4 FREE DIRECT 1.24 ng/dL (Normal) Range: 0.76-1.46 3-Ivr-299573:43 Thyroid Stim Hormone (TSH) Comments: [facility] [address] [place], [address] TSH 1.97 {uIU/mL} (Normal) Range: 0.358-3.74 11-Nyd-50111:33 MICROALBUMIN: CREATININE Comments: PATIENT NOT FASTINGPERFORMED BY: [facility] Gladwin6370 [facility] [id number] Information: [id number] RATIO (96322) AND (42919) Microalb/Creat Ratio 4.3 {mg/g_creat} (Normal) Range: 0.0-30.0 Microalbumin, Urine 5.2 ug/mL (Normal) Range: 0.0-17.0 Creatinine, Urine 120.2 mg/dL (Normal) Range: 15.0-278.0 62-Zsq-062920:30 CBCD ALC 1.09 {X10_3/ul} (Normal) Range: 0.83-4.51 [...] Evidenceof monoclonal protein is not apparent.Performed at: [address] [id number] Director: Tutu Cobian PhD, Phone: [phone] tPROELIN Comment (Normal) Comments: Protein electrophoresis scan will follow via computer,mail, or deputy county clerk delivery. tPROELAG 1.3 (Normal) Range: 0.7-2.0 tPROELGL 2.7 g/dL (Normal) Range: 2.0-4.5 tPROELMS (Normal) Comments: NOT OBSERVED G/DL tPROELGA 0.9 g/dL (Normal) Range: 0.5-1.6 tPROELBE 0.9 g/dL (Normal) Range: 0.6-1.3 tPROELAL2 0.6 g/dL (Normal) Range: 0.4-1.2 tPROELAL1 0.2 g/dL (Normal) Range: 0.1-0.4 tPROELALB 3.6 g/dL (Normal) Range: 3.2-5.6 $tPROELTP 6.3 g/dL (Normal) Range: 6.0-8.5 :30 URIC 3.1 mg/dL (Normal) Range: 2.6-6.0 30-Udd-857891:05 Microscopic Examination Comments: PATIENT NOT FASTINGPERFORMED BY: [employer] [id number] BY: [address] [id number] Bacteria Few (Normal) Mucus Threads Present (Normal) Crystal Type Calcium Oxalate (Normal) Crystals Present (Abnormal) Epithelial Cells (non renal) 0-10 {/hpf} (Normal) Range: 0 - 10 RBC 0-2 {/hpf} (Normal) Range: 0 - 2 WBC 0-5 {/hpf} (Normal) Range: 0 - 5 58-Zhv-113722:05 URINALYSIS, W/ MICRO Comments: PATIENT NOT FASTINGPERFORMED BY: [address] [id number] BY: BN [address] [id number] (36537) Microscopic Examination See below: (Normal) Comments: Microscopic was indicated and was performed. Microscopic Examination MICRON (Normal) Comments: Microscopic follows if indicated. Nitrite, Urine Negative (Normal) Urobilinogen,Semi-Qn 0.2 mg/dL (Normal) Range: 0.0-1.9 Bilirubin Negative (Normal) Occult Blood Negative (Normal) Ketones Negative (Normal) Glucose Negative (Normal) Protein Negative (Normal) WBC Esterase Negative (Normal) Appearance Clear (Normal) Urine-Color Yellow (Normal) pH 6.0 (Normal) Range: 5.0-7.5 Specific [place] 1.022 (Normal) Range: 1.005-1.030 78-Tvm-301165:05 CCP ANTIBODY (76855) Comments: PATIENT NOT FASTINGPERFORMED BY: Bundle [employer] [facility] [id number] BY: [address] [id number] CCP Antibodies IgG/IgA 23 {units} (Abnormal) Range: 0-19 Comments: Negative <20 Weak positive 20 - 39 Moderate positive 40 - 59 Strong positive >59 25-Xom-628168:05 SED RATE ERYTHROCYTE Comments: PATIENT NOT FASTINGPERFORMED BY: OctaneNationHealthSouth - Specialty Hospital of UnionUiffer8039 [facility] [id number] BY: [place] [id number] (21309) Sedimentation Rate-Westergren 13 mm/h (Normal) Range: 0-40 83-Mrg-949557:05 C-REACTIVE PROTEIN Comments: PATIENT NOT FASTINGPERFORMED BY: [employer] Mzubkd5350 [facility] [id number] BY: [place] [id number] (66293) C-Reactive Protein, Quant 4.5 mg/L (Normal) Range: 0.0-4.9 28-Igx-927119:05 TSH (51046) Comments: PATIENT NOT FASTINGPERFORMED BY: Bundle Ygbnwk[address] [place] [address] [id number] BY: [address] [id number] TSH 2.750 {uIU/mL} (Normal) Range: 0.450-4.500 00-Mvq-449461:05 RHEUMATOID FACTOR-QUANT Comments: PATIENT NOT FASTINGPERFORMED BY: LabCoJoe [place] 5717170 [facility] [id number] BY: [address] [id number] (84499) RA Latex Turbid. 7.4 {IU/mL} (Normal) Range: 0.0-13.9 20-Qtf-051212:05 JAELYN (ANTINUCLEAR ANTIBODY) Comments: PATIENT NOT FASTINGPERFORMED BY: LabCoHealth[facility] Hospital of UnionBnxatd4759 [facility] [id number] BY: [address] [id number] (68673) JAELYN Direct Negative (Normal) 86-Qlj-151189:05 METABOLIC PANEL, Comments: PATIENT NOT FASTINGPERFORMED BY: LabCo[place] 5717170 [facility] [id number] BY: [address] [id number] Inf ormation: [id number] COMPREHENSIVE (66595) ALT (SGPT) 12 [iU]/L (Normal) Range: 0-32 [...] Glucose, Serum 96 mg/dL (Normal) Range: 65-99 61-Fjj-88321:45 Urinalysis, Office (17335) UA - BILIRUBIN Negative (Normal) UA - BLOOD Negative (Normal) UA - GLUCOSE Negative (Normal) UA - KETONES Negative mg/dL (Normal) UA - LEUKOCYTE ESTERASE Negative (Normal) UA - NITRITE Negative (Normal) UA - PH 6.0 (Normal) UA - PROTEIN Negative mg/dL (Normal) UA - SPECIFIC GRAVITY 1.020 (Normal) URINE UROBILINGN KATE TIMED Normal mg/dL (Normal) 53-Zmw-590257:37 CERV SPINE,MIN 4 VIEWS Radiology Report See [...] Campbell D.O.May 18, 2012 at 11:19:02 PM [id number] Signed IF/IF If you are the referring physician and would like to consult with theradiologist who provided this interpretation, please contact Sharad Campbell D.O.at [phone]. If this radiologist is unavailable, you will be directedto another radiologist to assist. If you are a patient with a question regardin g this report, pleasecontactyour referring physician directly. Professional Interpretation Provided By: [email or web address], Phone , These documents contain legally protected [...] on 05/18/122323 Sign by: Sharad Campbell DO 76-Ung-401693:37 SHOULDER,MIN 2 VIEWS Radiology Report See Note [...] Campbell D.O.May 18, 2012 at 11:01:01 PM [id number] Signed IF/IF If you are the referring physician and would like to cons ult with theradiologist who provided this interpretation, please contact Sharad Campbell D.O.at [phone]. If this radiologist is unavailable, you will be directedto another radiologist to assist. If you ar e a patient with a question regarding this report, pleasecontactyour referring physician directly. Professional Interpretation Provided By: [email or web address], Phone , These docum ents contain legally [...] on 05/18/122305 Sign by: Sharad Campbell DO 75-Tuv-80860:15 METABOLIC PANEL, COMPREHENSIVE Comments: PATIENT WAS FASTINGPERFORMED BY: LabCoHealthSouth [facility] Hospital of UnionJrjbzz6438 [facility] [id number] (87219) ALT (SGPT) 17 [iU]/L (Normal) Range: 0-40 [...] mg/dL (Abnormal) Range: 65-99 :15 LIPID PANEL (38874) Comments: PATIENT WAS FASTINGPERFORMED BY: Bundle Stykvs7184 [facility] [id number] LDL/HDL Ratio 1.5 {ratio_units} (Normal) Range: 0.0-3.2 [...] MANUAL DIFF Comments: PATIENT WAS FASTINGPERFORMED BY: Bundle Marjhg9922 [facility] [id number] Information: [id number] (59575) Immature Grans (Abs) 0.0 {x10E3/uL} (Normal) Range: [...] 3.77-5.28 WBC 3.8 {x10E3/uL} (Abnormal) Range: 4.0-10.5 19-Ijm-504356:03 Microscopic Examination Comments: PATIENT NOT FASTINGPERFORMED BY: [employer]6370 [facility] [id number] Bacteria None seen (Normal) Mucus Threads Present (Normal) Epithelial Cells (non renal) 0-10 {/hpf} (Normal) Range: 0 - 10 RBC None seen {/hpf} (Normal) Range: 0 - 3 WBC None seen {/hpf} (Normal) Range: 0 - 5 :03 URINALYSIS, W/ MICRO (29869) Comments: PATIENT NOT FASTINGPERFORMED BY: [employer]6370 [facility] [id number] Microscopic Examination See below: (Normal) Microscopic Examination MICRON (Normal) Comments: Microscopic follows if indicated. Nitrite, Urine Negative (Normal) Urobilinogen,Semi-Qn 0.2 mg/dL (Normal) Range: 0.0-1.9 Bilirubin Negative (Normal) Occult Blood Negative (Normal) Ketones Negative (Normal) Glucose Negative (Normal) Protein Negative (Normal) WBC Esterase Negative (Normal) Appearance Clear (Normal) Urine-Color Yellow (Normal) pH 7.5 (Normal) Range: 5.0-7.5 Specific [place] 1.014 (Normal) Range: 1.005-1.030 24-Dkj-012602:03 TSH (67220) Comments: PATIENT NOT FASTINGPERFORMED BY: [facility]6370 [facility] [id number] TSH 2.440 {uIU/mL} (Normal) Range: 0.450-4.500 93-Adv-429707:03 CBC WITH MANUAL DIFF Comments: PATIENT NOT FASTINGPERFORMED BY: [facility]6370 [facility] [id number] Information: [id number] (08930) Immature Grans (Abs) 0.0 {x10E3/uL} (Normal) Range: [...] 3.77-5.28 WBC 5.1 {x10E3/uL} (Normal) Range: 4.0-10.5 32-Eql-791854:03 METABOLIC PANEL, COMPREHENSIVE Comments: PATIENT NOT FASTINGPERFORMED BY: PETRONA [facility] Xoyzwl6044 [facility] [id number] (01284) ALT (SGPT) 16 [iU]/L (Normal) Range: 0-40 [...] Glucose, Serum 88 mg/dL (Normal) Range: 65-99 9-Poa-444045:19 METANEPHRINES - URINE (77691) Comments: PATIENT NOT FASTINGPERFORMED BY: [facility] Ewsxhbuyuy9030 [facility] [id number] Metanephrine, U,24hr 118 {ug/24_hr} (Normal) Range: 45-290 Comments: (Hypertensive) >17 years 11 months: 35 - 460 . Please note reference interval change Metanephrine, Ur 94 ug/L (Normal) Normetanephr.,U,24h 248 {ug/24_hr} (Normal) Range: 82-500 Comments: (Hypertensive) >17 years 11 months: 110 - 1050 Normetanephrine, Ur 198 ug/L (Normal) 7-Gfc-974419:19 URINE VMA (88260) Comments: PATIENT NOT FASTINGPERFORMED BY: [employer] [facility] Qinghgvdnv[address] [id number] VMA, Urine, 24hr 3.1 {mg/24_hr} (Normal) Range: 0.0-7.5 VMA, Urine 2.5 mg/L (Normal) 4-Llw-110954:19 CATECHOLAMINES TOTAL, URINE Comments: PATIENT NOT FASTINGPERFORMED BY: [employer] [facility] T[address] [id number] Information: SRC:LANDEN [id number] START 2@730AM FIN BETH; f/u 01/22/12 (79239) Dopamine, Ur, 24hr 229 {ug/24_hr} (Normal) Range: 0-510 Dopamine, Urine 183 ug/L (Normal) Norepinephrine,U,24h 53 {ug/24_hr} (Normal) Range: 0-135 Norepinephrine, Ur 42 ug/L (Normal) Epinephrine, U, 24hr 5 {ug/24_hr} (Normal) Range: 0-20 Epinephrine, Urine 4 ug/L (Normal) 41-Rar-76688:24 CHEST WITHOUT CONTRAST Radiology Report See Note [...] radiologist regarding this report, please call our 84Z4sfbqwlu line @ [phone] Dictated on 10/04/11 0959 by Danya Campbell [...] radiologist regarding this report, please call our 59E7hgefruw line @ Dictated on 10/04/11 0940 by Heike Cordero MDbed on 10/04/11 1025 by ITS IMPORTSign by Dayton Cordero MD on 10/04/111025 Sign by: Dayton Cordero MD 74-Xqu-56019:49 ABDOMEN/PELVIS WITH CONTRAST Radiology Report See Note [...] st regarding this report, please call our 51W2jclazyf line @ Dictated on 08/02/11 0813 by [...] Microscopic Examination Comments: PATIENT WAS FASTINGPERFORMED BY: [employer]6370 [facility] [id number] Bacteria None seen (Normal) Mucus Threads Present (Normal) Epithelial Cells (non renal) 0-10 {/hpf} (Normal) Range: 0 - 10 RBC None seen {/hpf} (Normal) Range: 0 - 3 WBC 0-5 {/hpf} (Normal) Range: 0 - 5 :49 TSH (51635) Comments: PATIENT WAS FASTINGPERFORMED BY: [employer] [place].[facility] [id number] TSH 3.680 {uIU/mL} (Normal) Range: 0.450-4.500 :49 URINALYSIS, W/ MICRO (36466) Comments: PATIENT WAS FASTINGPERFORMED BY: [employer] [place] [employer] SASt[facility] [id number] Microscopic Examination See below: (Normal) Microscopic Examination MICRON (Normal) Comments: Microscopic follows if indicated. Nitrite, Urine Negative (Normal) Urobilinogen,Semi-Qn 0.2 mg/dL (Normal) Range: 0.0-1.9 Bilirubin Negative (Normal) Occult Blood Negative (Normal) Ketones Negative (Normal) Glucose Negative (Normal) Protein Negative (Normal) WBC Esterase Negative (Normal) Appearance Clear (Normal) Urine-Color Yellow (Normal) pH 6.5 (Normal) Range: 5.0-7.5 Specific [place] 1.016 (Normal) Range: 1.005-1.030 74-Pie-35424:49 METABOLIC PANEL, COMPREHENSIVE Comments: PATIENT WAS FASTINGPERFORMED BY: [facility] Krlhcp3171 [facility] [id number] (51439) ALT (SGPT) 15 [iU]/L (Normal) Range: 0-40 [...] mg/dL (Normal) Range: 65-99 :49 LIPID PANEL (76969) Comments: PATIENT WAS FASTINGPERFORMED BY: [employer] [facility] [id number] LDL/HDL Ratio 1.5 {ratio_units} (Normal) Range: 0.0-3.2 [...] MANUAL DIFF Comments: PATIENT WAS FASTINGPERFORMED BY: [employer] [facility] [id number] Information: [id number] (94324) Immature Grans (Abs) 0.0 {x10E3/uL} (Normal) Range: [...] 3.80-5.10 WBC 4.5 {x10E3/uL} (Normal) Range: 4.0-10.5 26-Ury-690336:02 [facility] Radiology Report See Note [...] on 08/28/10 1202 Sign by: ANNIE PETIT 7-Gxb-990429:52 Aerobic Bacterial Culture Comments: PERFORMED BY: CB [facility] Mmlgrp3046 [place] [id number] Information: SRC:FI LEFT FINGER Result 1 NG36 (Normal) Comments: No growth in 36 - 48 hours. Aerobic Bacterial Culture Final report (Normal) 00-Vlw-907903:23 Thin prep Pap (12631) Comments: Source.............VaginalNo. of containers..01 CYTYC Thin Prep VialPATIENT NOT FASTINGPERFORMED BY: WB [facility] [address] [id number] Information: [id number] Note: PAPSMR (Normal) Comments: The Pap smear [...] hysterectomy.V72.31 ; Routine gynecological exami Eric Gomez Grocery Clerk Stocking (ASCP) :52 CBCD,SMEAR DIFF PLT EST SeeNote [...] Report See Note (Normal) Comments: Exam Number: [id number] DIGITAL BILATERAL MAMMOGRAM Digital oblique and craniocaudal [...] wereals o examined with computer-aided detection software ([employer].). Reported By: DAYTON CORDERO :33 Aldolase 2.5 U/L (Normal) Comments: PERFORMED BY: Bundle Cqqvuy4195 [facility] [id number] Range: 1.2-7.6 :33 Antinuclear Antibodies Direct Comments: PERFORMED BY: Bundle Iuiaus5716 [facility] [id number] JAELYN Direct Negative (Normal) :3 C-Reactive Protein, 2.4 mg/L (Normal) Comments: PERFORMED BY: Bundle Qvtouq0382 [facility] [id number] 3 Quant Range: 0.0-4.9 :33 CBC With Differential/Platelet Comments: PERFORMED BY: [employer]6370 [facility] [id number] Baso (Absolute) 0.0 {x10E3/uL} (Normal) Range: 0.0-0.2 [...] Comp. Metabolic Panel (14) Comments: PERFORMED BY: [facility]6370 [facility] [id number] A/G Ratio 1.7 (Normal) Range: 1.1-2.5 Albumin, [...] Creatine 77 U/L (Normal) Comments: PERFORMED BY: [facility] [facility]ensorsC[facility]Health [id number] 9:33 Kinase,Total,Serum Range: 24-173 03-Apr-2009 Sedimentation 8 mm/h (Normal) Comments: PERFORMED BY: [facility] SensorsCoxHealth [id number] 9:33 Rate-Westergren Range: 0-30 03-Apr-2009 TSH 3.500 {uIU/mL} Comments: PERFORMED BY: [facility]MyndCoxHealth [id number] 9:33 (Normal) Range: 0.450-4.500 06-Sep-20088:47 DEXA BONE DENSITY STUDY (HP) Radiology Report See Note (Normal) Comments: Exam Number: [id number] BONE DENSITOMETRY HISTORYPostmenopausal. TECHNIQUE Bone densitometry of the lumbar spine and left hip was performed. Thebest criteria for evaluation of osteoporosis is the T- value, whichrepresents the comparison of the patient's bone mass to an expectedpeak bone mass. For most patients, the mean T-value of L1 through L4is used to evaluate the lumbar spine. Based on the [facility] WorldHealth Organization classifications, the hip is [...] within normallimits. Reported By: ANNIE PETIT M.D. 82-Pnm-766965:42 Thin prep Pap (46638) Comments: LMP / Prev Treat...NBS=[id number];HystNo. of containers..01 CYTYC Thin Prep VialPATIENT NOT FASTINGClinical Information: ADD [id number] PERFORMED BY: [address] [id number] . . (Normal) DIAGNOSIS: SPRCS (Normal) Comments: NEGATIVE FOR INTRAEPITHELIAL LESION AND MALIGNANCY.Satisfactory for evaluation. No endocervical cells are present. This isconsistent with a history of hysterectomy.V72.31 ; Routine gynecological exami Desiree Bartholomew Grocery Clerk Stocking (ASCP) Note: PAPSMR (Normal) Comments: The Pap [...] resulttherefore, no HPV testing was performed. . 63-Yve-841595:43 CBCD,SMEAR DIFF BAND 1 % (Normal) Range: [...] 47-70 WBC 3.7 K/mm3 (Abnormal) Range: 4.4-11.0 47-Rvl-72368:00 BILAT SCRN DIGITAL & CAD Radiology Report See Note (Normal) Comments: Exam Number: [id number] BILATERAL SCREENING DIGITAL MAMMOGRAM CLINICAL INFORMATIONScreening. Bilateral [...] mammogramswere also examine d with computer-aided detection software([employer] Reported By: SHARRI DE LA GARZA M.D. 77-Pla-382522:56 LOWER EXT.JOINT ONLY (ROUTINE) Radiology Report See Note (Normal) Comments: Exam Number: [id number] MRI RIGHT KNEE CLINICAL STATEMENTPain, swelling, worse [...] venous varicosities. Reported By: RIMMA DAMIAN M.D. 25-Cez-90364:16 KNEE,4 OR MORE VIEWS Radiology Report See Note (Normal) Comments: Exam Number: [id number] RIGHT KNEE 4 VIEWS STATEMENTPain and swelling. [...] significant change. Reported By: SHARRI HERRERA M.D. 3-Jen-021723:23 [facility] DIGITAL & CAD Radiology Report See Note (Normal) Comments: Exam Number: [id number] MAMMOGRAM, BILATERAL SCREENING DIGITAL AND CAD HISTORYRoutine [...] werealso exa mined with computer-aided detection software ([employer] Reported By: ANNIE PETIT M.D. :18 CBCD [...] :18 TSH 2.46 {uIU/mL} (Normal) Range: 0.34-4.82 03-Jil-267650:55 Urinalysis, Office (17765) UA - BILIRUBIN Negative (Normal) UA - [...] Indication: Well woman exam Planned Observations CALCIFIDIOL (12853) VIT D 25Indication: Vitamin D deficiency On: 91-Mnz-943136:37 Request C-REACT PROT HIGH SENS(hsCRP) (52853)Indication: CRP elevated On: :29 Request CALCIFIDIOL (17381) VIT D 25Indication: Vitamin D deficiency On: :29 Request TSH (75996)Indication: Abnormal TSH On: :29 Request T4, TOTAL (03158)Indication: Abnormal TSH On: :29 Request T3, FREE (TRIDOTHYRONINE) (34916)Indication: Abnormal TSH On: :29 Request CBC (Auto) (07154)Indication: Benign essential HTN On: :45 Request Metabolic Panel, Comprehensive (10617)Indication: Benign essential HTN On: :45 Request Vitamin B-12 (cyanocobalamin) (14965)Indication: Balance disorder On: :45 Request CALCIFIDIOL (69743) VIT D 25Indication: Vitamin D deficiency On: :45 Request C-REACTIVE PROTEIN (07132)Indication: Pain in the joints On: :56 Request Comments: 6 weeks T4, FREE (THYROXINE) (61506)Indication: Right leg swelling On: :48 Request TSH (34785)Indication: Right leg swelling On: :48 Request CBC, Platelets & Auto Diff (12451)Indication: Abdominal discomfort in right lower quadrant On: :48 Request Metabolic Panel, Comprehensive (71577)Indication: Abdominal discomfort in right lower quadrant On: :48 Request CBC WITH MANUAL DIFF (86237)Indication: Benign essential HTN On: :52 Request MICROALBUMIN: CREATININE RATIO (37245) AND (62555)Indication: Benign essential HTN On: :52 Request METABOLIC PANEL, COMPREHENSIVE (69707)Indication: Benign essential HTN On: :52 Request LIPID PANEL (25271)Indication: Benign essential HTN On: :52 Request CBC WITH MANUAL DIFF (78607)Indication: Benign essential HTN On: :33 Request METANEPHRINES - URINE (90273)Indication: Benign essential HTN On: :28 Request CATECHOLAMINES TOTAL, URINE (58488)Indication: Benign essential HTN On: :28 Request URINE VMA (27896)Indication: Benign essential HTN On: :28 Request METABOLIC PANEL, COMPREHENSIVE (52232)Indication: Benign essential HTN On: :25 Request LIPID PANEL (58385)Indication: Benign essential HTN On: :25 Request CBC WITH MANUAL DIFF (97688)Indication: Benign essential HTN On: :25 Request VANDANA CULTURE-OTHER (97120)Indication: Neoplasm of uncertain behavior of skin On: :25 Request Comments: from left finger LIPID PANEL (48506)Indication: Benign essential HTN On: :29 Request TSH (56363)Indication: Benign essential HTN On: :29 Request URINALYSIS, W/ MICRO (15367)Indication: Benign essential HTN On: :29 Request MICROALBUMIN: CREATININE RATIO (16849) AND (75498)Indication: Benign essential HTN On: :29 Request METABOLIC PANEL, COMPREHENSIVE (70548)Indication: Benign essential HTN On: :29 Request CBC WITH MANUAL DIFF (20765)Indication: Benign essential HTN On: :29 Request Metabolic Panel, Comprehensive (88035)Indication: Myalgia and myositis On: :13 Request TSH (72009)Indication: Myalgia and myositis On: :13 Request ALDOLASE (08842)Indication: Myalgia and myositis On: :13 Request Sed Rate Erythrocyte (79018)Indication: Myalgia and myositis On: :12 Request Creatine Kinase Total (29812)Indication: Myalgia and myositis On: :12 Request C-Reactive Protein (48540)Indication: Myalgia and myositis On: 68-Gkw-30753:12 Request JAELYN (ANTINUCLEAR ANTIBODY) (06891)Indication: Myalgia and myositis On: :12 Request CBC with manual diff (57739)Indication: Neutropenia, unspecified type On: 97-Htq-048911:50 Request TSH (94623)Indication: Anxiety On: 70-Zxy-395965:13 Request CBC (Auto) (11903)Indication: Anxiety On: 94-Iho-192557:13 Request Metabolic Panel, Comprehensive (40461)Indication: Anxiety On: 48-Dip-149765:13 Request Lipid Panel (35405)Indication: Anxiety On: 16-Off-423718:13 Request Thin prep Pap (94641)Indication: Well woman exam On: 00-Mif-356457:55 Request Planned Encounters Medical; [facility] 2 Month FU - On: 21-Jul-2018 13:00 [facility] Austyn RODRIGUEZ, Sheridan Bradshaw MD Planned Procedures US DOPPLER CAROTID BILATERAL On: 17-Apr-2018 Intent (78320)By: Austyn RODRIGUEZ, Sheridan Zaman MD, Sheridan Engel Radiology - Lumbar SpineBy: On: 17-Apr-2018 Intent Sheridan Zaman MD, MD, Dana M Radiology - Hip - LeftBy: Austyn On: 17-Apr-2018 Intent Sheridan RODRIGUEZ MD, Dana M Bone Density StudyBy: Austyn RODRIGUEZ, On: 17-Apr-2018 Intent Sheridan Bradshaw MD Comments: due after 06-18-18 MAMMOGRAM BREAST BILATERAL On: 17-Apr-2018 Intent SCREENING DIGITAL (59643)By: Comments: due after 06-22-18 Sheridan Zaman MD, MD, Dana M Flu Vaccine (Quadrivalent) On: 27-Mar-2018 Intent 28290Zp: Sheridan Zaman MD Comments: Lot: #[id number]: 01/03/19Site: L dltd, IMDose prefilled syringegiven by: CManchakVIS reviewed and ABN signed Sheridan Zaman MD SPECIMEN HNDLNG/TRNSPRT, OFFC > On: 24-Oct-2017 Intent LAB (28434)By: Sheridan Zaman MD, MD, Dana M DRAIN/INJECT MAJOR JOINT OR BURSA On: 08-May-2017 Intent ()By: Sheridan Zaman MD Comments: lot: [id number]:intra articular left knee dose:2ml given by:Dr. Zaman ABN signedER, HEALTH INFORMATION TECHNOLOGIST Euflexxa injection number 3 Sheridan Zaman MD DRAIN/INJECT MAJOR JOINT OR BURSA On: 28-Apr-2017 Intent ()By: Sheridan Zaman MD Comments: lot:[id number]:intra articular dose:2ml given by:Dr. Zaman ABN signedER, HEALTH INFORMATION TECHNOLOGIST Euflexxa injection left knee #2 Sheridan Zaman MD DRAIN/INJECT MAJOR JOINT OR BURSA On: 21-Apr-2017 Intent ()By: Sheridan Zaman MD Comments: lot:[id number]:intra articular dose:2ml given by:Dr. Zaman ABN signedER, HEALTH INFORMATION TECHNOLOGIST Sheridan Zaman MD SCREENING DIGITAL TOMOSYNTHESIS On: 08-Apr-2017 Intent OF BREAST (26491)By: Austyn RODRIGUEZ, Comments: due after 06-22 Sheridan Bradshaw MD Radiology - Knee - Right - Weight On: 08-Apr-2017 Intent BearingBy: Sheridan Zaman MD, MD, Dana M Radiology - Knee - Left - Weight On: 08-Apr-2017 Intent BearingBy: Sheridan Zaman MD, MD, Dana M Flu Vaccine (Quadrivalent) On: 08-Apr-2017 Intent 96675Or: Sheridan Zaman MD Comments: lot: [id number]: 12/22/17ite/route: L elzbieta, IMamt: 0.5mlVIS and ABN signed when applicableELVIN Nieves MD, Dana M US DOPPLER CAROTID BILATERAL On: 28-Feb-2016 Intent (08782)By: Sheridan Zaman MD, MD, Dana M Echo CompleteBy: Sheridan Zaman MD On: 28-Feb-2016 Intent Sheridan Henriquez MD Holter Monitor 24 hrsBy: Austyn On: 28-Feb-2016 Intent Sheridan RODRIGUEZ MD, Dana M Comments: plan in 3 weeks before see. MAMMOGRAM, SCREENING, BOTH BREAST On: 28-Feb-2016 Intent (83441)By: Sheridan Zaman MD, MD, Dana M DEXA SCAN AXIAL SKELETON On: 28-Feb-2016 Intent (98858)By: Sheridan Zaman MD, MD, Dana M ELECTROCARDIOGRAM, COMPLETE (ECG) On: 28-Feb-2016 Intent (81283)By: Tonio Concepcion MAMMOGRAM, SCREENING, BOTH BREAST On: 23-May-2015 Intent (35686)By: Sheridan Zaman MD, MD, Dana M CT [...] 13-May-2014 Intent Sheridan Bradshaw MD BILATERAL MAMMOGRAMS (21460)By: On: 13-May-2014 Intent Sheridan Zaman MD, MD, [...] Intent (J3301)By: Sheridan Zaman MD, MD, Sheridan nEgel Kenalog Injection, 10 mgm On: 21-Oct-2013 Intent [...] 18-May-2012 Intent VACCINE (G0008)By: Brigid, Comments: Lot #:[id number] date: 12/17Amount given:prefilled syringeSite given:L Dltd, IMGiven by: BRYON Serrano FLU VAC, SPLIT, >3 YEARS, On: 18-May-2012 Intent INTRAMUSC (67336)By: Ciara Rainey EKG (91230)By: Dena Cash DO On: 03-Jan-2012 Intent Comments: ekg showed normal sinus rhythym, normal axis rbbb and lapfb no change Cartoid DopplerBy: Dena Cash DO On: 03-Jan-[address] - ChestBy: Sheridan Zaman MD On: 26-Sep-2011 Intent Sheridan Zaman MD [...] SPLIT, >3 YEARS, On: 16-Apr-2011 Intent INTRAMUSC (46247)By: Corby CABEZAS, Comments: Lot #[id number]-L arm, IMDose prefilledgiven by:MONROE Acuña [facility] On: 16-Apr-2011 Intent VACCINE (G0008)By: Dawna Tavarez LPN TDAP VACCINE >7 IM (95639)By: On: 26-Jun-2010 Intent Dawna Tavarez LPN Comments: Lot #[id number]-L ARMDosePREMEASURED SYRINGEgiven by: MAMMOGRAM, SCREENING, BOTH On: 26-Jun-2010 Intent BREASTS (10890)By: Sheridan Zaman MD, MD, Dana M Cartoid DopplerBy: Dena Cash DO On: 11-Apr-2010 Intent A EKG (65651)By: Dena Cash DO On: 11-Apr-2010 Intent Comments: ekg showed normal sinus rhythym, normal axis, no acute st/t wave changes rbbb and lpfb- no change- PHYSICAL THERAPY EVALUATION On: 18-Jan-2010 Intent (55310)By: Teresa DEL CASTILLOTracey Kenalog Injection, 10 mgm [...] MAMMOGRAM, SCREENING, BOTH On: 18-Apr-2009 Intent BREASTS (62231)By: Austyn RODRIGUEZ, Comments: 06-14 Sheridan Zaman MD, Sheridan Engel DXA, BONE DENSITY, AXIAL SKELETON On: 28-Jul-2008 Intent (33663)By: Sheridan aZman MD, MD, Sheridan Engel Toradol Injection, 30 mg On: 17-Dec-2007 Intent (J1885)By: Teresa DEL CASTILLO Tracey Proctor Comments: Lot #[id number]-left lvyEzrr6bs/30mggiven by Dimple Reyes LPN Radiology - Knee - RightBy: Teresa On: 23-Jul-2007 Intent Tracey DEL CASTILLO IMMUNIZ ADMNIN, 1 VAC, SNGL/COMBO On: 20-May-2007 Intent (68826)By: ROBERTO Woodard Comments: Lot #:[id number] date:86-92-23Yxaucj given:.65mlRoute: IMSite given:left deltoid Given by: kwan. brought from pharmacy to be given MAMMOGRAM, SCREENING, BOTH On: 20-May-2007 Intent BREASTS (65895)By: Austyn RODRIGUEZ, Sheridan Bradshaw MD Radiology - [...] The patient does have durable power of adult secondary education instructor and living will. The pa roberta has noticed lack of energy. Other providers contributing to the patient's care are manufacturing plant technician (Dr. Romero), social work administrator (Dr. Torres), gastrologist (Dr. Faith) and other: [...] months (mostly local. she will drive to [place] with .), put area rugs through house [...] The patient does have durable power of adult secondary education instructor and sachin ing will. The patient has noticed nothing from the geriatic depression scale. Other providers contributing to the patient's care are manufacturing plant technician and social work administrator.Encounter Diagnosis: Current nonsmoker (Renamed from Current non-smoker), [...] The patient does have durable power of adult secondary education instructor and living will. The patient has noticed nothing from the geriatic depression scale. Other providers contributing to the patient's care are manufacturing plant technician (Nick) and surgeon (omari). Note for Annual [...] The patient does have durable power of adult secondary education instructor and living will. The patient has noticed lack of energy. Other providers contributing to the patient's care are other: (will see rheum next week, check in [facility] ).[facility] [...] (will see rheum next week, check in [facility] ). Encounter Diagnosis: Well [...] recently received care from an emergency room ([facility] Acute indigestion )., [ADDITIONAL REASON] [...] running 110-120/70-80- she is working out at [employer]- she thinks had some bps highe End: [...] running 110-120/70-80- she is working out at [employer]- she thinks had some bps higher because [...] has alot of sinus problems- came to [place] and had bp taken - 169 over [...] or leg- her bps at home though 120-/35-78-krpkalen alot of caffeine and sudafed Encounter Diagnosis: [...]
--- OUTSIDE RECORDS SUMMARY | 2018-09-24 15:00 | XMS RPT_ITS | Continuity of Care Document ---
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 SENS(hsCRP) (78222) C-Reactive Protein, Cardiac 5.80 mg/L (Abnormal) Range: 0.00-3.00 Comments: Relative Risk for Future Cardiovascular Event Low <1.00 Average 1.00 - 3.00 High >3.00 98-Nbx-599396:43 C-REACT PROT HIGH SENS(hsCRP) Comments: PATIENT NOT FASTINGPERFORMED BY: ACE Portal70 Smart GPS BackpackUNC Health Blue Ridge [id number] (55447) C-Reactive Protein, Cardiac 26.86 mg/L (Abnormal) Range: 0.00-3.00 Comments: Results confirmed ondilution. Relative Risk for Future Cardiovascular Event Low <1.00 Average 1.00 - 3.00 High >3.00 79-Txv-707887:43 CALCIFIDIOL (15565) VIT D 25 Comments: PATIENT NOT FASTINGPERFORMED BY: ACE Portal70 Smart GPS BackpackUNC Health Blue Ridge [id number] Vitamin D, 25-Hydroxy 29.8 ng/mL (Abnormal) Range: 30.0-100.0 Comments: Vitamin D deficiency has been defined by the [place] of[place]icine and an Endocrine Society practice guideline as alevel of serum 25-OH vitamin D less than 20 ng/mL (1,2).The Endocrine Society went on to further define vitamin Dinsufficiency as a level between 21 and 29 ng/mL (2).1. IOM ([place] of Medicine). 2010. Dietary reference intakes for calcium and D. [place]: The National Academies Press.2. Carlota MF, Ursula BACON, Taryn RECINOS, et al. Evaluation, treatment, and prevention of vitamin D deficiency: an Endocrine Society clinical practice guideline. JCEM. 2010; 96(7):1911-30. 56-Wgt-946966:37 MICROALBUMIN: CREATININE RATIO Comments: PATIENT NOT FASTINGPERFORMED BY: [employer] [place] [id number] (39031) AND (60849) Microalb/Creat Ratio 6.0 {mg/g_creat} (Normal) Range: 0.0-30.0 Microalbumin, Urine 9.7 ug/mL (Normal) Creatinine, Urine 160.5 mg/dL (Normal) :37 URINALYSIS (06984) Comments: PATIENT NOT FASTINGPERFORMED BY: OMEGA MORGAN6370 Smart GPS BackpackUNC Health Blue Ridge [id number] Microscopic Examination MICNIP (Normal) Comments: Microscopic not indicated and not performed. Nitrite, Urine Negative (Normal) Urobilinogen,Semi-Qn 0.2 mg/dL (Normal) Range: 0.2-1.0 Bilirubin Negative (Normal) Occult Blood Negative (Normal) Ketones Trace (Abnormal) Glucose Negative (Normal) Protein Negative (Normal) WBC Esterase Negative (Normal) Appearance Clear (Normal) Urine-Color Yellow (Normal) pH 6.0 (Normal) Range: 5.0-7.5 Specific Calpine 1.021 (Normal) Range: 1.005-1.030 :37 CBC WITH MANUAL DIFF Comments: PATIENT NOT FASTINGPERFORMED BY: Aparc SystemsUNC Health Blue Ridge [id number] Information: NURSE DRAW (16797) Immature Grans (Abs) 0.0 {x10E3/uL} (Normal) Range: [...] 3.77-5.28 WBC 4.9 {x10E3/uL} (Normal) Range: 3.4-10.8 94-Qfc-255316:37 Metabolic Panel, Comprehensive Comments: PATIENT NOT FASTINGPERFORMED BY: LabCoNew Bridge Medical CenterClshhu1915 [facility] [id number] (69600) ALT (SGPT) 12 [iU]/L (Normal) Range: 0-32 [...] Glucose, Serum 110 mg/dL (Abnormal) Range: 65-99 47-Imn-037571:44 CALCIFIDIOL (77388) VIT D 25 Comments: PATIENT NOT FASTINGPERFORMED BY: LabCoNew Bridge Medical CenterKrgyao9606 [facility] [id number] Vitamin D, 25-Hydroxy 29.8 ng/mL (Abnormal) Range: 30.0-100.0 Comments: Vitamin D deficiency has been defined by the [place] ofSelect Medical Ohiohealth Rehabilitation Hospitalcine and an Endocrine Society practice guideline as alevel of serum 25-OH vitamin D less than 20 ng/mL (1,2).The Endocrine Society went on to further define vitamin Dinsufficiency as a level between 21 and 29 ng/mL (2).1. IOM ([place] of Medicine). 2010. Dietary reference intakes for calcium and D. [place]: The National Academies Press.2. Carlota MF, Ursula BACON, Taryn RECINOS, et al. Evaluation, treatment, and prevention of vitamin D deficiency: an Endocrine Society clinical practice guideline. JCEM. 2010; 96(7):1911-30. 63-Wqz-446619:44 Metabolic Panel, Comprehensive Comments: PATIENT NOT FASTINGPERFORMED BY: LabCoNew Bridge Medical CenterRoejem9902 [facility] [id number] (08075) ALT (SGPT) 10 [iU]/L (Normal) Range: 0-32 [...] Glucose, Serum 123 mg/dL (Abnormal) Range: 65-99 39-Niq-928564:57 HgA1C , Office (57554) HgA1C , Office 5.7 % (Normal) Range: 4.6 - 7.1 13-Rin-410876:00 Methymalonic Acid, Serum Comments: PATIENT NOT FASTINGPERFORMED BY: LabCoNew Bridge Medical CenterIscynz6754 [facility] [id number] BY: [address] [id number] (70807) Methylmalonic Acid, Serum 157 nmol/L (Normal) Range: 0-378 16-Kgw-131125:00 Vitamin B-12 Comments: PATIENT NOT FASTINGPERFORMED BY: [facility] Ovtzqm5256 Ochoa RoadDublin [place] [id number] BY: Lab[address] [id number] (cyanocobalamin) (19451) Vitamin B12 778 pg/mL (Normal) Range: 211-946 11-Hqx-425851:00 CALCIFIDIOL (24828) VIT D Comments: PATIENT NOT FASTINGPERFORMED BY: CB [facility] Dphimm9177 Ochoa RoadDublin [place] [id number] BY: LabCo[address] [id number]; fu 2-28 25 Vitamin D, 25-Hydroxy 27.7 ng/mL (Abnormal) Range: 30.0-100.0 Comments: Vitamin D deficiency has been defined by the [place] of[place]icine and an Endocrine Society practice guideline as alevel of serum 25-OH vitamin D less than 20 ng/mL (1,2).The Endocrine Society went on to further define vitamin Dinsufficiency as a level between 21 and 29 ng/mL (2).1. IOM ([place] of Medicine). 2010. Dietary reference intakes for calcium and D. [place]: The National Academies Press.2. Carlota MF, Ursula [place], Taryn RECINOS, et al. Evaluation, treatment, and prevention of vitamin D deficiency: an Endocrine Society clinical practice guideline. JCEM. 2010; 96(7):1911-30. 05-Xvc-708858:48 Sed Rate Erythrocyte Comments: PATIENT NOT FASTINGPERFORMED BY: CB [facility] Qkfvmy7088 Ochoa RoadDublin [place] [id number] Information: [id number] (27333) Sedimentation Rate-Westergren 13 mm/h (Normal) Range: 0-40 61-Srb-055180:48 C-Reactive Protein (59230) Comments: PATIENT NOT FASTINGPERFORMED BY: CB [facility] Cuaipz6965 Ochoa RoadDublin [place] [id number] C-Reactive Protein, Quant 20.2 mg/L (Abnormal) Range: 0.0-4.9 :43 CBC W/Diff, Automated Comments: [facility] [address] [place], [address] Absolute Lymph 0.82 {X10_3/ul} (Abnormal) [...] Range: 4.4-11.0 :43 Comprehensive Metabolic Profil Comments: [facility] Xmcxwawagu[address] [place], [place], [id number] ; [address] GAP 7 (Normal) Range: [...] 7-18 GLU 96 mg/dL (Normal) Range: 70-110 0-Thj-813301:43 T4 Free Direct Comments: [facility] Fc[address]mvjpnb[address] [place], [address] T4 FREE DIRECT 1.24 ng/dL (Normal) Range: 0.76-1.46 7-Zyg-051642:43 Thyroid Stim Hormone (TSH) Comments: [facility] N[address] [place], [address] TSH 1.97 {uIU/mL} (Normal) Range: 0.358-3.74 41-Rlh-23714:33 MICROALBUMIN: CREATININE Comments: PATIENT NOT FASTINGPERFORMED BY: LabHol[facility] Hospital6370 [facility] [id number] Information: [id number] RATIO (57250) AND (75972) Microalb/Creat Ratio 4.3 {mg/g_creat} (Normal) Range: 0.0-30.0 Microalbumin, Urine 5.2 ug/mL (Normal) Range: 0.0-17.0 Creatinine, Urine 120.2 mg/dL (Normal) Range: 15.0-278.0 89-Aet-639703:30 CBCD ALC 1.09 {X10_3/ul} (Normal) Range: 0.83-4.51 [...] Evidenceof monoclonal protein is not apparent.Performed at: [address] [id number] Director: Tutu Cobian PhD, Phone: [phone] tPROELIN Comment (Normal) Comments: Protein electrophoresis scan will follow via computer,mail, or hot worker delivery. tPROELAG 1.3 (Normal) Range: 0.7-2.0 tPROELGL 2.7 g/dL (Normal) Range: 2.0-4.5 tPROELMS (Normal) Comments: NOT OBSERVED G/DL tPROELGA 0.9 g/dL (Normal) Range: 0.5-1.6 tPROELBE 0.9 g/dL (Normal) Range: 0.6-1.3 tPROELAL2 0.6 g/dL (Normal) Range: 0.4-1.2 tPROELAL1 0.2 g/dL (Normal) Range: 0.1-0.4 tPROELALB 3.6 g/dL (Normal) Range: 3.2-5.6 $tPROELTP 6.3 g/dL (Normal) Range: 6.0-8.5 :30 URIC 3.1 mg/dL (Normal) Range: 2.6-6.0 11-Bbh-743202:05 Microscopic Examination Comments: PATIENT NOT FASTINGPERFORMED BY: [employer] [id number] BY: [address] [id number] Bacteria Few (Normal) Mucus Threads Present (Normal) Crystal Type Calcium Oxalate (Normal) Crystals Present (Abnormal) Epithelial Cells (non renal) 0-10 {/hpf} (Normal) Range: 0 - 10 RBC 0-2 {/hpf} (Normal) Range: 0 - 2 WBC 0-5 {/hpf} (Normal) Range: 0 - 5 16-Ddq-729838:05 URINALYSIS, W/ MICRO Comments: PATIENT NOT FASTINGPERFORMED BY: [address] [id number] BY: BN Lab[address] [id number] (35150) Microscopic Examination See below: (Normal) Comments: Microscopic was indicated and was performed. Microscopic Examination MICRON (Normal) Comments: Microscopic follows if indicated. Nitrite, Urine Negative (Normal) Urobilinogen,Semi-Qn 0.2 mg/dL (Normal) Range: 0.0-1.9 Bilirubin Negative (Normal) Occult Blood Negative (Normal) Ketones Negative (Normal) Glucose Negative (Normal) Protein Negative (Normal) WBC Esterase Negative (Normal) Appearance Clear (Normal) Urine-Color Yellow (Normal) pH 6.0 (Normal) Range: 5.0-7.5 Specific Calpine 1.022 (Normal) Range: 1.005-1.030 74-Xor-063678:05 CCP ANTIBODY (83318) Comments: PATIENT NOT FASTINGPERFORMED BY: [employer] XTRM [facility] [id number] BY: [address] [id number] CCP Antibodies IgG/IgA 23 {units} (Abnormal) Range: 0-19 Comments: Negative <20 Weak positive 20 - 39 Moderate positive 40 - 59 Strong positive >59 39-Zxw-034747:05 SED RATE ERYTHROCYTE Comments: PATIENT NOT FASTINGPERFORMED BY: CartageniaNew Bridge Medical CenterXmbuge7519 [facility] [id number] BY: [place] [id number] (53775) Sedimentation Rate-Westergren 13 mm/h (Normal) Range: 0-40 11-Vgb-664771:05 C-REACTIVE PROTEIN Comments: PATIENT NOT FASTINGPERFORMED BY: [employer] Khisnb4059 [facility] [id number] BY: [place] [id number] (66969) C-Reactive Protein, Quant 4.5 mg/L (Normal) Range: 0.0-4.9 76-Dho-571835:05 TSH (06854) Comments: PATIENT NOT FASTINGPERFORMED BY: [employer] Qrpmno[address] [place] [address] [id number] BY: [address] [id number] TSH 2.750 {uIU/mL} (Normal) Range: 0.450-4.500 33-Trj-908902:05 RHEUMATOID FACTOR-QUANT Comments: PATIENT NOT FASTINGPERFORMED BY: LabCoChristopher Ville 9183670 [facility] [id number] BY: [address] [id number] (71932) RA Latex Turbid. 7.4 {IU/mL} (Normal) Range: 0.0-13.9 12-Twv-739612:05 JAELYN (ANTINUCLEAR ANTIBODY) Comments: PATIENT NOT FASTINGPERFORMED BY: LabCoNew Bridge Medical CenterIrxpdr5277 [facility] [id number] BY: [address] [id number] (20545) JAELYN Direct Negative (Normal) 95-Lcp-562183:05 METABOLIC PANEL, Comments: PATIENT NOT FASTINGPERFORMED BY: LabCoChrist[place] 9183670 [facility] [id number] BY: [address] [id number] Inf ormation: [id number],[id number] COMPREHENSIVE (55905) ALT (SGPT) 12 [iU]/L (Normal) Range: 0-32 [...] Glucose, Serum 96 mg/dL (Normal) Range: 65-99 49-Pfa-33024:45 Urinalysis, Office (16117) UA - BILIRUBIN Negative (Normal) UA - BLOOD Negative (Normal) UA - GLUCOSE Negative (Normal) UA - KETONES Negative mg/dL (Normal) UA - LEUKOCYTE ESTERASE Negative (Normal) UA - NITRITE Negative (Normal) UA - PH 6.0 (Normal) UA - PROTEIN Negative mg/dL (Normal) UA - SPECIFIC GRAVITY 1.020 (Normal) URINE UROBILINGN KATE TIMED Normal mg/dL (Normal) 04-Sio-083157:37 CERV SPINE,MIN 4 VIEWS Radiology Report See [...] Campbell D.O.May 18, 2012 at 11:19:02 PM [id number] Signed IF/IF If you are the referring physician and would like to consult with theradiologist who provided this interpretation, please contact Sharad Campbell D.O.at [phone]. If this radiologist is unavailable, you will be directedto another radiologist to assist. If you are a patient with a question regardin g this report, pleasecontactyour referring physician directly. Professional Interpretation Provided By: [employer], Phone , These documents contain legally protected [...] on 05/18/122323 Sign by: Sharad Campbell DO 16-Yab-623294:37 SHOULDER,MIN 2 VIEWS Radiology Report See Note [...] Campbell D.O.May 18, 2012 at 11:01:01 PM [id number] Signed IF/IF If you are the referring physician and would like to cons ult with theradiologist who provided this interpretation, please contact Sharad Campbell D.O.at [phone]. If this radiologist is unavailable, you will be directedto another radiologist to assist. If you ar e a patient with a question regarding this report, pleasecontactyour referring physician directly. Professional Interpretation Provided By: [employer], Phone , These docum ents contain legally [...] on 05/18/122305 Sign by: Sharad Campbell DO 73-Bnh-96461:15 METABOLIC PANEL, COMPREHENSIVE Comments: PATIENT WAS FASTINGPERFORMED BY: LabCoNew Bridge Medical CenterHmvnff1171 [facility] [id number] (54911) ALT (SGPT) 17 [iU]/L (Normal) Range: 0-40 [...] mg/dL (Abnormal) Range: 65-99 :15 LIPID PANEL (90509) Comments: PATIENT WAS FASTINGPERFORMED BY: [employer] Rdnwdk8928 [facility] [id number] LDL/HDL Ratio 1.5 {ratio_units} (Normal) Range: 0.0-3.2 [...] MANUAL DIFF Comments: PATIENT WAS FASTINGPERFORMED BY: [employer] Nbdsdz2793 [facility] [id number] Information: [id number] (99836) Immature Grans (Abs) 0.0 {x10E3/uL} (Normal) Range: [...] 3.77-5.28 WBC 3.8 {x10E3/uL} (Abnormal) Range: 4.0-10.5 26-Gom-121967:03 Microscopic Examination Comments: PATIENT NOT FASTINGPERFORMED BY: OMEGA MORGAN6370 [facility] [id number] Bacteria None seen (Normal) Mucus Threads Present (Normal) Epithelial Cells (non renal) 0-10 {/hpf} (Normal) Range: 0 - 10 RBC None seen {/hpf} (Normal) Range: 0 - 3 WBC None seen {/hpf} (Normal) Range: 0 - 5 :03 URINALYSIS, W/ MICRO (44611) Comments: PATIENT NOT FASTINGPERFORMED BY: OMEGA MORGAN6370 [facility] [id number] Microscopic Examination See below: (Normal) Microscopic Examination MICRON (Normal) Comments: Microscopic follows if indicated. Nitrite, Urine Negative (Normal) Urobilinogen,Semi-Qn 0.2 mg/dL (Normal) Range: 0.0-1.9 Bilirubin Negative (Normal) Occult Blood Negative (Normal) Ketones Negative (Normal) Glucose Negative (Normal) Protein Negative (Normal) WBC Esterase Negative (Normal) Appearance Clear (Normal) Urine-Color Yellow (Normal) pH 7.5 (Normal) Range: 5.0-7.5 Specific Calpine 1.014 (Normal) Range: 1.005-1.030 85-Seg-824879:03 TSH (26772) Comments: PATIENT NOT FASTINGPERFORMED BY: [facility] [id number] TSH 2.440 {uIU/mL} (Normal) Range: 0.450-4.500 30-Cex-623334:03 CBC WITH MANUAL DIFF Comments: PATIENT NOT FASTINGPERFORMED BY: [facility] [id number] Information: [id number] (72668) Immature Grans (Abs) 0.0 {x10E3/uL} (Normal) Range: [...] 3.77-5.28 WBC 5.1 {x10E3/uL} (Normal) Range: 4.0-10.5 00-Rdp-289166:03 METABOLIC PANEL, COMPREHENSIVE Comments: PATIENT NOT FASTINGPERFORMED BY: PETRONA [facility] Usudoo5188 [facility] [id number] (50316) ALT (SGPT) 16 [iU]/L (Normal) Range: 0-40 [...] Glucose, Serum 88 mg/dL (Normal) Range: 65-99 9-Dcw-259473:19 METANEPHRINES - URINE (68336) Comments: PATIENT NOT FASTINGPERFORMED BY: [facility] Oqpooztbue9360 [facility] [id number] Metanephrine, U,24hr 118 {ug/24_hr} (Normal) Range: 45-290 Comments: (Hypertensive) >17 years 11 months: 35 - 460 . Please note reference interval change Metanephrine, Ur 94 ug/L (Normal) Normetanephr.,U,24h 248 {ug/24_hr} (Normal) Range: 82-500 Comments: (Hypertensive) >17 years 11 months: 110 - 1050 Normetanephrine, Ur 198 ug/L (Normal) 3-Nts-216568:19 URINE VMA (93994) Comments: PATIENT NOT FASTINGPERFORMED BY: Synata [facility] Grxi[address] [id number] VMA, Urine, 24hr 3.1 {mg/24_hr} (Normal) Range: 0.0-7.5 VMA, Urine 2.5 mg/L (Normal) 9-Uox-678175:19 CATECHOLAMINES TOTAL, URINE Comments: PATIENT NOT FASTINGPERFORMED BY: [facility]ata [facility] K[address]qrr[address] [id number] Information: SRC:LANDEN [id number] START 2@730AM FIN BETH; f/u 01/22/12 (29247) Dopamine, Ur, 24hr 229 {ug/24_hr} (Normal) Range: 0-510 Dopamine, Urine 183 ug/L (Normal) Norepinephrine,U,24h 53 {ug/24_hr} (Normal) Range: 0-135 Norepinephrine, Ur 42 ug/L (Normal) Epinephrine, U, 24hr 5 {ug/24_hr} (Normal) Range: 0-20 Epinephrine, Urine 4 ug/L (Normal) 11-Vbz-20527:24 CHEST WITHOUT CONTRAST Radiology Report See Note [...] radiologist regarding this report, please call our 70O2ynttxmm line @ [phone] Dictated on 10/04/11 0959 by Danya Campbell [...] radiologist regarding this report, please call our 17M9pzitldb line @ Dictated on 10/04/11 0940 by Heike Cordero MDbed on 10/04/11 1025 by ITS IMPORTSign by Dayton Cordero MD on 10/04/111025 Sign by: Dayton Cordero MD 22-Inx-80805:49 ABDOMEN/PELVIS WITH CONTRAST Radiology Report See Note [...] st regarding this report, please call our 06B8pxqccvd line @ Dictated on 08/02/11 0813 by Vikram Cordero MDranscribed on 08/02/11 1519 by ITS IMPORTSign by Datyon Cordero MD on 08/02/11 1520 Sign by: [...] Microscopic Examination Comments: PATIENT WAS FASTINGPERFORMED BY: OMEGA MORGAN6370 LooseHead SoftwareAt[facility] [id number] Bacteria None seen (Normal) Mucus Threads Present (Normal) Epithelial Cells (non renal) 0-10 {/hpf} (Normal) Range: 0 - 10 RBC None seen {/hpf} (Normal) Range: 0 - 3 WBC 0-5 {/hpf} (Normal) Range: 0 - 5 :49 TSH (79340) Comments: PATIENT WAS FASTINGPERFORMED BY: [employer]70 Smart GPS BackpackUNC Health Blue Ridge [id number] TSH 3.680 {uIU/mL} (Normal) Range: 0.450-4.500 :49 URINALYSIS, W/ MICRO (74391) Comments: PATIENT WAS FASTINGPERFORMED BY: [employer] Portal70 [address] Nagual SoundsAtrium Health Wake Forest Baptist [id number] Microscopic Examination See below: (Normal) Microscopic Examination MICRON (Normal) Comments: Microscopic follows if indicated. Nitrite, Urine Negative (Normal) Urobilinogen,Semi-Qn 0.2 mg/dL (Normal) Range: 0.0-1.9 Bilirubin Negative (Normal) Occult Blood Negative (Normal) Ketones Negative (Normal) Glucose Negative (Normal) Protein Negative (Normal) WBC Esterase Negative (Normal) Appearance Clear (Normal) Urine-Color Yellow (Normal) pH 6.5 (Normal) Range: 5.0-7.5 Specific Calpine 1.016 (Normal) Range: 1.005-1.030 33-Cnp-06292:49 METABOLIC PANEL, COMPREHENSIVE Comments: PATIENT WAS FASTINGPERFORMED BY: [facility] Xgmgse2336 [facility] [id number] (95365) ALT (SGPT) 15 [iU]/L (Normal) Range: 0-40 [...] mg/dL (Normal) Range: 65-99 :49 LIPID PANEL (02764) Comments: PATIENT WAS FASTINGPERFORMED BY: [employer] [facility] [id number] LDL/HDL Ratio 1.5 {ratio_units} (Normal) Range: 0.0-3.2 [...] MANUAL DIFF Comments: PATIENT WAS FASTINGPERFORMED BY: [employer]70 [facility] [id number] Information: [id number] (18582) Immature Grans (Abs) 0.0 {x10E3/uL} (Normal) Range: [...] 3.80-5.10 WBC 4.5 {x10E3/uL} (Normal) Range: 4.0-10.5 78-Bai-633321:02 B[facility] D[facility]ITAL & CAD Radiology Report See [...] on 08/28/10 1202 Sign by: ANNIE PETIT 4-Xhj-807291:52 Aerobic Bacterial Culture Comments: PERFORMED BY: CB [facility] Rdrrhq0974 Don [place] [id number] Information: SRC:FI LEFT FINGER Result 1 NG36 (Normal) Comments: No growth in 36 - 48 hours. Aerobic Bacterial Culture Final report (Normal) 02-Qlm-384804:23 Thin prep Pap (57803) Comments: Source.............VaginalNo. of containers..01 CYTYC Thin Prep VialPATIENT NOT FASTINGPERFORMED BY: WB [facility] [address] [id number] Information: [id number] Note: PAPSMR (Normal) Comments: The Pap smear [...] hysterectomy.V72.31 ; Routine gynecological exami Eric Gomez Bolt Header (ASCP) :52 CBCD,SMEAR DIFF PLT EST SeeNote [...] Report See Note (Normal) Comments: Exam Number: [id number] DIGITAL BILATERAL MAMMOGRAM Digital oblique and craniocaudal [...] wereals o examined with computer-aided detection software (ImagePicplum.). Reported By: DAYTON CORDERO :33 Aldolase 2.5 U/L (Normal) Comments: PERFORMED BY: [employer] Cqtxql1188 [facility] [id number] Range: 1.2-7.6 :33 Antinuclear Antibodies Direct Comments: PERFORMED BY: [employer] Fzhsrw8793 [facility] [id number] JAELYN Direct Negative (Normal) :3 C-Reactive Protein, 2.4 mg/L (Normal) Comments: PERFORMED BY: [employer] Gbxdxe5218 [facility] [id number] 3 Quant Range: 0.0-4.9 :33 CBC With Differential/Platelet Comments: PERFORMED BY: [employer]delin6370 [facility] [id number] Baso (Absolute) 0.0 {x10E3/uL} (Normal) Range: 0.0-0.2 [...] Comp. Metabolic Panel (14) Comments: PERFORMED BY: [facility] [id number] A/G Ratio 1.7 (Normal) Range: 1.1-2.5 Albumin, [...] Creatine 77 U/L (Normal) Comments: PERFORMED BY: [facility]Ray [facility] [id number] 9:33 Kinase,Total,Serum Range: 24-173 03-Apr-2009 Sedimentation 8 mm/h (Normal) Comments: PERFORMED BY: [facility] GamingRay [facility] Hospital [id number] 9:33 Rate-Westergren Range: 0-30 03-Apr-2009 TSH 3.500 {uIU/mL} Comments: PERFORMED BY: CodefastRay [facility] Hospital [id number] 9:33 (Normal) Range: 0.450-4.500 06-Sep-20088:47 DEXA BONE DENSITY STUDY (HP) Radiology Report See Note (Normal) Comments: Exam Number: [id number] BONE DENSITOMETRY HISTORYPostmenopausal. TECHNIQUE Bone densitometry of the lumbar spine and left hip was performed. Thebest criteria for evaluation of osteoporosis is the T- value, whichrepresents the comparison of the patient's bone mass to an expectedpeak bone mass. For most patients, the mean T-value of L1 through L4is used to evaluate the lumbar spine. Based on the [facility] WorldHealth Organization classifications, the hip is evaluated [...] within normallimits. Reported By: ANNIE PETIT M.D. 33-Duf-103058:42 Thin prep Pap (88918) Comments: LMP / Prev Treat...IKF=[id number];HystNo. of containers..01 CYTYC Thin Prep VialPATIENT NOT FASTINGClinical Information: ADD [id number] PERFORMED BY: Double the [employer]ation[address] [id number] . . (Normal) DIAGNOSIS: SPRCS (Normal) Comments: NEGATIVE FOR INTRAEPITHELIAL LESION AND MALIGNANCY.Satisfactory for evaluation. No endocervical cells are present. This isconsistent with a history of hysterectomy.V72.31 ; Routine gynecological exami Desiree Bartholomew Bolt Header (ASCP) Note: PAPSMR (Normal) Comments: The Pap [...] resulttherefore, no HPV testing was performed. . 03-Dvl-797989:43 CBCD,SMEAR DIFF BAND 1 % (Normal) Range: [...] 47-70 WBC 3.7 K/mm3 (Abnormal) Range: 4.4-11.0 14-Dvz-30923:00 BILAT SCRN DIGITAL & CAD Radiology Report See Note (Normal) Comments: Exam Number: [id number] BILATERAL SCREENING DIGITAL MAMMOGRAM CLINICAL INFORMATIONScreening. Bilateral [...] mammogramswere also examine d with computer-aided detection software([employer] Reported By: SHARRI DE LA GARZA M.D. 02-Lwk-[id number]:56 LOWER EXT.JOINT ONLY (ROUTINE) Radiology Report See Note (Normal) Comments: Exam Number: [id number] MRI RIGHT KNEE CLINICAL STATEMENTPain, swelling, worse [...] venous varicosities. Reported By: RIMMA DAMIAN M.D. 19-Odp-48328:16 KNEE,4 OR MORE VIEWS Radiology Report See Note (Normal) Comments: Exam Number: [id number] RIGHT KNEE 4 VIEWS STATEMENTPain and swelling. [...] significant change. Reported By: SHARRI HERRERA M.D. 3-Jeb-677088:23 [facility] DIGITAL & CAD Radiology Report See Note (Normal) Comments: Exam Number: [id number] MAMMOGRAM, BILATERAL SCREENING DIGITAL AND CAD HISTORYRoutine [...] werealso exa mined with computer-aided detection software ([employer] Reported By: ANNIE PETIT M.D. :18 CBCD [...] :18 TSH 2.46 {uIU/mL} (Normal) Range: 0.34-4.82 13-Vai-735030:55 Urinalysis, Office (36088) UA - BILIRUBIN Negative (Normal) UA - [...] Indication: Well woman exam Planned Observations CALCIFIDIOL (05240) VIT D 25Indication: Vitamin D deficiency On: 58-Bei-708676:37 Request C-REACT PROT HIGH SENS(hsCRP) (28340)Indication: CRP elevated On: :29 Request CALCIFIDIOL (56774) VIT D 25Indication: Vitamin D deficiency On: :29 Request TSH (28089)Indication: Abnormal TSH On: :29 Request T4, TOTAL (25127)Indication: Abnormal TSH On: :29 Request T3, FREE (TRIDOTHYRONINE) (71332)Indication: Abnormal TSH On: :29 Request CBC (Auto) (13568)Indication: Benign essential HTN On: :45 Request Metabolic Panel, Comprehensive (46888)Indication: Benign essential HTN On: :45 Request Vitamin B-12 (cyanocobalamin) (75765)Indication: Balance disorder On: :45 Request CALCIFIDIOL (39181) VIT D 25Indication: Vitamin D deficiency On: :45 Request C-REACTIVE PROTEIN (87440)Indication: Pain in the joints On: :56 Request Comments: 6 weeks T4, FREE (THYROXINE) (54782)Indication: Right leg swelling On: :48 Request TSH (56718)Indication: Right leg swelling On: :48 Request CBC, Platelets & Auto Diff (86590)Indication: Abdominal discomfort in right lower quadrant On: :48 Request Metabolic Panel, Comprehensive (14822)Indication: Abdominal discomfort in right lower quadrant On: :48 Request CBC WITH MANUAL DIFF (37423)Indication: Benign essential HTN On: :52 Request MICROALBUMIN: CREATININE RATIO (52045) AND (48335)Indication: Benign essential HTN On: :52 Request METABOLIC PANEL, COMPREHENSIVE (84668)Indication: Benign essential HTN On: :52 Request LIPID PANEL (48727)Indication: Benign essential HTN On: :52 Request CBC WITH MANUAL DIFF (32466)Indication: Benign essential HTN On: :33 Request METANEPHRINES - URINE (06315)Indication: Benign essential HTN On: :28 Request CATECHOLAMINES TOTAL, URINE (31426)Indication: Benign essential HTN On: :28 Request URINE VMA (65440)Indication: Benign essential HTN On: :28 Request METABOLIC PANEL, COMPREHENSIVE (62982)Indication: Benign essential HTN On: :25 Request LIPID PANEL (45078)Indication: Benign essential HTN On: :25 Request CBC WITH MANUAL DIFF (57626)Indication: Benign essential HTN On: :25 Request VANDANA CULTURE-OTHER (35024)Indication: Neoplasm of uncertain behavior of skin On: :25 Request Comments: from left finger LIPID PANEL (36641)Indication: Benign essential HTN On: :29 Request TSH (99051)Indication: Benign essential HTN On: :29 Request URINALYSIS, W/ MICRO (00612)Indication: Benign essential HTN On: :29 Request MICROALBUMIN: CREATININE RATIO (45903) AND (36156)Indication: Benign essential HTN On: :29 Request METABOLIC PANEL, COMPREHENSIVE (26474)Indication: Benign essential HTN On: :29 Request CBC WITH MANUAL DIFF (13722)Indication: Benign essential HTN On: :29 Request Metabolic Panel, Comprehensive (62782)Indication: Myalgia and myositis On: :13 Request TSH (88716)Indication: Myalgia and myositis On: :13 Request ALDOLASE (02884)Indication: Myalgia and myositis On: :13 Request Sed Rate Erythrocyte (72272)Indication: Myalgia and myositis On: :12 Request Creatine Kinase Total (29409)Indication: Myalgia and myositis On: :12 Request C-Reactive Protein (29424)Indication: Myalgia and myositis On: 12-Ejb-64408:12 Request JAELYN (ANTINUCLEAR ANTIBODY) (91423)Indication: Myalgia and myositis On: :12 Request CBC with manual diff (40572)Indication: Neutropenia, unspecified type On: 56-Skq-755902:50 Request TSH (49024)Indication: Anxiety On: 83-Cec-808134:13 Request CBC (Auto) (13569)Indication: Anxiety On: 33-Hdf-931773:13 Request Metabolic Panel, Comprehensive (50572)Indication: Anxiety On: 72-Yuf-999442:13 Request Lipid Panel (02785)Indication: Anxiety On: 62-Giv-050129:13 Request Thin prep Pap (26669)Indication: Well woman exam On: 23-Rrz-340534:55 Request Planned Encounters Medical; [facility] 2 Month FU - On: 21-Jul-2018 13:00 [facility] Austyn RODRIGUEZ, Sheridan Bradshaw MD Planned Procedures US DOPPLER CAROTID BILATERAL On: 17-Apr-2018 Intent (60631)By: Austyn RODRIGUEZ, Sheridan Zaman MD, Sheridan Engel Radiology - Lumbar SpineBy: On: 17-Apr-2018 Intent Sheridan Zaman MD, MD, Dana M Radiology - Hip - LeftBy: Austyn On: 17-Apr-2018 Intent Sheridan RODRIGUEZ MD, Dana M Bone Density StudyBy: Austyn RODRIGUEZ, On: 17-Apr-2018 Intent Sheridan Bradshaw MD Comments: due after 06-18-18 MAMMOGRAM BREAST BILATERAL On: 17-Apr-2018 Intent SCREENING DIGITAL (20748)By: Comments: due after 06-22-18 Sheridan Zaman MD, MD, Dana M Flu Vaccine (Quadrivalent) On: 27-Mar-2018 Intent 07120Hh: Sheridan Zaman MD Comments: Lot: [id number]: 01/03/19Site: L dltd, IMDose prefilled syringegiven by: CManchakVIS reviewed and ABN signed Sheridan Zaman MD SPECIMEN HNDLNG/TRNSPRT, OFFC > On: 24-Oct-2017 Intent LAB (79674)By: Sheridan Zaman MD, MD, Dana M DRAIN/INJECT MAJOR JOINT OR BURSA On: 08-May-2017 Intent ()By: Sheridan Zaman MD Comments: lot: [id number]:intra articular left knee dose:2ml given by:Dr. Zaman ABN signedER, REVIEW RN Euflexxa injection number 3 Sheridan Zaman MD DRAIN/INJECT MAJOR JOINT OR BURSA On: 28-Apr-2017 Intent ()By: Sheridan Zaman MD Comments: lot:[id number]:intra articular dose:2ml given by:Dr. Zaman ABN signedER, REVIEW RN Euflexxa injection left knee #2 Sheridan Zaman MD DRAIN/INJECT MAJOR JOINT OR BURSA On: 21-Apr-2017 Intent ()By: Sheridan Zaman MD Comments: lot:[id number]:intra articular dose:2ml given by:Dr. Zaman ABN signedER, REVIEW RN Sheridan Zaman MD SCREENING DIGITAL TOMOSYNTHESIS On: 08-Apr-2017 Intent OF BREAST (71662)By: Austyn RODRIGUEZ, Comments: due after 06-22 Sheridan Bradshaw MD Radiology - Knee - Right - Weight On: 08-Apr-2017 Intent BearingBy: Sheridan Zaman MD, MD, Dana M Radiology - Knee - Left - Weight On: 08-Apr-2017 Intent BearingBy: Sheridan Zaman MD, MD, Dana M Flu Vaccine (Quadrivalent) On: 08-Apr-2017 Intent 85204Yq: Sheridan Zaman MD Comments: lot: [id number]: 12/22/17ite/route: L elzbieta, IMamt: 0.5mlVIS and ABN signed when applicableELVIN Nieves MD, Dana M US DOPPLER CAROTID BILATERAL On: 28-Feb-2016 Intent (84876)By: Sheridan Zaman MD, MD, Dana M Echo CompleteBy: Sheridan Zaman MD On: 28-Feb-2016 Intent Sheridan Henriquez MD Holter Monitor 24 hrsBy: Austyn On: 28-Feb-2016 Intent Sheridan RODRIGUEZ MD, Dana M Comments: plan in 3 weeks before see. MAMMOGRAM, SCREENING, BOTH BREAST On: 28-Feb-2016 Intent (92514)By: Sheridan Zaman MD, MD, Dana M DEXA SCAN AXIAL SKELETON On: 28-Feb-2016 Intent (70030)By: Sheridan Zaman MD, MD, Dana M ELECTROCARDIOGRAM, COMPLETE (ECG) On: 28-Feb-2016 Intent (60991)By: Tonio Concepcion MAMMOGRAM, SCREENING, BOTH BREAST On: 23-May-2015 Intent (95703)By: Sheridan Zaman MD, MD, Dana M CT [...] 13-May-2014 Intent Sheridan Bradshaw MD BILATERAL MAMMOGRAMS (03067)By: On: 13-May-2014 Intent Sheridan Zaman MD, MD, [...] 18-May-2012 Intent VACCINE (G0008)By: Brigid, Comments: Lot #:[id number] date: 12/17Amount given:prefilled syringeSite given:L Dltd, IMGiven by: BRYON Serrano FLU VAC, SPLIT, >3 YEARS, On: 18-May-2012 Intent INTRAMUSC (26664)By: Ciara Rainey EKG (56621)By: Dena Cash DO On: 03-Jan-2012 Intent Comments: [...] SPLIT, >3 YEARS, On: 16-Apr-2011 Intent INTRAMUSC (30598)By: Corby CABEZAS, Comments: Lot #[id number]-L arm, IMDose prefilledgiven by:MONROE Acuña [facility] On: 16-Apr-2011 Intent VACCINE (G0008)By: Dawna Tavarez LPN TDAP VACCINE >7 IM (72762)By: On: 26-Jun-2010 Intent Dawna Tavarez LPN Comments: Lot #[id number]-L ARMDosePREMEASURED SYRINGEgiven by: MAMMOGRAM, SCREENING, BOTH On: 26-Jun-2010 Intent BREASTS (62400)By: Sheridan Zaman MD, MD, Dana M Cartoid DopplerBy: Dena Cash DO On: 11-Apr-2010 Intent A EKG (45471)By: Dena Cash DO On: 11-Apr-2010 Intent Comments: ekg showed normal sinus rhythym, normal axis, no acute st/t wave changes rbbb and lpfb- no change- PHYSICAL THERAPY EVALUATION On: 18-Jan-2010 Intent (48282)By: Teresa DEL CASTILLOTracey Kenalog Injection, 10 mgm [...] MAMMOGRAM, SCREENING, BOTH On: 18-Apr-2009 Intent BREASTS (69866)By: Austyn RODRIGUEZ, Comments: 06-14 Sheridan Zaman MD, Sheridan Engel DXA, BONE DENSITY, AXIAL SKELETON On: 28-Jul-2008 Intent (78455)By: Sheridan Zaman MD, MD, Sheridan Engel Toradol Injection, 30 mg On: 17-Dec-2007 Intent (J1885)By: Teresa DEL CASTILLO Tracey Proctor Comments: Lot #[id number]-left jfbBzje6kd/30mggiven by Dimple Reyes LPN Radiology - Knee - RightBy: Teresa On: 23-Jul-2007 Intent Tracey DEL CASTILLO IMMUNIZ ADMNIN, 1 VAC, SNGL/COMBO On: 20-May-2007 Intent (68895)By: ROBERTO Woodard Comments: Lot #:[id number] date:65-60-03[place]al[place] given:.65mlRoute: IMSite given:left deltoid Given by: kwan. brought from pharmacy to be given MAMMOGRAM, SCREENING, BOTH On: 20-May-2007 Intent BREASTS (74497)By: Austyn RODRIGUEZ, Sheridan Bradshaw MD Radiology - Knee - RightBy: On: 19-May-2006 Intent JUSTION CORCORAN CNP Planned Medications INJECTION, TRIAMCINOLONE ACETONIDE, [...] The patient does have durable power of senior trial attorney and living will. The pa roberta has noticed lack of energy. Other providers contributing to the patient's care are pool lifeguard (Dr. Romero), disc ruler operator (Dr. Torres), gastrologist (Dr. Fatih) and other: (Dr. Rolon/Dr. Dina cisneros).Encounter Diagnosis: [...] months (mostly local. she will drive to [place] with .), put area rugs through house [...] The patient does have durable power of senior trial attorney and sachin ing will. The patient has noticed nothing from the geriatic depression scale. Other providers contributing to the patient's care are pool lifeguard and disc ruler operator.Encounter Diagnosis: Current nonsmoker (Renamed from Current non-smoker), [...] The patient does have durable power of senior trial attorney and living will. The patient has noticed nothing from the geriatic depression scale. Other providers contributing to the patient's care are pool lifeguard (Nick) and surgeon (omari). Note for Annual [...] The patient does have durable power of senior trial attorney and living will. The patient has noticed lack of energy. Other providers contributing to the patient's care are other: (will see rheum next week, check in [facility] Candi boyer ).[facility] [...] (will see rheum next week, check in [facility] boyer ). Encounter Diagnosis: Well [...] recently received care from an emergency room ([facility] Acute indigestion )., [ADDITIONAL REASON] Follow [...] running 110-120/70-80- she is working out at [employer]- she thinks had some bps highe End: [...] seen. Patient has been compliant (Sees Candi Cardsoo and doesnt take as much and she [...] running 110-120/70-80- she is working out at [employer]- she thinks had some bps higher because [...] has alot of sinus problems- came to [facility] and had bp taken - 169 over [...] or leg- her bps at home though 120-/79-48-ncxmatky alot of caffeine and sudafed Encounter Diagnosis: [...]
--- OUTSIDE RECORDS SUMMARY | 2018-09-24 15:02 | XMS RPT_ITS | Continuity of Care Document ---
:1940 Author Organization [facility] Address [address] [place] [address] Phone Care Team Providers Name Role Phone [...] right now. [facility] good and less crying. still [...] 04-17-18 [facility] 4-18 AMP colonoscopy - 02/2016 aonxw-12-89-17, BD 06-18-16, still needs Prevnar 13 and [...] Start : 16-Jan-2018 Active Comments:thirty Vitamin D3 83638 UNIT Oral Capsule 1 (one) Capsule Capsule [...] : 19-Sep-2008 End : 03-Apr-2009 Inactive Nystatin 118674 UNIT/GM External Powder 1 (one) Powder bid [...] End : 03-Apr-2009 Inactive ZOSTER VACCINE LIVE, 59365QHP/0.65ML (Subcutaneous Solution Reconstituted) 1 (one) For Solution [...] encounter (S09.90XA, 959.01) Comments: hit side of latter day yesterday. no signs of skul fracture or [...] Dates Details broke R wrist -- saw [facility] ER and [facility] Completed TAHBSO cervix there Completed Comments: dermoid cyst on ovary Total Knee Replacement - Right Completed Comments: 02/22/13 Date Value Details 23-Apr-2018 HIP, UNI W/ Pelvis 2-3 Views Result: Comments: See Note; NOTES: [facility] Imaging Services [address] [place] [address] HIP, UNI W/ Pelvis 2-3 Views MR#: [id number] Acct: [id number] Name: FEMI NAYLOR Rep #: [id number] : 1940 F 78 From: Jay Barrera MD PCP: Sheridan Zaman MD Status: REG CLI Study: HIP, UNI W/ Pelvis 2-3 Views Date of Exam: 04/23/18 Exam# [id number] Ordering Dr: Sheridan Zaman MD TERRANCE DY: [...] Service support , CC: Sheridan Zaman MD Manager Compensation: Signed 23-Apr-2018 L/S Spine Min 4 Views Result: Comments: See Note; NOTES: [facility] Imaging Services [address] [place] [address] L/S Spine Min 4 Views MR#: [id number] Acct: [id number] Name: FEMI NAYLOR Rep #: [id number] : 1940 F 78 From: Jay Barrera MD PCP: Sheridan Zaman MD Status: REG CLI Study: L/S Spine Min 4 Views Date of Exam: 04/23/18 Exam# [id number] Ordering Dr: Sheridan Zaman MD STUDY: X-RAY [...] Service support , CC: Sheridan Zaman MD Manager Compensation: Signed 13-Nov-2017 Cardiology Visit Report Result: Comments: See Note; NOTES: [facility] [address] [place] [address] OFFICE VISIT Date of Service: 11/13/17 MR#: [id number] Acct: [id number] Name: FEMI NAYLOR Rep #: [id number] : 1940 Provider: Nelson Romero MD Age/Sex: 77/F Location: [facility] Status: Signed HPI HPI Chief Complaint: Follow-up [...] brachial Intake Visit Reasons: 1 Y FU [facility]icians [facility] Sur[facility] Required: No A ccompanied by: None Is [...] to 59 (55% per echo 03/04/2016 at [facility]) [facility] Medical History (Reviewe d 11/13/17 @ 09:18 [...] Other Medications New: Follow Up 1 Year (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 Imaging Services [address] [place] [address] Knee 4 or More Views MR#: [id number] Acct: [id number] Name: FEMI NAYLOR Rep #: [id number] : 1940 F 77 From: Dayton Cordero MD PCP: Sheridan Zaman MD Status: REG CLI Study: Knee 4 or More Views Date of Exam: 07/11/17 Exam# [id number] Ordering Dr: Sheridan Zaman MD STUDY: X-RAY [...] [place] Cordero MD at 14:18 EST Tel [phone], Service support , CC: Sheridan Zaman MD Manager Compensation: Signed 11-Jul-2017 Knee 4 or More Views Result: Comments: See Note; NOTES: [facility] Imaging Services [address] [place] [address] Knee 4 or More Views MR#: [id number] Acct: [id number] Name: FEMI NAYLOR Rep #: [id number] : 1940 F 77 From: Dayton Cordero MD PCP: Sheridan Zaman MD Status: REG CLI Study: Knee 4 or More Views Date of Exam: 07/11/17 Exam# [id number] Ordering Dr: Sheridan Zaman MD STUDY: X-RAY [...] Siobhan Cordero MD at 15:07 EST Tel [phone], Service support , CC: Sheridan Zaman MD Manager Compensation: Signed 19-Jun-2017 SCREENING MAMM (CAD), BILAT Result: Comments: See Note; NOTES: [facility] Imaging Services [address] [place] [address] SCREENING MAMM (CAD), BILAT MR#: [id number] Acct: [id number] Name: FEMI NAYLOR Rep #: [id number] : 1940 F 77 From: Dayton Cordero MD PCP: Sheridan Zaman MD Status: REG CLI Study: SCREENING MAMM (CAD), BILAT Date of Exam: 06/19/17 Exam# [id number] Ordering Dr: Sheridan Zaman MD MAMMOGRAPHY - [...] delay biopsy of a clinically suspicious abnormality. [id number] Electronically Signed: [place] Cordero MD at 12:44 EST Tel [phone], Service support , CC: Sheridan Zaman MD Manager Compensation: Signed 31-Jan-2017 Inital Evaluation (1) - PT Result: Comments: See Note; NOTES: [facility] Physical Therapy [facility] [address] [place], [place] [address] Fax REHABILITATION SERVICES INITIAL EVALUATION MR#: [id number] Acct: [id number] Name: FEMI NAYLOR Rep #: [id number] : 1940 76 From: Lisa Fuchs PT Referring Dr.: Sheridan Zaman MD Status: REG RCR Insurance: [facility] Patient's Visit Information FEMI NAYLOR is [...] to be FAXED BACK to us at [phone] for Medicare purposes. Please let me know if there are questions or concerns regarding this plan of care. Physician Signature: Date: <Electronically signed by Lisa Fuchs PT> 01/31/17 0952 CC: Sheridan Zaman MD RICARDA Signed For Medicare only, by signing this I certify the plan o f care. Physicians Signature Date 15-Jul-2016 PT D/C Summary (1) Result: Comments: See Note; NOTES: [facility] [address] [place], [place] [address] Fax REHABILITATION SERVICES DAKOTA MORATAYA SUMMARY MR#: [id number] Acct: [id number] Name: FEMI NAYLOR Rep #: [id number] : 1940 76 From: Yusuf Holm DPT Referring Dr.: Sheridan Zaman MD Status: REG RCR [facility] - PT D/C Summary It [...] please feel free to call me at [phone]. Thank you for the referral of this patient. Sincerely, Yusuf Holm < Electronically signed by Yusuf Holm DPT> 07/15/16 1800 CC: Sheridan Zaman MD CLS Signed 18-Jun-2016 Bilat Scrn Digital AND CAD Result: Comments: See Note; NOTES: [facility] Imaging Services [address] [place] [address] Verdana 4d Bilat Scrn Digital AND CAD MR#: [id number] Acct: [id number] Name: FEMI NAYLOR Rep #: [id number] : 1940 F 76 From: Dayton Cordero MD PCP: Sheridan Zaman MD Status: REG CLI Study: Bilat Scrn Digital AND CAD Date of Exam: 06/18/16 Exam# [id number] Ordering Dr: Sheridan Zaman MD MAMMOGRAPHY - [...] delay biopsy of a clinically suspicious abnormality. [id number] Electronically Signed: [place] Cordero MD a t 14:09 EST Tel [phone], Service support [phone], CC: Sheridan Zaman MD Manager Compensation: Signed 18-Jun-2016 Dexa Bone Density Study (HP) Result: Comments: See Note; NOTES: [facility] Imaging Services [address] [place] [address] Verdana 4d Dexa Bone Density Study (HP) MR#: [id number] Acct: [id number] Name: ABIMAEL NAYLOR Rep #: [id number] : 1940 F 76 From: Dayton Cordero MD PCP: Sheridan Zaman MD Status: REG CLI Study: Dexa Bone Density Study () Date of Exam: 06/18/16 Exam# [id number] Ordering Dr: Sheridan Ledbetter MD STUDY: DUAL [...] [place] Cordero MD at 13:38 EST Tel [phone], Service support [phone], CC: Sheridan Zaman MD Manager Compensation: Signed 11-Jun-2016 Inital Evaluation (1) - PT Result: Comments: See Note; NOTES: [facility] Physical Therapy [address] [place] [address] Fax REHABILITATION SERVICES INITIAL EVALUATION MR#: [id number] Acct: [id number] Name: FEMI NAYLOR Rep #: [id number] : 1940 76 From: Yusuf Holm DPT Referring Dr.: Sheridan Zaman MD Status: REG RCR Insurance: [facility] Patient's Visit Information FEMI NAYLOR [...] to be FAXED BACK to us at [phone] for Medicare purposes. Please let me know if there are questions or concerns re garding this plan of care. Physician Signature: Date: <Electronically signed by Yusuf Holm DPT> 06/11/16 0746 CC: Lux Zaman MD CLS Signed For Medicare only, by signing this I certify the plan of care. Physicians Signature Date 13-Mar-2016 Carotid Duplex Ultrasound Result: Comments: See Note; NOTES: [facility] Cardiovascular Services [address] [place] [address] Carotid Duplex Ultrasound 03/04/16 1004 MR#: [id number] Acct: [id number] Name: FEMI LUEVANO LT Rep #: [id number] : 1940 76 From: Tom Medel MD [...] the left vertebral artery. Procedure Carotid Duplex [address]15. The exam was diagnostic. Exam performed in [...] Date Dictated: 03/04/16 1004 Date Transcribed: 03/13/16815 Manager Compensation: Signed 04-Mar-2016 Echocardiogram Complete Result: Comments: See Note; NOTES: [facility] Cardiovascular Services [address] [place] [address] Echo Complete 03/04/16 1034 MR#: [id number] Acct: [id number] Name: FEMI NAYLOR Rep #: [id number] : 1940 76 From: Jim Blankenship MD Attending Dr: Sheridan Zaman MD Status: REG CLI Ordering Dr: Sheridan Zaman MD Date: 03/04/16 Location: [facility] Sex: F C Admitted: Reason For Study: [...] Kanchan Jackson, RDJULIO, RVT 03/04/16 1623 Date [facility] Krzysztof RODRIGUEZ CC: Sheridan Zaman MD Date Dictated: 03/04/16 1034 Date Transcribed: 03/04/161622 Manager Compensation: Signed 20-Jun-2015 Vascular Test/LEAS/UEAS Result: Comments: See Note; NOTES: [facility] Cardiovascular Services [address] [place] [address] Verdana 4d Lower Ext Art Exam w/o Exercis MR#: [id number] Acct: [id number] Name: FEMI NAYLOR Rep #: [id number] : 1940 75 From: Dangelo Hogue MD Primary Care: Shreidan Zaman MD Status: REG CLI Ordering Dr: [...] bilaterally. Dangelo Hogue MD T: NTS JOB: [id number] 06/20/15 0736 <Electronically signed by Dangelo Hogue MD> Date Dangelo Hogue MD CC: Sheridan Zaman MD; Dangelo Hogue MD Date Dictated: 06/19/152229 Date Transcribed: 06/19/152229 Manager Compensation: Signed 16-Jun-2015 Bilat Scrn Digital AND CAD Result: Comments: See Note; NOTES: [facility] Imaging Services [address] [place] [address] Verdana 4d Bilat Scrn Digital AND CAD MR#: [id number] Acct: [id number] Name: FEMI NAYLOR Rep #: [id number] : 1940 F 75 From: Dayton Cordero MD PCP: Sheridan Zaman MD Status: REG CLI Study: Bilat Scrn Digital AND CAD Date of Exam: 06/16/15 Exam# [id number] Order ing Dr: Sheridan Zaman MD MAMMOGRAPHY [...] delay biopsy of a clinically suspicious abnormality. [id number] Electronically Signed: [place] Cordero MD at 9:49 EST Tel [phone], Service support [phone], CC: Sheridan Zaman MD Manager Compensation: Signed 07-Jun-2015 Initial Evaluation - OT Result: Comments: See Note; NOTES: [facility] Occupational Therapy [facility] [address] [place] [address]. [address] [place] [address] Fax REHABILITATIO N SERVICES INITIAL EVALUATION MR#: [id number] Acct: [id number] Name: FEMI NAYLOR Rep #: [id number] : 1940 75 From: Vielka Baez Referring [...] CJ. Vielka Baez OTR/L T: TREASURE JOB: [id number] <Electronically signed by Vielka Baez > 06/07/15 0846 CC: Signed For Medicare only, by signing this I certify the plan of care. Physicians Signature Date 07-Jun-2015 OT Discharge Summary Result: Comments: See Note; NOTES: [facility] Occupational Therapy [facility] [place], [place] [address] Fax REHABILITATIO N SERVICES DISCHARGE SUMMARY MR#: [id number] Acct: [id number] Name: FEMI NAYLOR Rep #: [id number] : 1940 75 From: Vielka Baez Referring [...] CJ. LUIS Staley /L T: TREASURE JOB: [id number] <Electronically signed by Vielka Baez > 06/07/15 0846 CC: Signed 09-May-2015 Abdomen/Pelvis WITH Contrast Result: Comments: See Note; NOTES: [facility] Imaging Services [address] [place] [address] Nasreen 4d Abdomen/Pelvis WITH Contrast MR#: [id number] Acct: [id number] Name : FEMI NAYLOR Rep #: [id number] : 1940 F 75 From: Dayton Cordero MD PCP: Sheridan Zaman MD Status: REG CLI Study: Abdomen/Pelvis WITH Contrast Date of Exam: 05/09/15 Exam# [id number] O rdering Dr: Sheridan Zaman MD STUDY: [...] Dayton Cordero MD at 12:40 EST Tel [phone], Service support [phone], CC: Sheridan Zaman MD Manager Compensation: Signed 22-Dec-2014 Ankle min 3 Views Result: Comments: See Note; NOTES: [facility] Imaging Services [address] [place] [address] Radiology Report MR#: [id number] Acct: [id number] Name: FEMI NAYLOR Rep #: [id number] : 1940 F 74 From: Sharri Boudreaux MD PCP: Sheridan Zaman MD Status: REG CLI Study: Ankle min 3 Views Date of Exam: 12/22/14 Exam# [id number] Ordering Dr: Camille Hernandez DO STUDY: X-RA [...] MD at 14:24 EDT , Service support [phone], 0074 RAD/Ankle min 3 Views IMPRESSION: Calcaneal spurs. Soft tissue swelling. No acute osseous abnormality. Electronically Signed: Sharri Boudreaux MD at 14:24 EDT , Se rvice support [phone], CC: Camille Hernandez DO; Sheridan Zaman MD Manager Compensation: Signed 22-Dec-2014 Foot min 3 Views Result: Comments: See Note; NOTES: [facility] Imaging Services [address] [place] [address] Radiology Report MR#: [id number] Acct: [id number] Name: FEMI NAYLOR Rep #: [id number] : 1940 F 74 From: Sharri Boudreaux MD PCP: Sheridan Zamna MD Status: REG CLI Study: Foot min 3 Views Date of Exam: 12/22/14 Exam# [id number] Ordering Dr: Camille Hernandez DO STUDY: X-RAY [...] at 14:25 EDT , S ervice support [phone], RAD/Foot min 3 Views IMPRESSION: Calcaneal spurs. Mild osteoarthritic change. Electronically Signed: Sharri Boudreaux MD at 14:25 EDT , Service support [phone], CC: Camille Hernandez DO; Sheridan Zaman MD Manager Compensation: Signed 08-Nov-2014 Knee 4 or More Views Result: Comments: See Note; NOTES: [facility] Imaging Services [address] [place] [address] Radiology Report MR#: [id number] Acct: [id number] Name: FEMI NAYLOR Rep #: [id number] : 1940 F 74 From: Sharri Boudreaux MD PCP: Sheridan Zaman MD Status: REG CLI Study: Knee 4 or More Views Date of Exam: 11/08/14 Exam# [id number] Ordering Dr: Camille Hernandez DO STUDY: X- [...] MD at 11:46 EDT , Service support [phone], CC: Camille Hernandez DO; Sheridan Zaman MD Manager Compensation: Signed 08-Jun-2014 Bilat Scrn Digital & CAD Result: Comments: See Note; NOTES: [facility] Imaging Services [address] [place] [address] Breast Imaging Report MR#: [id number] Acct: [id number] Name: FEMI NAYLOR Rep #: [id number] : 1940 F 74 From: [place] Cordero MD PCP: Sheridan Zaman MD Status: REG CLI Exam# [id number] Ordering Dr: Sheridan Zaman MD MAMMOGRAPHY - [...] [place] Cordero MD at 9:08 EST Tel [phone], Service sup port [phone], CC: Sheridan Zaman MD Manager Compensation: Signed 08-Jun-2014 Dexa Bone Density Study (HP) Result: Comments: See Note; NOTES: [facility] Imaging Services [address] [place] [address] Bone Density Report MR#: [id number] Acct: [id number] Name: FEMI NAYLOR Rep #: [id number] : 1940 F 74 From: Dayton Cordero MD PCP: Sheridan Zaman MD Status: REG CLI Study: Dexa Bone Density Study (HP) Date of Exam: 06/08/14 Exam# [id number] Ordering Dr: Sheridan Zaman STUDY: DUAL ENERGY [...] J Cordero MD at 11:28 EST Tel [phone], Service support [phone], CC: Sheridan Zaman MD Manager Compensation: Signed 13-Jan-2014 PT Discharge Summary Result: Comments: See Note; NOTES: [facility] Physical [facility] [place], [place] [address] Fax REHABILITATION SERVICES DISCHARGE SUMMARY MR#: [id number] Acct: [id number] Name: FEMI NAYLOR Rep #: [id number] : 1940 73 From: Alisha Pandey Referring [...] is appropriate that she be discharged from [facility] Physical Therapy and return to doctor's ca re. Alisha Pandey DPT T: NTS JOB: [id number] <Electronically signed by Alisha Pandey > 01/13/14 0737 CC: Signed 20-Dec-2013 L/S Spine Min 4 Views Result: Comments: See Note; NOTES: [facility] Imaging Services [address] [place] [address] Radiology Report MR#: [id number] Acct: [id number] Name: FEMI NAYLOR Rep #: [id number] : 1940 F 73 From: Dayton Cordero MD PCP: Sheridan Zaman MD Status: REG CLI Study: L/S Spine Min 4 Views Date of Exam: 12/20/13 Exam# [id number] Ordering Dr: Alec Mcwilliams Y: X-RAY - [...] [place] Cordero MD at 14:50 EDT Tel [phone], Service support [phone], Fax CC: Sheridan Zaman MD; Alec Mcwilliams Manager Compensation: Signed 03-Dec-2013 Foot min 3 Views Result: Comments: See Note; NOTES: [facility] Imaging Services [address] [place] [address] Radiology Report MR#: [id number] Acct: [id number] Name: FEMI NAYLOR Rep #: [id number] : 1940 F 73 From: Dayton Cordero MD PCP: Sheridan Zaman MD Status: REG CLI Study: Foot min 3 Views Date of Exam: 12/03/13 Exam# [id number] Ordering Dr: Alec Mcwilliams DO STUDY: X- [...] Dayton Cordero MD at 14:32 EDT Tel [phone], Service support [phone], RAD/Foot min 3 Views IMPRESSION: Soft tissue swelling. RSD should be ruled out. Electronically Signed: [place] Cordero MD at 14:32 EDT Tel [phone], Service support [phone], CC: Sheridan Zaman MD; Alec Mcwilliams Manager Compensation: Signed 11-Nov-2013 Inital Evaluation - PT Result: Comments: See Note; NOTES: [facility] [address] [place], [place] [address] Fax REHABILITATION SERVICES INITIAL EVALUATION MR#: [id number] Acct: [id number] Name: FEMI NAYLOR Rep #: [id number] : 1940 73 From: Alisha Pandey Referring Dr.: Alec Mcwilliams Status: REG RCR Insurance: [facility] R O Eval Date: DATE OF SERVICE: [...] HISTORY: Includes a right total knee replacement [place] and anxiety. MEDICATIONS: Ibuprofen. OBJECTIVE: POSTURE: Forward [...] with home exercise program and return to [place] Sneakers with decreased pain. Alisha Pandey DPT T: TREASURE JOB: [id number] &amp ;#60;Electronically signed by Alisha Pandey > 11/11/13 0947 CC: Signed For Medicare only, by signing this I certify the plan of care. Physicians Signature Date 07-Jun-2013 Bilat Scrn Digital & CAD Result: Comments: See Note; NOTES: [facility] Imaging Services [address] [facility] [place] [address] Breast Imaging Report MR#: [id number] Acct: [id number] Name: FEMI NAYLOR Rep #: [id number] : 1940 F 73 From: Dayton Cordero MD PCP: Sheridan Zaman MD Status: REG CLI Exam# [id number] Ordering Dr: Sheridan Zaman MD MAMMOGRAPHY - [...] M.D. at 16:31 EST , Service support [phone], CC: Sheridan Zaman MD Manager Compensation: Signed Immunization Name Dates Details Influenza, injectable, quadrivalent Comments: [facility] 03-20 Family History Unknown Family Member Name Dates Details Daughter 1 Comments: healthy Status: Active Father Comments: bladder cancer in 70's, mild CA later, alcoholism after first . Status: Active [...] smoker Vital Signs Date Test Result Details 57-Ehh-066817:04 Comments: had half ativan this am Temperature [...] kg/m2 Body Surface Area Calculated 2 m2 91-Ctw-542498:28 Weight 195 lb Height 67 in Body [...] 0.00 cm Results Date Description Value Details :30 Basic Metabolic Profile (BMP) Comments: [facility] [address] [place], [place], [id number] GAP 10 (Normal) Range: 5-15 CO2 25.0 mmol/L (Normal) Range: 21.0-32.0 CL 107 mmol/L (Normal) Range: 98-107 K 3.5 mmol/L (Normal) Range: 3.5-5.1 NA 142 mmol/L (Normal) Range: 136-145 CA 8.8 mg/dL (Normal) Range: 8.5-10.1 BUN/CRE 32.4 {RATIO} (Abnormal) Range: 10-20 Estimated CRCL 41.72 ml/min (Normal) EST GFR - AA 120 mL/min (Normal) Comments: GFR Calc EST GFR 99 mL/min (Normal) Comments: Non- GFR Calc CREAT,SERUM 0.62 mg/dL (Normal) Range: 0.55-1.02 Comments: The validity of the calculated GFR AND GFRAA in patients over70 years has not been determined. Clinical correlation isessential. BUN 20 mg/dL (Abnormal) Range: 7-18 GLU 133 mg/dL (Abnormal) Range: 74-106 Comments: Fasting Glucose result greater than or equal to 126 mg/dLsuggests DIABETES MELLITUS per A.D.A. criteria.Please note revised GLUCOSE reference range nglctxsod73/02/2018. 8-Ocz-222837:30 CBC W/Diff, Automated Comments: [facility] [address] [place], [place], [id number] Absolute Lymph 1.36 {X10_3/ul} (Normal) Range: 0.83-4.51 Absolute Neut 2.9 {X10_3/uL} (Normal) Range: 2.0-7.7 IM GRAN % 0.200 % (Normal) Range: 0.0-0.9 Comments: IG% - Immature Granulocytes (promyelocytes, myelocytes andmetamyelocytes) > 1% indicates that a LEFT SHIFT is Present. BASO% 0.4 % (Normal) Range: 0-1 EO% 2.5 % (Normal) Range: 0-5 MONO% 8.8 % (Normal) Range: 0-10 LY% 28.5 % (Normal) Range: 19-41 NEUT% 59.6 % (Normal) Range: 47-70 MPV 8.9 fL (Normal) Range: 6.2-12.0 PLT 222 K/mm3 (Normal) Range: 150-450 RDW SD 43.3 fL (Normal) Range: 35.1-43.9 RDW CV 13.9 % (Normal) Range: 11.6-14.6 MCHC 32.7 {g/gl} (Normal) Range: 32-36 MCH 28.0 pg (Normal) Range: 27.0-32.0 MCV 85.6 fL (Normal) Range: 81-99 HCT 39.1 % (Normal) Range: 37-47 HGB 12.8 g/dL (Normal) Range: 12.0-15.0 RBC 4.57 {M/mm3} (Normal) Range: 4.2-5.4 WBC 4.8 K/mm3 (Normal) Range: 4.4-11.0 :34 CRP, High Sensitivity Cardiac Comments: [facility] [address] [place] [address], [address] CRP HIGH SENS 8.72 mg/L (Abnormal) Comments: Low Relative Risk of CVD <1.0 mg/L Average Relative Risk of CVD 1.0 - 3.0 mg/L High Relative Risk of CVD >3.0 mg/L :34 Free T3 Comments: [facility] [address] [place] [address], [address] FREE T3 2.6 pg/mL (Normal) Range: 2.18-3.98 :34 T4 Total, Thyroxin Comments: [facility] [address] [place], [id number] T4 THYROXIN 11.7 ug/dL (Normal) Range: 4.8-13.9 :34 Thyroid Stim Hormone (TSH) Comments: [facility] [address] [place], [id number] TSH 2.91 {uIU/mL} (Normal) Range: 0.358-3.74 :34 Vitamin D,25 Hydroxy Comments: [facility] [address] [place], [id number] Vitamin D 25-OH 27.8 ng/mL (Abnormal) Range: 29.95-100.01 Comments: Vitamin D 25(OH) Status Range Deficiency <20 ng/mL (50nmol/L) Insuffciency 20 - 30 ng/mL (50 - 75 nmol/L) Sufficiency 30 - 100 ng/mL (75 - 250 nmol/L) Toxicity >100 ng/mL (>250 nmol/L) :17 MICROALBUMIN: CREATININE RATIO Comments: PATIENT WAS FASTINGPERFORMED BY: [employer] [place] [id number] ([id number]) AND (78440) Alb/Creat Ratio <6.5 {mg/g_creat} (Normal) Range: 0.0-30.0 Comments: Normal: 0.0 - 30.0 Albuminuria: 31.0 - 300.0 Clinical albuminuria: >300.0 Albumin, Urine <3.0 ug/mL (Normal) Creatinine, Urine 46.4 mg/dL (Normal) :17 URINALYSIS (89173) Comments: PATIENT WAS FASTINGPERFORMED BY: [facility] [id number] Microscopic Examination MICNIP (Normal) Comments: Microscopic not indicated and not performed. Nitrite, Urine Negative (Normal) Urobilinogen,Semi-Qn 0.2 mg/dL (Normal) Range: 0.2-1.0 Bilirubin Negative (Normal) Occult Blood Negative (Normal) Ketones Negative (Normal) Glucose Negative (Normal) Protein Negative (Normal) WBC Esterase Negative (Normal) Appearance Clear (Normal) Urine-Color Yellow (Normal) pH 7.0 (Normal) Range: 5.0-7.5 Specific Burns 1.015 (Normal) Range: 1.005-1.030 66-Iac-54852:17 Metabolic Panel, Comprehensive Comments: PATIENT WAS FASTINGPERFORMED BY: LabCoDeborah Heart and Lung CenterXqyqks2167 [facility] [id number] (75605) ALT (SGPT) 9 [iU]/L (Normal) Range: 0-32 [...] 8-27 Glucose 97 mg/dL (Normal) Range: 65-99 71-Lxs-85040:17 CBC WITH MANUAL DIFF (67117) Comments: PATIENT WAS FASTINGPERFORMED BY: [facility] Vdprdm9734 [facility] [id number] Immature Grans (Abs) 0.0 {x10E3/uL} (Normal) Range: [...] 3.77-5.28 WBC 4.2 {x10E3/uL} (Normal) Range: 3.4-10.8 51-Wmj-942823:10 HgA1C , Office (92386) HgA1C , Office 5.9 % (Normal) Range: 4.6 - 7.1 59-Mwh-315813:00 VANDANA CULTURE-OTHER (83274) Comments: PATIENT NOT FASTINGPERFORMED BY: LabCoDeborah Heart and Lung CenterFdjoxl2983 [facility] [id number] Information: SRC:TH Result 1 RRF (Normal) Comments: Routine respiratory yamila Upper Respiratory Culture Final report (Normal) 54-Rxo-10128:36 Rapid Strep Test, Office (36659) Rapid Strep Test, Office Negative (Normal) 47-Ebq-86851:25 HgA1C , Office (48033) HgA1C , Office 5.8 % (Normal) Range: 4.6 - 7.1 :39 CBC with auto diff Comments: PATIENT WAS FASTINGPERFORMED BY: Bazari[address] [id number] BY: LabCoDeborah Heart and Lung CenterAvsqts0566 [facility] [id number] (54483) Immature Grans (Abs) 0.0 {x10E3/uL} (Normal) Range: [...] 3.77-5.28 WBC 4.1 {x10E3/uL} (Normal) Range: 3.4-10.8 84-Ldc-84765:39 HGB A1C (03134) Comments: PATIENT WAS FASTINGPERFORMED BY: Teal[employer] [address] [id number] BY: BazariDeborah Heart and Lung CenterErkvwf1135 [facility] [id number] Hemoglobin A1c 5.7 % (Abnormal) Range: 4.8-5.6 Comments: . Pre-diabetes: 5.7 - 6.4 Diabetes: >6.4 Glycemic control for adults with diabetes: <7.0 :39 CALCIFIDIOL (07062) VIT D Comments: PATIENT WAS FASTINGPERFORMED BY: Bazari[address] [id number] BY: BazariDeborah Heart and Lung CenterGbnhmw6357 [facility] [id number] Vitamin D, 25-Hydroxy 30.8 ng/mL (Normal) Range: 30.0-100.0 Comments: Vitamin D deficiency has been defined by the [place] ofMedicine and an Endocrine Society practice guideline as alevel of serum 25-OH vitamin D less than 20 ng/mL (1,2).The Endocrine Society went on to further define vitamin Dinsufficiency as a level between 21 and 29 ng/mL (2).1. IOM ([place] of Medicine). 2010. Dietary reference intakes for calcium and D. [place]: The National Academies Press.2. Carlota MF, Ursula [place], Taryn RECINOS, et al. Evaluation, treatment, and prevention of vitamin D deficiency: an Endocrine Society clinical practice guideline. JCEM. 2010; 96(7):1911-30. 62-Awp-45574:39 Metabolic Panel, Comments: PATIENT WAS FASTINGPERFORMED BY: Bazari[address] [id number] BY: BazariDeborah Heart and Lung CenterGozqut4278 [facility] [id number] Comprehensive (05072) ALT (SGPT) 10 [iU]/L (Normal) Range: 0-32 [...] 8-27 Glucose 98 mg/dL (Normal) Range: 65-99 14-Qbr-78959:39 LIPOPROTEIN, BLD, BY NMR Comments: PATIENT WAS FASTINGPERFORMED BY: BN [facility] [address] [id number] BY: CB [facility] Anzskg4094 [facility] [id number] (66522) LP-IR Score 31 (Normal) Comments: INSULIN RESISTANCE MARKER <--Insulin Sensitive Insulin Resistant--> Percentile in Reference PopulationInsulin Resistance ScoreLP-IR Score Low 25th 50th 75th High <27 27 45 63 >63LP-IR Score is inaccurate if patient is non-fasting. .The LP-IR score is a laboratory developed i banner that has beenassociated with insulin resistance and [...] were developed and their performance characteristicsdetermined by [employer]. These assays have not been cleared by [...] 1600 - 2000 Very High > 2000 54-Wzh-69138:39 C-REACT PROT HIGH Comments: PATIENT WAS FASTINGPERFORMED BY: BN [facility] [address] [id number] BY: CB [facility] Ydazzt8618 [facility] [id number]; can review on 10/16 SENS(hsCRP) (80516) C-Reactive Protein, Cardiac 5.80 mg/L (Abnormal) Range: 0.00-3.00 Comments: Relative Risk for Future Cardiovascular Event Low <1.00 Average 1.00 - 3.00 High >3.00 07-Ytc-720575:43 C-REACT PROT HIGH SENS(hsCRP) Comments: PATIENT NOT FASTINGPERFORMED BY: Bazari Burjyc2880 [place] [id number] (33178) C-Reactive Protein, Cardiac 26.86 mg/L (Abnormal) Range: 0.00-3.00 Comments: Results confirmed ondilution. Relative Risk for Future Cardiovascular Event Low <1.00 Average 1.00 - 3.00 High >3.00 :43 CALCIFIDIOL (72573) VIT D 25 Comments: PATIENT NOT FASTINGPERFORMED BY: Bazari Qpfmwm3246 [facility] [id number] Vitamin D, 25-Hydroxy 29.8 ng/mL (Abnormal) Range: 30.0-100.0 Comments: Vitamin D deficiency has been defined by the [place] of[facility] and an Endocrine Society practice guideline as alevel of serum 25-OH vitamin D less than 20 ng/mL (1,2).The Endocrine Society went on to further define vitamin Dinsufficiency as a level between 21 and 29 ng/mL (2).1. IOM ([place] of Medicine). 2010. Dietary reference intakes for calcium and D. [place]: The National Academies Press.2. Carlota MF, Ursula NC, Taryn RECINOS, et al. Evaluation, treatment, and prevention of vitamin D deficiency: an Endocrine Society clinical practice guideline. JCEM. 2010; 96(7):1911-30. :37 MICROALBUMIN: CREATININE RATIO Comments: PATIENT NOT FASTINGPERFORMED BY: Bazari Qmpzjq3554 [facility] [place] [id number] (18441) AND (33915) Microalb/Creat Ratio 6.0 {mg/g_creat} (Normal) Range: 0.0-30.0 Microalbumin, Urine 9.7 ug/mL (Normal) Creatinine, Urine 160.5 mg/dL (Normal) :37 URINALYSIS (72144) Comments: PATIENT NOT FASTINGPERFORMED BY: BazariDeborah Heart and Lung CenterHlmztq0034 [facility] [id number] Microscopic Examination MICNIP (Normal) Comments: Microscopic not indicated and not performed. Nitrite, Urine Negative (Normal) Urobilinogen,Semi-Qn 0.2 mg/dL (Normal) Range: 0.2-1.0 Bilirubin Negative (Normal) Occult Blood Negative (Normal) Ketones Trace (Abnormal) Glucose Negative (Normal) Protein Negative (Normal) WBC Esterase Negative (Normal) Appearance Clear (Normal) Urine-Color Yellow (Normal) pH 6.0 (Normal) Range: 5.0-7.5 Specific Burns 1.021 (Normal) Range: 1.005-1.030 :37 CBC WITH MANUAL DIFF Comments: PATIENT NOT FASTINGPERFORMED BY: Bazari Zwceqa2796 [facility] [id number] Information: NURSE DRAW (08866) Immature Grans (Abs) 0.0 {x10E3/uL} (Normal) Range: [...] 3.77-5.28 WBC 4.9 {x10E3/uL} (Normal) Range: 3.4-10.8 37-Ygh-393630:37 Metabolic Panel, Comprehensive Comments: PATIENT NOT FASTINGPERFORMED BY: LabCoDeborah Heart and Lung CenterAwpgbj0045 [facility] [id number] (10697) ALT (SGPT) 12 [iU]/L (Normal) Range: 0-32 [...] Glucose, Serum 110 mg/dL (Abnormal) Range: 65-99 41-Gqq-609545:44 CALCIFIDIOL (35680) VIT D 25 Comments: PATIENT NOT FASTINGPERFORMED BY: [facility] Zkautj2133 [facility] [id number] Vitamin D, 25-Hydroxy 29.8 ng/mL (Abnormal) Range: 30.0-100.0 Comments: Vitamin D deficiency has been defined by the [place] ofMedicine and an Endocrine Society practice guideline as alevel of serum 25-OH vitamin D less than 20 ng/mL (1,2).The Endocrine Society went on to further define vitamin Dinsufficiency as a level between 21 and 29 ng/mL (2).1. IOM ([place] of Medicine). 2010. Dietary reference intakes for calcium and D. [place]: The National Academies Press.2. Carlota MF, Ursula BACON, Taryn RECINOS, et al. Evaluation, treatment, and prevention of vitamin D deficiency: an Endocrine Society clinical practice guideline. JCEM. 2010; 96(7):1911-30. 42-Dlr-537595:44 Metabolic Panel, Comprehensive Comments: PATIENT NOT FASTINGPERFORMED BY: [facility]6370 [facility] [id number] (76615) ALT (SGPT) 10 [iU]/L (Normal) Range: 0-32 [...] Glucose, Serum 123 mg/dL (Abnormal) Range: 65-99 75-Oqc-673111:57 HgA1C , Office (04067) HgA1C , Office 5.7 % (Normal) Range: 4.6 - 7.1 90-Xvi-823817:00 Methymalonic Acid, Serum Comments: PATIENT NOT FASTINGPERFORMED BY: EVault70 [address] [employer] [place] [id number] BY: Vator.TV[address] [id number] (56131) Methylmalonic Acid, Serum 157 nmol/L (Normal) Range: 0-378 78-Fax-775266:00 Vitamin B-12 Comments: PATIENT NOT FASTINGPERFORMED BY: Al[employer] Learningrp Gvjayw5064 [place] [employer] [place] [id number] BY: Bazari[address] [id number] (cyanocobalamin) (33972) Vitamin B12 778 pg/mL (Normal) Range: 211-946 12-Fzv-063655:00 CALCIFIDIOL (81974) VIT D Comments: PATIENT NOT FASTINGPERFORMED BY: InhibOx [facility] Zutjkq0889 [facility] HospitalDublin [place] [id number] BY: Bazari[address] [id number]; fu 2-28 25 Vitamin D, 25-Hydroxy 27.7 ng/mL (Abnormal) Range: 30.0-100.0 Comments: Vitamin D deficiency has been defined by the [place] of[place]icine and an Endocrine Society practice guideline as alevel of serum 25-OH vitamin D less than 20 ng/mL (1,2).The Endocrine Society went on to further define vitamin Dinsufficiency as a level between 21 and 29 ng/mL (2).1. IOM ([place] [employer]). 2010. Dietary reference intakes for calcium and D. [place]: The National Academies Press.2. Carlota MF, Ursula BACON, Taryn RECINOS, et al. Evaluation, treatment, and prevention of vitamin D deficiency: an Endocrine Society clinical practice guideline. JCEM. 2010; 96(7):1911-30. :48 Sed Rate Erythrocyte Comments: PATIENT NOT FASTINGPERFORMED BY: LabCoDeborah Heart and Lung CenterVtgitp1191 [facility] [id number] Information: [id number] (22462) Sedimentation Rate-Westergren 13 mm/h (Normal) Range: 0-40 :48 C-Reactive Protein (15770) Comments: PATIENT NOT FASTINGPERFORMED BY: LabCoDeborah Heart and Lung CenterNmuxmc3022 [facility] [id number] C-Reactive Protein, Quant 20.2 mg/L (Abnormal) Range: 0.0-4.9 :43 CBC W/Diff, Automated Comments: [facility] Dqdefbcmyd6308 [address] [place], [place], [id number] Absolute Lymph 0.82 {X10_3/ul} (Abnormal) Range: 0.83-4.51 [...] 4.2-5.4 WBC 4.5 K/mm3 (Normal) Range: 4.4-11.0 6-Lyu-506986:43 Comprehensive Metabolic Profil Comments: [facility] [address]vtbca[address] [place], [place], [address] ; [address] GAP 7 (Normal) Range: [...] 7-18 GLU 96 mg/dL (Normal) Range: 70-110 9-Zgf-337140:43 T4 Free Direct Comments: [facility] Fotvjhgkbq[address] [place], [place], [address] T4 FREE DIRECT 1.24 ng/dL (Normal) Range: 0.76-1.46 3-Ytz-337317:43 Thyroid Stim Hormone (TSH) Comments: [facility] [address] [place], [place], [address] TSH 1.97 {uIU/mL} (Normal) Range: 0.358-3.74 36-Oph-95673:33 MICROALBUMIN: CREATININE Comments: PATIENT NOT FASTINGPERFORMED BY: [facility] Ajcbcy1602 [facility] [id number] Information: [id number] RATIO (51226) AND (16348) Microalb/Creat Ratio 4.3 {mg/g_creat} (Normal) Range: 0.0-30.0 Microalbumin, Urine 5.2 ug/mL (Normal) Range: 0.0-17.0 Creatinine, Urine 120.2 mg/dL (Normal) Range: 15.0-278.0 81-Soe-987365:30 CBCD ALC 1.09 {X10_3/ul} (Normal) Range: 0.83-4.51 [...] Evidenceof monoclonal protein is not apparent.Performed at: [address] [id number] Director: Tutu Cobian PhD, Phone: [phone] tPROELIN Comment (Normal) Comments: Protein electrophoresis scan will follow via computer,mail, or oxidized finish plater delivery. tPROELAG 1.3 (Normal) Range: 0.7-2.0 tPROELGL 2.7 g/dL (Normal) Range: 2.0-4.5 tPROELMS (Normal) Comments: NOT OBSERVED G/DL tPROELGA 0.9 g/dL (Normal) Range: 0.5-1.6 tPROELBE 0.9 g/dL (Normal) Range: 0.6-1.3 tPROELAL2 0.6 g/dL (Normal) Range: 0.4-1.2 tPROELAL1 0.2 g/dL (Normal) Range: 0.1-0.4 tPROELALB 3.6 g/dL (Normal) Range: 3.2-5.6 $tPROELTP 6.3 g/dL (Normal) Range: 6.0-8.5 :30 URIC 3.1 mg/dL (Normal) Range: 2.6-6.0 87-Iwj-343761:05 Microscopic Examination Comments: PATIENT NOT FASTINGPERFORMED BY: Bazari[address] [id number] BY: [address] [id number] Bacteria Few (Normal) Mucus Threads Present (Normal) Crystal Type Calcium Oxalate (Normal) Crystals Present (Abnormal) Epithelial Cells (non renal) 0-10 {/hpf} (Normal) Range: 0 - 10 RBC 0-2 {/hpf} (Normal) Range: 0 - 2 WBC 0-5 {/hpf} (Normal) Range: 0 - 5 :05 URINALYSIS, W/ MICRO Comments: PATIENT NOT FASTINGPERFORMED BY: Bazari[address] [id number] BY: [place] [id number] (44452) Microscopic Examination See below: (Normal) Comments: Microscopic was indicated and was performed. Microscopic Examination MICRON (Normal) Comments: Microscopic follows if indicated. Nitrite, Urine Negative (Normal) Urobilinogen,Semi-Qn 0.2 mg/dL (Normal) Range: 0.0-1.9 Bilirubin Negative (Normal) Occult Blood Negative (Normal) Ketones Negative (Normal) Glucose Negative (Normal) Protein Negative (Normal) WBC Esterase Negative (Normal) Appearance Clear (Normal) Urine-Color Yellow (Normal) pH 6.0 (Normal) Range: 5.0-7.5 Specific Burns 1.022 (Normal) Range: 1.005-1.030 07-Lgz-432607:05 CCP ANTIBODY (72945) Comments: PATIENT NOT FASTINGPERFORMED BY: Bazari[address] [id number] BY: [address] [id number] CCP Antibodies IgG/IgA 23 {units} (Abnormal) Range: 0-19 Comments: Negative <20 Weak positive 20 - 39 Moderate positive 40 - 59 Strong positive >59 65-Mpo-909924:05 SED RATE ERYTHROCYTE Comments: PATIENT NOT FASTINGPERFORMED BY: LabCo Jvwdml6707 [facility] [id number] BY: [address] [id number] (89984) Sedimentation Rate-Westergren 13 mm/h (Normal) Range: 0-40 68-Kwj-260787:05 C-REACTIVE PROTEIN Comments: PATIENT NOT FASTINGPERFORMED BY: [facility] Upwmsg1523 [facility] [id number] BY: [address] [id number] (65791) C-Reactive Protein, Quant 4.5 mg/L (Normal) Range: 0.0-4.9 :05 TSH (53392) Comments: PATIENT NOT FASTINGPERFORMED BY: [facility] Xzmgns4480 [facility] [id number] BY: [address] [id number] TSH 2.750 {uIU/mL} (Normal) Range: 0.450-4.500 05-Cwr-083453:05 RHEUMATOID FACTOR-QUANT Comments: PATIENT NOT FASTINGPERFORMED BY: [facility] Qdbfnl5838 [facility] [id number] BY: [address] [id number] (18275) RA Latex Turbid. 7.4 {IU/mL} (Normal) Range: 0.0-13.9 80-Odu-472194:05 JAELYN (ANTINUCLEAR ANTIBODY) Comments: PATIENT NOT FASTINGPERFORMED BY: [facility] Qpfbdx6181 [facility] [place] [id number] BY: [address] [id number] (66509) JAELYN Direct Negative (Normal) 59-Ble-655660:05 METABOLIC PANEL, Comments: PATIENT NOT FASTINGPERFORMED BY: [facility] Byxgrb1946 [place] [id number] BY: [facility] [address] [id number] Inf ormation: [id number] [facility] (63325) ALT (SGPT) 12 [iU]/L (Normal) Range: 0-32 [...] Glucose, Serum 96 mg/dL (Normal) Range: 65-99 55-Efo-31762:45 Urinalysis, Office (80729) UA - BILIRUBIN Negative (Normal) UA - BLOOD Negative (Normal) UA - GLUCOSE Negative (Normal) UA - KETONES Negative mg/dL (Normal) UA - LEUKOCYTE ESTERASE Negative (Normal) UA - NITRITE Negative (Normal) UA - PH 6.0 (Normal) UA - PROTEIN Negative mg/dL (Normal) UA - SPECIFIC GRAVITY 1.020 (Normal) URINE UROBILINGN KATE TIMED Normal mg/dL (Normal) :37 CERV SPINE,MIN 4 VIEWS Radiology Report See [...] Campbell D.O.May 18, 2012 at 11:19:02 PM [id number] Signed IF/IF If you are the referring physician and would like to consult with theradiologist who provided this interpretation, please contact Sharad Campbell D.O.at [phone]. If this radiologist is unavailable, you will be directedto another radiologist to assist. If you are a patient with a question regardin g this report, pleasecontactyour referring physician directly. Professional Interpretation Provided By: [employer], Phone , These documents contain legally protected [...] on 05/18/12 1406 by Adrian LUNA,IainTranscribed on 05/18/123 by ITS IMPORTSign by Sharad Campbell DO on 05/18/122323 Sign by: Sharad Campbell DO :37 SHOULDER,MIN 2 VIEWS Radiology Report See Note [...] Campbell D.O.May 18, 2012 at 11:01:01 PM [id number] Signed IF/IF If you are the referring physician and would like to cons ult with theradiologist who provided this interpretation, please contact Sharad Campbell D.O.at [phone]. If this radiologist is unavailable, you will be directedto another radiologist to assist. If you ar e a patient with a question regarding this report, pleasecontactyour referring physician directly. Professional Interpretation Provided By: [employer], Phone , These docum ents contain legally [...] destructionofthese documents. Dictated on 05/18/12 1402 by Alfonso Campbell DOranscribed on 05/18/122304 by ITS IMPORTSign by Sharad Campbell DO on 05/18/122305 Sign by: Sharad Campbell DO 98-Tmp-25552:15 METABOLIC PANEL, COMPREHENSIVE Comments: PATIENT WAS FASTINGPERFORMED BY: [facility]6370 [facility] [id number] (86769) ALT (SGPT) 17 [iU]/L (Normal) Range: 0-40 [...] mg/dL (Abnormal) Range: 65-99 :15 LIPID PANEL (12175) Comments: PATIENT WAS FASTINGPERFORMED BY: [facility] Hjtedd7376 [facility] [id number] LDL/HDL Ratio 1.5 {ratio_units} (Normal) Range: 0.0-3.2 [...] MANUAL DIFF Comments: PATIENT WAS FASTINGPERFORMED BY: LabCoDeborah Heart and Lung CenterMqhjzy1478 [facility] [id number] Information: [id number] (13770) Immature Grans (Abs) 0.0 {x10E3/uL} (Normal) Range: [...] 3.77-5.28 WBC 3.8 {x10E3/uL} (Abnormal) Range: 4.0-10.5 45-Lql-430183:03 Microscopic Examination Comments: PATIENT NOT FASTINGPERFORMED BY: LabCoDeborah Heart and Lung CenterFnzeei1848 [facility] [id number] Bacteria None seen (Normal) Mucus Threads Present (Normal) Epithelial Cells (non renal) 0-10 {/hpf} (Normal) Range: 0 - 10 RBC None seen {/hpf} (Normal) Range: 0 - 3 WBC None seen {/hpf} (Normal) Range: 0 - 5 50-Jra-123157:03 URINALYSIS, W/ MICRO (72815) Comments: PATIENT NOT FASTINGPERFORMED BY: BazariDeborah Heart and Lung CenterNoduye2373 [facility] [id number] Microscopic Examination See below: (Normal) Microscopic Examination MICRON (Normal) Comments: Microscopic follows if indicated. Nitrite, Urine Negative (Normal) Urobilinogen,Semi-Qn 0.2 mg/dL (Normal) Range: 0.0-1.9 Bilirubin Negative (Normal) Occult Blood Negative (Normal) Ketones Negative (Normal) Glucose Negative (Normal) Protein Negative (Normal) WBC Esterase Negative (Normal) Appearance Clear (Normal) Urine-Color Yellow (Normal) pH 7.5 (Normal) Range: 5.0-7.5 Specific Burns 1.014 (Normal) Range: 1.005-1.030 24-Jtr-481096:03 TSH (09819) Comments: PATIENT NOT FASTINGPERFORMED BY: BazariDeborah Heart and Lung CenterTlwgcp7847 [facility] [id number] TSH 2.440 {uIU/mL} (Normal) Range: 0.450-4.500 73-Far-360465:03 CBC WITH MANUAL DIFF Comments: PATIENT NOT FASTINGPERFORMED BY: BazariDeborah Heart and Lung CenterPhryaz6589 [facility] [id number] Information: [id number] (87163) Immature Grans (Abs) 0.0 {x10E3/uL} (Normal) Range: [...] 3.77-5.28 WBC 5.1 {x10E3/uL} (Normal) Range: 4.0-10.5 05-Alc-789256:03 METABOLIC PANEL, COMPREHENSIVE Comments: PATIENT NOT FASTINGPERFORMED BY: LabCoDeborah Heart and Lung CenterRoswrt1139 [facility] [id number] (82283) ALT (SGPT) 16 [iU]/L (Normal) Range: 0-40 [...] Glucose, Serum 88 mg/dL (Normal) Range: 65-99 5-Qxa-932162:19 METANEPHRINES - URINE (75236) Comments: PATIENT NOT FASTINGPERFORMED BY: Vator.TV[address] [id number] Metanephrine, U,24hr 118 {ug/24_hr} (Normal) Range: 45-290 Comments: (Hypertensive) >17 years 11 months: 35 - 460 . Please note reference interval change Metanephrine, Ur 94 ug/L (Normal) Normetanephr.,U,24h 248 {ug/24_hr} (Normal) Range: 82-500 Comments: (Hypertensive) >17 years 11 months: 110 - 1050 Normetanephrine, Ur 198 ug/L (Normal) 5-Pna-394815:19 URINE VMA (24325) Comments: PATIENT NOT FASTINGPERFORMED BY: Vator.TV[address] [id number] VMA, Urine, 24hr 3.1 {mg/24_hr} (Normal) Range: 0.0-7.5 VMA, Urine 2.5 mg/L (Normal) 2-Gzw-627130:19 CATECHOLAMINES TOTAL, URINE Comments: PATIENT NOT FASTINGPERFORMED BY: Vator.TV[address] [id number] Information: SRC:LANDEN [id number] START 2@730AM FIN BETH; f/u 01/22/12 (69005) Dopamine, Ur, 24hr 229 {ug/24_hr} (Normal) Range: 0-510 Dopamine, Urine 183 ug/L (Normal) Norepinephrine,U,24h 53 {ug/24_hr} (Normal) Range: 0-135 Norepinephrine, Ur 42 ug/L (Normal) Epinephrine, U, 24hr 5 {ug/24_hr} (Normal) Range: 0-20 Epinephrine, Urine 4 ug/L (Normal) :24 CHEST WITHOUT CONTRAST Radiology Report See Note [...] radiologist regarding this report, please call our [id number] line @ [phone] Dictated on 10/04/11 0959 by Danya Campbell [...] radiologist regarding this report, please call our 74C5qtsqbhg line @ Dictated on 10/04/11 0940 by Vikram Cordero MDranscribed on 10/04/11 1025 by ITS IMPORTSign by Dayton Cordero MD on 10/04/11 1026 Sign by: Dayton Cordero MD 02-Ugh-38523:49 ABDOMEN/PELVIS WITH CONTRAST Radiology Report See Note [...] st regarding this report, please call our [id number] line @ Dictated on 08/02/11 0813 by Vikram Cordero MDranscribed on 08/02/11 1519 by ITS IMPORTSign by Dayton Cordero MD on 08/02/11 1520 Sign by: Dayton Cordero MD :42 SERUM CRE & GFR CREAT,SERUM 0.6 [...] Microscopic Examination Comments: PATIENT WAS FASTINGPERFORMED BY: Bazari Hvnkus8599 [facility] [id number] Bacteria None seen (Normal) Mucus Threads Present (Normal) Epithelial Cells (non renal) 0-10 {/hpf} (Normal) Range: 0 - 10 RBC None seen {/hpf} (Normal) Range: 0 - 3 WBC 0-5 {/hpf} (Normal) Range: 0 - 5 :49 TSH (37866) Comments: PATIENT WAS FASTINGPERFORMED BY: [employer] Olquxo2611 [facility] [id number] TSH 3.680 {uIU/mL} (Normal) Range: 0.450-4.500 :49 URINALYSIS, W/ MICRO (92858) Comments: PATIENT WAS FASTINGPERFORMED BY: [employer] Qpndes7940 [facility] [id number] Microscopic Examination See below: (Normal) Microscopic Examination MICRON (Normal) Comments: Microscopic follows if indicated. Nitrite, Urine Negative (Normal) Urobilinogen,Semi-Qn 0.2 mg/dL (Normal) Range: 0.0-1.9 Bilirubin Negative (Normal) Occult Blood Negative (Normal) Ketones Negative (Normal) Glucose Negative (Normal) Protein Negative (Normal) WBC Esterase Negative (Normal) Appearance Clear (Normal) Urine-Color Yellow (Normal) pH 6.5 (Normal) Range: 5.0-7.5 Specific Burns 1.016 (Normal) Range: 1.005-1.030 :49 METABOLIC PANEL, COMPREHENSIVE Comments: PATIENT WAS FASTINGPERFORMED BY: [employer] Yfglwt0915 [facility] [id number] (27219) ALT (SGPT) 15 [iU]/L (Normal) Range: 0-40 [...] mg/dL (Normal) Range: 65-99 :49 LIPID PANEL (45896) Comments: PATIENT WAS FASTINGPERFORMED BY: [employer] Cnmbqc3866 [facility] [id number] LDL/HDL Ratio 1.5 {ratio_units} (Normal) Range: 0.0-3.2 [...] MANUAL DIFF Comments: PATIENT WAS FASTINGPERFORMED BY: A V.E.T.S.c.a.r.e.6370 [facility] [id number] Information: [id number] (64215) Immature Grans (Abs) 0.0 {x10E3/uL} (Normal) Range: [...] 3.80-5.10 WBC 4.5 {x10E3/uL} (Normal) Range: 4.0-10.5 93-Srk-275226:02 [facility] DIGITAL & CAD Radiology Report See Note [...] on 08/28/10 1202 Sign by: ANNIE PETIT 0-Cqf-631607:52 Aerobic Bacterial Culture Comments: PERFORMED BY: CB [facility] Qsixtv9721 [facility] [id number] Information: SRC:FI LEFT FINGER Result 1 NG36 (Normal) Comments: No growth in 36 - 48 hours. Aerobic Bacterial Culture Final report (Normal) 65-Piw-412678:23 Thin prep Pap (69083) Comments: Source.............VaginalNo. of containers..01 CYTYC Thin Prep VialPATIENT NOT FASTINGPERFORMED BY: [facility] [address] [id number] Information: [id number] Note: PAPSMR (Normal) Comments: The Pap smear [...] hysterectomy.V72.31 ; Routine gynecological exami Eric Gomez Miner Assistant (ASCP) :52 CBCD,SMEAR DIFF PLT EST SeeNote [...] Report See Note (Normal) Comments: Exam Number: [id number] DIGITAL BILATERAL MAMMOGRAM Digital oblique and craniocaudal [...] wereals o examined with computer-aided detection software ([employer] Reported By: DAYTON CORDERO :33 Aldolase 2.5 U/L (Normal) Comments: PERFORMED BY: Bazari Wvzaiz6831 [facility] [id number] Range: 1.2-7.6 :33 Antinuclear Antibodies Direct Comments: PERFORMED BY: Bazari Sftjxb7158 [facility] [id number] JAELYN Direct Negative (Normal) :3 C-Reactive Protein, 2.4 mg/L (Normal) Comments: PERFORMED BY: Bazari [employer] [facility] [id number] 3 Quant Range: 0.0-4.9 :33 CBC With Differential/Platelet Comments: PERFORMED BY: BazariDeborah Heart and Lung CenterUulwii1398 [facility] [id number] Baso (Absolute) 0.0 {x10E3/uL} (Normal) Range: 0.0-0.2 [...] Comp. Metabolic Panel (14) Comments: PERFORMED BY: [facility]Co[facility]or[facility] Lung CenterGjijtr1728 [facility] [id number] A/G Ratio 1.7 (Normal) Range: 1.1-2.5 Albumin, [...] Creatine 77 U/L (Normal) Comments: PERFORMED BY: Bazari Wpbqqv1036 [facility] [id number] 9:33 Kinase,Total,Serum Range: 24-173 03-Apr-2009 Sedimentation 8 mm/h (Normal) Comments: PERFORMED BY: Bazari Tgfqsf7534 [facility] [id number] 9:33 Rate-Westergren Range: 0-30 03-Apr-2009 TSH 3.500 {uIU/mL} Comments: PERFORMED BY: [employer] Communications[employer]6[address] [place] [id number] 9:33 (Normal) Range: 0.450-4.500 06-Sep-20088:47 DEXA BONE DENSITY STUDY () Radiology Report See Note (Normal) Comments: Exam Number: [id number] BONE DENSITOMETRY HISTORYPostmenopausal. TECHNIQUE Bone densitometry of the lumbar spine and left hip was performed. Thebest criteria for evaluation of osteoporosis is the T- value, whichrepresents the comparison of the patient's bone mass to an expectedpeak bone mass. For most patients, the mean T-value of L1 through L4is used to evaluate the lumbar spine. Based on the [facility] WorldHealth Organization classifications, the hip is evaluated [...] within normallimits. Reported By: ANNIE PETIT M.D. 77-Ffc-938200:42 Thin prep Pap (83595) Comments: LMP / Prev Treat...NOJ=[id number];HystNo. of containers..01 CYTYC Thin Prep VialPATIENT NOT FASTINGClinical Information: ADD [id number] PERFORMED BY: [facility] [address] [id number] . . (Normal) DIAGNOSIS: SPRCS (Normal) Comments: NEGATIVE FOR INTRAEPITHELIAL LESION AND MALIGNANCY.Satisfactory for evaluation. No endocervical cells are present. This isconsistent with a history of hysterectomy.V72.31 ; Routine gynecological exami Desiree Bartholomew Miner Assistant (ASCP) Note: PAPSMR (Normal) Comments: The Pap [...] resulttherefore, no HPV testing was performed. . 09-Ife-293403:43 CBCD,SMEAR DIFF BAND 1 % (Normal) Range: [...] 47-70 WBC 3.7 K/mm3 (Abnormal) Range: 4.4-11.0 41-Dku-97781:00 BILAT SCRN DIGITAL & CAD Radiology Report See Note (Normal) Comments: Exam Number: [id number] BILATERAL SCREENING DIGITAL MAMMOGRAM CLINICAL INFORMATIONScreening. Bilateral [...] mammogramswere also examine d with computer-aided detection software([employer] Reported By: SHARRI DE LA GARZA M.D. 42-Uoa-417144:56 LOWER EXT.JOINT ONLY (ROUTINE) Radiology Report See Note (Normal) Comments: Exam Number: [id number] MRI RIGHT KNEE CLINICAL STATEMENTPain, swelling, worse [...] venous varicosities. Reported By: RIMMA DAMIAN M.D. :16 KNEE,4 OR MORE VIEWS Radiology Report See Note (Normal) Comments: Exam Number: [id number] RIGHT KNEE 4 VIEWS STATEMENTPain and swelling. [...] significant change. Reported By: SHARRI HERRERA M.D. 5-Kgw-855464:23 BILAT SCRN DIGITAL & CAD Radiology Report See Note (Normal) Comments: Exam Number: [id number] MAMMOGRAM, BILATERAL SCREENING DIGITAL AND CAD HISTORYRoutine [...] werealso exa mined with computer-aided detection software ([employer], [employer] Reported By: ANNIE PETIT M.D. :18 CBCD [...] :18 TSH 2.46 {uIU/mL} (Normal) Range: 0.34-4.82 04-Kqb-303880:55 Urinalysis, Office (08886) UA - BILIRUBIN Negative (Normal) UA - [...] Indication: Well woman exam Planned Observations CALCIFIDIOL (32307) VIT D 25Indication: Vitamin D deficiency On: 98-Mzs-959610:37 Request C-REACT PROT HIGH SENS(hsCRP) (32287)Indication: CRP elevated On: 94-Yna-961334:29 Request CALCIFIDIOL (64368) VIT D 25Indication: Vitamin D deficiency On: :29 Request TSH (88438)Indication: Abnormal TSH On: :29 Request T4, TOTAL (30302)Indication: Abnormal TSH On: :29 Request T3, FREE (TRIDOTHYRONINE) (91952)Indication: Abnormal TSH On: :29 Request CBC (Auto) (63989)Indication: Benign essential HTN On: :45 Request Metabolic Panel, Comprehensive (88984)Indication: Benign essential HTN On: :45 Request Vitamin B-12 (cyanocobalamin) (25826)Indication: Balance disorder On: :45 Request CALCIFIDIOL (14650) VIT D 25Indication: Vitamin D deficiency On: :45 Request C-REACTIVE PROTEIN (32519)Indication: Pain in the joints On: 46-Inh-062326:56 Request Comments: 6 weeks T4, FREE (THYROXINE) (06704)Indication: Right leg swelling On: :48 Request TSH (94410)Indication: Right leg swelling On: :48 Request CBC, Platelets & Auto Diff (77240)Indication: Abdominal discomfort in right lower quadrant On: :48 Request Metabolic Panel, Comprehensive (76847)Indication: Abdominal discomfort in right lower quadrant On: :48 Request CBC WITH MANUAL DIFF (91555)Indication: Benign essential HTN On: :52 Request MICROALBUMIN: CREATININE RATIO (91975) AND (21794)Indication: Benign essential HTN On: :52 Request METABOLIC PANEL, COMPREHENSIVE (76014)Indication: Benign essential HTN On: :52 Request LIPID PANEL (28606)Indication: Benign essential HTN On: :52 Request CBC WITH MANUAL DIFF (48217)Indication: Benign essential HTN On: :33 Request METANEPHRINES - URINE (01072)Indication: Benign essential HTN On: :28 Request CATECHOLAMINES TOTAL, URINE (30373)Indication: Benign essential HTN On: Request URINE VMA (61154)Indication: Benign essential HTN On: Request METABOLIC PANEL, COMPREHENSIVE (67476)Indication: Benign essential HTN On: Request LIPID PANEL (61621)Indication: Benign essential HTN On: Request CBC WITH MANUAL DIFF (40345)Indication: Benign essential HTN On: Request VANDANA CULTURE-OTHER (28002)Indication: Neoplasm of uncertain behavior of skin On: Request Comments: from left finger LIPID PANEL (92689)Indication: Benign essential HTN On: Request TSH (27292)Indication: Benign essential HTN On: Request URINALYSIS, W/ MICRO (76117)Indication: Benign essential HTN On: Request MICROALBUMIN: CREATININE RATIO (25417) AND (78928)Indication: Benign essential HTN On: Request METABOLIC PANEL, COMPREHENSIVE (22339)Indication: Benign essential HTN On: Request CBC WITH MANUAL DIFF (00994)Indication: Benign essential HTN On: Request Metabolic Panel, Comprehensive (49595)Indication: Myalgia and myositis On: :13 Request TSH (25390)Indication: Myalgia and myositis On: :13 Request ALDOLASE (94131)Indication: Myalgia and myositis On: :13 Request Sed Rate Erythrocyte (34346)Indication: Myalgia and myositis On: :12 Request Creatine Kinase Total (59589)Indication: Myalgia and myositis On: :12 Request C-Reactive Protein (79409)Indication: Myalgia and myositis On: :12 Request JAELYN (ANTINUCLEAR ANTIBODY) (89147)Indication: Myalgia and myositis On: :12 Request CBC with manual diff (84846)Indication: Neutropenia, unspecified type On: 02-Exo-326038:50 Request TSH (72159)Indication: Anxiety On: 88-Php-142521:13 Request CBC (Auto) (10859)Indication: Anxiety On: 29-Jbd-431435:13 Request Metabolic Panel, Comprehensive (66999)Indication: Anxiety On: 02-Ykp-516825:13 Request Lipid Panel (22216)Indication: Anxiety On: 99-Mit-741866:13 Request Thin prep Pap (10936)Indication: Well woman exam On: 62-Cpv-606121:55 Request Planned Encounters Medical; [facility] 2 Month FU - On: 21-Jul-2018 13:00 [facility] Austyn RODRIGUEZ, Sheridan Bradshaw MD Planned Procedures US DOPPLER CAROTID BILATERAL On: 17-Apr-2018 Intent (13204)By: Sheridan Zaman MD, MD, Dana M Radiology - Lumbar SpineBy: On: 17-Apr-2018 Intent Sheridan Zaman MD, MD, Dana M Radiology - Hip - LeftBy: Austyn On: 17-Apr-2018 Intent Sheridan RODRIGUEZ MD, Dana M Bone Density StudyBy: Austyn RODRIGUEZ, On: 17-Apr-2018 Intent Sheridan Bradshaw MD Comments: due after 06-18-18 MAMMOGRAM BREAST BILATERAL On: 17-Apr-2018 Intent SCREENING DIGITAL (87685)By: Comments: due after 06-22-18 Sheridan Zaman MD, MD, Dana M Flu Vaccine (Quadrivalent) On: 27-Mar-2018 Intent 49454Dh: Sheridan Zaman MD Comments: Lot: #[id number]: 01/03/19Site: L dltd, IMDose prefilled syringegiven by: CManchakVIS reviewed and ABN signed Sheriadn Zaman MD SPECIMEN HNDLNG/TRNSPRT, OFFC > On: 24-Oct-2017 Intent LAB (82635)By: Sheridan Zaman MD, MD, Dana M DRAIN/INJECT MAJOR JOINT OR BURSA On: 08-May-2017 Intent (12450)By: Sheridan Zaman MD Comments: lot: [id number]:[id number]:intra articular left knee dose:2ml given by:Dr. Zaman ABN signedER, BRANCH CREDIT COUNSELOR Euflexxa injection number 3 Sheridan Zaman MD DRAIN/INJECT MAJOR JOINT OR BURSA On: 28-Apr-2017 Intent ()By: Sheridan Zaman MD Comments: lot:[id number]:intra articular dose:2ml given by:Dr. Zaman ABN signedER, BRANCH CREDIT COUNSELOR Euflexxa injection left knee #2 Sheridan Zaman MD DRAIN/INJECT MAJOR JOINT OR BURSA On: 21-Apr-2017 Intent ()By: Sheridan Zaman MD Comments: lot:[id number]:[id number]:intra articular dose:2ml given by:Dr. Zaman ABN signedER, BRANCH CREDIT COUNSELOR Sheridan Zaman MD SCREENING DIGITAL TOMOSYNTHESIS On: 08-Apr-2017 Intent OF BREAST (68449)By: Austyn RODRIGUEZ, Comments: due after 06-22 Sheridan Bradshaw MD Radiology - Knee - Right - Weight On: 08-Apr-2017 Intent BearingBy: Sheridan Zaman MD, MD, Dana M Radiology - Knee - Left - Weight On: 08-Apr-2017 Intent BearingBy: Sheridan Zaman MD, MD, Dana M Flu Vaccine (Quadrivalent) On: 08-Apr-2017 Intent 78595Sp: Sheridan Zaman MD Comments: lot: [id number]: 12/22/ite/route: L elzbieta, IMamt: 0.5mlVIS and ABN signed when applicableChelsea, [facility] Sheridan Zaman MD US DOPPLER CAROTID BILATERAL On: 28-Feb-2016 Intent (54611)By: Sheridan Zaman MD, MD, Dana M Echo CompleteBy: Sheridan Zaman MD On: 28-Feb-2016 Sheridan Hardin MD Holter Monitor 24 hrsBy: Austyn On: 28-Feb-2016 Intent Sheridan RODRIGUEZ MD, Dana M Comments: plan in 3 weeks before see. MAMMOGRAM, SCREENING, BOTH BREAST On: 28-Feb-2016 Intent (78401)By: Sheridan Zaman MD, MD, Dana M DEXA SCAN AXIAL SKELETON On: 28-Feb-2016 Intent (87133)By: Sheridan Zamna MD, MD, Dana M ELECTROCARDIOGRAM, COMPLETE (ECG) On: 28-Feb-2016 Intent (89655)By: Tonio Concepcion MAMMOGRAM, SCREENING, BOTH BREAST On: 23-May-2015 Intent (58220)By: Sheridan Zaman MD, MD, Dana M CT - Abdomen & Pelvis (IV On: 09-May-2015 Intent Contrast Needed)By: Sheridan Zaman MD, MD, Dana M Doppler Ultrasound OtherBy: Fast On: 28-Apr-2015 Intent DO, Dena A Comments: stat call wet read Kenalog Injection, 10 mgm On: 07-Sep-2014 Intent (J3301)By: Sheridan Zaman MD, MD, Dana M Kenalog Injection, 10 mgm On: 07-Sep-2014 Intent (J3301)By: Sheridan Zaman MD, MD, Dana M Bone Density StudyBy: Austyn RODRIGUEZ, On: 13-May-2014 Intent Sheridan Bradshaw MD BILATERAL MAMMOGRAMS (30611)By: On: 13-May-2014 Intent Sheridan Zaman MD, MD, Dana M Doppler Ultrasound OtherBy: Fast On: 05-Apr-2014 Intent DO, Dena A Comments: stat today call results Kenalog Injection, [...] Radiology - Cervical SpineBy: On: 18-May-2012 Intent Dena Cash DO A Comments[facility] - Shoulder - RightBy: On: 18-May-2012 Intent Shailesh DONigela A Comments: ac joint as well ADMINISTRATION OF INFLUENZA VIRUS On: 18-May-2012 Intent VACCINE (G0008)By: Brigid, Comments: Lot #:[id number] date: 12/17Amount given:prefilled syringeSite given:L Dltd, IMGiven by: BRYON Serrano FLU VAC, SPLIT, >3 YEARS, On: 18-May-2012 Intent INTRAMUSC (22892)By: Ciara Rainey EKG (15523)By: Dena Cash DO On: 03-Jan-2012 Intent Comments: [...] liver CT - Abdomen & PelvisBy: Shailesh DO, On: 30-Jul-2011 Intent Dena A FLU VAC, SPLIT, >3 YEARS, On: 16-Apr-2011 Intent INTRAMUSC (75903)By: Corby CABEZAS, Comments: Lot #[id number]-1.12Site-L arm, IMDose prefilledgiven by:MONROE Acuña ADMINISTRATION OF INFLUENZA VIRUS On: 16-Apr-2011 Intent VACCINE (G0008)By: Dawna Tavarez LPN TDAP VACCINE >7 IM (39057)By: On: 26-Jun-2010 Intent Dawna Tavarez LPN Comments: Lot #[id number]-L ARMDosePREMEASURED SYRINGEgiven by:MELODY MAMMOGRAM, SCREENING, BOTH On: 26-Jun-2010 Intent BREASTS (03795)By: Austyn RODRIGUEZ, Sheridan Zaman MD, Sheridan Engel Cartoid DopplerBy: Dena Cash DO On: 11-Apr-2010 Intent A EKG (05420)By: Dena Cash DO On: 11-Apr-2010 Intent Comments: ekg showed normal sinus rhythym, normal axis, no acute st/t wave changes rbbb and lpfb- no change- PHYSICAL THERAPY EVALUATION On: 18-Jan-2010 Intent (62102)By: Tracey Moore CNP Kenalog Injection, 10 mgm On: 24-Nov-2009 Intent (J3301)By: Sheridan Zaman MD, MD, Sheridan Engel Kenalog Injection, 10 mgm On: 24-Nov-2009 Intent (J3301)By: Sheridan Zaman MD, MD, Sheridan Engel Kenalog Injection, 10 mgm On: 24-Nov-2009 Intent (J3301)By: Sheridan Zaman MD, MD, Sheridan Engel Kenalog Injection, 10 mgm On: 24-Nov-2009 Intent (J3301)By: Sheridan Zaman MD, MD, Dana M MAMMOGRAM, SCREENING, BOTH On: 18-Apr-2009 Intent BREASTS (04883)By: Austyn RODRIGUEZ, Comments: 06-14 Sheridan Bradshaw MD DXA, BONE DENSITY, AXIAL SKELETON On: 28-Jul-2008 Intent (73408)By: Sheridan Zaman MD, MD, Dana M Toradol Injection, 30 mg On: 17-Dec-2007 Intent (J1885)By: Tracey Moore CNP Comments: Lot #[id number]-left cdbUmtv0bj/30mggiven by Dimple Reyes LPN Radiology - Knee - RightBy: Ciesa On: 23-Jul-2007 Intent SERVICE CAR OPERATOR, Nina IMMUNIZ ADMNIN, 1 VAC, SNGL/COMBO On: 20-May-2007 Intent (44847)By: ROBERTO Woodard Comments: Lot #:[id number] date:95-27-90Kdjoss given:.65mlRoute: IMSite given:left deltoid Given by: kwan. brought from pharmacy to be given MAMMOGRAM, SCREENING, BOTH On: 20-May-2007 Intent BREASTS (86472)By: Austyn RODRIGUEZ, Sheridan Zaman MD, Sheridan Engel Radiology - Knee - RightBy: On: 19-May-2006 Intent JEWELL DEL CASTILLO, JUSTINO Planned Medications INJECTION, TRIAMCINOLONE ACETONIDE, NOT OTHERWISE SPECIFIED, 10 MG Ordered: 21-Oct-2013 Pending Austyn RODRIGUEZ, Sheridan Zaman MD, Sheridan Engel INJECTION, TRIAMCINOLONE ACETONIDE, NOT OTHERWISE SPECIFIED, 10 MG Ordered: 21-Oct-2013 Pending Sheridan Zaman MD, MD, Sheridan Engel INJECTION, TRIAMCINOLONE ACETONIDE, NOT OTHERWISE SPECIFIED, 10 MG Ordered: 21-Oct-2013 Pending Sheridan Zaman MD, MD, Sheridan Engel INJECTION, TRIAMCINOLONE ACETONIDE, NOT OTHERWISE SPECIFIED, 10 MG Ordered: 21-Oct-2013 Pending Austyn RODRIGUEZ, Sheridan Zaman MD, Sheridan Engel INJECTION, TRIAMCINOLONE ACETONIDE, NOT OTHERWISE SPECIFIED, 10 MG Ordered: 07-Sep-2014 Sheridan Huntley MD, MD, Sheridan Engel INJECTION, TRIAMCINOLONE ACETONIDE, NOT OTHERWISE SPECIFIED, 10 MG Ordered: 07-Sep-2014 Pending Sheridan Zaman MD, MD, Sheridan Engel Instructions Name Dates Details [...] : Patient Instructions Indication: Limb pain Encounters Phone Encounter On: 08-Jun-2018 16:50 [facility] End: 08-Jun-2018 16:51 Office Visit On: 20-May-2018 13:04 Encounter Reason: [...] litigation attorney and living will. The pa tient has noticed lack of energy. Other providers contributing to the patient's care are owner operator (Dr. Romero), photofinishing laboratory worker (Dr. Torres), gastrologist (Dr. Faith) and other: [...] months (mostly local. she will drive to [place] with .), put area rugs through house (fall risk handout given) and put handrails in bathroom, but the patient has not had fecal incontinence, had urinary incontinence, missed or ran out of medications to soon, fallen in the past 6 months, gotten lost or has a medalert necklace or bracelet. The patient has completed the following preventative measures: mammography (2017) and colonoscopy (2015). The patient does have durable power of litigation attorney and sachin ing will. The patient has noticed nothing from the geriatic depression scale. Other providers contributing to the patient's care are owner operator and photofinishing laboratory worker.Encounter Diagnosis: Current nonsmoker (Renamed from Current non-smoker), [...] social history. Yes the patient did have (3030) a mini mental status exam done tod [...] providers contributing to the patient's care are owner operator ([facility]) and surgeon (omari). Note for Annual Medicare [...] middle finger). The pa End: 07-Sep-2014 10:59 tient describes the pain as aching and burning. [...] (will see rheum next week, [facility] Office Visit [...] (will see rheum next week, [facility] ). Encounter Diagnosis: Well Woman [...] recently received care from an emergency room ([facility] Acute indigestion )., [ADDITIONAL REASON] Follow [...] been occurring for 6 weeks (since the holidays but I did have some in the [...] running 110-120/70-80- she is working out at [employer]- she thinks had some bps highe End: [...] running 110-120/70-80- she is working out at [employer]- she thinks had some bps higher because [...] has alot of sinus problems- came to [facility] and had bp taken - 169 over [...] or leg- her bps at home though 120-/73-55-pavgytbr alot of caffeine and sudafed Encounter Diagnosis: [...] complaints. 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 Patient exercises 3 [...] Internal Medicine End: 31-Mar-2006 19:26 Payers Shahriar Dwyer Ins/MedicareLORETTA NAULT; philomena guarantor
--- OUTSIDE RECORDS SUMMARY | 2018-09-24 15:03 | XMS RPT_ITS | Continuity of Care Document ---
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 NAYLOR Rep #: [id number] : 1940 75 From: Vielka Baez Referring Dr.: Rayne Moore Status: DIS RCR Insura nce: AETNA MCR Eval Date: DATE OF SERVICE: PHYSICIAN: Dr. Rayne Moore. SUBJECTIVE: This 75-year-old female was seen [...] cm, left is 37. Right upper c detention is 41.5, left is 45. Left below [...] CJ. Vielka Baez OTR/L T: TREASURE JOB: [id number] <Electronically signed by Vielka Baez > 06/07/15 0846 CC: Signed For Medicare only, by signing this I certify the plan of care. Physicians Signature Date 07-Jun-2015 OT Discharge Summary Result: Comments: See Note; NOTES: [facility] [facility] [place] [address] Fax REHABILITATIO N SERVICES DISCHARGE SUMMARY MR#: [id number] Acct: [id number] Name: FEMI NAYLOR Rep #: [id number] : 1940 75 From: Vielka Baez Referring Dr.: Rayne Moore Status: DIS RCR Eval Da te: Discharge Date: 05/29/15 DATE OF SERVICE: PHYSICIAN: Dr. Rayne Moore. This 75-year-old female was seen for [...] G code discharge status 8980 is CJ. Vielka Baez OTR /L T: TREASURE JOB: [id number] <Electronically signed by Vielka Baez > 06/07/15 0846 CC: Signed 09-May-2015 Abdomen/Pelvis WITH Contrast Result: Comments: See Note; NOTES: [facility] Imaging Services [address] [place] [address] Nasreen 4d Abdomen/Pelvis WITH Contrast MR#: [id number] Acct: [id number] Name : FEMI NAYLOR Rep #: [id number] : 1940 F 75 From: Dayton Cordero MD PCP: Sheridan Zaman MD Status: REG CLI Study: Abdomen/Pelvis WITH Contrast Date of Exam: 05/09/15 Exam# [id number] O rdering Dr: Sheridan Zaman MD STUDY: [...] Dayton Cordero MD at 12:40 EST Tel [phone], Service support [phone], CC: Sheridan Zaman MD Respiratory Clinician: Signed 22-Dec-2014 Ankle min 3 Views Result: Comments: See Note; NOTES: [facility] Imaging Services [address] [place] [address] Radiology Report MR#: [id number] Acct: [id number] Name: FEMI NAYLOR Rep #: [id number] : 1940 F 74 From: Sharri Boudreaux MD PCP: Sheridan Zaman MD Status: REG CLI Study: Ankle min 3 Views Date of Exam: 12/22/14 Exam# [id number] Ordering Dr: Camille Hernandez DO STUDY: X-RA [...] MD at 14:24 EDT , Service support [phone], 0074 RAD/Ankle min 3 Views IMPRESSION: Calcaneal spurs. Soft tissue swelling. No acute osseous abnormality. Electronically Signed: Sharir Boudreaux MD at 14:24 EDT , Se rvice support [phone], CC: Camille Hernandez DO; Sheridan Zaman MD Respiratory Clinician: Signed 22-Dec-2014 Foot min 3 Views Result: Comments: See Note; NOTES: [facility] Imaging Services [address] [place] [address] Radiology Report MR#: [id number] Acct: [id number] Name: FEMI NAYLOR Rep #: [id number] : 1940 F 74 From: Sharri Boudreaux MD PCP: Sheridan Zaman MD Status: REG CLI Study: Foot min 3 Views Date of Exam: 12/22/14 Exam# [id number] Ordering Dr: Camille Hernandez DO STUDY: X-RAY [...] at 14:25 EDT , S ervice support [phone], RAD/Foot min 3 Views IMPRESSION: Calcaneal spurs. Mild osteoarthritic change. Electronically Signed: Sharri Boudreaux MD at 14:25 EDT , Service support [phone], CC: Camille Hernandez DO; Sheridan Zaman MD Respiratory Clinician: Signed 08-Nov-2014 Knee 4 or More Views Result: Comments: See Note; NOTES: [facility] Imaging Services [address] [place] [address] Radiology Report MR#: [id number] Acct: [id number] Name: FEMI NAYLOR Rep #: [id number] : 1940 F 74 From: Sharri Boudreaux MD PCP: Sheridan Zaman MD Status: REG CLI Study: Knee 4 or More Views Date of Exam: 11/08/14 Exam# [id number] Ordering Dr: Camille Hernandez DO STUDY: X- [...] MD at 11:46 EDT , Service support [phone], CC: Camille Hernandez DO; Sheridan Zaman MD Respiratory Clinician: Signed 08-Jun-2014 Bilat Scrn Digital & CAD Result: Comments: See Note; NOTES: [facility] Imaging Services [address] [place] [address] Breast Imaging Report MR#: [id number] Acct: [id number] Name: FEMI NAYLOR Rep #: [id number] : 1940 F 74 From: Dayton Cordero MD PCP: Sheridan Zaman MD Status: REG CLI Exam# [id number] Ordering Dr: Sheridan Zaman MD MAMMOGRAPHY - [...] Dayton Cordero MD at 9:08 EST Tel [phone], Service sup port [phone], CC: Sheridan Zaman MD Respiratory Clinician: Signed 08-Jun-2014 Dexa Bone Density Study (HP) Result: Comments: See Note; NOTES: [facility] Imaging Services [address] [place] [address] Bone Density Report MR#: [id number] Acct: [id number] Name: FEMI NAYLOR Rep #: [id number] : 1940 F 74 From: Dayton Cordero MD PCP: Sheridan Zaman MD Status: REG CLI Study: Dexa Bone Density Study (HP) Date of Exam: 06/08/14 Exam# [id number] Ordering Dr: Sheridan Zaman STUDY: DUAL ENERGY [...] J Cordero MD at 11:28 EST Tel [phone], Service support [phone], CC: Sheridan Zaman MD Respiratory Clinician: Signed 13-Jan-2014 PT Discharge Summary Result: Comments: See Note; NOTES: [facility] [facility] [place], [place] [address] Fax REHABILITATION SERVICES DISCHARGE SUMMARY MR#: [id number] Acct: [id number] Name: FEMI NAYLOR Rep #: [id number] : 1940 73 From: Alisha Pandey Referring [...] appropriate that she be discharged from [facility] and return to doctor's ca re. Alisha Pandey DPT T: NTS JOB: [id number] <Electronically signed by Alisha Pandey > 01/13/14 0737 CC: Signed 20-Dec-2013 L/S Spine Min 4 Views Result: Comments: See Note; NOTES: [facility] Imaging Services [address] [place] [address] Radiology Report MR#: [id number] Acct: [id number] Name: FEMI NAYLOR Rep #: [id number] : 1940 F 73 From: Dayton Cordero MD PCP: Sheridan Zaman MD Status: REG CLI Study: L/S Spine Min 4 Views Date of Exam: 12/20/13 Exam# [id number] Ordering Dr: Alec Mcwilliams Y: X-RAY - [...] Dayton Cordero MD at 14:50 EDT Tel [phone], Service support [phone], Fax CC: Sheridan Zaman MD; Alec Mcwilliams Respiratory Clinician: Signed 03-Dec-2013 Foot min 3 Views Result: Comments: See Note; NOTES: [facility] Imaging Services [address] [place] [address] Radiology Report MR#: [id number] Acct: [id number] Name: FEMI NAYLOR Rep #: [id number] : 1940 F 73 From: Dayton Cordero MD PCP: Sheridan Zaman MD Status: REG CLI Study: Foot min 3 Views Date of Exam: 12/03/13 Exam# [id number] Ordering Dr: Alec Mcwilliams DO STUDY: X- [...] Dayton Cordero MD at 14:32 EDT Tel [phone], Service support [phone], RAD/Foot min 3 Views IMPRESSION: Soft tissue swelling. RSD should be ruled out. Electronically Signed: Dayton Cordero MD at 14:32 EDT Tel [phone], Service support [phone], CC: Sheridan Zaman MD; Alec Mcwilliams Respiratory Clinician: Signed 11-Nov-2013 Inital Evaluation - PT Result: Comments: See Note; NOTES: [facility] [address] [facility] [place] [address] Fax REHABILITATION SERVICES INITIAL EVALUATION MR#: [id number] Acct: [id number] Name: FEMI NAYLOR Rep #: [id number] : 1940 73 From: Alisha Pandey Referring Dr.: Alec Mcwilliams Status: REG RCR Insurance: [facility] Eval Date: DATE OF SERVICE: 11/10/2013 Femi [...] HISTORY: Includes a right total knee replacement [place] and anxiety. MEDICATIONS: Ibuprofen. OBJECTIVE: POSTURE: Forward [...] with home exercise program and return to [facility] with decreased pain. Alisha Pandey DPT T: TREASURE JOB: [id number] &amp ;#60;Electronically signed by Alisha Pandey > 11/11/13 0947 CC: Signed For Medicare only, by signing this I certify the plan of care. Physicians Signature Date 07-Jun-2013 Bilat Scrn Digital & CAD Result: Comments: See Note; NOTES: [facility] Imaging Services [address] [facility] [place] [address] Breast Imaging Report MR#: [id number] Acct: [id number] Name: FEMI NAYLOR Rep #: [id number] : 1940 F 73 From: Dayton Cordero MD PCP: Sheridan Zaman MD Status: REG CLI Exam# [id number] Ordering Dr: Sheridan Zaman MD MAMMOGRAPHY - [...] M.D. at 16:31 EST , Service support [phone], CC: Sheridan Zaman MD Respiratory Clinician: Signed Immunization Name Dates Details Influenza, injectable, quadrivalent Comments: [facility] 03-20 Family History Unknown Family Member Name Dates Details Daughter 1 Comments: healthy Status: Active Father Comments: bladder cancer in 70's, mild [place] later, alcoholism after first . Status: Active [...] local roots with dragan bernardo done [place] fabkereliana Status: Active Living Situation Comments: , Lives with spouse Status: Active No Drug Use Status: Active Non Smoker/No Tobacco Use Status: Active Tobacco use: Never smoker. Status: Active Smoking Status Name Dates Details Never smoker Vital Signs Date Test Result Details 38-Oxc-112633:04 Comments: had half ativan this am Temperature [...] kg/m2 Body Surface Area Calculated 2 m2 36-Dfi-439528:28 Weight 195 lb Height 67 in Body [...] Height 0 in Head Circumference 0.00 cm 24-Org-847505:13 Temperature 98 f Comments: Method: Oral Pulse [...] 0.00 cm Results Date Description Value Details 5-Qwp-065548:30 Basic Metabolic Profile (BMP) Comments: [facility] [address] [place], [place], [id number] GAP 10 (Normal) Range: 5-15 CO2 25.0 [...] A.D.A. criteria.Please note revised GLUCOSE reference range tbfkgthko28/02/2018. 7-Pok-354283:30 CBC W/Diff, Automated Comments: [facility] [address] [place], [place], [address] Absolute Lymph 1.36 {X10_3/ul} (Normal) Range: 0.83-4.51 [...] 4.2-5.4 WBC 4.8 K/mm3 (Normal) Range: 4.4-11.0 4-Pky-699957:30 MRSA/SAID SCREEN Comments: [facility] [address]it[address] [facility] [place], [address] MRSA+SAID SCRN See Note (Normal) Comments: MRSA/SAID SCRNS. AUREUS S. aureus PositiveMRSA MRSA Negative :34 CRP, High Sensitivity Cardiac Comments: [facility] [address] [facility] [place], [address] CRP HIGH SENS 8.72 mg/L (Abnormal) Comments: Low Relative Risk of CVD <1.0 mg/L Average Relative Risk of CVD 1.0 - 3.0 mg/L High Relative Risk of CVD >3.0 mg/L :34 Free T3 Comments: [facility] [address] [place], [id number] FREE T3 2.6 pg/mL (Normal) Range: 2.18-3.98 :34 T4 Total, Thyroxin Comments: [facility] [address] [place], [id number] T4 THYROXIN 11.7 ug/dL (Normal) Range: 4.8-13.9 :34 Thyroid Stim Hormone (TSH) Comments: [facility] [address] [place], [address] TSH 2.91 {uIU/mL} (Normal) Range: 0.358-3.74 :34 Vitamin D,25 Hydroxy Comments: [facility] [address] [place], [address] Vitamin D 25-OH 27.8 ng/mL (Abnormal) Range: 29.95-100.01 Comments: Vitamin D 25(OH) Status Range Deficiency <20 ng/mL (50nmol/L) Insuffciency 20 - 30 ng/mL (50 - 75 nmol/L) Sufficiency 30 - 100 ng/mL (75 - 250 nmol/L) Toxicity >100 ng/mL (>250 nmol/L) :17 MICROALBUMIN: CREATININE RATIO Comments: PATIENT WAS FASTINGPERFORMED BY: [employer] [facility] [id number] (25604) AND (65339) Alb/Creat Ratio <6.5 {mg/g_creat} (Normal) Range: 0.0-30.0 Comments: Normal: 0.0 - 30.0 Albuminuria: 31.0 - 300.0 Clinical albuminuria: >300.0 Albumin, Urine <3.0 ug/mL (Normal) Creatinine, Urine 46.4 mg/dL (Normal) :17 URINALYSIS (93263) Comments: PATIENT WAS FASTINGPERFORMED BY: [employer] [facility] [id number] Microscopic Examination MICNIP (Normal) Comments: Microscopic not indicated and not performed. Nitrite, Urine Negative (Normal) Urobilinogen,Semi-Qn 0.2 mg/dL (Normal) Range: 0.2-1.0 Bilirubin Negative (Normal) Occult Blood Negative (Normal) Ketones Negative (Normal) Glucose Negative (Normal) Protein Negative (Normal) WBC Esterase Negative (Normal) Appearance Clear (Normal) Urine-Color Yellow (Normal) pH 7.0 (Normal) Range: 5.0-7.5 Specific Nallen 1.015 (Normal) Range: 1.005-1.030 57-Pmw-92191:17 Metabolic Panel, Comprehensive Comments: PATIENT WAS FASTINGPERFORMED BY: [facility] Hzzoic7340 [facility] [id number] (61950) ALT (SGPT) 9 [iU]/L (Normal) Range: 0-32 [...] 8-27 Glucose 97 mg/dL (Normal) Range: 65-99 48-Ksh-45557:17 CBC WITH MANUAL DIFF (39879) Comments: PATIENT WAS FASTINGPERFORMED BY: [employer] Jjcwqr9816 [facility] [id number] Immature Grans (Abs) 0.0 {x10E3/uL} (Normal) Range: [...] 3.77-5.28 WBC 4.2 {x10E3/uL} (Normal) Range: 3.4-10.8 79-Uyb-753725:10 HgA1C , Office (48628) HgA1C , Office 5.9 % (Normal) Range: 4.6 - 7.1 11-Kwl-467988:00 VANDANA CULTURE-OTHER (11996) Comments: PATIENT NOT FASTINGPERFORMED BY: [employer] TekMescalero Service UnitIsqtrk7350 [employer] [facility] [id number] Information: SRC:TH Result 1 RRF (Normal) Comments: Routine respiratory yamila Upper Respiratory Culture Final report (Normal) :36 Rapid Strep Test, Office (47114) Rapid Strep Test, Office Negative (Normal) :25 HgA1C , Office (38941) HgA1C , Office 5.8 % (Normal) Range: 4.6 - 7.1 :39 CBC with auto diff Comments: PATIENT WAS FASTINGPERFORMED BY: [facility] [address] [id number] BY: LabCoRobert Wood Johnson [facility] Hospital at HamiltonCowcjf2393 [facility] [id number] (80444) Immature Grans (Abs) 0.0 {x10E3/uL} (Normal) Range: [...] 3.77-5.28 WBC 4.1 {x10E3/uL} (Normal) Range: 3.4-10.8 :39 HGB A1C (54289) Comments: PATIENT WAS FASTINGPERFORMED BY: [employer] [id number] BY: [employer] Icqdjf8841 [facility] [id number] Hemoglobin A1c 5.7 % (Abnormal) Range: 4.8-5.6 Comments: . Pre-diabetes: 5.7 - 6.4 Diabetes: >6.4 Glycemic control for adults with diabetes: <7.0 :39 CALCIFIDIOL (23246) VIT D Comments: PATIENT WAS FASTINGPERFORMED BY: [employer] [id number] BY: [employer]70 [facility] [id number] 25 Vitamin D, 25-Hydroxy 30.8 ng/mL (Normal) Range: 30.0-100.0 Comments: Vitamin D deficiency has been defined by the [place] ofSelect [facility]cine and an Endocrine Society practice guideline as alevel of serum 25-OH vitamin D less than 20 ng/mL (1,2).The Endocrine Society went on to further define vitamin Dinsufficiency as a level between 21 and 29 ng/mL (2).1. IOM ([place] of Medicine). 2010. Dietary reference intakes for calcium and D. [place]: The National Academies Press.2. Carlota MF, Ursula NC, Taryn RECINOS, et al. Evaluation, treatment, and prevention of vitamin D deficiency: an Endocrine Society clinical practice guideline. JCEM. 2010; 96(7):1911-30. :39 Metabolic Panel, Comments: PATIENT WAS FASTINGPERFORMED BY: [employer] [id number] BY: [employer] Ljwbsd0333 [facility] [id number] Comprehensive (49773) ALT (SGPT) 10 [iU]/L (Normal) Range: 0-32 [...] 8-27 Glucose 98 mg/dL (Normal) Range: 65-99 51-Kkk-91376:39 LIPOPROTEIN, BLD, BY NMR Comments: PATIENT WAS FASTINGPERFORMED BY: BN [facility] [address] [id number] BY: CB [facility] Shwzll2650 [facility] [id number] (52769) LP-IR Score 31 (Normal) Comments: INSULIN RESISTANCE MARKER <--Insulin Sensitive Insulin Resistant--> Percentile in Reference PopulationInsulin Resistance ScoreLP-IR Score Low 25th 50th 75th High <27 27 45 63 >63LP-IR Score is inaccurate if patient is non-fasting. .The LP-IR score is a laboratory developed i [facility] that has beenassociated with insulin [...] were developed and their performance characteristicsdetermined by [employer]. These assays have not been cleared by [...] High 1600 - 2000 Very High > 30-Sep-20178:39 C-REACT PROT HIGH Comments: PATIENT WAS FASTINGPERFORMED BY: LabSt. [facility]1447 [facility] [id number] BY: BetUknowSaint John'S [facility] System Vfbqpn0434 [address] [facility] [place] [id number]; can review on 10/16 SENS(hsCRP) (70775) C-Reactive Protein, Cardiac 5.80 mg/L (Abnormal) Range: 0.00-3.00 Comments: Relative Risk for Future Cardiovascular Event Low <1.00 Average 1.00 - 3.00 High >3.00 85-Lfz-761683:43 C-REACT PROT HIGH SENS(hsCRP) Comments: PATIENT NOT FASTINGPERFORMED BY: BetUknowBeaumont Hospital6370 [facility] [id number] (61819) C-Reactive Protein, Cardiac 26.86 mg/L (Abnormal) Range: 0.00-3.00 Comments: Results confirmed ondilution. Relative Risk for Future Cardiovascular Event Low <1.00 Average 1.00 - 3.00 High >3.00 89-Qdy-674126:43 CALCIFIDIOL (09906) VIT D 25 Comments: PATIENT NOT FASTINGPERFORMED BY: [employer] Aqptcu2268 [facility] [place] [id number] Vitamin D, 25-Hydroxy 29.8 ng/mL (Abnormal) Range: 30.0-100.0 Comments: Vitamin D deficiency has been defined by the [place] ofMedicine and an Endocrine Society practice guideline as alevel of serum 25-OH vitamin D less than 20 ng/mL (1,2).The Endocrine Society went on to further define vitamin Dinsufficiency as a level between 21 and 29 ng/mL (2).1. IOM ([place] of Medicine). 2010. Dietary reference intakes for calcium and D. [place]: The National Academies Press.2. Carlota MF, Ursula NC, Taryn RECINOS, et al. Evaluation, treatment, and prevention of vitamin D deficiency: an Endocrine Society clinical practice guideline. JCEM. 2010; 96(7):1911-30. 57-Nvr-891490:37 MICROALBUMIN: CREATININE RATIO Comments: PATIENT NOT FASTINGPERFORMED BY: Bet[employer]knowCo Njuurb2151 [facility] [place] [id number] (81643) AND (89377) Microalb/Creat Ratio 6.0 {mg/g_creat} (Normal) Range: 0.0-30.0 Microalbumin, Urine 9.7 ug/mL (Normal) Creatinine, Urine 160.5 mg/dL (Normal) :37 URINALYSIS (61244) Comments: PATIENT NOT FASTINGPERFORMED BY: [employer] Rhipaf0382 [facility] SecuritySand[facility] [id number] Microscopic Examination MICNIP (Normal) Comments: Microscopic not indicated and not performed. Nitrite, Urine Negative (Normal) Urobilinogen,Semi-Qn 0.2 mg/dL (Normal) Range: 0.2-1.0 Bilirubin Negative (Normal) Occult Blood Negative (Normal) Ketones Trace (Abnormal) Glucose Negative (Normal) Protein Negative (Normal) WBC Esterase Negative (Normal) Appearance Clear (Normal) Urine-Color Yellow (Normal) pH 6.0 (Normal) Range: 5.0-7.5 Specific Nallen 1.021 (Normal) Range: 1.005-1.030 50-Ihs-766400:37 CBC WITH MANUAL DIFF Comments: PATIENT NOT FASTINGPERFORMED BY: [facility] Lvpkrt2216 [address] [facility] ArborCempraSandhills Regional [facility] Center [id number] Information: NURSE DRAW (50373) Immature Grans (Abs) 0.0 {x10E3/uL} (Normal) Range: [...] 3.77-5.28 WBC 4.9 {x10E3/uL} (Normal) Range: 3.4-10.8 63-Rhv-708596:37 Metabolic Panel, Comprehensive Comments: PATIENT NOT FASTINGPERFORMED BY: [facility] Zlgunr1661 [facility] [id number] (21328) ALT (SGPT) 12 [iU]/L (Normal) Range: 0-32 [...] Glucose, Serum 110 mg/dL (Abnormal) Range: 65-99 09-Bte-983404:44 CALCIFIDIOL (62486) VIT D 25 Comments: PATIENT NOT FASTINGPERFORMED BY: [facility]6370 [facility] [id number] Vitamin D, 25-Hydroxy 29.8 ng/mL (Abnormal) Range: 30.0-100.0 Comments: Vitamin D deficiency has been defined by the [place] ofMedicine and an Endocrine Society practice guideline as alevel of serum 25-OH vitamin D less than 20 ng/mL (1,2).The Endocrine Society went on to further define vitamin Dinsufficiency as a level between 21 and 29 ng/mL (2).1. IOM ([place] of Medicine). 2010. Dietary reference intakes for calcium and D. [place]: The National Academies Press.2. Carlota MF, Ursula BACON, Taryn RECINOS, et al. Evaluation, treatment, and prevention of vitamin D deficiency: an Endocrine Society clinical practice guideline. JCEM. 2010; 96(7):1911-30. 27-Iif-433611:44 Metabolic Panel, Comprehensive Comments: PATIENT NOT FASTINGPERFORMED BY: [facility]6370 [facility] [id number] (82523) ALT (SGPT) 10 [iU]/L (Normal) Range: 0-32 [...] Glucose, Serum 123 mg/dL (Abnormal) Range: 65-99 24-Bwh-433733:57 HgA1C , Office (33327) HgA1C , Office 5.7 % (Normal) Range: 4.6 - 7.1 50-Ogk-786748:00 Methymalonic Acid, Serum Comments: PATIENT NOT FASTINGPERFORMED BY: [employer] [facility] [id number] BY: [employer] [id number] (31308) Methylmalonic Acid, Serum 157 nmol/L (Normal) Range: 0-378 03-Rsx-963366:00 Vitamin B-12 Comments: PATIENT NOT FASTINGPERFORMED BY: [employer] [facility] [id number] BY: [employer] [id number] (cyanocobalamin) (09890) Vitamin B12 778 pg/mL (Normal) Range: 211-946 49-Cco-688084:00 CALCIFIDIOL (62177) VIT D Comments: PATIENT NOT FASTINGPERFORMED BY: [employer] [facility] [id number] BY: [employer] [id number]; fu 2-28 25 Vitamin D, 25-Hydroxy 27.7 ng/mL (Abnormal) Range: 30.0-100.0 Comments: Vitamin D deficiency has been defined by the [place] ofMedicine and an Endocrine Society practice guideline as alevel of serum 25-OH vitamin D less than 20 ng/mL (1,2).The Endocrine Society went on to further define vitamin Dinsufficiency as a level between 21 and 29 ng/mL (2).1. IOM ([place] of Medicine). 2010. Dietary reference intakes for calcium and D. [place]: The National Academies Press.2. Carlota MF, Ursula BACON, Taryn RECINOS, et al. Evaluation, treatment, and prevention of vitamin D deficiency: an Endocrine Society clinical practice guideline. JCEM. 2010; 96(7):1911-30. :48 Sed Rate Erythrocyte Comments: PATIENT NOT FASTINGPERFORMED BY: [facility] Uukaik5801 [facility] [id number] Information: [id number],T85079 (17283) Sedimentation Rate-Westergren 13 mm/h (Normal) Range: 0-40 :48 C-Reactive Protein (80425) Comments: PATIENT NOT FASTINGPERFORMED BY: [facility] Xfeddt8534 [facility] [id number] C-Reactive Protein, Quant 20.2 mg/L (Abnormal) Range: 0.0-4.9 :43 CBC W/Diff, Automated Comments: [facility] [address]zgcqa07[address] [facility] [place], [place], [id number] Absolute Lymph 0.82 {X10_3/ul} (Abnormal) Range: 0.83-4.51 [...] 4.2-5.4 WBC 4.5 K/mm3 (Normal) Range: 4.4-11.0 0-Fcw-357010:43 Comprehensive Metabolic Profil Comments: [facility] [address] [place], [address] ; [address] GAP 7 (Normal) Range: [...] 7-18 GLU 96 mg/dL (Normal) Range: 70-110 4-Biv-360189:43 T4 Free Direct Comments: [facility] [address] [facility] [place], [address] T4 FREE DIRECT 1.24 ng/dL (Normal) Range: 0.76-1.46 6-Iip-356838:43 Thyroid Stim Hormone (TSH) Comments: [facility] [address] [place], [address] TSH 1.97 {uIU/mL} (Normal) Range: 0.358-3.74 25-Nqy-23007:33 MICROALBUMIN: CREATININE Comments: PATIENT NOT FASTINGPERFORMED BY: LabCoRobert [facility] Hospital at HamiltonHbxqjr6614 [facility] [id number] Information: [id number] RATIO (20500) AND (91282) Microalb/Creat Ratio 4.3 {mg/g_creat} (Normal) Range: 0.0-30.0 Microalbumin, Urine 5.2 ug/mL (Normal) Range: 0.0-17.0 Creatinine, Urine 120.2 mg/dL (Normal) Range: 15.0-278.0 77-Dgk-712260:30 CBCD ALC 1.09 {X10_3/ul} (Normal) Range: 0.83-4.51 [...] 4.2-5.4 WBC 3.8 K/mm3 (Abnormal) Range: 4.4-11.0 87-Ryr-514035:30 CPK 67 U/L (Normal) Range: 26-192 88-Hzv-727712:30 PROEL tPROELN Comment (Normal) Comments: The SPE pattern appears essentially unremarkable. Evidenceof monoclonal protein is not apparent.Performed at: [address] [id number] Director: Tutu Cobian PhD, Phone: [phone] [facility] Comment (Normal) Comments: Protein electrophoresis scan will follow via computer,mail, or roof bolter delivery. tPROELAG 1.3 (Normal) Range: 0.7-2.0 tPROELGL 2.7 g/dL (Normal) Range: 2.0-4.5 tPROELMS (Normal) Comments: NOT OBSERVED G/DL tPROELGA 0.9 g/dL (Normal) Range: 0.5-1.6 tPROELBE 0.9 g/dL (Normal) Range: 0.6-1.3 tPROELAL2 0.6 g/dL (Normal) Range: 0.4-1.2 tPROELAL1 0.2 g/dL (Normal) Range: 0.1-0.4 tPROELALB 3.6 g/dL (Normal) Range: 3.2-5.6 $tPROELTP 6.3 g/dL (Normal) Range: 6.0-8.5 :30 URIC 3.1 mg/dL (Normal) Range: 2.6-6.0 06-Zxs-010238:05 Microscopic Examination Comments: PATIENT NOT FASTINGPERFORMED BY: [employer] [facility] [id number] BY: LeWa Tek[address] [id number] Bacteria Few (Normal) Mucus Threads Present (Normal) Crystal Type Calcium Oxalate (Normal) Crystals Present (Abnormal) Epithelial Cells (non renal) 0-10 {/hpf} (Normal) Range: 0 - 10 RBC 0-2 {/hpf} (Normal) Range: 0 - 2 WBC 0-5 {/hpf} (Normal) Range: 0 - 5 06-Jxx-721018:05 URINALYSIS, W/ MICRO Comments: PATIENT NOT FASTINGPERFORMED BY: [employer] [facility] [id number] BY: LeWa Tek[address] [id number] ([id number]) Microscopic Examination See below: (Normal) Comments: Microscopic was indicated and was performed. Microscopic Examination MICRON (Normal) Comments: Microscopic follows if indicated. Nitrite, Urine Negative (Normal) Urobilinogen,Semi-Qn 0.2 mg/dL (Normal) Range: 0.0-1.9 Bilirubin Negative (Normal) Occult Blood Negative (Normal) Ketones Negative (Normal) Glucose Negative (Normal) Protein Negative (Normal) WBC Esterase Negative (Normal) Appearance Clear (Normal) Urine-Color Yellow (Normal) pH 6.0 (Normal) Range: 5.0-7.5 Specific Nallen 1.022 (Normal) Range: 1.005-1.030 :05 CCP ANTIBODY (80006) Comments: PATIENT NOT FASTINGPERFORMED BY: LeWa TekRobert [facility] Johnson University Hospital at HamiltonMulvta8166 [facility] [id number] BY: [address] [id number] CCP Antibodies IgG/IgA 23 {units} (Abnormal) Range: 0-19 Comments: Negative <20 Weak positive 20 - 39 Moderate positive 40 - 59 Strong positive >59 52-Twq-055031:05 SED RATE ERYTHROCYTE Comments: PATIENT NOT FASTINGPERFORMED BY: BetUknowSamuel [place] 6308970 [facility] [id number] BY: [address] [id number] (89829) Sedimentation Rate-Westergren 13 mm/h (Normal) Range: 0-40 80-Mie-667629:05 C-REACTIVE PROTEIN Comments: PATIENT NOT FASTINGPERFORMED BY: [place] TekKaylee [place] 8242670 [facility] [id number] BY: [address] [id number] (76709) C-Reactive Protein, Quant 4.5 mg/L (Normal) Range: 0.0-4.9 08-Qpk-656441:05 TSH (44360) Comments: PATIENT NOT FASTINGPERFORMED BY: LeWa Tek[address] [id number] BY: [address] [id number] TSH 2.750 {uIU/mL} (Normal) Range: 0.450-4.500 35-Vcf-365617:05 RHEUMATOID FACTOR-QUANT Comments: PATIENT NOT FASTINGPERFORMED BY: [place] TekKaylee [place] 8242670 [facility] [id number] BY: [address] [id number] (22491) RA Latex Turbid. 7.4 {IU/mL} (Normal) Range: 0.0-13.9 51-Tut-676069:05 JAELYN (ANTINUCLEAR ANTIBODY) Comments: PATIENT NOT FASTINGPERFORMED BY: [place] 6308970 [facility] [id number] BY: [place] [address] [facility] [id number] (97330) JAELYN Direct Negative (Normal) 84-Yjh-169591:05 METABOLIC PANEL, Comments: PATIENT NOT FASTINGPERFORMED BY: [facility] Wlexzr3287 [place] [id number] BY: [facility] Dhzfpksdbw5035 [facility] [id number] Inf ormation: [id number] COMPREHENSIVE (06594) ALT (SGPT) 12 [iU]/L (Normal) Range: 0-32 [...] Glucose, Serum 96 mg/dL (Normal) Range: 65-99 75-Arp-65883:45 Urinalysis, Office (75302) UA - BILIRUBIN Negative (Normal) UA - BLOOD Negative (Normal) UA - GLUCOSE Negative (Normal) UA - KETONES Negative mg/dL (Normal) UA - LEUKOCYTE ESTERASE Negative (Normal) UA - NITRITE Negative (Normal) UA - PH 6.0 (Normal) UA - PROTEIN Negative mg/dL (Normal) UA - SPECIFIC GRAVITY 1.020 (Normal) URINE UROBILINGN KATE TIMED Normal mg/dL (Normal) 15-Fwf-225338:37 CERV SPINE,MIN 4 VIEWS Radiology Report See [...] Campbell D.O.May 18, 2012 at 11:19:02 PM [id number] Signed IF/IF If you are the referring physician and would like to consult with theradiologist who provided this interpretation, please contact Sharad Campbell D.O.at [phone]. If this radiologist is unavailable, you will be directedto another radiologist to assist. If you are a patient with a question regardin g this report, pleasecontactyour referring physician directly. Professional Interpretation Provided By: yeppt, Phone , These documents contain legally protected [...] Di ctated on 05/18/12 1406 by Adrian LUNA,DanyainTranscribed on 05/18/12 9773 by ITS IMPORTSign by Sharad Campbell DO on 05/18/122323 Sign by: Sharad Campbell DO 21-Ebu-681308:37 SHOULDER,MIN 2 VIEWS Radiology Report See Note [...] Campbell D.O.May 18, 2012 at 11:01:01 PM [id number] Signed IF/IF If you are the referring physician and would like to cons ult with theradiologist who provided this interpretation, please contact Sharad Campbell D.O.at [phone]. If this radiologist is unavailable, you will be directedto another radiologist to assist. If you ar e a patient with a question regarding this report, pleasecontactyour referring physician directly. Professional Interpretation Provided By: yeppt, Phone , These docum ents contain legally [...] on 05/18/122305 Sign by: Sharad Campbell DO 12-Yok-04573:15 METABOLIC PANEL, COMPREHENSIVE Comments: PATIENT WAS FASTINGPERFORMED BY: [facility]6370 [facility] [id number] (75400) ALT (SGPT) 17 [iU]/L (Normal) Range: 0-40 [...] Glucose, Serum 100 mg/dL (Abnormal) Range: 65-99 13-Mep-26856:15 LIPID PANEL (11948) Comments: PATIENT WAS FASTINGPERFORMED BY: [facility]CoRobert [facility] Johnson [facility] Hospital at HamiltonWzaamt0084 [facility] [id number] LDL/HDL Ratio 1.5 {ratio_units} (Normal) Range: 0.0-3.2 [...] 100-199 Comments: Please note reference interval change 69-Alp-90421:15 CBC WITH MANUAL DIFF Comments: PATIENT WAS FASTINGPERFORMED BY: PETRONA [facility] Icemop5215 [facility] [id number] Information: [id number] (53345) Immature Grans (Abs) 0.0 {x10E3/uL} (Normal) Range: [...] 3.77-5.28 WBC 3.8 {x10E3/uL} (Abnormal) Range: 4.0-10.5 :03 Microscopic Examination Comments: PATIENT NOT FASTINGPERFORMED BY: BetUknowUniversity Of Missouri Children'S HospitalRghuka6570 [facility] [id number] Bacteria None seen (Normal) Mucus Threads Present (Normal) Epithelial Cells (non renal) 0-10 {/hpf} (Normal) Range: 0 - 10 RBC None seen {/hpf} (Normal) Range: 0 - 3 WBC None seen {/hpf} (Normal) Range: 0 - 5 :03 URINALYSIS, W/ MICRO (79282) Comments: PATIENT NOT FASTINGPERFORMED BY: [facility]UknowBeaumont Hospital6370 [facility] [id number] Microscopic Examination See below: (Normal) Microscopic Examination MICRON (Normal) Comments: Microscopic follows if indicated. Nitrite, Urine Negative (Normal) Urobilinogen,Semi-Qn 0.2 mg/dL (Normal) Range: 0.0-1.9 Bilirubin Negative (Normal) Occult Blood Negative (Normal) Ketones Negative (Normal) Glucose Negative (Normal) Protein Negative (Normal) WBC Esterase Negative (Normal) Appearance Clear (Normal) Urine-Color Yellow (Normal) pH 7.5 (Normal) Range: 5.0-7.5 Specific Nallen 1.014 (Normal) Range: 1.005-1.030 :03 TSH (58857) Comments: PATIENT NOT FASTINGPERFORMED BY: [facility]UknowBeaumont Hospital6370 [facility] [id number] TSH 2.440 {uIU/mL} (Normal) Range: 0.450-4.500 :03 CBC WITH MANUAL DIFF Comments: PATIENT NOT FASTINGPERFORMED BY: LabBeaumont Hospital6370 [facility] [id number] Information: [id number] (99640) Immature Grans (Abs) 0.0 {x10E3/uL} (Normal) Range: [...] 3.77-5.28 WBC 5.1 {x10E3/uL} (Normal) Range: 4.0-10.5 51-Tmu-231072:03 METABOLIC PANEL, COMPREHENSIVE Comments: PATIENT NOT FASTINGPERFORMED BY: [facility] Gpfzxd1053 [facility] [id number] (33004) ALT (SGPT) 16 [iU]/L (Normal) Range: 0-40 [...] Glucose, Serum 88 mg/dL (Normal) Range: 65-99 5-Frh-610457:19 METANEPHRINES - URINE (97047) Comments: PATIENT NOT FASTINGPERFORMED BY: LeWa T[employer] [id number] Metanephrine, U,24hr 118 {ug/24_hr} (Normal) Range: 45-290 Comments: (Hypertensive) >17 years 11 months: 35 - 460 . Please note reference interval change Metanephrine, Ur 94 ug/L (Normal) Normetanephr.,U,24h 248 {ug/24_hr} (Normal) Range: 82-500 Comments: (Hypertensive) >17 years 11 months: 110 - 1050 Normetanephrine, Ur 198 ug/L (Normal) 2-Pmc-826326:19 URINE VMA (06767) Comments: PATIENT NOT FASTINGPERFORMED BY: LeWa Tek[address] [id number] VMA, Urine, 24hr 3.1 {mg/24_hr} (Normal) Range: 0.0-7.5 VMA, Urine 2.5 mg/L (Normal) 3-Amq-442405:19 CATECHOLAMINES TOTAL, URINE Comments: PATIENT NOT FASTINGPERFORMED BY: LeWa Tek[address] [id number] Information: SRC:UR [id number] START 2@730AM FIN BETH; f/u 01/22/12 (08693) Dopamine, Ur, 24hr 229 {ug/24_hr} (Normal) Range: [...] radiologist regarding this report, please call our 65M7kgvgxbi line @ [phone] Dictated on 10/04/11 0959 by Danya Campbell [...] radiologist regarding this report, please call our 32P6upomrxa line @ Dictated on 10/04/11 0940 by Aguilar RODRIGUEZ,Vikramranscribed on 10/04/11 1025 by ITS IMPORTSign by Dayton Cordero MD on 10/04/11 1026 Sign by: Dayton Cordero MD 47-Orz-02588:49 ABDOMEN/PELVIS WITH CONTRAST Radiology Report See Note [...] st regarding this report, please call our 12X1ezhluja line @ Dictated on 08/02/11 0813 by [...] Microscopic Examination Comments: PATIENT WAS FASTINGPERFORMED BY: [employer] Yaibma2355 [facility] [id number] Bacteria None seen (Normal) Mucus Threads Present (Normal) Epithelial Cells (non renal) 0-10 {/hpf} (Normal) Range: 0 - 10 RBC None seen {/hpf} (Normal) Range: 0 - 3 WBC 0-5 {/hpf} (Normal) Range: 0 - 5 :49 TSH (16380) Comments: PATIENT WAS FASTINGPERFORMED BY: [employer] Cdlzsv9493 [facility] [id number] TSH 3.680 {uIU/mL} (Normal) Range: 0.450-4.500 :49 URINALYSIS, W/ MICRO (62535) Comments: PATIENT WAS FASTINGPERFORMED BY: [employer] Bizqan3963 [facility] [id number] Microscopic Examination See below: (Normal) Microscopic Examination MICRON (Normal) Comments: Microscopic follows if indicated. Nitrite, Urine Negative (Normal) Urobilinogen,Semi-Qn 0.2 mg/dL (Normal) Range: 0.0-1.9 Bilirubin Negative (Normal) Occult Blood Negative (Normal) Ketones Negative (Normal) Glucose Negative (Normal) Protein Negative (Normal) WBC Esterase Negative (Normal) Appearance Clear (Normal) Urine-Color Yellow (Normal) pH 6.5 (Normal) Range: 5.0-7.5 Specific Nallen 1.016 (Normal) Range: 1.005-1.030 :49 METABOLIC PANEL, COMPREHENSIVE Comments: PATIENT WAS FASTINGPERFORMED BY: [employer]6370 [facility] [id number] (08772) ALT (SGPT) 15 [iU]/L (Normal) Range: 0-40 [...] Glucose, Serum 91 mg/dL (Normal) Range: 65-99 33-Eyt-78669:49 LIPID PANEL (09730) Comments: PATIENT WAS FASTINGPERFORMED BY: [facility] Nbdzov3307 [facility] [id number] LDL/HDL Ratio 1.5 {ratio_units} (Normal) Range: 0.0-3.2 LDL Cholesterol Calc 93 mg/dL (Normal) Range: 0-99 VLDL Cholesterol Osmin 20 mg/dL (Normal) Range: 5-40 HDL Cholesterol 64 mg/dL (Normal) Comments: According to ATP-III Guidelines, HDL-C >59 mg/dL is considered anegative risk factor for CHD. Triglycerides 98 mg/dL (Normal) Range: 0-149 Cholesterol, Total 177 mg/dL (Normal) Range: 100-199 21-Ygp-13026:49 CBC WITH MANUAL DIFF Comments: PATIENT WAS FASTINGPERFORMED BY: LabCoRobert Wood Johnson [facility] Hospital at HamiltonMzmbzn6990 [facility] [id number] Information: [id number] (43710) Immature Grans (Abs) 0.0 {x10E3/uL} (Normal) Range: [...] 3.80-5.10 WBC 4.5 {x10E3/uL} (Normal) Range: 4.0-10.5 43-Jml-717374:02 BILJANIYA SCRN DIGITAL & CAD Radiology Report See [...] on 08/28/10 1202 Sign by: ANNIE PETIT 0-Lbo-699432:52 Aerobic Bacterial Culture Comments: PERFORMED BY: CB [facility] Xhdauv5678 [facility] [id number] Information: SRC:FI LEFT FINGER Result 1 NG36 (Normal) Comments: No growth in 36 - 48 hours. Aerobic Bacterial Culture Final report (Normal) 12-Wef-914445:23 Thin prep Pap (61560) Comments: Source.............VaginalNo. of containers..01 CYTYC Thin Prep VialPATIENT NOT FASTINGPERFORMED BY: [facility] [address] [id number] Information: [id number] Note: PAPSMR (Normal) Comments: The Pap smear [...] hysterectomy.V72.31 ; Routine gynecological exami Eric Gomez Director [employer] (ASCP) :52 CBCD,SMEAR DIFF PLT EST SeeNote [...] Report See Note (Normal) Comments: Exam Number: [id number] DIGITAL BILATERAL MAMMOGRAM Digital oblique and craniocaudal [...] wereals o examined with computer-aided detection software ([employer] Reported By: DAYTON CORDERO :33 Aldolase 2.5 U/L (Normal) Comments: PERFORMED BY: LeWa TekRobert Wood Johnson University Hospital at HamiltonDjszoh6768 [facility] [id number] Range: 1.2-7.6 :33 Antinuclear Antibodies Direct Comments: PERFORMED BY: [facility]6370 [facility] [id number] JAELYN Direct Negative (Normal) :3 C-Reactive Protein, 2.4 mg/L (Normal) Comments: PERFORMED BY: [facility]6370 [facility] [id number] 3 Quant Range: 0.0-4.9 :33 CBC With Differential/Platelet Comments: PERFORMED BY: [address] [id number] Baso (Absolute) 0.0 {x10E3/uL} (Normal) Range: 0.0-0.2 [...] Comp. Metabolic Panel (14) Comments: PERFORMED BY: LabCoRobert Wood Johnson [facility] Hospital at HamiltonWzyfex0464 [facility] [id number] A/G Ratio 1.7 (Normal) Range: 1.1-2.5 Albumin, [...] Creatine 77 U/L (Normal) Comments: PERFORMED BY: LabCoRobert Wood Johnson [facility] Hospital at HamiltonGhlnpw1374 [facility] [id number] 9:33 Kinase,Total,Serum Range: 24-173 03-Apr-2009 Sedimentation 8 mm/h (Normal) Comments: PERFORMED BY: [facility]knowSaint [facility] Xikvfz2099 [facility] [id number] 9:33 Rate-Westergren Range: 0-30 03-Apr-2009 TSH 3.500 {uIU/mL} Comments: PERFORMED BY: [facility] Rlabyf5367 [facility] [id number] 9:33 (Normal) Range: 0.450-4.500 06-Sep-20088:47 DEXA BONE DENSITY STUDY (HP) Radiology Report See Note (Normal) Comments: Exam Number: [id number] BONE DENSITOMETRY HISTORYPostmenopausal. TECHNIQUE Bone densitometry of the lumbar spine and left hip was performed. Thebest criteria for evaluation of osteoporosis is the T- value, whichrepresents the comparison of the patient's bone mass to an expectedpeak bone mass. For most patients, the mean T-value of L1 through L4is used to evaluate the lumbar spine. Based on the [facility] WorldHealth Organization classifications, the hip is [...] within normallimits. Reported By: ANNIE PETIT M.D. 27-Pox-905026:42 Thin prep Pap (29308) Comments: LMP / Prev Treat...VPZ=[id number];HystNo. of containers..01 CYTYC Thin Prep VialPATIENT NOT FASTINGClinical Information: ADD [id number] PERFORMED BY: [employer] [id number] . . (Normal) DIAGNOSIS: SPRCS (Normal) Comments: NEGATIVE FOR INTRAEPITHELIAL LESION AND MALIGNANCY.Satisfactory for evaluation. No endocervical cells are present. This isconsistent with a history of hysterectomy.V72.31 ; Routine gynecological exami Desiree Bartholomew, Director Global Strategic [employer]isher Sales (ASCP) Note: PAPSMR (Normal) Comments: The Pap [...] resulttherefore, no HPV testing was performed. . 93-Vtl-125911:43 CBCD,SMEAR DIFF BAND 1 % (Normal) Range: [...] 47-70 WBC 3.7 K/mm3 (Abnormal) Range: 4.4-11.0 55-Stt-69764:00 BILAT SCRN DIGITAL & CAD Radiology Report See Note (Normal) Comments: Exam Number: [id number] BILATERAL SCREENING DIGITAL MAMMOGRAM CLINICAL INFORMATIONScreening. Bilateral [...] mammogramswere also examine d with computer-aided detection software([employer] Reported By: SHARRI DE LA GARZA M.D. 11-Nwg-867537:56 LOWER EXT.JOINT ONLY (ROUTINE) Radiology Report See Note (Normal) Comments: Exam Number: [id number] MRI RIGHT KNEE CLINICAL STATEMENTPain, swelling, worse [...] Report See Note (Normal) Comments: Exam Number: [id number] RIGHT KNEE 4 VIEWS STATEMENTPain and swelling. [...] significant change. Reported By: SHARRI HERRERA M.D. 8-Yfw-137950:23 BILAT SCRN DIGITAL & CAD Radiology Report See Note (Normal) Comments: Exam Number: [id number] MAMMOGRAM, BILATERAL SCREENING DIGITAL AND CAD HISTORYRoutine [...] werealso exa mined with computer-aided detection software ([employer] Reported By: ANNIE PETIT M.D. :18 [...] :18 TSH 2.46 {uIU/mL} (Normal) Range: 0.34-4.82 :55 Urinalysis, Office (51737) UA - BILIRUBIN Negative (Normal) UA - [...] Indication: Well woman exam Planned Observations CALCIFIDIOL (87493) VIT D 25Indication: Vitamin D deficiency On: 22-Rkm-669390:37 Request C-REACT PROT HIGH SENS(hsCRP) (65027)Indication: CRP elevated On: :29 Request CALCIFIDIOL (76598) VIT D 25Indication: Vitamin D deficiency On: :29 Request TSH (05168)Indication: Abnormal TSH On: : Request T4, TOTAL (73211)Indication: Abnormal TSH On: :29 Request T3, FREE (TRIDOTHYRONINE) (55402)Indication: Abnormal TSH On: :29 Request CBC (Auto) (11999)Indication: Benign essential HTN On: :45 Request Metabolic Panel, Comprehensive (91054)Indication: Benign essential HTN On: :45 Request Vitamin B-12 (cyanocobalamin) (63755)Indication: Balance disorder On: 11-Uxe-483566:45 Request CALCIFIDIOL (75579) VIT D 25Indication: Vitamin D deficiency On: 93-Czt-035958:45 Request C-REACTIVE PROTEIN (03003)Indication: Pain in the joints On: 68-Jnn-605024:56 Request Comments: 6 weeks T4, FREE (THYROXINE) (56758)Indication: Right leg swelling On: :48 Request TSH (33381)Indication: Right leg swelling On: :48 Request CBC, Platelets & Auto Diff (05160)Indication: Abdominal discomfort in right lower quadrant On: :48 Request Metabolic Panel, Comprehensive (64075)Indication: Abdominal discomfort in right lower quadrant On: :48 Request CBC WITH MANUAL DIFF (86011)Indication: Benign essential HTN On: :52 Request MICROALBUMIN: CREATININE RATIO (13429) AND (85990)Indication: Benign essential HTN On: :52 Request METABOLIC PANEL, COMPREHENSIVE (84192)Indication: Benign essential HTN On: :52 Request LIPID PANEL (69690)Indication: Benign essential HTN On: 9-Oct-90212:52 Request CBC WITH MANUAL DIFF (53532)Indication: Benign essential HTN On: 3-Fqc-861555:33 Request METANEPHRINES - URINE (71785)Indication: Benign essential HTN On: : Request CATECHOLAMINES TOTAL, URINE (18548)Indication: Benign essential HTN On: : Request URINE VMA (49330)Indication: Benign essential HTN On: : Request METABOLIC PANEL, COMPREHENSIVE (47246)Indication: Benign essential HTN On: : Request LIPID PANEL (51145)Indication: Benign essential HTN On: : Request CBC WITH MANUAL DIFF (54147)Indication: Benign essential HTN On: : Request VANDANA CULTURE-OTHER (10517)Indication: Neoplasm of uncertain behavior of skin On: : Request Comments: from left finger LIPID PANEL (95666)Indication: Benign essential HTN On: :29 Request TSH (73816)Indication: Benign essential HTN On: : Request URINALYSIS, W/ MICRO (75804)Indication: Benign essential HTN On: : Request MICROALBUMIN: CREATININE RATIO (69717) AND (56999)Indication: Benign essential HTN On: :29 Request METABOLIC PANEL, COMPREHENSIVE (10103)Indication: Benign essential HTN On: : Request CBC WITH MANUAL DIFF (02982)Indication: Benign essential HTN On: : Request Metabolic Panel, Comprehensive (58236)Indication: Myalgia and myositis On: :13 Request TSH (45595)Indication: Myalgia and myositis On: :13 Request ALDOLASE (42324)Indication: Myalgia and myositis On: :13 Request Sed Rate Erythrocyte (43854)Indication: Myalgia and myositis On: :12 Request Creatine Kinase Total (21096)Indication: Myalgia and myositis On: :12 Request C-Reactive Protein (71046)Indication: Myalgia and myositis On: 16-Drd-99594:12 Request JAELYN (ANTINUCLEAR ANTIBODY) (80298)Indication: Myalgia and myositis On: 51-Etr-33442:12 Request CBC with manual diff (27157)Indication: Neutropenia, unspecified type On: 97-Ynt-729160:50 Request TSH (80886)Indication: Anxiety On: :13 Request CBC (Auto) (95307)Indication: Anxiety On: 75-Wqb-667780:13 Request Metabolic Panel, Comprehensive (04532)Indication: Anxiety On: :13 Request Lipid Panel (28421)Indication: Anxiety On: :13 Request Thin prep Pap (72469)Indication: Well woman exam On: 22-Ipg-817778:55 Request Planned Encounters Medical; [facility] 2 Month FU - On: 21-Jul-2018 13:00 [facility] Austyn RODRIGUEZ, Sheridan Bradshaw MD Planned Procedures US DOPPLER CAROTID BILATERAL On: 17-Apr-2018 Intent (08196)By: Austyn RODRIGUEZ, Sheridan Bradshaw MD Radiology - Lumbar SpineBy: On: 17-Apr-2018 Intent Sheridan Zaman MD, MD, Dana M Radiology - Hip - LeftBy: Austyn On: 17-Apr-2018 Intent Sheridan RODRIGUEZ MD, Dana M Bone Density StudyBy: Austyn RODRIGUEZ, On: 17-Apr-2018 Intent Sheridan Bradshaw MD Comments: due after 06-18-18 MAMMOGRAM BREAST BILATERAL On: 17-Apr-2018 Intent SCREENING DIGITAL (19788)By: Comments: due after 06-22-18 Sheridan Zaman MD, MD, Dana M Flu Vaccine (Quadrivalent) On: 27-Mar-2018 Intent 37356Yd: Sheridan Zaman MD Comments: Lot: #[id number]: 01/03/19Site: L dltd, IMDose prefilled syringegiven by: CManchakVIS reviewed and ABN signed Sheridan Zaman MD SPECIMEN HNDLNG/TRNSPRT, OFFC > On: 24-Oct-2017 Intent LAB (37477)By: Sheridan Zaman MD, MD, Dana M DRAIN/INJECT MAJOR JOINT OR BURSA On: 08-May-2017 Intent ()By: Sheridan Zaman MD Comments: lot: [id number]:7-08-1712rsi:intra articular left knee dose:2ml given by:Dr. Zaman ABN signedER, SCHOOL AIDE Euflexxa injection number 3 Sheridan Zaman MD DRAIN/INJECT MAJOR JOINT OR BURSA On: 28-Apr-2017 Intent ()By: Sheridan Zaman MD Comments: lot:[id number]:2-08-6119bcj:intra articular dose:2ml given by:Dr. Zaman ABN signedER, SCHOOL AIDE Euflexxa injection left knee #2 Sheridan Zaman MD DRAIN/INJECT MAJOR JOINT OR BURSA On: 21-Apr-2017 Intent ()By: Sheridan Zaman MD Comments: lot:[id number]:1-14-1468tyt:intra articular dose:2ml given by:Dr. Zaman ABN signedER, SCHOOL AIDE Sheridan Zaman MD SCREENING DIGITAL TOMOSYNTHESIS On: 08-Apr-2017 Intent OF BREAST (92569)By: Austyn RODRIGUEZ, Comments: due after 06-22 Sheridan Bradshaw MD Radiology - Knee - Right - Weight On: 08-Apr-2017 Intent BearingBy: Sheridan Zaman MD, MD, Dana M Radiology - Knee - Left - Weight On: 08-Apr-2017 Intent BearingBy: Sheridan Zaman MD, MD, Dana M Flu Vaccine (Quadrivalent) On: 08-Apr-2017 Intent 07003Ak: Sheridan Zaman MD Comments: lot: [id number]: 12/22/ite/route: L elzbieta, IMamt: 0.5mlVIS and ABN signed when applicableChelsea, WINDLACE MACHINE OPERATOR Sheridan Zaman MD US DOPPLER CAROTID BILATERAL On: 28-Feb-2016 Intent (14255)By: Sheridan Zaman MD, MD, Dana M Echo CompleteBy: Sheridan Zaman MD On: 28-Feb-2016 Intent Sheridan Henriquez MD Holter Monitor 24 hrsBy: Austyn On: 28-Feb-2016 Intent Sheridan RODRIGUEZ MD, Dana M Comments: plan in 3 weeks before see. MAMMOGRAM, SCREENING, BOTH BREAST On: 28-Feb-2016 Intent ([id number])By: Sheridan Zaman MD, MD, Dana M DEXA SCAN AXIAL SKELETON On: 28-Feb-2016 Intent ([id number])By: Sheridan Zaman MD, MD, Dana M ELECTROCARDIOGRAM, COMPLETE (ECG) On: 28-Feb-2016 Intent ([id number])By: Tonio Concepcion MAMMOGRAM, SCREENING, BOTH BREAST On: 23-May-2015 Intent ([id number])By: Sheridan Zaman MD, MD, Dana M CT [...] 13-May-2014 Intent Sheridan Bradshaw MD BILATERAL MAMMOGRAMS ([id number])By: On: 13-May-2014 Intent Sheridan Zaman MD, MD, [...] SpineBy: On: 18-May-2012 Intent Dena Cash DO Comments: call [facility] Radiology - Shoulder - RightBy: On: 18-May-2012 Intent Dena Cash DO Comments: ac joint as well ADMINISTRATION OF INFLUENZA VIRUS On: 18-May-2012 Intent VACCINE ([id number])By: Brigid, Comments: Lot #:[id number] date: 12/17Amount given:prefilled syringeSite given:L Dltd, IMGiven by: BRYON Serrano FLU VAC, SPLIT, >3 YEARS, On: 18-May-2012 Intent INTRAMUSC ([id number])By: Ciara Rainey EKG ([id number])By: Dena Cash DO On: 03-Jan-2012 Intent Comments: [...] PelvisBy: Shailesh LUNA, On: 30-Jul-2011 Intent Dena A FLU VAC, SPLIT, >3 YEARS, On: 16-Apr-2011 Intent INTRAMUSC ([id number])By: Corby CABEZAS, Comments: Lot #[id number]-L arm, IMDose prefilledgiven by:MONROE Acuña ADMINISTRATION OF INFLUENZA VIRUS On: 16-Apr-2011 Intent VACCINE ([id number])By: Dawna Tavarez LPN TDAP VACCINE >7 IM ([id number])By: On: 26-Jun-2010 Intent Dawna Tavarez LPN Comments: Lot #[id number]-L ARMDosePREMEASURED SYRINGEgiven by:MELODY MAMMOGRAM, SCREENING, BOTH On: 26-Jun-2010 Intent BREASTS ([id number])By: Austyn RODRIGUEZ, Sheridan Zaman MD, Sheridan Engel Cartoid DopplerBy: Nigela On: 11-Apr-2010 Intent A EKG ([id number])By: Nigela A On: 11-Apr-2010 Intent Comments: ekg showed normal sinus rhythym, normal axis, no acute st/t wave changes rbbb and lpfb- no change- PHYSICAL THERAPY EVALUATION On: 18-Jan-2010 Intent ([id number])By: Rayne Moore CNP Kenalog Injection, 10 mgm On: 24-Nov-2009 Intent ([id number])By: Sheridan Zaman MD, MD, Sheridan Engel Kenalog Injection, 10 mgm On: 24-Nov-2009 Intent ([id number])By: Sheridan Zaman MD, MD, Sheridan Engel Kenalog Injection, 10 mgm On: 24-Nov-2009 Intent ([id number])By: Austyn RODRIGUEZ, Sheridan Zaman MD, Sheridan Engel Kenalog Injection, 10 mgm On: 24-Nov-2009 Intent ([id number])By: Austyn RODRIGUEZ, Sheridan Bradshaw MD MAMMOGRAM, SCREENING, BOTH On: 18-Apr-2009 Intent BREASTS ([id number])By: Austyn RODRIGUEZ, Comments: 06-14 Sheridan Zaman MD, Sheridan Engel DXA, BONE DENSITY, AXIAL SKELETON On: 28-Jul-2008 Intent ([id number])By: Sheridan Zaman MD, MD, Dana M Toradol Injection, 30 mg On: 17-Dec-2007 Intent ([id number])By: Teresa DEL CASTILLO Rayne Proctor Comments: Lot #[id number]-left dkhMffy6vl/30mggiven by Dimple Reyes LPN Radiology - Knee - RightBy: Teresa On: 23-Jul-2007 Intent MAGDALENE Nina IMMUNIZ ADMNIN, 1 VAC, SNGL/COMBO On: 20-May-2007 Intent ([id number])By: ROBERTO Woodard Comments: Lot #:[id number] date:37-04-32Rdrrra given:.65mlRoute: IMSite given:left deltoid Given by: kwan. brought from pharmacy to be given MAMMOGRAM, SCREENING, BOTH On: 20-May-2007 Intent BREASTS ([id number])By: Austyn RODRIGUEZ, Sheridan Bradshaw MD Radiology - Knee - RightBy: On: 19-May-2006 Intent JUSTINO CORCORAN CNP Planned Medications INJECTION, TRIAMCINOLONE ACETONIDE, NOT OTHERWISE SPECIFIED, 10 MG Ordered: 21-Oct-2013 Pending Sheridan Zaman MD, MD, Dana M INJECTION, TRIAMCINOLONE ACETONIDE, NOT OTHERWISE SPECIFIED, 10 MG Ordered: 21-Oct-2013 Pending Sheridan Zaman MD, MD, Dana M INJECTION, TRIAMCINOLONE ACETONIDE, NOT OTHERWISE SPECIFIED, 10 MG Ordered: 21-Oct-2013 Pending Sheridan Zaman MD, MD, Dana M INJECTION, TRIAMCINOLONE ACETONIDE, NOT OTHERWISE SPECIFIED, 10 MG Ordered: 21-Oct-2013 Tyrelling Sheridan Zaman MD, MD, Dana M INJECTION, TRIAMCINOLONE ACETONIDE, NOT OTHERWISE SPECIFIED, 10 MG Ordered: 07-Sep-2014 Tyrelling Sheridan Zaman MD, MD, Dana M INJECTION, TRIAMCINOLONE ACETONIDE, NOT OTHERWISE SPECIFIED, 10 [...] Indication: Limb pain Encounters Phone Encounter On: 18-Jun-2018 6:13 [facility] End: 18-Jun-2018 6:14 Phone Encounter On: 08-Jun-2018 16:50 [facility] [...] The patient does have durable power of admitted attorneys and living will. The pa roberta has noticed lack of energy. Other providers contributing to the patient's care are assembler 1st shift (Dr. Romero), rivet heater gas (Dr. Torres), gastrologist (Dr. Faith) and other: [...] months (mostly local. she will drive to [place] with .), put area rugs through house (fall risk handout given) and put handrails in bathroom, but the patient has not had fecal incontinence, had urinary incontinence, missed or ran out of medications to soon, fallen in the past 6 months, gotten lost or has a medalert necklace or bracelet. The patient has completed the following preventative measures: mammography (2017) and colonoscopy (2016). The patient does have durable power of admitted attorneys and sachin ing will. The patient has noticed nothing from the geriatic depression scale. Other providers contributing to the patient's care are assembler 1st shift and rivet heater gas.Encounter Diagnosis: Current nonsmoker (Renamed from Current non-smoker), [...] The patient does have durable power of admitted attorneys and living will. The patient has noticed nothing from the geriatic depression scale. Other providers contributing to the patient's care are assembler 1st shift ([facility]) and surgeon (omari). Note for [...] The patient does have durable power of admitted attorneys and living will. The patient has noticed lack of energy. Other providers contributing to the patient's care are other: (will see rheum next week, check in [facility] Candi boyer ).[facility] [...] (will see rheum next week, check in [facility] ). Encounter Diagnosis: Well [...] recently received care from an emergency room ([facility] Acute indigestion )., [ADDITIONAL REASON] Follow up [...] di End: 23-Jan-2012 18:54 dnt even up rodney- is waiting to see her cousnelor- her [...] tests include CT scan (abdomen ). Date: (1-27-12).Encounter Diagnosis: Anxiety (300.00), Abdominal Pain,General (789.07), Abnormal [...] running 110-120/70-80- [facility]- she thinks had some bps highe End: [...] running 110-120/70-80- [facility]- she thinks had some bps higher because [...] has alot of sinus problems- came to [place] and had bp taken - 169 over [...] or leg- her bps at home though 120-/07-88-oksihgqa alot of caffeine and sudafed Encounter Diagnosis: [...] celexa--nausea. had trouble with right knee. saw rayneJeffery Diagnosis: Knee pain (719.46), GERD (530.81), Allergic [...] [facility] End: 31-Mar-2006 19:26 Payers [employer]/MedicareFEMI NAYLOR; philomena guarantor
--- OUTSIDE RECORDS SUMMARY | 2018-09-24 15:04 | XMS RPT_ITS ---
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 Absolute Lymph 1.36 Performed By: #### L100.0100 #### [facility] [address] [place], [address] BASIC METABOLIC Collected: 06/08/2018 Status: F Source: ROSLYN PROFILE (BMP) 3:30 PM [facility] REPOSITORY TYPE CODE TESTS RESULT OUT OF RANGE REFERENCE UNITS LAB L501.0100 74-106 mg/dL High GLU 133 Result Comment: Fasting Glucose result greater than or equal to 126 mg/dL suggests DIABETES MELLITUS per A.D.A. criteria. Please note revised GLUCOSE reference range effective 2017. LAB L501.1000 7-18 mg/dL High BUN 20 LAB L501.1100 0.55-1.02 mg/dL Normal CREAT,SERUM 0.62 Result Comment: The validity of the calculated GFR AND GFRAA in patients over 70 years has not been determined. Clinical correlation is essential. LAB L501.1110 >60 mL/min Normal EST GFR 99 Result Comment: Non- GFR Calc LAB L501.1115 >60 mL/min Normal EST GFR - AA 120 Result Comment: GFR Calc LAB L501.1255 ml/min Normal Estimated CRCL 41.72 LAB L501.1300 10-20 RATIO High BUN/CRE 32.4 LAB L501.2200 8.5-10 mg/dL Normal .1 CA 8.8 LAB L501.5300 136-14 mmol/L Normal 5 NA 142 LAB L501.5600 3.5-5. mmol/L Normal 1 K 3.5 LAB L501.5900 98-107 mmol/L Normal CL 107 LAB L501.6100 21.0-3 mmol/L Normal 2.0 CO2 25.0 LAB L501.6200 5-15 Normal GAP 10 Performed By: #### L500.2500 #### [facility] [address] [place], [address] Observed: 06/08/2018 Status: F Source: ROSLYN MRSA/SAID SCREEN 3:30 PM [facility] REPOSITORY MRSA/SAID SCRN S. AUREUS S. aureus Positive MRSA MRSA Negative Performed By: #### M100.651 #### [facility] [address] [place], [address] VITAMIN D,25 HYDROXY Collected: 05/11/2018 Status: F Source: ROSLYN 9:34 AM [facility] REPOSITORY TYPE CODE TESTS RESULT OUT OF REFERENCE UNITS RANGE LAB L506.1000 29.95-100.01 ng/mL Low Vitamin D 27.8 25-OH Result Comment: Vitamin D 25(OH) Status Range Deficiency <20 ng/mL (50nmol/L) Insuffciency 20 - 30 ng/mL (50 - 75 nmol/L) Sufficiency 30 - 100 ng/mL (75 - 250 nmol/L) Toxicity >100 ng/mL (>250 nmol/L) Performed By: #### L506.1000 #### [facility] [place], [address] CRP, HIGH SENSITIVITY Collected: 05/11/2018 Status: F Source: [facility] 9:34 AM [facility] REPOSITORY TYPE CODE TESTS RESULT OUT OF RANGE REFERENCE UNITS LAB L501.6750 mg/L High CRP HIGH 8.72 SENS Result Comment: Low Relative Risk of CVD <1.0 mg/L Average Relative Risk of CVD 1.0 - 3.0 mg/L High Relative Risk of CVD >3.0 mg/L Performed By: #### L501.6750, L501.89963, L501.9310, L501.9520 #### [facility] [address] [place], [address] FREE T3 Collected: 05/11/2018 Status: F Source: ROSLYN 9:34 AM [facility] REPOSITORY TYPE CODE TESTS RESULT OUT OF RANGE REFERENCE UNITS LAB L501.32484 2.18-3.98 pg/mL Normal FREE T3 2.6 Performed By: #### L501.6750, L501.70152, L501.9310, L501.9520 #### [facility] [address] [place], [address] T4 TOTAL, THYROXIN Collected: 05/11/2018 Status: F Source: MICHAEL 9:34 AM [facility] REPOSITORY TYPE CODE TESTS RESULT OUT OF RANGE REFERENCE UNITS LAB L501.9310 4.8-13.9 ug/dL T4 Normal THYROXIN 11.7 Performed By: #### L501.6750, L501.33543, L501.9310, L501.9520 #### [facility] [address] [place], [address] THYROID STIM HORMONE Collected: 05/11/2018 Status: F Source: ROSLYN (TSH) 9:34 AM [facility] REPOSITORY TYPE CODE TESTS RESULT OUT OF RANGE REFERENCE UNITS LAB L501.9520 0.358-3.74 uIU/mL Normal TSH 2.91 Performed By: #### L501.6750, L501.57136, L501.9310, L501.9520 #### [facility] [address] [place], [address] HIP, UNI W/ PELVIS Observed: 04/23/2018 Status: F Source: ROSLYN 2-3 VIEWS 11:29 AM [facility] REPOSITORY [facility] [address] [place] [address] HIP, UNI W/ Pelvis 2-3 Views MR#: [id number] Acct: [id number] Name: FEMI AZEVEDO Rep #: [id number] : 1940 F 78 From: Jay Barrera MD PCP: Sheridan Zaman MD Status: REG CLI Study: HIP, UNI W/ Pelvis 2-3 Views Date of Exam: 04/23/18 Exam# [id number] Ordering Dr: Sheridan Zaman MD STUDY: X-RAY - PELVIS AND LEFT HIP REASON FOR EXAM: Female, 78 years old. Left hip pain. TECHNIQUE: Radiological exam, hip, unilateral, with pelvis when performed; 2 or 3 views. # of Images: 3 COMPARISON: 5 films of the lumbar spine December 20, 2013. FINDINGS: There is a non-specific bowel gas pattern. There is a small calcified phlebolith in the left pelvic soft tissues, and faint atherosclerotic vascular calcifications are noted. There is stable degenerative changes of the visualized lumbar spine. There is stable mild degenerative osteoarthritic changes bilateral sacroiliac joints. Normal bilateral iliac wings and visualized sacrum. Normal bilateral superior and inferior pubic rami. Normal pubic symphysis. Normal bilateral ischial tuberosities. Normal visualized femoral head. Cortical spurring noted along the greater trochanter. There is mild osteoarthritic spur formation of the acetabular rim. Normal hip joint. There is no demonstrated osseous destructive lesion or acute fracture. RAD/HIP, UNI W/ Pelvis 2-3 Views IMPRESSION: Mild degenerative changes of the lower lumbar spine, bilateral sacral iliac joints, and left hip. Electronically Signed: Teddy Barrera MD at 19:21 EDT , Service support , CC: Sheridan Zaman MD Home Maker: Signed L/S SPINE MIN 4 Observed: 04/23/2018 Status: F Source: [facility] 11:29 AM [facility] REPOSITORY [facility] [address] [place] [address] L/S Spine Min 4 Views MR#: [id number] Acct: [id number] Name: FEMI AZEVEDO Rep #: [id number] : 1940 F 78 From: Jay Barrera MD PCP: Sheridan Zaman MD Status: REG CLI Study: L/S Spine Min 4 Views Date of Exam: 04/23/18 Exam# [id number] Ordering Dr: Sheridan Zaman MD STUDY: X-RAY - LUMBAR SPINE REASON FOR EXAM: Female, 78 years [...] There is multi-level degenerative disc disease with multi- level disc space narrowing. Disc height narrowing has worsened at L4-5 and L5-S1, and vacuum phenomena due to disc dehydration are now present at those levels. There is no demonstrated osseous destructive lesion or fracture. There is multilevel degenerative arthroses of the bilateral facet articulations. Are stable degenerative arthroses of the bilateral sacroiliac joints. The soft tissue structures are unremarkable. RAD/L/S Spine Min 4 Views IMPRESSION: Degenerative changes of the spine, as detailed above, progressed since 2013, is prominently at L4-5 and L5-S1. Electronically Signed: Teddy Barrera MD at 19:30 EDT , Service support , CC: Sheridan Zaman MD Home Maker: Signed CARDIOLOGY VISIT Observed: 11/13/2017 Status: F Source: ROSLYN REPORT 9:25 AM [facility] REPOSITORY [facility] [address] [place] [address] OFFICE VISIT Date of Service: 11/13/17 MR#: [id number] Acct: [id number] Name: FEMI AZEVEDO Rep #: [id number] : 1940 Provider: Nelson Johnson MD Age/Sex: 77/F [place] [facility] [place] Signed [facility] Chief Complaint: Follow-up visit. Details: FEMI AZEVEDO, is a 77 F who presents to the office today for a follow-up visit. She is a lady with a history of supraventricular tachyarrhythmias who returns for a yearly follow-up visit. She tells me that she has been doing quite well except for 1 day when she had some salt laden soup and her blood pressure went high. Occasionally she does feel a fluttering sensation in her chest but nothing unusual. She has not had any dizziness or diaphoresis no near syncope or syncope she continues to have bilateral pitting edema secondary to her knee replacement as well as varicose veins. Her physical exam today demonstrates clear lung alamo regular rate and rhythm and 1+ edema. You do remember her last echocardiogram had demonstrated an ejection fraction of 55% with pulmonary artery systolic pressure of 30 mmHg. Intake Vital Signs11/13/17 Height 5 ft 6 in 11/13/17 Weight: 194 lb 11/13/17 Body Mass Index (BMI) 31.3 11/13/17 Blood Pressure 138/78 11/13/17 Blood Pressure Location Lt brachial Intake Visit Reasons: 1 Y FU Top Lifter Required: No Accompanied by: None Is patient in pain?: No Allergies No Known Allergies Allergy (Verified 11/13/17 09:09) Medications cholecalciferol (vitamin D3) 1,000 unit tablet 1,000 unit PO QDAY 11/10/17 [History Confirmed 11/13/17] lorazepam 0.5 mg tablet 0.5 mg PO Q8H PRN tab 11/10/17 [History Confirmed 11/13/17] sertraline 25 mg tablet 12.5 mg PO QDAY tab 11/10/17 [History Confirmed 11/13/17] metoprolol succinate ER 25 mg tablet,extended release 24 hr 12.5 mg PO BID #180 tab 11/13/17 [Rx Confirmed 11/13/17] Ejection fraction %: 55 to 59 (55% per echo 03/04/2016 at [facility] Medical History RBBB (Chronic) Palpitations (Chronic) Borderline hyperlipidemia (Chronic) Sciatica (Chronic) Ventricular premature depolarization (Chronic) Paroxysmal SVT (supraventricular tachycardia) (Chronic) Anxiety (Chronic) Carotid stenosis (Chronic) GERD (gastroesophageal reflux disease) (Chronic) PVCs (premature ventricular contractions) (Chronic) Surgical History History of hysterectomy (Chronic) 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) Family History Mother Breast cancer Diabetes Father Heart disease Cancer Social History Smoking Status: Never smoker alcohol intake: current alcohol intake frequency: holidays/special occasions only Alcohol type: beer, wine substance use type: does [...] fatigue or excessive sweating Eyes Eyes: Negative for blind spots, loss of peripheral vision, transient loss of vision, change in vision, floaters, tunnel vision, other, blurry vision or double vision ENT ENT: Positive for dry mouth; negative for hearing loss, tinnitus, Nosebleed/epistaxis, post nasal drip, bleeding gums, hoarseness, neck pain, other, balance problems, dizziness or headache(s) Cardio Chest Pain: No Palpitations: Yes Edema: Bilateral (lower extremities) Muscle aches with walking: None Resp Respiratory: Negative for SOB with activity, SOB at rest, SOB orthopnea\SOB lying down, Cough, Coughing up blood/hemoptysis, chest congestion, pain on inspiration, snoring, stridor, wheezing, crackles, paroxysmal nocturnal dyspnea or other GI GI: Negative nausea, vomiting, heartburn, constipation, belching, bloating, cramping, vomiting blood/hematemesis, bright, red blood in stools, black,tarry stools, loose stools, Difficulty Swallowing or other : Negative for hematuria, frequent nighttime urination/ nocturia, erectile dysfunction or abnormal vaginal bleeding Musc Musc: Positive for joint pain; negative for muscle aches/ myalgia, muscle weakness or balance problems Skin Skin: Negative redness, non-healing lesions, rash, unusual bruising, skin ulcer, wounds, jaundice or other Neuro [...] loss, hair growth or other Psych Psych: Positive for anxiety; negative for depression, thoughts of harming anyone, thoughts of harming yourself, visual hallucinations, panic attacks or audible hallucinations Allergy Allergy/Immunology: Negative for rash Cardiology Exam Const Appearance: cooperative, healthy appearing, well developed, well groomed and no acute distress Nutritional Appearance: well nourished and average body habitus Orientation: alert, awake and oriented x3 Head Head: normal to inspection, normocephalic and atraumatic Ears: hearing grossly normal bilaterally and external ears normal Nose: external nose normal, nasal mucous membranes and turbinates normal, nares normal, septum normal, no nasal discharge Face and Sinus: face symmetric Mouth: oral mucosae normal, tongue normal, oropharynx normal and moist mucous membranes Teeth and gingiva: dentition normal Throat: posterior oropharynx normal, tonsils normal and uvula midline Eyes General: appearance normal, both eyes and all related structures Eyelids: eyelids normal Conjunctivae: conjunctivae normal Pupils: PERRL, normal by confrontation [...] or murmur GI GI: normal to inspection, soft, no hepatosplenomegaly and bowel sounds present Neuro General: alert, awake, oriented x3, no focal sensory deficit, gait normal and moves all extremities Skin Skin: no rashes or lesions noted Extremities Pulses: Normal: Right Femoral Pulse, Left Femoral Pulse, Right Dorsalis Pedis Pulse, Left Dorsalis Pedis Pulse, Right Posterior Tibial Pulse, Left Posterior Tibial Pulse, Right Radial Pulse, Left Radial Pulse Lower Extremity Edema: None: Bilateral Musculoskel Musculoskeletal: No joint tenderness Psych Psychological: normal affect Assessment AND Plan 1. Paroxysmal SVT (supraventricular tachycardia) I47.1 Plan Patient has a history of supraventricular tachyarrhythmia. The above appears to be doing quite well at this time with no recurrence my recommendation is for her to continue the current medical therapy without making any changes. I have asked her that she can always take a as needed metoprolol if she should feel that she is getting into a tachyarrhythmia. At this time no other changes will be made. Thank you for allowing me to participate in the care of your patient. 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 [address]242(SNOMED Repository CT) 11/13/2017 Drug No Known Unknown [place] [facility] Allergy/4160 Allergies/F00 [facility] 28184(SNOMED 8994690(RXNOR Repository CT) M) ENCOUNTERS ENCOUNTERS ADMIT/DISCHARGE ACCOUNT ADMITTING ENCOUNTER LOCATION SOURCE NUMBER CLASS 08/05/2018 [id number] Miguel, Aria [place] [facility] ing:[facility] Repository 07/27/2018 1576 Ambulatory Building:[facility] OHIP Practices Repository 07/13/2018 [id number] Miguel, Ambulatory [place] [facility] ing:[facility] Repository 07/13/2018 [id number] Ambulatory [place] [facility] ing:LAB Repository 06/23/2018 [id number] Ambulatory [place] [facility] ing:[facility] Repository 05/11/2018 [id number] Ambulatory [place] [facility] ing:LAB Repository 04/23/2018 [id number] Amb[place] [facility] ing:HPRAD Repository 04/17/2018 [id number] Ambulatory [place] [facility] ing:RAD.FUTUR Repository E 11/13/2017/ [id number] Ambulatory BMSBuilding:B [place] 8 3 [facility] Repository 11/10/2017 [id number] Ambulatory BMSBuilding:B [place] 3 [facility] Repository PAYERS PAYERS ENCOUNTER GUARANTOR PAYER SUBSCRIBER SOURCE 08/05/2018 FEMI Tarango Primary Insurance:AETRENETTA Tarango [place] [id number] MCRPolicy Number: NAULTDOB: [facility] IRMA MEBGHKXQEffective [id number], [place] Date:9263-37-85WK BOX Repository [address]Mnx: [phone] [place], [place] [phone] (KV) [phone]: 08/05/2018 Secondary NOT GIVENUNK [place] Insurance:SELF PAY [facility] INSURANCEPolicy Number: Hospital Effective Repository Date:2018-07-13 07/27/2018 FEMI A Primary Insurance:Aetna [facility] Life Ins/MedicarePolicy NAULTDOB: Repository [id number] Number: [id number] Irma MEBGHKXQEffective 2 [place], [place] Date:4064-66-71Lrxn[place], [place] [address]Ecj: 330) Name:[facility] [id number] [id number]: (JF) [facility] [place] [id number]: [phone] (OQ) 07/27/2018 Secondary FEMI A OHIP Practices Insurance:Medical NAULTDOB: Repository [facility] [id number] Number: Marilyn Barrios [id number] DrW[place], [place] Date: 7814-72-76Mmga [address]Fwr: Name:[facility] Box ~(3 [address], [place] 30 (HP) [phone]: 07/27/2018 Tertiary FEMI A OHIP Practices Insurance:Aetna Life NAULTDOB: Repository [facility]/MedicarePolicy [id number] Number: Marilyn Barrios MEBGHKXQEffective [place], [place] Date:2011-07-07 89[address]Eqd: [id number] Name: ~([address] 30 (HP) [phone]: 07/13/2018 FEMI A Primary Insurance:AETNA FEMI Tarango [place] [id number] [facility]: NAULTDOB: [facility] IRMA FLORESBGHKXQEffective [id number], [place] Date:9330-97-77BP BOX Repository [address]Kjz: [phone] FANNIE [place] [phone] (HP) [phone]: 07/13/2018 Secondary NOT GIVENUNK [place] Insurance:SELF PAY Community INSURANCEPolicy Number: Hospital Effective Repository Date:2018-04-28 07/13/2018 FEMI A Primary Insurance:AETRENETTA Tarango [place] [id number] [facility]: NAULTDOB: [facility] IRMA MEBGHKXQEffective [id number], [place] Date:9560-99-93JM BOX Repository [address]Tha: [phone] MONDRAGON [phone] (HP) [phone]: 07/13/2018 Secondary NOT GIVENUNK [place] Insurance:SELF PAY Community INSURANCEPolicy Number: Hospital Effective Repository Date:2018-07-13 06/23/2018 FEMI A Primary Insurance:WESTTRENETTA Tarango [place] [id number] MCRPolicy Number: NAULTDOB: Community IRMA FLORESBGHKXQEffective [id number] [place] Date:4612-44-23DE BOX Repository [address]Ffs: [phone] [place]ANNIE [place] [phone] (HP) [phone]: 06/23/2018 Secondary NOT GIVENUNK [place] Insurance:SELF PAY Community INSURANCEPolicy Number: Hospital Effective Repository Date:2018-04-17 05/11/2018 FEMI A Primary Insurance:WESTTRENETTA Tarango [place] [id number] MCRPolicy Number: NAULTDOB: Community IRMA FLORESBGHKXQEffective [id number] Hospital [facility] [place] Date:4445-06-30ZL BOX Repository [address]Ydv: [phone] F[place]IE [place] [phone] (HP) [phone]: 05/11/2018 Secondary NOT GIVENUNK [place] Insurance:SELF PAY Community INSURANCEPolicy Number: Hospital Effective Repository Date:2018-05-11 04/23/2018 FEMI A Primary Insurance:WESTTRENETTA Tarango [place] [id number] MCRPolicy Number: NAULTDOB: Community IRMA FLORESBGHKXQEffective [id number] Hospital [facility] [place] [facility] [place] Date:4109-76-04DK BOX Repository [address]Tsn: [phone] [place] [phone] (HP) [phone]: 04/23/2018 Secondary NOT GIVENUNK [place] Insurance:SELF PAY Community INSURANCEPolicy Number: Hospital Effective Repository Date:2018-04-23 04/17/2018 FEMI A Primary Insurance:AETNA FEMI A [place] [id number] MCRPolicy Number: NAULTDOB: Community IRMA FLORESBGHKXQEffective [id number] [facility], Date:6881-27-86MS BOX Repository [place] [address]Tcr: [id number] [place]IE [place] [phone]: [phone] 04/17/2018 Secondary NOT GIVENUNK [place] Insurance:SELF PAY Community INSURANCEPolicy Number: Hospital Effective Repository Date:2018-04-17 11/13/2017 FEMI A Primary Insurance:DAMI Rodriguez [id number] MCRPolicy Number: NAULTDOB: Community IRMA FLORESBGHKXQEffective [id number] [facility] Medical Center, Date:3819-79-35YL BOX Repository [place] [address]Lho: [id number] [place] [phone]: [phone] 11/13/2017 Secondary NOT GIVENUNK [place] Insurance:SELF PAY Community INSURANCEPolicy Number: Hospital Effective Repository Date:2017-11-13 11/10/2017 Femi A Primary Insurance:DAMI Tarango [place] [id number] MCRPolicy Number: NaultDOB: Community Irma FLORESBGHKXQEffective [id number], [place] Date:6735-77-47ZI BOX Repository [address]Pvg: [phone] FANNIE [place] [phone] () [phone]: 11/10/2017 Secondary NOT GIVENUNK [place] Insurance:SELF PAY Community INSURANCEPolicy Number: Hospital Effective Repository Date:2017-11-10
== END ==
PROVIDERS: Family Provider Internal Medicine; PCP Internal Medicine; Referring Provider Internal Medicine; Visit Provider Internal Medicine
DX: Z12.31 Encounter for screening mammogram for malignant neoplasm of breast (principal); I65.23 Occlusion and stenosis of bilateral carotid arteries; Z78.0 Asymptomatic menopausal state; M81.0 Age-related osteoporosis without current pathological fracture; M85.89 Other specified disorders of bone density and structure, multiple sites
CPT/HCPCS: 77063; 77067; 77080; 93880

== ENCOUNTER → 2018-07-13 09:08 | Outpatient (CLI) | payer MEDICARE, SELFPAY ==
[2018-07-13 10:43] LABS: Vitamin D,25 Hydroxy 40.4 ng/mL (29.95-100.01)
== END ==
PROVIDERS: Family Provider Internal Medicine; PCP Internal Medicine; Referring Provider Internal Medicine; Visit Provider Internal Medicine
DX: E55.9 Vitamin D deficiency, unspecified (principal)
CPT/HCPCS: 36415; 82306; 87077; 87081

== ENCOUNTER → 2018-07-13 13:03 | Outpatient (CLI) | payer MEDICARE, SELFPAY ==
[2018-06-08 15:19] VITALS: BP 155/75; PULSE 78; RESP 16; TEMP 36.4; O2SAT 97; BMI 32.6
[2018-06-08 16:04] LABS: Absolute Lymphocyte Count 1.36 X10^3/ul (0.83-4.51); Absolute Neutrophil Count 2.9 X10^3/uL (2.0-7.7); Basophil# 0.02 X10^3/uL; Basophil% 0.4 % (0-1); Eosinophil# 0.12 X10^3/uL; Eosinophils% 2.5 % (0-5); Hematocrit 39.1 % (37-47); Hemoglobin 12.8 g/dl (12.0-15.0); Lymphocyte # 1.36 X10^3/ul (4.0); Lymphocyte % 28.5 % (19-41); Mean Corp Hgb Conc 32.7 g/gl (32-36); Mean Corpuscular Volume 85.6 fL (81-99); Mean Platelet Vol. 8.9 fl (6.2-12.0); Monocyte# 0.42 X10^3/uL; Monocyte% 8.8 % (0-10); Neutrophil # 2.85 X10^3/uL (2.7-7.7); Neutrophil % 59.6 % (47-70); Platelet Count 222 K/mm3 (150-450); RBC Distribution Width CV 13.9 % (11.6-14.6); RBC Distribution Width SD 43.3 fl (35.1-43.9); Red Blood Count 4.57 M/mm3 (4.2-5.4); White Blood Count 4.8 K/mm3 (4.4-11.0)
[2018-06-08 16:08] LABS: POSITIVE COUNT NO; POSITIVE DIFFERENTIAL NO; POSITIVE MORPHOLOGY NO
[2018-06-08 16:22] LABS: Anion Gap 10 (5-15); BUN 20 mg/dL (7-18); BUN/Creat Ratio 32.4 RATIO (10-20); Calcium,Total 8.8 mg/dL (8.5-10.1); Chloride 107 mmol/L (98-107); Creatinine, Serum 0.62 mg/dL (0.55-1.02); EST Glomerular Filtration Rate 99 mL/min (>60); Est Glom Filt Rate - Afr Amer 120 mL/min (>60); Estimated Creatinine Clearance 41.72 ml/min; Glucose 133 mg/dL (74-106); Potassium 3.5 mmol/L (3.5-5.1); Sodium Level 142 mmol/L (136-145)
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
== END ==
PROVIDERS: Family Provider Internal Medicine; PCP Internal Medicine; Referring Provider Specialist; Visit Provider Specialist
DX: Z01.812 Encounter for preprocedural laboratory examination (principal); Z53.9 Procedure and treatment not carried out, unspecified reason; M17.12 Unilateral primary osteoarthritis, left knee; M16.12 Unilateral primary osteoarthritis, left hip; M51.36 Other intervertebral disc degeneration, lumbar region; E55.9 Vitamin D deficiency, unspecified; F41.9 Anxiety disorder, unspecified; Z79.899 Other long term (current) drug therapy; Z86.72 Personal history of thrombophlebitis
CPT/HCPCS: 27447; 36415; 80048; 82306; 85025; 87077; 87081

== ENCOUNTER → 2018-08-03 09:56 | Outpatient (CLI) | payer MEDICARE, SELFPAY ==
[2018-07-22 13:33] VITALS: BMI 32.5
[2018-08-03 11:00] LABS: Color, Urine Yellow (Yellow); Glucose, Dipstick Normal (Normal); Ketone-Dipstick Negative (Negative); Leukocyte Esterase-Dipstick Negative /ul (Negative); Nitrite-Dipstick Negative (Negative); Occult Blood-Urine Negative /ul (Negative); Protein-Dipstick Negative (Negative); Urine Bilirubin Dipstick Negative (Negative); Urine Clarity Clear (Clear); Urine Urobilinogen Normal (Normal); Urine pH 6.5 (5.0 - 8.0)
== END ==
LOC: LAB 10:00 → LABSPEC 10:02
PROVIDERS: Family Provider Internal Medicine; PCP Internal Medicine; Referring Provider Internal Medicine; Visit Provider Internal Medicine
DX: N39.0 Urinary tract infection, site not specified (principal)
CPT/HCPCS: 81002; 87086; 87088; 87186

== ENCOUNTER → 2018-08-31 | Outpatient (CLI) | payer MEDICARE, SELFPAY ==
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
[2018-07-22 13:33] VITALS: BP 146/74; PULSE 74; RESP 16; TEMP 36.4; O2SAT 96; BMI 32.5
== END | disposition home or self-care (01) ==
LOC: SDC 10:43
PROVIDERS: Family Provider Internal Medicine; PCP Internal Medicine; Referring Provider Specialist; Visit Provider Specialist
DX: M17.12 Unilateral primary osteoarthritis, left knee (principal); Z53.20 Procedure and treatment not carried out because of patient's decision for unspecified reasons; M16.12 Unilateral primary osteoarthritis, left hip; M51.36 Other intervertebral disc degeneration, lumbar region; I49.3 Ventricular premature depolarization; I45.10 Unspecified right bundle-branch block; F41.9 Anxiety disorder, unspecified; Z79.899 Other long term (current) drug therapy; Z86.718 Personal history of other venous thrombosis and embolism
CPT/HCPCS: 87077; 87081

== ENCOUNTER → 2018-09-10 10:28 | Outpatient (CLI) | payer MEDICARE, SELFPAY ==
[2018-09-10 11:46] LABS: Albumin, Serum 3.6 g/dL (3.2-5.0)
== END ==
PROVIDERS: Family Provider Internal Medicine; PCP Internal Medicine; Referring Provider Specialist; Visit Provider Specialist
DX: Z01.812 Encounter for preprocedural laboratory examination (principal)
CPT/HCPCS: 36415; 82040

== ENCOUNTER 2018-11-16 14:30 | Outpatient (RCR) | payer MEDICARE, SELFPAY ==
--- NOTE | 2018-09-29 16:36 | HP.PTEVAL ---
Patient's Visit Information FEMI AZEVEDO is a 78 year old F referred to Physical Therapy by CHINO Muniz with a diagnosis of TKR. Date of Evaluation: 09/29/18 Physical Therapist: Alisha Pandey DPT - Visit Plan Frequency: 2x /Week Duration: 4 Weeks Plan: TKR 09/22/18 - Subjective Findings: Left TKR 09/22/[address] Rivera- stayed 2 days at the hospital- then went home to a single story home with her - No problems negotiating the home- 2 stairs to enter with a grab bar. Prior to surgery she was fully I- including driving. Pain worst: 8/10 Agg: when she first gets up in the AM Best: 5/10 Eases: elevation, ice. Has done some leg raises, quad sets, heel slides on chair. The pain medication makes her sleepy. Sleep: not disturbed due to the pain medication- back and side sleeper. PMHx/Meds: no changes since surgery at the hospital. Goals: be able to walk around the block - Objective Posture: FH, RS, increased kyphosis- does not correct with VC's. Gait: slow and antalgic- decreased stance on the left LE with poor heel/toe pattern- using FWW. HR/TR: able with UE A. SLS: WS but unable to SLS. Stairs: asc/desc 8 non recip with 2 HR. ROM: 5-90 degrees. Strength: Ankle: 5/5, Knee: quad set visible Hip: 4/5 throughout Core: fair. Flex: HS: severe, Gastroc: mod - Goals Goal 1:: Patient will be I with HEP and progression Goal Time Frame: 4-6 Weeks Goal 2:: Patient will demo 0-115 degrees of ROM Goal Time Frame: 4-6 Weeks Goal 3:: Patient will ambulate >300 feet with a normalized pattern and LRD Goal 4:: Patient will asc/desc 8 stairs recip with 1 HR and good control Goal Time Frame: 4-6 Weeks - Rehabilitation Potential Physical Therapy Diagnosis: Patient presents with hypomobility- she has decreased ROM, strength and muscular endurance leading abnormaal gait and decreased participtation with ADL's s/p TKR Rehabilitation Potential: Good - Anticipated Interventions Patient/Client Instruction: Educate patient on: Benefits of Fitness Program Therapeutic Exercise to Include: Strength training, Balance training, Agility training, Body mechanics, Postural training, Flexibilty training, Gait and locomotor training, Passive ROM, Active ROM, Dynamic Lumbar Stabilization For the Purpose of:: To improve muscle performance and motor function TENS: Yes Cryotherapy (ice pack, ice massage): Yes Thermo therapy (hot pack): Yes Ultrasound (thermal/non thermal): No Thank you for the opportunity to evaluate your patient. For Medicare and Medicare HMO plans, please review the plan of care and approve it. It will need to be FAXED BACK to us at [phone] for Medicare purposes. For Medicare only, by signing this I certify the plan of care. Please let me know if there are questions or concerns regarding this plan of care. Physician Signature: Date:
--- NOTE | 2018-10-21 11:19 | HP.PTREVAL_ITS ---
CHINO Muniz, It has been my pleasure to treat FEMI AZEVEDO over the last 10 visits for TKR. Please see the progress note below for an update on the physical therapy plan of care! Subjective: Pt. reports I am doing really well. I really do not have any pain. Pt. reports being HEP compliant without issues. Pt. reports no pain. SHe rep orts beign 90% better overall. Objective/Function: ROM- 0-0-115 AROM, 0-0-118deg. MMT: LLE- ankle 5/5 throughout; knee- ext 4+/5, flexion 5-/5; hip- flexion 4/5, abd 3-/5, ext 4/5. Core strength- poor. GAIT: Pt. ambulates with SPC, but has increased L hip trande[place]durg movement during L stance phase. Pt. had normal step length bilaterally. with good L knee motion during asll phases. STAIRS: Pt. si able to complete with 1 HR, both ascending and descending, but has functional weakness with loading her LLE, quad and glute med weakness noted. Pt. would benefit from continued PT with focus on L glute med/glute max and quad strength to increase stability with stairs and gait. COnt. with ROM of L knee into flexion as tolerated. Plan Plan: POC extended x2 per week for 3 weeks with focus on increasing ROM into flexion, glute strengthening for improved gait and increased stability at her L knee. Goals Goal 1:: Patient will be I with HEP and progression Goal Time Frame: 4-6 Weeks Goal Progress: Goal Met Goal 2:: Patient will demo 0-115 degrees of ROM (MET). NEW GOAL: ROM of L knee to 0-0-120deg AROM allowing for increased tolerance to stair negotiation. Goal Time Frame: 4-6 Weeks Goal Progress: Progressing Goal 3:: Patient will ambulate >300 feet with a normalized pattern and LRD Goal Progress: Progressing Goal 4:: Patient will asc/desc 8 stairs recip with 1 HR and good control Goal Time Frame: 4-6 Weeks Goal Progress: Progressing Goal 5:: Pt. to demonstrate increased L glute med, glute max and quad strength by 1/2 to increase stability with walking and stair negotiation. Goal Time Frame: 2-4 Weeks Anticipated Interventions Patient/Client Instruction: Educate patient on: Benefits of Fitness Program For the Purpose of:: To facilitate caregiver knowledge, To improve self management, To prevent re-injury, To improve ability to perform tasks related to life management, To improve tolerance to ADL's Therapeutic Exercise to Include: Strength training, Balance training, Agility training, Body mechanics, Postural training, Flexibilty training, Gait and locomotor training, Passive ROM, Active ROM, Dynamic Lumbar Stabilization For the Purpose of:: To improve muscle performance and motor function TENS: Yes Cryotherapy (ice pack, ice massage): Yes Thermo therapy (hot pack): Yes Ultrasound (thermal/non thermal): No Please do not hesitate to contact me at [phone] by phone or if you have questions or concerns regarding this new plan of care! Sincerely, JACOBO LeyvaT
--- NOTE | 2018-11-04 11:16 | HP.PTDCNRP_ITS ---
HP - Discharge Summary (1) - Patient Information FEMI AZEVEDO was seen in my office for initial evaluation on 09/29/18. The following Plan of Care was established for this patient: Initial Frequency: 2x /Week Initial Duration: 4 Weeks - Anticipated Interventions Patient/Client Instruction: Educate patient on: Benefits of Fitness Program For the Purpose of:: To facilitate caregiver knowledge, To improve self kisha gement, To prevent re-injury, To improve ability to perform tasks related to life management, To improve tolerance to ADL's Therapeutic Exercise to Include: Strength training, Balance training, Agility training, Body mechanics, Postural training, Flexibilty training, Gait and locomotor training, Passive ROM, Active ROM, Dynamic Lumbar Stabilization For the Purpose of:: To improve muscle performance and motor function TENS: Yes Cryotherapy (ice pack, ice massage): Yes Thermo therapy (hot pack): Yes Ultrasound (thermal/non thermal): No This patient was last seen in our office . Pertinent comments regarding their Physical therapy will appear below: Patient reports ready to be d/c and start working on her left hip/back- appropriate for d/c at this time. At this point I will be discontinuing this patient from physical therapy. I would be happy to see this patient again in the future if found appropriate by the physician. Thank you! Alisha Pandey DPT
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
== END 2018-11-16 19:00 | disposition home or self-care (01) ==
LOC: PT 14:30
PROVIDERS: Family Provider Internal Medicine; PCP Internal Medicine; Referring Provider Physician Assistant Surgical; Visit Provider Physician Assistant Surgical
DX: M25.552 Pain in left hip (principal); R29.898 Other symptoms and signs involving the musculoskeletal system
CPT/HCPCS: 97110; 97161; 97530

== ENCOUNTER 2018-11-18 10:58 | Day surgery (SDC) | payer MEDICARE, SELFPAY ==
[2018-11-17 07:35] VITALS: BMI 32.4
--- NOTE | 2018-11-17 10:47 | RAD_ITS ---
STUDY: X-RAY CHEST REASON FOR EXAM: Female, 78 years old. Shortness of breath TECHNIQUE: PA and lateral views of the chest. COMPARISON: None. FINDINGS: The lungs are clear and expanded. There is no demonstrated pleural abnormality. There is borderline cardiomegaly. Normal mediastinum and kolton. Normal visualized pulmonary arteries. Normal visualized aortic arch and descending thoracic aorta. There are diffuse degenerative changes of the visualized thoracic spine. Normal visualized ribs, clavicles, and shoulders. There is no demonstrated abnormality of the visualized soft tissue structures of the upper abdomen. RAD/Chest PA and Lateral IMPRESSION: Borderline cardiomegaly no evidence of acute focal infiltrate. Electronically Signed: Ewa Venegas MD at 22:21 EDT Tel , Service support ,
[2018-11-17 11:09] LABS: Mucous, Urine 0 SEEN /hpf (<or=2+); Red Blood Cells-Urine 0 SEEN /hpf (0-5)
[2018-11-17 11:32] LABS: Color, Urine Yellow (Yellow); Glucose, Dipstick Normal (Normal); Ketone-Dipstick 5 mg/dl (Negative); Leukocyte Esterase-Dipstick 25 /ul (Negative); Nitrite-Dipstick Negative (Negative); Occult Blood-Urine 10 /ul (Negative); Protein-Dipstick 30 mg/dl (Negative); Specific Gravity, Urine 1.025 (1.002-1.030); Urine Bilirubin Dipstick Negative (Negative); Urine Clarity Sl. Cloudy (Clear); Urine Urobilinogen 1 mg/dl (Normal)
[2018-11-17 11:36] LABS: Bacteria 1+ /hpf (None Seen); Calcium Oxalate Crystals Ur RARE /hpf (<or=2+); Hematocrit 39.7 % (37-47); Hemoglobin 12.9 g/dl (12.0-15.0); Mean Corp Hgb Conc 32.5 g/gl (32-36); Mean Corpuscular Hgb 28.4 pg (27.0-32.0); Mean Corpuscular Volume 87.4 fL (81-99); Mean Platelet Vol. 9.5 fl (6.2-12.0); Platelet Count 255 K/mm3 (150-450); RBC Distribution Width CV 14.3 % (11.6-14.6); RBC Distribution Width SD 45.5 fl (35.1-43.9); Red Blood Count 4.54 M/mm3 (4.2-5.4); Squamous Epithelial Cells - UA 0-5 SEEN /hpf (5-10); White Blood Cells 0-5 SEEN /hpf (0-5); White Blood Count 6.1 K/mm3 (4.4-11.0)
[2018-11-17 11:39] LABS: Scan Indicated on CBC? Y/N NO
[2018-11-17 11:52] LABS: Anion Gap 8 (5-15); BUN 34 mg/dL (7-18); BUN/Creat Ratio 41.2 RATIO (10-20); Calcium,Total 9.3 mg/dL (8.5-10.1); Chloride 108 mmol/L (98-107); Creatinine, Serum 0.83 mg/dL (0.55-1.02); EST Glomerular Filtration Rate 71 mL/min (>60); Est Glom Filt Rate - Afr Amer 86 mL/min (>60); Glucose 84 mg/dL (74-106); Potassium 3.7 mmol/L (3.5-5.1); Sodium Level 144 mmol/L (136-145)
[2018-11-17 15:57] VITALS: BMI 32.4
[2018-11-18] VITALS (12 sets, daily range): BP systolic 145–176; BP diastolic 65–85; PULSE 71–87; RESP 16–18; TEMP 36.3–37.2; O2SAT 96–98
--- NOTE | 2018-11-18 14:02 | CL.IE_ITS ---
Patient: FEMI AZEVEDO Study Date: 11/18/2018 Performing: Nelson Johnson MD : 1940 Age: 78 Gender: female PROCEDURES PERFORMED [id number] PACER INSERT+DUAL LEADS INDICATIONS Atrioventricular (AV) block PROCEDURE DETAILS The patient was brought to the Catheterization Lab in the postabsorptive nonsedated state. [facility] was obtained prior to the procedure. Local anesthetic was given subcutaneously to the le ft subclavian region with Lidocaine 2%. Incision was made to the left upper chest. Access was achieve d and a guidewire was advanced into the left subclavian vein. PPM ventricular lead was inserted / pos itioned to right ventricular. PPM atrial lead was inserted / positioned to the right atrial appendage . PPM atrial lead testing performed. The Ventricular PM lead sutured in place with 3-0 Silk. The Atri al lead sutured in place with 3-0 Silk. Device pocket was irrigated with antibiotic. PPM generator wa s attached to the lead(s) and inserted into the pocket. PPM generator was then interrogated by the gisele mann. Subcutaneous closure was completed with 3-0 Vicryl. Skin closure was completed with 4-0 Mark ryl. Instrument, sponge, and needle counts were noted to be normal. The patient tolerated the procedure well. Estimated Blood Loss: < 10 mls IMPLANTED / EX-PLANTED DEVICES IMPLANTED DEVICE(S): PPM Ventricular lead - Te[place]eler: [employer], Model # 7741 , Serial # [id number] PPM Atrial lead - Teaseler: [employer], Model # 7740 , Serial # [id number] PPM Generator - [place]aseler: [employer], Model # L111 , Serial # [id number] DEVICE PARAMETERS DEVICE PARAMETERS: Mode - DDD lower rate - 60 upper rate - 120 rate response off Mode- DDD Lower rate- 60 Upper rate- 120 CONCLUSIONS / RECOMMENDATIONS Device Conclusions: Successful implantation of a dual chamber pacemaker Device Recommendations: Follow up with Primary Care Physician PROCEDURE MEDICATIONS Versed 1 mg IV Fentanyl 50 mcg IV Versed 1 mg IV Oxygen: 2 L/min via nasal cannula Ancef 2 Gm IV @ 11/18/2018 12:39:46 Signed By Nelson Johnson MD On 11/18/2018 14:00:35 Nelson Johnson MD
[2018-11-18] MEDS: amLODIPine 5 MG Tablet PO (15:58)
[2018-11-18] MEDS: Ciprofloxacin 250 MG Tablet PO (21:15)
[2018-11-19 03:06] VITALS: PULSE 82
[2018-11-19 03:14] VITALS: BP 155/75; PULSE 82; RESP 16; TEMP 36.8; O2SAT 96
--- NOTE | 2018-11-19 05:55 | RAD_ITS ---
HISTORY: Possible pneumothorax. Pacemaker insertion. EXAM:XR Chest 2 Views COMPARISON: 11/17/2018 FINDINGS: EKG leads in place. Interval placement of a left subclavian transvenous pacemaker with electrode tips in region of the right atrium and right ventricle. No pneumothorax. Normal heart size. Lung volumes appear normal. No vascular congestion, pleural effusion, or acute pulmonary infiltration. The bony thorax appears intact. RAD/Chest PA and Lateral IMPRESSION: 1. No acute cardiopulmonary disease. 2. Left subclavian transvenous pacemaker now in place. Negative for pneumothorax. at [id number] Reported and signed by: Trae Benz MD Electronically Signed: Trae Benz, at 5:25 EDT Tel , Service support ,
--- NOTE | 2018-11-19 06:24 | PCM.PN.CARD ---
Subjectve: Patient seen and evaluated. Appears to be doing well. Objective: Vital Signs Temp Pulse Resp BP Pulse Ox 98.3 F 82 16 155/75 H 96 11/19/18 03:14 11/19/18 03:14 11/19/18 03:14 11/19/18 03:14 11/19/18 03:14 Oxygen Delivery Method Room Air Weight: 195 lb Body Mass Index (BMI) 32.4 Intake and Output for Last 24 Hours 11/17/18 11/18/18 11/19/18 23:59 23:59 23:59 Intake Total 770 / 770 Balance 770 / 770 General: Awake, Alert, Oriented x 3 HEENT: PERRL, EOMI, Sclera Non Icteric Neck: Supple, Good ROM, No Lymph Node Enlargement Lungs: Clear to auscultation Cardiovascular: Regular Rhythm, Normal S1, Normal S2, No Murmurs, No Rubs, No Gallops Vascular: No Carotid Bruits, Normal Femoral Pulses, Normal Radial Pulses, Normal Dorsalis Pedal Pulse, Normal Posterior Tibial Pulses Abdomen: Bowel Sounds Present, Soft, Non Tender, No HSM, No Organomegaly Extremities: No Cyanosis, No Clubbing, No edema Neurological: No Focal Motor or Sensory Deficit Psych/Mental Status: Appropriate Rhythm: EKG: ECHO: Stress Test: Cardiac Cath: PCI: CT Surgery: Holter monitor: EPS: PPM: CXR: Chest CT Scan: Medical Necessity - Tobacco Use Smoking Status: Never smoker Assessment/Plan 1. Status post permanent pacemaker implantation for complete heart block Pacemaker interrogation pending this morning. Chest x-ray demonstrates adequate positioning of the leads. Will hopefully discharge later this morning. 2. Hypertension Patient noted to be hypertensive. Will start lisinopril 10 mg a day. Follow-up as outpatient.
--- NOTE | 2018-11-19 06:28 | PN.CARD_ITS ---
Subjectve: Patient seen and evaluated. Appears to be doing well. Objective: Vital Signs Temp Pulse Resp BP Pulse Ox 98.3 F 82 16 155/75 H 96 11/19/18 03:14 11/19/18 03:14 11/19/18 03:14 11/19/18 03:14 11/19/18 03:14 Oxygen Delivery Method Room Air Weight: 195 lb Body Mass Index (BMI) 32.4 Intake and Output for Last 24 Hours 11/17/18 11/18/18 11/19/18 23:59 23:59 23:59 Intake Total 770 / 770 Balance 770 / 770 General: Awake, Alert, Oriented x 3 HEENT: PERRL, EOMI, Sclera Non Icteric Neck: Supple, Good ROM, No Lymph Node Enlargement Lungs: Clear to auscultation Cardiovascular: Regular Rhythm, Normal S1, Normal S2, No Murmurs, No Rubs, No Gallops Vascular: No Carotid Bruits, Normal Femoral Pulses, Normal Radial Pulses, Normal Dorsalis Pedal Pulse, Normal Posterior Tibial Pulses Abdomen: Bowel Sounds Present, Soft, Non Tender, No HSM, No Organomegaly Extremities: No Cyanosis, No Clubbing, No edema Neurological: No Focal Motor or Sensory Deficit Psych/Mental Status: Appropriate Rhythm: EKG: ECHO: Stress Test: Cardiac Cath: PCI: CT Surgery: Holter monitor: EPS: PPM: CXR: Chest CT Scan: Medical Necessity - Tobacco Use Smoking Status: Never smoker Assessment/Plan 1. Status post permanent pacemaker implantation for complete heart block * Pacemaker interrogation pending this morning. * Chest x-ray demonstrates adequate positioning of the leads. Will hopefully discharge later this morning. * 2. Hypertension * Patient noted to be hypertensive. * Will start lisinopril 10 mg a day. * * Follow-up as outpatient.
[2018-11-19 07:26] VITALS: PULSE 90
--- NOTE | 2018-11-19 07:54 | DCINST_ITS ---
Discharge Diet: No Restrictions Discharge Activity: May Not Drive Call your doctor if your incision/area has: Continuous Slow Oozing, Sudden Increased Bleeding, Increased Pain/ Swelling, Increased Redness, Foul Smelling Discharge, Swelling at the incision site Call your doctor if you observe: Fever of 101 or Higher, Shortness of breath, Dizziness, Fainting spells, Swelling in the ankles, Chest pain, Prolonged hiccoughing, Increased palpitations (irregular heartbeat) Suture Line Care: Avoid Pulling/Pushing, Avoid Pinching/Bending Cleanse incision/area with: Do not get Incision Wet, Keep Dressing Clean & Dry Additional Dressing/Incision Instructions:: When dressing is removed, wash and dry incision. Keep covered with a light bandage if it is rubbing against your clothing. Do not cover the incision with an airtight bandage. Change the bandage daily. Do not remove steri strips. The strips will fall off on their own. Additional Instructions: Signs and Symptoms to Report to Your Doctor at Once - call your doctor's office or Doctor's Registry ([phone]) Call 911 or go to the nearest Emergency Department if you feel you need urgent care. *Infection (fever, increased redness or swelling at the incision site, drainage from the incision increased pain at the pacemaker site) *Shortness of breath *Dizziness *Fainting spells *Swelling in the ankles *Chest pain *Prolonged hiccoughing *Increased palpitaitons (irregular heartbeat) Medications: Take your pain medication as directed. Refer to your discharge instruction sheet for a list of medications you are to take. Allergies/Adverse Reactions: Allergies latex Adverse Reaction (Verified 11/17/18 07:35) lightheaded,sweaty hands Medications to take at Discharge lorazepam 0.5 mg tablet 0.5 mg PO Q8H PRN tab 11/10/17 sertraline 25 mg tablet 12.5 mg PO QDAY tab 11/10/17 Cholecalciferol (Vitamin D3) [Vitamin D3] 3,000 unit PO DAILY 06/08/18 Docusate Sodium [Colace] 100 mg PO DAILY PRN 06/08/18 Ibuprofen [Motrin Ib] 600 mg PO PRN PRN 06/08/18 ciprofloxacin 250 mg tablet 250 mg PO Q12H #14 tab 11/17/18 Primary Care Physician: Sheridan Zaman MD [Primary Care Provider] - Test Results: Test results from this visit will be discussed in further detail at your follow- up appointment, if applicable. When: [facility]26 AT 9 AM Proposed Discharge Date: 11/19/18
[2018-11-19 08:05] VITALS: BP 158/83; PULSE 83; RESP 18; TEMP 36.8; O2SAT 96
[2018-11-19] MEDS: amLODIPine 5 MG Tablet PO (09:35)
[2018-11-19] MEDS: Ciprofloxacin 250 MG Tablet PO (09:35)
== END 2018-11-19 09:17 | disposition home or self-care (01) ==
LOC: CLSP 10:59 → PCU 14:35
PROVIDERS: Family Provider Internal Medicine; PCP Internal Medicine; Referring Provider Internal Medicine Cardiovascular Disease; Visit Provider Internal Medicine Cardiovascular Disease
DX: I44.2 Atrioventricular block, complete (principal); I49.3 Ventricular premature depolarization; I47.1 Supraventricular tachycardia; I10 Essential (primary) hypertension; E78.5 Hyperlipidemia, unspecified; K21.9 Gastro-esophageal reflux disease without esophagitis; E66.9 Obesity, unspecified; F41.9 Anxiety disorder, unspecified; Z79.899 Other long term (current) drug therapy
CPT/HCPCS: 33208; 36415; 71046; 80048; 81001; 85027; 99152; 99153; J7040; J7050; Q9967; C1894

== ENCOUNTER 2018-11-20 08:40 | Emergency (ER) | payer MEDICARE, SELFPAY ==
[2018-11-17 15:57] VITALS: BMI 32.4
[2018-11-20 08:43] VITALS: BP 156/77; PULSE 82; RESP 16; TEMP 36.7; O2SAT 95; BMI 31.6
--- NOTE | 2018-11-20 09:01 | RAD_ITS ---
STUDY: X-RAY CHEST REASON FOR EXAM: Female, 78 years old. Dizziness. Recent pacemaker placement. TECHNIQUE: Single AP portable view of the chest. COMPARISON: Comparison is made with prior study dated November 19, 2018. FINDINGS: EKG electrodes are seen. Hyperinflation. Scattered calcified granulomas. No acute abnormality is seen. There is no demonstrated pleural abnormality. Normal size heart. Stable appearance of the left-sided dual-chamber pacemaker. Normal mediastinum and kolton. Normal visualized pulmonary arteries. There is atherosclerotic tortuosity of the aortic arch and descending thoracic aorta. Normal visualized thoracic spine. Normal visualized ribs, clavicles, and shoulders. There is no demonstrated abnormality of the visualized soft tissue structures of the upper abdomen. RAD/Chest 1 View (Portable) IMPRESSION: Stable examination. Electronically Signed: Dayton Sheikh, at 9:45 EDT , Service support ,
--- NOTE | 2018-11-20 09:02 | EKG12_ITS ---
Test Reason : DIZZINESS Blood Pressure : / mmHG Vent. Rate : 072 BPM Atrial Rate : 072 BPM P-R Int : 000 ms QRS Dur : 146 ms QT Int : 486 ms P-R-T Axes : 048 -69 077 degrees QTc Int : 532 ms Ventricular-paced rhythm Abnormal ECG Confirmed by JEOVANNY RODRIGUEZ, SALVADOR ([id number]), news assignment editor ORI ACOSTA ([id number]) on 11/23/2018 4:12:10 PM Referred By: Amandeep Chowdhury Confirmed By:SALVADOR UP MD
--- NOTE | 2018-11-20 09:06 | ED.DCSUM_ITS ---
- ER Visit Summary Date of Service: 11/20/18 Chief Complaint: Dizziness History of Present Illness: The patient is a 78 F who presents with dizziness that began today. Patient states she was standing this morning when she felt lightheaded. Patient states she felt like she might pass out. Patient states t his improved with lying down. Patient states the dizziness is worse when she tried to stand up. Patient states this is also worse when her eyes are open. Patient had a pacemaker placed 2 days ago. Patient denies any fevers or chills. Patient denies any redness around the incision. Patient denies any headaches. Patient denies any chest pain or shortness of breath. Patient denies any hearing changes or tinnitus. Physical Examination: Vital signs are stable. Patient is afebrile. Patient is in no acute distress. Pupils are equal, round, reactive to light bilaterally. Extraocular muscles are intact. There is no nystagmus noted. Oral mucosa is pink and moist. Neck is supple. Trachea is midline. There is no JVD noted. Heart was regular rate and rhythm. Lungs are clear and equal bilateral. Abdomen is soft. Bowel sounds are normal. There is no tenderness. There is no guarding noted. Skin is warm dry. Cranial nerves II through XII are intact. There are no focal motor or sensory deficits noted. The remaining physical exam is within normal limits. Test Results: CBC was normal. Basic metabolic profile showed a mild hypokalemia 3.4. Troponin was 0.114. EKG showed a paced rhythm with a left bundle branch block with a rate of 72. There are no acute changes noted. Emergency Department Course and Treatment: Orthostatic vital signs were obtained and were normal. Patient felt better on reevaluation. Case was discussed with Dr. Johnson. He felt that the elevated troponin was due to the recent pacemaker placement. Patient was instructed to follow-up with her primary care physician and Dr. Johnson as scheduled. Patient understood and was agreeable with the plan. All questions were answered. Disposition: Discharge home Impression: Dizziness This note was generated with [employer] dictation software. It may contain incorrect words, spelling, and punctuation that were not noted in review of the chart prior to signing ED Disposition - Plan for ED Patient: Disposition: Home or Assisted Living Diagnosis: Dizziness Instructions: ED Dizziness [facility] Referrals: Sheridan Zaman MD [Primary Care Provider] - 5-7 Days
[2018-11-20 09:24] LABS: Absolute Lymphocyte Count 1.06 X10^3/ul (0.83-4.51); Absolute Neutrophil Count 2.2 X10^3/uL (2.0-7.7); Basophil# 0.01 X10^3/uL; Basophil% 0.3 % (0-1); Eosinophil# 0.17 X10^3/uL; Eosinophils% 4.6 % (0-5); Hematocrit 39.3 % (37-47); Lymphocyte # 1.06 X10^3/ul (4.0); Lymphocyte % 28.8 % (19-41); Mean Corp Hgb Conc 33.1 g/gl (32-36); Mean Corpuscular Hgb 28.6 pg (27.0-32.0); Mean Corpuscular Volume 86.6 fL (81-99); Mean Platelet Vol. 9.3 fl (6.2-12.0); Monocyte# 0.29 X10^3/uL; Monocyte% 7.9 % (0-10); Neutrophil # 2.15 X10^3/uL (2.7-7.7); Neutrophil % 58.4 % (47-70); Platelet Count 188 K/mm3 (150-450); RBC Distribution Width SD 44.2 fl (35.1-43.9); Red Blood Count 4.54 M/mm3 (4.2-5.4); White Blood Count 3.7 K/mm3 (4.4-11.0)
[2018-11-20 09:26] LABS: POSITIVE COUNT NO; POSITIVE DIFFERENTIAL NO; POSITIVE MORPHOLOGY NO
[2018-11-20 09:39] LABS: Anion Gap 6 (5-15); BUN 27 mg/dL (7-18); BUN/Creat Ratio 39.4 RATIO (10-20); Calcium,Total 8.5 mg/dL (8.5-10.1); Chloride 110 mmol/L (98-107); Creatinine, Serum 0.69 mg/dL (0.55-1.02); EST Glomerular Filtration Rate 88 mL/min (>60); Est Glom Filt Rate - Afr Amer 106 mL/min (>60); Glucose 105 mg/dL (74-106); Potassium 3.4 mmol/L (3.5-5.1); Sodium Level 143 mmol/L (136-145)
[2018-11-20 10:54] LABS: White Blood Cells 0 SEEN /hpf (0-5)
[2018-11-20 10:56] VITALS: BP 128/76; PULSE 70; RESP 14; O2SAT 99
[2018-11-20 10:57] LABS: Color, Urine Yellow (Yellow); Glucose, Dipstick Normal (Normal); Ketone-Dipstick 5 mg/dl (Negative); Leukocyte Esterase-Dipstick Negative /ul (Negative); Nitrite-Dipstick Negative (Negative); Occult Blood-Urine 10 /ul (Negative); Protein-Dipstick 15 mg/dl (Negative); Urine Bilirubin Dipstick Negative (Negative); Urine Clarity Sl. Cloudy (Clear); Urine Urobilinogen Normal (Normal)
[2018-11-20 11:08] LABS: Bacteria 1+ /hpf (None Seen); Mucous, Urine 2+ /hpf (<or=2+); Red Blood Cells-Urine 0-5 SEEN /hpf (0-5); Squamous Epithelial Cells - UA 0-5 SEEN /hpf (5-10)
[2018-11-20 11:12] VITALS: BP 148/67; BP 148/79; BP 155/79; PULSE 70; PULSE 89
[2018-11-20 12:13] VITALS: BP 124/75; PULSE 62; RESP 15; O2SAT 96
== END 2018-11-20 12:14 | disposition home or self-care (01) ==
PROVIDERS: Emergency Provider Emergency Medicine; Family Provider Internal Medicine; PCP Internal Medicine
DX: R42 Dizziness and giddiness (principal); E87.6 Hypokalemia; I44.7 Left bundle-branch block, unspecified; K21.9 Gastro-esophageal reflux disease without esophagitis; F41.9 Anxiety disorder, unspecified; Z79.899 Other long term (current) drug therapy; Z96.653 Presence of artificial knee joint, bilateral; Z95.0 Presence of cardiac pacemaker
CPT/HCPCS: 71045; 80048; 81001; 84484; 85025; 93005; 99285; A4216

== ENCOUNTER 2019-03-30 09:00 | Outpatient (RCR) | payer MEDICARE, SELFPAY ==
[2018-12-29 07:49] VITALS: BMI 30.8
--- NOTE | 2019-02-10 12:00 | HP.PTEVAL_ITS ---
Patient's Visit Information FEMI AZEVEDO is a 78 year old F referred to Physical Therapy by Sheridan Zaman MD with a diagnosis of L hip pain. Date of Evaluation: 01/29/19 Physical Therapist: Yusuf Holm DPT - Visit Plan Frequency: 1-2x /Week Duration: 4-6 Weeks Plan: Start with L hip abd, hip ext, hip flexionand hip ER strengthening. Progress HEP each visit. Add in stability hip exercises and progress gait mechanics as able. - Subjective Findings: Pt. is here today for her initial evaluation with diagnosis of L hip pain. Pt. earlier this year had a L TKA, but is still having some L hip pain/weakness with his effecting her gait. Pt. reports being able to walk, but has increased trandelemburg like motion of her L hip. Pt. reports no pain radiating down her leg. Pt. reports being able to sleep wihtout issues. Her main compliant is with walking. Pt. reports having issues with walking and with stairs. Pt. reports beign compliant with some of her hip exercises from previosuly, but has started to be less compliant recently. Pt. is hopeful to increase her strength in order to improve her gait allowing for increased toelrance to all mobility in community. - Pain L hip Pain Intensity (Out of 10): 1 Pain Intensity Range: 0, 3 - Objective POSTURE: Pt. has slight lateral shift to R. Pt. is able to correct without issues. Pt. has general slouched posture overall. PALPATION: pt. has no pain with palpation of L hip. NEURO: normal throughout. ROM: Pt. has good ROM of L hip, slight tightness in her HS, but otherwise she is decent. MMT: RLE generally 4/5 throughout. LLE- ankle 5/5 throughout; knee 4+/5; hip- flexion 4- /5, abd 3/5, ext 3/5. Core strength- poor. GAIT: Pt. ambulates with out AD, but does use a cane at times. Pt. has increased lateral hip sway during L stance phase. Pt. has icnrease trunk sway as well. Pt. presents with increased L hip weakness and mild pain with gait. STAIRS: Pt. negotiates with reciprocal pattern but uses B HR and controlled movements. - Goals Goal 1:: Pt. to be I with HEP. Goal Time Frame: 4-6 Weeks Goal 2:: Pt. to have incraesed glute, glute med, hip flexor strength by 1/2 grade in order to increase stability with gait. Goal Time Frame: 4-6 Weeks Goal 3:: Pt. to ambulate with LRD vs no AD with normalized gait pattern without increase in symptoms. Goal Time Frame: 4-6 Weeks Goal 4:: Pt. to negotiate 1 flight ot stairs with normal gait pattern and reduced hip sway. Goal Time Frame: 4-6 Weeks Goal 5:: Pt. to complete all gait and ADLs without increase in L hip pain Goal Time Frame: 4-6 Weeks - Rehabilitation Potential Physical Therapy Diagnosis: Pt. has signs and symptoms of L hip pain, but is more effected by weakness. Pt. has trandelemburg like gait and would benefit from PT to increase L hip strength in order to increase stability with gait and txs. Rehabilitation Potential: Good - Anticipated Interventions Patient/Client Instruction: Educate patient on: Condition, Plan of Care, Risk Factors, Benefits of Fitness Program For the Purpose of:: To improve decision making, To facilitate caregiver knowledge, To improve self management, To prevent re-injury, To improve ability to perform tasks related to life management, To improve tolerance to ADL's Therapeutic Exercise to Include: Strength training, Power training, Balance training, Postural training, Flexibilty training, Gait and locomotor training, Active ROM For the Purpose of:: To decrease pain, To increase ROM, To improve nutrient delivery to tissue, To increase oxygenation perfusion, To improve muscle performance and motor function, To improve ability to perform ADL's, To improve gait and locomotor functions, To improve health of tissue, To decrease soft tissue restriction, To increase flexibility/ROM Thank you for the opportunity to evaluate your patient. For Medicare and Medicare HMO plans, please review the plan of care and approve it. It will need to be FAXED BACK to us at [phone] for Medicare purposes. For Medicare only, by signing this I certify the plan of care. Please let me know if there are questions or concerns regarding this plan of care. Physician Signature: Date:
--- NOTE | 2019-03-30 11:31 | HP.PTREVAL_ITS ---
Sheridan Zaman MD, It has been my pleasure to treat FEMI AZEVEDO over the last 7 visits for L hip pain. Please see the progress note below for an update on the physical therapy plan of care! Subjective: Pt. reports increased pain over the past few days, but was on her feet a lot with family in town. Pt. reports having 0.5/10 pain in her L hip to day. She continues to complain of increased limping with walking. She reports being semiconsistent with her exercises at home. Objective/Function: ROM: Pt. has good ROM of B hips and knees without increase in symptoms. Minimal tigthness in B HS as well. Pt. would benefit from continued piriformis stretching bilaterally, L more than R. MMT: Pt. has good strength in B LEs, except L hip abd 3-/5. NOt much change has occured with her L hip abductor strength. GAIT: Pt. ambulates well with cane. She has some tr[place]mb[place] motion with hip sway, but is much worse without use of her cane. Pt. presents with hip abductor weakness as seen in MMT. STAIRS: Pt. ios able to negotiate without issues, but has increased difficulty with pushing up and all controlled loading of LLE. Plan Plan: Pt. to follow back up with her physician later this date. Goals Goal 1:: Pt. to be I with HEP. Goal Time Frame: 4-6 Weeks Goal Progress: Goal Met Goal 2:: Pt. to have incraesed glute, glute med, hip flexor strength by 1/2 grade in order to increase stability with gait. Goal Time Frame: 4-6 Weeks Goal Progress: Progressing Goal 3:: Pt. to ambulate with LRD vs no AD with normalized gait pattern without increase in symptoms. Goal Time Frame: 4-6 Weeks Goal Progress: Progressing Goal 4:: Pt. to negotiate 1 flight ot stairs with normal gait pattern and reduced hip sway. Goal Time Frame: 4-6 Weeks Goal Progress: Goal Met Goal 5:: Pt. to complete all gait and ADLs without increase in L hip pain Goal Time Frame: 4-6 Weeks Goal Progress: Progressing Anticipated Interventions Patient/Client Instruction: Educate patient on: Condition, Plan of Care, Risk Factors, Benefits of Fitness Program For the Purpose of:: To improve decision making, To facilitate caregiver knowledge, To improve self management, To prevent re-injury, To improve ability to perform tasks related to life management, To improve tolerance to ADL's Therapeutic Exercise to Include: Strength training, Power training, Balance training, Postural training, Flexibilty training, Gait and locomotor training, Active ROM For the Purpose of:: To decrease pain, To increase ROM, To improve nutrient delivery to tissue, To increase oxygenation perfusion, To improve muscle perfor armando and motor function, To improve ability to perform ADL's, To improve gait and locomotor functions, To improve health of tissue, To decrease soft tissue restriction, To increase flexibility/ROM Please do not hesitate to contact me at [phone] by phone or if you have questions or concerns regarding this new plan of care! Sincerely, JACOBO LeyvaT
--- NOTE | 2019-07-09 08:00 | HP.PT.NRP ---
HP - Discharge Summary (1) - Patient Information FEMI AZEVEDO was seen in my office for initial evaluation on 01/29/19. The following Plan of Care was established for this patient: Initial Frequency: 1-2x /Week Initial Duration: 4-6 Weeks - Anticipated Interventions Patient/Client Instruction: Educate patient on: Condition, Plan of Care, Risk Factors, Benefits of Fitness Program For the Purpose of:: To improve decision making, To facilitate caregiver knowledge, To improve self management, To prevent re-injury, To improve ability to perform tasks related to life management, To improve tolerance to ADL's Therapeutic Exercise to Include: Strength training, Power training, Balance training, Postural training, Flexibilty training, Gait and locomotor training, Active ROM For the Purpose of:: To decrease pain, To increase ROM, To improve nutrient delivery to tissue, To increase oxygenation perfusion, To improve muscle performance and motor function, To improve ability to perform ADL's, To improve gait and locomotor functions, To improve health of tissue, To decrease soft tissue restriction, To increase flexibility/ROM This patient was last seen in our office 03/30/19. Pertinent comments regarding their Physical therapy will appear below: Pt. was seen for her L hip pain. Pt. was doing well and was on her own, but was referred back to PT. Pt. came to her re assessment, but did not return. Pt. has not been seen in several months and will be DC from PT at this point in time. At this point I will be discontinuing this patient from physical therapy. I would be happy to see this patient again in the future if found appropriate by the physician. Thank you! Yusuf Holm DPT
== END 2019-03-30 19:00 | disposition home or self-care (01) ==
LOC: PT 09:00
PROVIDERS: Family Provider Internal Medicine; PCP Internal Medicine; Referring Provider Internal Medicine; Visit Provider Internal Medicine
DX: M25.552 Pain in left hip (principal); M79.605 Pain in left leg
CPT/HCPCS: 97110; 97161; 97530

== ENCOUNTER → 2019-06-01 08:00 | Outpatient (CLI) | payer MEDICARE, SELFPAY ==
[2018-12-29 07:49] VITALS: BMI 30.8
[2019-06-01 09:19] LABS: Free T3 2.8 pg/mL (2.18-3.98); T4 Free Direct 1.03 ng/dL (0.76-1.46); Thyroid Stim Hormone (TSH) 4.43 uIU/mL (0.358-3.74)
[2019-06-01 09:20] LABS: Vitamin D,25 Hydroxy 29.5 ng/mL (29.95-100.01)
[2019-06-02 12:37] LABS: Thyroid Peroxidase AB 11 IU/mL (0-34)
== END ==
PROVIDERS: Family Provider Internal Medicine; PCP Internal Medicine; Referring Provider Internal Medicine; Visit Provider Internal Medicine
DX: R94.6 Abnormal results of thyroid function studies (principal); R79.89 Other specified abnormal findings of blood chemistry; E55.9 Vitamin D deficiency, unspecified
CPT/HCPCS: 36415; 82306; 84439; 84443; 84481; 86376

== ENCOUNTER → 2019-06-24 11:54 | Outpatient (CLI) | payer MEDICARE, SELFPAY ==
[2018-12-29 07:49] VITALS: BMI 30.8
--- NOTE | 2019-06-24 11:57 | BI_ITS ---
MAMMOGRAPHY - BILATERAL SCREENING REASON FOR EXAM: Female, 79 years old. Routine annual screening examination. PERTINENT HISTORY: Mother with breast cancer. TECHNIQUE: Digital bilateral breast bobo (3D mammographic acquisition) in the CC and MLO projections. 2-D mediolateral oblique (MLO) and craniocaudad (CC) views of both breasts were obtained. CAD: Full Field Digital Mammography with Computer Added Detection was performed. COMPARISON: Comparison is made with prior study of June 23, 2018 and June 19, 2017. FINDINGS: Breast Composition: There are scattered areas of fibroglandular density. There are no dominant masses or suspicious calcifications. No other significant abnormalities are identified. There has been no significant change since the prior study. BI/SCREEN MAMM (CAD) W/BOBO BILAT IMPRESSION: Stable bilateral screening mammogram. Yearly follow-up mammogram recommended. (A) ASSESSMENT CATEGORY: BIRADS Category 1: Negative. A letter regarding these results will be sent to the patient by the facility within 30 days. Approximately 10% of breast cancers are not detected by mammography. A normal mammogram should not delay biopsy of a clinically suspicious abnormality. [id number] Electronically Signed: Dayton Sheikh, at 12:59 EST , Service support ,
== END ==
PROVIDERS: Family Provider Internal Medicine; PCP Internal Medicine; Referring Provider Internal Medicine; Visit Provider Internal Medicine
DX: Z12.31 Encounter for screening mammogram for malignant neoplasm of breast (principal)
CPT/HCPCS: 77063; 77067

== ENCOUNTER → 2019-12-29 12:57 | Outpatient (CLI) | payer MEDICARE, SELFPAY ==
[2019-09-09 09:04] VITALS: BMI 31.6
--- NOTE | 2019-12-29 13:00 | CDU_ITS ---
Reason For Study: STEOSIS Rt. Velocities/BP Lt. Velocities/BP Prox CCA 67/15 cm/sec. Prox CCA 82/15 cm/sec. Mid CCA 76/15 cm/sec. Mid CCA 79/18 cm/sec. Dist CCA 60/16 cm/sec. Dist CCA 62/15 cm/sec. Prox ICA 56/15 cm/sec. Prox ICA 105/25 cm/sec. Mid ICA 66/23 cm/sec. Mid ICA 68/18 cm/sec. Dist ICA 66/23 cm/sec. Dist ICA 79/12 cm/sec. Rt. ICA/CCA = 1.0. Lt. ICA/CCA = 1.3. Prox ECA 79/10 cm/sec. Prox ECA 79/12 cm/sec. Rt. Vert. 20/10 cm/sec. Lt. Vert. 72/16 cm/sec. Right Extracranial There is intimal thickening but no significant atherosclerotic plaque noted in the right common carotid artery. There is heterogeneous, irregular atherosclerotic plaque noted in the right internal carotid artery. There is no significant atherosclerotic plaque noted in the right external carotid artery. Antegrade flow is noted in the right vertebral artery. Left Extracranial There is intimal thickening but no significant atherosclerotic plaque noted in the left common carotid artery. There is heterogeneous, irregular atherosclerotic plaque noted in the left internal carotid artery. There is intimal thickening but no significant atherosclerotic plaque noted in the left external carotid artery. Antegrade flow is noted in the left vertebral artery. There is heterogeneous, irregular atherosclerotic plaque noted in the left bulb. Procedure Carotid Duplex [id number]. Exam performed in department. Interpretation Summary Mild (<50%) stenosis right extracranial internal carotid. Mild (<50%) stenosis left extracranial internal carotid. Flow within the vertebral arteries is antegrade bilaterally. Heterogeneous, irregular atherosclerotic plaque is noted in the left carotid bulb, which does not appear to be hemodynamically significant. Ordering Physician: Sheridan Zaman Referring Physician: Sheridan Zaman Performed By: Juliane Rosado, RDCS, RVT
== END ==
PROVIDERS: PCP Internal Medicine; Referring Provider Internal Medicine; Visit Provider Internal Medicine
DX: I65.23 Occlusion and stenosis of bilateral carotid arteries (principal)
CPT/HCPCS: 93880

== ENCOUNTER → 2020-02-24 14:05 | Outpatient (CLI) | payer MEDICARE, SELFPAY ==
[2019-09-09 09:04] VITALS: BMI 31.6
--- NOTE | 2020-02-24 14:10 | RAD_ITS ---
STUDY: X-RAY - RIGHT HAND REASON FOR EXAM: Female, 80 years old. PAIN, NO INJURY TECHNIQUE: History view(s) of the hand. COMPARISON: None. FINDINGS: There is joint space narrowing of the radiocarpal articulation consistent with degenerative arthrosis. Normal distal radioulnar joint. There is diffuse demineralization of the carpal bones. Normal carpal articulations There is degenerative arthrosis of the carpometacarpal (CMC) articulation of the thumb. Normal second through fifth carpometacarpal joints. Normal metacarpi. There is degenerative arthrosis of the metacarpophalangeal (MCP) joints. There is degenerative arthrosis of the interphalangeal joint of the thumb with articular joint space narrowing. Normal proximal and distal phalanges of the thumb. Normal metacarpophalangeal joints of the second through fifth fingers. There is diffuse articular joint space narrowing of the proximal and distal interphalangeal joints of the second through fifth fingers, but without erosive changes or periarticular soft tissue swelling. Normal phalanges of the second through fifth fingers. The soft tissue structures are unremarkable. RAD/Hand Min 3 Views IMPRESSION: Degenerative joint disease of the hand and wrist, as described above. Electronically Signed: Kalpana Montanez MD at 22:44 EDT Tel , Service support ,
--- NOTE | 2020-02-24 14:12 | RAD_ITS ---
STUDY: X-RAY - LEFT SHOULDER REASON FOR EXAM: Female, 80 years old. PAIN TECHNIQUE: 4 view(s) of the shoulder. COMPARISON: Right shoulder dated 05/18/2012 FINDINGS: There are degenerative changes of the glenohumeral articulation. There are degenerative changes of the acromioclavicular joint. Normal acromion. Normal humeral head and visualized proximal humerus. The soft tissue structures are unremarkable. Partial visualization of the left hemithorax demonstrates a dual-lead cardiac pacer device. RAD/Shoulder min 2 Views IMPRESSION: Degenerative changes. Electronically Signed: Kalpana Montanez MD at 22:37 EDT Tel , Service support ,
== END ==
PROVIDERS: PCP Internal Medicine; Referring Provider Internal Medicine; Visit Provider Internal Medicine
DX: M79.644 Pain in right finger(s) (principal); M25.512 Pain in left shoulder
CPT/HCPCS: 73030; 73130

== ENCOUNTER 2020-05-31 16:30 | Outpatient (RCR) | payer MEDICARE, SELFPAY ==
[2019-09-09 09:04] VITALS: BMI 31.6
--- NOTE | 2020-03-08 09:43 | HP.PTEVAL_ITS ---
Patient's Visit Information FEMI AZEVEDO is a 80 year old F referred to Physical Therapy by Dr. Sheridan Zaman MD with a diagnosis of L shoulder pain. Date of Evaluation: 02/29/20 Physical Therapist: Yusuf Holm DPT - Visit Plan Frequency: 2x /Week Duration: 4 Weeks Plan: Pt. desires to start with HEP and follow up with in 1-2 weeks. Start with RTC stability and AAROM exercises. - Subjective Pt. is here today for her initial evaluation with diagnosis of L shoulder pain. Pt. reports having pain in her L shoulder for a few months. Pt. reports having icnreased pain with reaching out in front of her and behind her back. Pt. reports pain at anterior shoulder. Pt. denies N/T in either UE. PT. reports pain at lateral aspect of subacromial space and slightly into her deltoid region. Pt. reports overall improvement since her injury. Pt. is having some trouble with sleeping and with ADls. Pt. 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 - Pain L shoulder Pain Intensity (Out of 10): 3 Pain Intensity Range: 0, 6 - Objective POSTURE: Pt. has rounded shoulders, FH posture. Pt. has equal shoulder heights. PALPATION: Pt. has tenderness along anterior biceps and anterior subacromial space. Pt. has no deltoid or scapular pain with palpation. NEURO: Pt. has normal sensation and normal DTR of BUEs. MMT: Pt. has 4+/5 strenght throughout, but has increased pain with L shoulder ER, ext and flexion and 4/5 with increased pain. - Special Tests L Shoulder Lift Off Test - Subscapular Tear: Negative L Shoulder Drop Sign - IS Test: Negative L Shoulder Empty Can - SS: Positive L Shoulder Neer - Impingement: Positive L Shoulder Alvarez Chavo - Impingement: Positive L Shoulder Biceps Load Test - Labrum: Negative L Shoulder Speeds Test - Labrum/Biceps: Positive - Goals Goal 1:: LTG: Pt. to be I with HEP. Goal Time Frame: 4-6 Weeks Goal 2:: STG: Pt. to have full L shoulder AROM of without increase in symptoms. Goal Time Frame: 2-4 Weeks Goal 3:: LTG: Pt. to sleep throughout the night without incerase in symptoms. Goal Time Frame: 4-6 Weeks Goal 4:: LTG: Pt. to have increased L shoulder strenght by 1/2 grade of all effected musculature. Goal Time Frame: 4-6 Weeks - Rehabilitation Potential Physical Therapy Diagnosis: Pt. has signs and symptoms consistent with L shoulder pain chronic in nature. Pt. is doing well with her ROM, but has pain with all overhead motions. Pt. would benefit from shoulder and scapular stability exercises in order to reduce pain and progress back to pain free ADLs/activities. Rehabilitation Potential: Good - Anticipated Interventions Patient/Client Instruction: Educate patient on: Condition, Plan of Care, Risk Factors, Benefits of Fitness Program For the Purpose of:: To facilitate caregiver knowledge, To improve self management, To prevent re-injury, To improve ability to perform tasks related to life management, To improve tolerance to ADL's Therapeutic Exercise to Include: Strength training, Endurance training, Postural training, Flexibilty training, Passive ROM, Active ROM, [place] Exercises, Scapular Strength/Stabilization For the Purpose of:: To decrease pain, To decrease swelling/inflammation, To increase ROM, To improve nutrient delivery to tissue, To increase oxygenation perfusion, To improve muscle performance and motor function, To improve ability to perform ADL's Manual Therapy Techniques to Include: Mobilization, Passive ROM, Functional dry needling, Soft tissue mobilization For the Purpose of:: To decrease pain, To decrease swelling/inflammation, To increase ROM, To improve nutrient delivery to tissue, To increase oxygenation perfusion Thank you for the opportunity to evaluate your patient. For Medicare and Medicare HMO plans, please review the plan of care and approve it. It will need to be FAXED BACK to us at [phone] for Medicare purposes. For Medicare only, by signing this I certify the plan of care. Please let me know if there are questions or concerns regarding this plan of care. Physician Signature: Date:
--- NOTE | 2020-04-19 11:28 | HP.PTREVAL_ITS ---
Dr. Sheridan Zaman MD, It has been my pleasure to treat FEMI AZEVEDO over the last 2 visits for L sided lumbar spine pain. Please see the progress note below for an update on the physical therapy plan of care! Subjective: Pt. reports that her shoulder is getting better, but not all the way better. Pt. reports being 80% better with her shoulder. She is now conserned about her low back. She brought in a new script for her low back pain. I have seen her in the past for her low back and L sided weakness. Pt. reports feeling weaker since COVID, home stay. Pt. is having pain in her low back with increased walking. She is having trouble with walking with more noticable L hip weakness. Pt. did bring in her exercises from previously. Objective/Function: Pt. has signs of lumbar strain of L sided multifidus and erector spine, most likely due to L latearl hip weakness, glute weakenss. This weakness is also effecting her gait resulting in trandelemburg posture. Pt. has improved posture with cane, but is dramatic without. Pt. has good flexability of her lumbar spine, and did have reduced symptoms with standing extension. MMT: LL E- ankle 5/5 throughout; knee- ext 5/5, flexion 5/5; hip- flexion 3+/5, abd 3- /5, exte 4/5. RLE- 5/5 throughout; except hip 4/5 throughout. Core strength- poor. GAIT: Pt. has + L trandelemb[place] with gait, worse without AD. Due to this she has incerased postural sway. It appears that she is over using her multifidus on the L side in reaction to her L hip weakness. Plan Plan: We will keep an eye on her L shoulder pain, but she is independent with her exercises. We will focus on lumbar spine and L hip issues currently. Cont. to progress glute strength and lateral hip strength in order to increase stability with gait. Add in standing extension exercises of lumbar spine as well. Goals Goal 1:: LTG: Pt. to be I with HEP. Goal Time Frame: 4-6 Weeks Goal 2:: STG: Pt. to have full L shoulder AROM of without increase in symptoms. Goal Time Frame: 2-4 Weeks Goal Progress: Goal Met Goal 3:: LTG: Pt. to sleep throughout the night without incerase in symptoms. Goal Time Frame: 4-6 Weeks Goal Progress: Goal Met Goal 4:: LTG: Pt. to have increased L shoulder strenght by 1/2 grade of all effected musculature. Goal Time Frame: 4-6 Weeks Goal Progress: Progressing Goal 5:: LTG: Pt. to have improved gait pattern with reduced trandelemburg postu re on L side. Goal Time Frame: 4-6 Weeks Goal 6:: LTG: pt. to have reduced low back pain to 0-2/10 pain with all walking and recreational activities. Goal Time Frame: 4-6 Weeks Anticipated Interventions Patient/Client Instruction: Educate patient on: Condition, Plan of Care, Risk Factors, Benefits of Fitness Program For the Purpose of:: To facilitate caregiver knowledge, To improve self management, To prevent re-injury, To improve ability to perform tasks related to life management, To improve tolerance to ADL's Therapeutic Exercise to Include: Strength training, Endurance training, Postural training, Flexibilty training, Passive ROM, Active ROM, [place] Exercises, Scapular Strength/Stabilization For the Purpose of:: To decrease pain, To decrease swelling/inflammation, To increase ROM, To improve nutrient delivery to tissue, To increase oxygenation perfusion, To improve muscle performance and motor function, To improve ability to perform ADL's Manual Therapy Techniques to Include: Mobilization, Passive ROM, Functional dry needling, Soft tissue mobilization For the Purpose of:: To decrease pain, To decrease swelling/inflammation, To increase ROM, To improve nutrient delivery to tissue, To increase oxygenation perfusion Please do not hesitate to contact me at [phone] by phone or if you have questions or concerns regarding this new plan of care! Sincerely, Yusuf Holm DPT
== END 2020-05-31 19:00 | disposition home or self-care (01) ==
LOC: PT 16:30
PROVIDERS: PCP Internal Medicine; Visit Provider Internal Medicine
DX: M25.512 Pain in left shoulder (principal); M79.644 Pain in right finger(s); M51.36 Other intervertebral disc degeneration, lumbar region
CPT/HCPCS: 97110; 97161; 97164

== ENCOUNTER 2020-07-27 16:26 | Outpatient (RCR) | payer MEDICARE, SELFPAY ==
[2019-09-09 09:04] VITALS: BMI 31.6
== END 2020-07-27 23:59 ==
LOC: IMMUN 16:26
PROVIDERS: PCP Internal Medicine; Visit Provider Family Medicine
DX: Z23 Encounter for immunization (principal)
CPT/HCPCS: 0011A; 0012A; 91301

== ENCOUNTER → 2020-08-14 15:27 | Outpatient (CLI) | payer MEDICARE, SELFPAY ==
[2020-08-01 09:04] VITALS: BMI 32.4
--- NOTE | 2020-08-14 15:29 | VDLE_ITS ---
Reason For Study: Edema Procedure LEFT This is a venous duplex using B-mode, color GSV is normal. flow and spectral Doppler. CFV is compressible, spontaneous, phasic, Exam performed in department. competent, and demonstrates normal A preliminary report was called and/or faxed augmentation. to Raul CHILDRESS. FV is compressible, spontaneous, phasic, competent and demonstrates normal augmentation. POP V is compressible, spontaneous, phasic, competent and demonstrates normal augmentation. T/P Trunk is compressible. PTV is compressible. LT PerV is compressible. Large nonvascularized structures noted in the popliteal fossa and prox-mid calf muscle. Interpretation Summary There is no evidence of left lower extremity deep vein thrombosis. Left great saphenous vein appears patent and compressible segmentally. Left popliteal with extension into the proximal mid calf cyst 1.9 x 4.36 x 5.32 cm Ordering Physician: Sheridan Zaman Referring Physician: Sheridan Zaman Performed By: Corina Keys RVT
== END ==
PROVIDERS: PCP Internal Medicine; Referring Provider Internal Medicine; Visit Provider Internal Medicine
DX: R60.0 Localized edema (principal)
CPT/HCPCS: 93971

== ENCOUNTER → 2020-09-11 10:47 | Outpatient (CLI) | payer MEDICARE, SELFPAY ==
[2020-08-01 09:04] VITALS: BMI 32.4
--- NOTE | 2020-09-11 10:50 | ECHOCS_ITS ---
Version 2 Reason For Study: Arrhythmia Procedure This was a 2D Doppler, Color Flow transthoracic echocardiogram. The study was technically difficult. Contrast injection was performed. Exam performed in department. Left Ventricle Normal LV size. Mild concentric left ventricular hypertrophy. Left ventricular systolic function is normal. The estimated ejection fraction is 65 %. Stage 1 diastolic dysfunction. No regional wall motion abnormalities noted. Right Ventricle Normal RV size. ICD or pacer leads identified within the right ventricle. Normal systolic function. Atria Normal left atrium. Normal right atrium. Mitral Valve Normal mitral valve. Tricuspid Valve Normal tricuspid valve. Mild to moderate (1-2+) tricuspid valve insufficiency. Pulmonary artery systolic pressure is 44 mmHg. Aortic Valve The aortic valve is not well visualized. Pulmonic Valve The pulmonic valve is not well visualized. Great Vessels Normal aortic root. The pulmonary artery is normal size. Normal inferior vena cava. Pericardium/Pleural No pericardial effusion. Medication 22 gauge I.V. with prn adaptor inserted into right arm. Diluted definity 3ml given slow IV push to enhance endocardial definition. MMode/2D Measurements & Calculations LVIDd: 3.9 cm IVSd: 1.2 cm Ao root diam: 2.7 cm LVIDs: 2.5 cm LVPWd: 1.2 cm LA dimension: 3.1 cm FS: 37.0 % LAV(MOD-bp): 41.8 ml LA A4 area: 16.6 cm2 RA A4 area: 16.3 cm2 LAV(MOD-bp) Indexed: 20.9 ml/m2 LAV(MOD-sp2): 43.4 ml LAV(MOD-sp4): 41.9 ml Time Measurements MV dec time: 0.21 sec Doppler Measurements & Calculations MV E max tim: 70.1 cm/sec Lat Peak E' Tim: 8.1 cm/sec Med Peak E' Tim: 8.4 cm/sec MV A max tim: 96.0 cm/sec E/E' lat: 8.7 E/E' med: 8.4 MV E/A: 0.73 MV V2 max: 109.5 cm/sec MV P1/2t max tim: 77.7 cm/sec Ao V2 max: 167.6 cm/sec MV max P.8 mmHg MV P1/2t: 88.1 msec Ao max P.2 mmHg MV V2 mean: 50.7 cm/sec MV dec slope: 258.3 cm/sec2 MV mean P.2 mmHg MV V2 VTI: 27.3 cm MVA(P1/2t): 2.5 cm2 LV V1 max: 116.9 cm/sec MR max tim: 433.1 cm/sec PA V2 max: 116.5 cm/sec LV V1 max P.5 mmHg MR max P.0 mmHg MR mean tim: 327.5 cm/sec MR mean P.0 mmHg MR VTI: 126.2 cm TR max tim: 316.1 cm/sec TR max P.0 mmHg Interpretation Summary Normal LV size. Left ventricular systolic function is normal. The estimated ejection fraction is 65 %. Mild concentric left ventricular hypertrophy. Stage 1 diastolic dysfunction. Pulmonary artery systolic pressure is 44 mmHg. Contrast injection was performed. Ordering Physician: Nelson Johnson Referring Physician: Sheridan Zaman M.D. Performed By: Obie Abarca RCS
== END ==
PROVIDERS: PCP Internal Medicine; Referring Provider Internal Medicine Cardiovascular Disease; Visit Provider Internal Medicine Cardiovascular Disease
DX: I49.8 Other specified cardiac arrhythmias (principal); I51.7 Cardiomegaly
CPT/HCPCS: 93306; Q9957; A4216; C8929

== ENCOUNTER → 2021-05-07 13:17 | Outpatient (CLI) | payer MEDICARE, SELFPAY ==
--- NOTE | 2021-05-07 13:21 | CT_ITS ---
STUDY: CT MAXILLOFACIAL SINUSES REASON FOR EXAM: Female, 81 years old. SINUSITIS RADIATION DOSAGE (If Supplied By Facility): CTDIvol = ( 25.01 ) mGy, DLP = ( 367.31 ) mGycm TECHNIQUE: The patient was scanned in a multi detector CT scanner. High resolution axial imaging was performed without the administration of intravenous contrast material. Sagittal and coronal images were reconstructed. Individualized dose optimization techniques were used for this CT. COMPARISON: None. FINDINGS: FRONTAL SINUSES: Normal aeration, without mucosal inflammatory disease. ETHMOIDAL SINUSES: Normal aeration, without mucosal inflammatory disease. MAXILLARY SINUSES: Normal aeration, without mucosal inflammatory disease. SPHENOIDAL SINUSES: Normal aeration, without mucosal inflammatory disease. There is patency of the bilateral maxillary infundibuli with normal uncinate processes, ethmoid bullae, and hiatus semilunaris. Normal bilateral middle turbinates. Normal bilateral inferior turbinates. Normal midline nasal septum. There is patency of the bilateral nasal airways. The visualized osseous structures are normal. The visualized bilateral orbital contents are normal. CT/Sinus/Facial Bone IMPRESSION: Normal CT examination of the maxillofacial sinuses. Electronically Signed: Dayton Sheikh MD at 14:29 EDT , Service support ,
== END ==
PROVIDERS: PCP Internal Medicine; Referring Provider Internal Medicine; Visit Provider Internal Medicine
DX: R68.84 Jaw pain (principal); J32.9 Chronic sinusitis, unspecified; I10 Essential (primary) hypertension; R79.82 Elevated C-reactive protein (CRP)
CPT/HCPCS: 70486

== ENCOUNTER 2021-07-26 12:50 | Outpatient (CLI) | payer MEDICARE, SELFPAY ==
--- NOTE | 2021-07-26 12:55 | BI_ITS ---
MAMMOGRAPHY - BILATERAL SCREENING REASON FOR EXAM: Female, 81 years old. Routine annual screening examination. PERTINENT HISTORY: Mother with breast cancer. TECHNIQUE: Digital bilateral breast bobo (3D mammographic acquisition) in the CC and MLO projections. 2-D mediolateral oblique (MLO) and craniocaudad (CC) views of both breasts were obtained. CAD: Full Field Digital Mammography with Computer Added Detection was performed. COMPARISON: Comparison is made with prior study dated 06/24/2019 and 06/23/2018. FINDINGS: Breast Composition: There are scattered areas of fibroglandular density. There are no dominant masses or suspicious calcifications. A pacemaker battery pack is once again seen in the left axillary region. No other significant abnormalities are identified. There has been no significant change since the prior study. BI/SCRN MAMM (CAD)W/BOBO BILAT IMPRESSION: Stable bilateral screening mammogram. Yearly follow-up mammogram recommended. (A) ASSESSMENT CATEGORY: BIRADS Category 1: Negative. A letter regarding these results will be sent to the patient by the facility within 30 days. Approximately 10% of breast cancers are not detected by mammography. A normal mammogram should not delay biopsy of a clinically suspicious abnormality. [id number] Electronically Signed: Dayton Sheikh MD at 14:15 EST , Service support ,
--- NOTE | 2021-07-26 12:58 | BD_ITS ---
STUDY: DUAL ENERGY X-RAY ABSORPTIOMETRY / DXA REASON FOR EXAM: Female, 81 years old. M85.89. The patient is postmenopausal. TECHNIQUE: Bone Mineral Density (BMD) measurements of lumbar spine and bilateral hips were obtained. COMPARISON: Comparison is made with prior study dated 06/23/2018 and 06/18/2016. FINDINGS: Lumbar Spine (L1-L4): g/cm2 (0.960) / T-score (-0.2) / Z-score (2.4) Findings are suggestive of normal bone density with a low fracture risk. Left Femur Total: g/cm2 (0.789) / T-score (-1.3) / Z-score (0.9) Left Femoral Neck: g/cm2 (0.715) / T-score (-1.2) / Z-score (1.2) Right Femur Total: g/cm2 (0.816) / T-score (-1.0) / Z-score (1.1) Right Femoral Neck: g/cm2 (0.706) / T-score (-1.3) / Z-score (1.1) The T-Scores on the most recent prior examination were: Lumbar Spine (L1-L4): There has been worsening of bone density since the previous examination. Left Femur Total: which represents a worsening of 9.2%. Right Femur Total: which represents a worsening of 8.9%. BD/Dexa Bone Density Study IMPRESSION: The patient is considered osteopenic as outlined below according to World David Organization (WHO) criteria with a low fracture risk. There has been worsening of bone density since the previous examination. Reference Information: The T-score is the number of standard deviations above or below the standard which is normal for young adults at their peak bone mineral density. The World Health Organization (WHO) interprets the T-scores as follows: Above -1 Normal bone density Between -1 and -2.5 Osteopenia Equal to / or below -2.5 Osteoporosis As a practical clinical guideline, osteopenia may be graded as follows: Mild -1 through -1.5 Moderate -1.6 through -2.0 Severe -2.1 through -2.4 The Z-score is the number of standard deviations above or below age-matched controls. A Z-score of less than -1.5 would be considered abnormal. References: 1. NIH Osteoporosis and Related Bone Diseases www osteo.org 2. International Society for Clinical Densitometry www iscd.org 3. National Osteoporosis Foundation www nof.org Electronically Signed: Dayton Sheikh MD at 14:48 EST , Service support ,
== END 2021-07-26 23:59 | disposition short-term general hospital (02) ==
LOC: OPBD 12:52
PROVIDERS: PCP Internal Medicine; Referring Provider Internal Medicine; Visit Provider Internal Medicine
DX: Z12.31 Encounter for screening mammogram for malignant neoplasm of breast (principal); M85.80 Other specified disorders of bone density and structure, unspecified site; Z78.0 Asymptomatic menopausal state
CPT/HCPCS: 77063; 77067; 77080

== ENCOUNTER → 2022-02-13 | Outpatient (CLI) | payer MEDICARE, SELFPAY ==
--- NOTE | 2022-02-13 11:17 | MRI_ITS ---
STUDY: MRI LUMBAR SPINE WITHOUT CONTRAST REASON FOR EXAM: Female, 81 years old. STENOSIS,SPONDYLOTHESIA,SPONDYLOSIS TECHNIQUE: Standardized fat and water weighted pulse sequences were obtained in the sagittal and axial planes. COMPARISON: Lumbar spine radiograph 04/23/2018. FINDINGS: T12-L1: Normal endplates. Normal disc height, hydration and morphology. Normal bilateral facet joints. Normal central canal and bilateral lateral recesses. Normal bilateral intervertebral neural foramina. Normal lumbar lordosis. There is no substantial scoliosis. Normal conus medullaris that terminates at the L1 level. L1-2: Normal endplates. Normal disc height, hydration and morphology. Normal bilateral facet joints. Normal central canal and bilateral lateral recesses. Normal bilateral intervertebral neural foramina. L2-3: Mild broad-based annular bulge.. Normal disc height, hydration and morphology. Hypertrophic bilateral facet joints. Moderate trefoil type narrowing central canal and bilateral lateral recesses. Normal bilateral intervertebral neural foramina. L3-4: Slight anterior subluxation. Hypertrophic facet disease causing severe trefoil type narrowing of the thecal sac. Moderately severe narrowing of the neural foramina bilaterally. Central thecal sac measures 4 mm. L4-5: A few millimeters anterior subluxation. Hypertrophic facet disease. Severe trefoil type narrowing of the thecal sac and neural foramina. L5-S1: Slight anterior subluxation. Fluid-filled hypertrophic facet disease. Severe narrowing of the neural foramina bilaterally. Probable bilateral impingement upon the L5 nerve roots. Multiple TARLOV cysts noted within the sacrum. Normal visualized paraspinous soft tissue structures. MRI/Spine Lumbar (Routine) IMPRESSION: Grade 1 spondylolisthesis L3-4, L4-5 and L5-S1. Multilevel spinal stenosis as noted above. Electronically Signed: Bharathi Weiss MD at 23:53 EDT Reading Location ID and State: [address] [place] [address] , Service support ,
[2022-02-13 12:01] VITALS: BP 179/78; PULSE 85; RESP 16; O2SAT 98
[2022-02-13 12:12] VITALS: BP 165/78; PULSE 84; O2SAT 96
[2022-02-13 12:24] VITALS: BP 150/71; PULSE 85; O2SAT 85
== END | disposition home or self-care (01) ==
PROVIDERS: PCP Internal Medicine; Referring Provider Orthopaedic Surgery; Visit Provider Orthopaedic Surgery
DX: M48.061 Spinal stenosis, lumbar region without neurogenic claudication (principal); M43.16 Spondylolisthesis, lumbar region; M47.816 Spondylosis without myelopathy or radiculopathy, lumbar region
CPT/HCPCS: 72148

== ENCOUNTER 2022-08-12 10:30 | Outpatient (RCR) | payer MEDICARE, SELFPAY ==
--- NOTE | 2022-05-06 11:55 | HP.PTEVAL_ITS ---
Patient's Visit Information FEMI AZEVEDO is a 82 year old F referred to Physical Therapy by GILBERT Mensah with a diagnosis of LUMBOSACRAL SPONDYLOSIS, DDD, STENOSIS, RADIC AND FACET ARTHROPATHY.. Date of Evaluation: 05/06/22 Physical Therapist: Cristela Kaur PT, Cert MDT - Visit Plan Frequency: 2-3x /Week Duration: 4-6 Weeks Plan: *PACEMAKER*. GAIT TRAINING. POSTURE CORRECTION/STRENGTHENING, INSTRUCTION IN APPROPRIATE BODY MECHANICS AND ACTIVITY MODIFICATIONS. DLS STARTING WITH A NEUTRAL SPINE PROGRESSING ROM TOLERATED. AIDAN LE ROM, STRETCHING AND STRENGTHENING. HEP INSTRUCTION. - Subjective Work/Leisure: RETIRED. Disability: NO. Present symptoms: L HIP PAIN GOING UP BACK TO SHLD BLADE. PATIENT DENIES AIDAN LE NUMBNESS AND TINGLING. Present since: YEARS. GOT WORSE IN THE LAST 6-12 MONTHS. Pain Scale: WORST 8/10, LEAST 2/10. Currently: 2/10. Is it getting better, worse or staying the same: WORSE. Commenced as a result of: NO APPARENT REASON. Symptoms at onset: L HIP. Worse: STANDING, HOUSEWORK, CARRYING LAUNDRY,*WALKING*. Better: SITTING DOWN AND TAKING 3 IBUPROFEN AND USE HOT RICE PACK ON HIP. Disturbed sleep: NO. Previous history/Previous treatment: PHYSICAL THERAPY 2019 BEFORE [facility] [place]. PAIN MGMT: FIRST FLETCHER IS PENDING 05/17/22. NO PRESCRIPTION PAIN MEDICATION. Coughing/sneezing/straining: NEGATIVE. Gait: PAINFUL. TIME AND DISTANCE LIMITED DUE TO THE PAIN. ALSO I AM SO SLOW. ALWAYS USES CANE OUT OF HOUSE. NO AD IN HOUSE - FURNITURE WALKS. WALKS FASTER AT [facility] BECAUSE OF CART. Bowel or Bladder Dysfunction: I HAVE TO GET UP MORE OFTEN AT NIGHT. EDUCATED PATIENT ON GETTING EMERGENCY CARE IF SUDDEN LOSS OF BOWEL OR BLADDER. Unexplained weight loss: NO. Imaging: RECENT LUMBAR MRI FEB 2022: I WAS TOLD I HAVE SPINAL STENOSIS AND SEVERE ARTHRITIS. STUDY: MRI LUMBAR SPINE WITHOUT CONTRAST. REASON FOR EXAM: Female, 81 years old. STENOSIS,SPONDYLOTHESIA,SPONDYLOSIS. TECHNIQUE: Standardized fat and water weighted pulse sequences were. obtained in the sagittal and axial planes. COMPARISON: Lumbar spine radiograph 04/23/2018. . FINDINGS: T12-L1: Normal endplates. Normal disc height, hydration and morphology. Normal bilateral facet joints. Normal central canal and bilateral lateral. recesses. Normal bilateral intervertebral neural foramina. Normal lumbar lordosis. There is no substantial scoliosis. Normal conus. medullaris that terminates at the L1 level. L1-2: Normal endplates. Normal disc height, hydration and morphology. Normal bilateral facet joints. Normal central canal and bilateral lateral. recesses. Normal bilateral intervertebral neural foramina. L2-3: Mild broad- based annular bulge.. Normal disc height, hydration and. morphology. Hypertrophic bilateral facet joints. Moderate trefoil type. narrowing central canal and bilateral lateral recesses. Normal bilateral. intervertebral neural foramina. L3-4: Slight anterior subluxation. Hypertrophic facet disease causing. severe trefoil type narrowing of the thecal sac. Moderately severe. narrowing of the neural foramina bilaterally. Central thecal sac measures. 4 mm. L4-5: A few millimeters anterior subluxation. Hypertrophic facet disease. Severe trefoil type narrowing of the thecal sac and neural foramina. L5-S1: Slight anterior subluxation. Fluid-filled hypertrophic facet. disease. Severe narrowing of the neural foramina bilaterally. Probable. bilateral impingement upon the L5 nerve roots. Multiple TARLOV cysts noted within the sacrum. Normal visualized paraspinous soft tissue structures. . MRI/Spine Lumbar (Routine). IMPRESSION: Grade 1 spondylolisthesis L3-4, L4-5 and L5-S1. . Multilevel spinal stenosis as noted above. . Electronically Signed: Bharathi Weiss MD. at 23:53 EDT. PMH/Recent major surgery: *PACEMAKER 2019*. AIDAN TKR'S: L 4 YEARS AGO, R 8 YEARS AGO. ANXIETY. - Objective Sitting/Standing Posture: POOR. INCREASED TRUNK FLEXION. Active Correction of posture: FEELS A LITTLE BIT BETTER. ONLY ABLE TO PARTIALLY CORRECT. Other Observations: THIS PATIENT AMBULATES INDEP'L INTO PT WITH A ST. CANE, DECREASED CADANCE AND LOB. SEE TUG TIME AND STS TEST BELOW. PATIENT FATIGUES EASILY WITH STS TESTING BUT WAS HAPPY SHE WAS ABLE TO DO 3 REPS. Sensory deficit: AIDAN LE'S GROSSLY INTACT AND SYMMETRICAL. ROM deficit: TIGHT AIDAN LE HS'S AND GASTROC SOLEUS COMPLEX'S. Motor deficit: AIDAN LE'S GROSSLY 4/5 WITH MMT'ING EXCEPT HIPS 4-/5. Dural Signs: NEGATIVE AIDAN LE'S. Lumbar mvmt loss: flex - NIL. ext - NATHEN. R SG - MOD TO NATHEN. L SG - NATHEN. PATIENT DENIES INCREASED PAIN WITH LUMBAR ROM TESTING ALL PLANES. Core strength: POOR. Palpation: MILD L LUMBAR AND HIP TENDERNESS WITH PALPATION. AIDAN LE EDEMA - PATIENT RELATES L LE TO RUPTURED BAKERS CYST AND R LE TO PERIPHERAL CIRCULATION PROBLEMS. - Balance/Special Test Scores Oswestry Low Back Score: 18 TUG Test Time Seconds: 17.11 30 Second Chair Rise Test Seconds: 3 - Goals Goal 1:: DECREASE C/O LEFT LOW BACK AND HIP PAIN. Goal Time Frame: 4-6 Weeks Goal 2:: IMPROVE LIFTING, WALKING, SITTING, STANDING, SOCIAL LIFE, TRAVEL AND HOMEMAKING FUNCTION Goal Time Frame: 4-6 Weeks Goal 3:: INSTRUCTION IN PROPHYLAXIS. Goal Time Frame: 4-6 Weeks - Anticipated Interventions Patient/Client Instruction: Educate patient on: Condition, Plan of Care, Risk Factors For the Purpose of:: To improve self management Therapeutic Exercise to Include: Strength training, Body mechanics, Postural training, Flexibilty training, Gait and locomotor training, Neuromotor development, Dynamic Lumbar Stabilization For the Purpose of:: To decrease pain, To increase ROM, To improve muscle performance and motor function, To increase tolerance to activity/condition/position, To improve ability of physical actions for home/community/work/leisure, To improve gait and locomotor functions Thank you for the opportunity to evaluate your patient. For Medicare and Medicare HMO plans, please review the plan of care and approve it. It will need to be FAXED BACK to us at [phone] for Medicare purposes. For Medicare only, by signing this I certify the plan of care. Please let me know if there are questions or concerns regarding this plan of care. Physician Signature: ____Date:
--- NOTE | 2022-06-05 11:34 | HP.PTREVAL_ITS ---
[place], MATT-C, It has been my pleasure to treat FEMI AZEVEDO over the last 11 visits for LUMBOSACRAL SPONDYLOSIS, DDD, STENOSIS, RADIC AND FACET ARTHROPATHY.. Please see the progress note below for an update on the physical therapy plan of care! Subjective: PATIENT REPORTS PT HAS BEEN NICE. STATES SHE HAD AN FLETCHER BY DR. COX ABOUT 10 DAYS AGO WITHOUT BENEFIT. WOULD LIKE TO CONTINUE PT TO TRY TO KEEP GETTING STRONGER. SHE REPORTS SHE FEELS SHE IS MAKING MORE PROGRESS WITH PT THAN THE PAIN SHOTS. Objective/Function: PATIENT WAS SEEN TODAY FOR RE-ASSESSMENT OF PROGRESS TOWARD THE SET PT GOALS AND THE NEED FOR FURTHER PHYSICAL THERAPY VS READINESS FOR DISCHARGE. SHE IS A GOOD CANDIDATE TO CONTINUE PT BASED ON PROGRESS MADE AND ROOM FOR FURTHER IMPROVEMENT. 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 HER STS AND TUG SCORES HAVE IMPROVED AND PATIENT IS AGREEABLE TO BELOW POC. UPON EXAM TODAY PATIENT CONTINUES TO HAVE A TR[place] GAIT LIMPING ON L LE. Motor deficit: AIDAN LE'S GROSSLY 4/5 WITH MMT'ING EXCEPT HIPS 4-/5. Dural Signs: NEGATIVE AIDAN LE' S. Lumbar mvmt loss: flex - NIL. ext - NATHEN. R SG - MOD. L SG - NATHEN. PATIENT DENIES INCREASED PAIN WITH LUMBAR ROM TESTING ALL PLANES. Core strength: POOR. Palpation: MILD L LUMBAR AND HIP TENDERNESS WITH PALPATION. AIDAN LE EDEMA CONTINUES - PATIENT RELATES L LE TO RUPTURED BAKERS CYST AND R LE TO PERIPHERAL CIRCULATION PROBLEMS BUT R IS GETTING BETTER. Plan Plan: CONTINUE PT 2X'S a wk x 10 VISITS. PATIENT WILL NEED WRITTEN EX PROGRAM APPROPRIATE BEFORE DISCHARGE. *PACEMAKER*. GAIT TRAINING. POSTURE CORRECTION/STRENGTHENING, INSTRUCTION IN APPROPRIATE BODY MECHANICS AND ACTIVITY MODIFICATIONS. DLS STARTING WITH A NEUTRAL SPINE PROGRESSING ROM TOLERATED. AIDAN LE ROM, STRETCHING AND STRENGTHENING. HEP INSTRUCTION. Balance/Gait/Functional tests - Balance/Special Test Scores Oswestry Low Back Score: 14 TUG Test Time Seconds: 14.93 Tug Test: <20 sec.=mostly independent 30 Second Chair Rise Test Seconds: 6 Goals Goal 1:: DECREASE C/O LEFT LOW BACK AND HIP PAIN. Goal Time Frame: 4-6 Weeks Goal Progress: Progressing Goal 2:: IMPROVE LIFTING, WALKING, SITTING, STANDING, SOCIAL LIFE, TRAVEL AND HOMEMAKING FUNCTION Goal Time Frame: 4-6 Weeks Goal Progress: Progressing Goal 3:: INSTRUCTION IN PROPHYLAXIS. Goal Time Frame: 4-6 Weeks Goal Progress: Progressing Anticipated Interventions Patient/Client Instruction: Educate patient on: Condition, Plan of Care, Risk Factors For the Purpose of:: To improve self management Therapeutic Exercise to Include: Strength training, Body mechanics, Postural training, Flexibilty training, Gait and locomotor training, Neuromotor development, Dynamic Lumbar Stabilization For the Purpose of:: To decrease pain, To increase ROM, To improve muscle performance and motor function, To increase tolerance to activity/condition/position, To improve ability of physical actions for home/community/work/leisure, To improve gait and locomotor functions Please do not hesitate to contact me at [phone] by phone or if you have questions or concerns regarding this new plan of care! Sincerely, Cristela Kaur, PT, Cert MDT
--- NOTE | 2022-07-16 11:30 | HP.PTREVAL ---
[place], MATT-C, It has been my pleasure to treat FEMI AZEVEDO over the last 13 visits for LUMBOSACRAL SPONDYLOSIS, DDD, STENOSIS, RADIC AND FACET ARTHROPATHY.. Please see the progress note below for an update on the physical therapy plan of care! Subjective: PATIENT REPORTS SHE TOOK TIME OFF FROM PT DURING THE HOLIDAYS BECAUSE THEY GOT NEW WINDOWS AND THEY WERE REALLY BUSY. SHE REPORTS SHE DID GOOD AFTER LAST VISIT. LEOLA'T PENDING WITH DR. COX FRIDAY TO DISCUSS INJECTION. STATES PHYSICAL THERPAY IS HELPING AND SHE ISN'T SURE IF SHE SHOULD GET A SHOT OR NOT. WANTS TO CONTINUE PT NOW. Objective/Function: PATIENT WAS SEEN TODAY FOR RE-ASSESSMENT OF PROGRESS TOWARD THE SET PT GOALS AND THE NEED FOR FURTHER PHYSICAL THERAPY VS READINESS FOR DISCHARGE. SHE IS A GOOD CANDIDATE TO CONTINUE PT BASED ON PROGRESS MADE AND ROOM FOR FURTHER IMPROVEMENT. 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 HER STS SCORE HAS REGRESSED SINCE TAKING A BREAK FROM PT. TUG SCORE HAS NOT CHANGED SIGNIFICANTLY. PATIENT IS AGREEABLE TO BELOW POC. UPON EXAM TODAY PATIENT CONTINUES TO HAVE A TR[place]G GAIT LIMPING ON L LE. Motor deficit: AIDAN LE'S GROSSLY 4/5 WITH MMT'ING EXCEPT HIPS 4-/5. Dural Signs: NEGATIVE AIDAN LE'S. Lumbar mvmt loss: flex - NIL. ext - NATHEN. R SG - MOD. L SG - NATHEN. PATIENT DENIES INCREASED PAIN WITH LUMBAR ROM TESTING ALL PLANES. Core strength: POOR. Palpation: PATIENT DENIES TENDERNESS WITH LIGHT [place] OF L LUMBAR AND HIP REGIONS TODAY. Plan Plan: CONTINUE PT 2X'S a wk x 10 VISITS. PATIENT WILL NEED WRITTEN EX PROGRAM APPROPRIATE BEFORE DISCHARGE. *PACEMAKER*. GAIT TRAINING. POSTURE CORRECTION/STRENGTHENING, INSTRUCTION IN APPROPRIATE BODY MECHANICS AND ACTIVITY MODIFICATIONS. DLS STARTING WITH A NEUTRAL SPINE PROGRESSING ROM TOLERATED. AIDAN LE ROM, STRETCHING AND STRENGTHENING. HEP INSTRUCTION. Balance/Gait/Functional tests - Balance/Special Test Scores Oswestry Low Back Score: 14 TUG Test Time Seconds: 14.55 Tug Test: <20 sec.=mostly independent 30 Second Chair Rise Test Seconds: 4 Goals Goal 1:: DECREASE C/O LEFT LOW BACK AND HIP PAIN. Goal Time Frame: 4-6 Weeks Goal Progress: Progressing Goal 2:: IMPROVE LIFTING, WALKING, SITTING, STANDING, SOCIAL LIFE, TRAVEL AND HOMEMAKING FUNCTION Goal Time Frame: 4-6 Weeks Goal Progress: Progressing Goal 3:: INSTRUCTION IN PROPHYLAXIS. Goal Time Frame: 4-6 Weeks Goal Progress: Progressing Anticipated Interventions Patient/Client Instruction: Educate patient on: Condition, Plan of Care, Risk Factors For the Purpose of:: To improve self management Therapeutic Exercise to Include: Strength training, Body mechanics, Postural training, Flexibilty training, Gait and locomotor training, Neuromotor development, Dynamic Lumbar Stabilization For the Purpose of:: To decrease pain, To increase ROM, To improve muscle performance and motor function, To increase tolerance to activity/condition/position, To improve ability of physical actions for home/community/work/leisure, To improve gait and locomotor functions Please do not hesitate to contact me at [phone] by phone or if you have questions or concerns regarding this new plan of care! Sincerely, Cristela Kaur, PT, Cert MDT
--- NOTE | 2022-08-12 12:29 | HP.PTDCSUM_ITS ---
It has been my pleasure to treat FEMI AZEVEDO referred by GILBERT Mensah, with the diagnosis of LUMBOSACRAL SPONDYLOSIS, DDD, STENOSIS, RADIC AND FACET ARTHROPATHY. for a total of 20 visit(s). Discharge Date: 08/12/22 Please see the following information for a summary of their discharge status. Subjective: NO FLETCHER'S SINCE MAY 2022. SHE REPORTS THAT USUALLY IBURPOFEN HELPS IF SHE IS HAVING A BAD DAY. PATIENT REPORTS SOME INCREASED L HIP AND BACK PAIN THAT SHE THINKS MAYBE SHE RELATES TO GETTING ON OR OFF THE LEG PRESS MACHINE. SHE REPORTS THE PAIN IS BACK TO ITS PRIOR LEVEL NOW. SHE REPORTS SHE LIFTED A HEAVY BAG OF GARBAGE LAST NIGHT AND THREW IT UP IN A BIN AND THAT CAUSED HER SOME INCREASED L SHLD AND BACK PAIN. CURRENTLY BACK AND SHLD PAIN ARE RATED 2/10. STATES SHE FEELS SAFE CONTINUING HER EX'S ON HER OWN NOW A SILVER SNEAKER MEMBER. PATIENT REPORTS IT IS RAINY SO SHE FEELS MORE FLEXIBLE AND FAST TODAY. OVER-ALL THOUGH NOT REPORTING MUCH MORE IMPROVEMENT SINCE LAST RE-CHECK DUE TO NEEDING TO TAKE CARE OF SICK . L LB Pain Intensity (Out of 10): 2 % Improvement: 50 Objective/Function: PATIENT WAS SEEN TODAY FOR RE-ASSESSMENT OF PROGRESS TOWARD THE SET PT GOALS AND THE NEED FOR FURTHER PHYSICAL THERAPY VS READINESS FOR DISCHARGE. SHE IS INDEP WITH A GYM PROGRAM AND WRITTEN GYM LOG HAS BEEN PROVIDED TO PATIENT. SHE IS APPROPRIATE FOR DISCHARGE TO [facility] EX SILVER SNEAKER MEMBER AND PATIENT IS AGREEABLE. UPON EXAM TODAY PATIENT CONTINUES TO HAVE A [place] GAIT LIMPING ON L LE. Motor deficit: AIDAN LE'S GROSSLY 4/5 WITH MMT'ING EXCEPT HIPS 4-/5. Dural Signs: NEGATIVE AIDAN LE'S. Lumbar mvmt loss: flex - NIL. ext - NATHEN. R SG - MOD. L SG - NATHEN. PATIENT DENIES INCREASED PAIN WITH LUMBAR ROM TESTING ALL PLANES. Core strength: POOR. Palpation: PATIENT DENIES TENDERNESS WITH LIGHT PALPATON OF L LUMBAR AND HIP REGIONS TODAY EXCEPT SHE DOES STATE THE LEFT LOW BACK AREA IS JUST A TINY BIT TENDER. Goal 1:: DECREASE C/O LEFT LOW BACK AND HIP PAIN. Goal Progress: Goal Met Goal 2:: IMPROVE LIFTING, WALKING, SITTING, STANDING, SOCIAL LIFE, TRAVEL AND HOMEMAKING FUNCTION Goal Progress: Goal Met Goal 3:: INSTRUCTION IN PROPHYLAXIS. Goal Progress: Goal Met Plan: D/C TO INDEP EX PROGRAM AT PATIENTS REQUEST. SHE REPORTS SHE HAS DONE [employer] SNEAKERS FOR YEARS AND IS READY TO GO ON HER OWN AGAIN. If there are questions or concerns regarding this patient's physical therapy, please feel free to call me at [phone]. Thank you for the referral of this patient. Sincerely, Cristela Kaur, PT, Cert MDT Balance/Gait/Functional tests - Balance/Special Test Scores Oswestry Low Back Score: 13 TUG Test Time Seconds: 12.12 Tug Test: <20 sec.=mostly independent 30 Second Chair Rise Test Seconds: 8
== END 2022-08-12 12:37 | disposition home or self-care (01) ==
LOC: PT 10:30
PROVIDERS: PCP Internal Medicine; Referring Provider Nurse Practitioner Family; Visit Provider Nurse Practitioner Family
DX: M47.817 Spondylosis without myelopathy or radiculopathy, lumbosacral region (principal); M51.37 Other intervertebral disc degeneration, lumbosacral region; M48.07 Spinal stenosis, lumbosacral region; M54.17 Radiculopathy, lumbosacral region; M46.96 Unspecified inflammatory spondylopathy, lumbar region
CPT/HCPCS: 97110; 97162; 97164

== ENCOUNTER → 2022-10-25 | Outpatient (CLI) | payer MEDICARE, SELFPAY ==
[2019-09-09 09:04] VITALS: BMI 31.6
--- NOTE | 2022-10-25 12:19 | BI_ITS ---
MAMMOGRAPHY - BILATERAL SCREENING REASON FOR EXAM: Female, 82 years old. Routine annual screening examination. PERTINENT HISTORY: Mother with breast cancer. TECHNIQUE: Digital bilateral breast bobo (3D mammographic acquisition) in the CC and MLO projections. 2-D mediolateral oblique (MLO) and craniocaudad (CC) views of both breasts were obtained. CAD: Full Field Digital Mammography with Computer Added Detection was performed. COMPARISON: Comparison is made with prior study dated July 26, 2021 and June 24, 2019. FINDINGS: Breast Composition: The breasts are almost entirely fatty. There are no dominant masses or suspicious calcifications. A pacemaker battery pack is seen in the left axillary region. No other significant abnormalities are identified. There has been no significant change since the prior study. BI/SCRN MAMM (CAD)W/BOBO BILAT IMPRESSION: Stable bilateral screening mammogram. Yearly follow-up mammogram recommended. (A) ASSESSMENT CATEGORY: BIRADS Category 1: Negative. A letter regarding these results will be sent to the patient by the facility within 30 days. Approximately 10% of breast cancers are not detected by mammography. A normal mammogram should not delay biopsy of a clinically suspicious abnormality. [id number] Electronically Signed: Dayton Sheikh MD at 13:02 EDT ,
== END | disposition home or self-care (01) ==
LOC: OPBI 12:18
PROVIDERS: PCP Internal Medicine; Referring Provider Internal Medicine; Visit Provider Internal Medicine
DX: Z12.31 Encounter for screening mammogram for malignant neoplasm of breast (principal)
CPT/HCPCS: 77063; 77067

== ENCOUNTER → 2023-02-11 | Outpatient (CLI) | payer MEDICARE, SELFPAY ==
--- NOTE | 2023-02-11 10:59 | ECHOD_ITS ---
Reason For Study: SVT, DYSPNEA/SOB Procedure This was a 2D Doppler, Color Flow transthoracic echocardiogram. Exam performed in department. Left Ventricle Normal LV size. Mild concentric left ventricular hypertrophy. Left ventricular systolic function is normal. The estimated ejection fraction is 55 %. Stage 1 diastolic dysfunction. No regional wall motion abnormalities noted. Right Ventricle Normal RV size. Normal systolic function. Atria Normal left atrium. Normal right atrium. Mitral Valve Normal mitral valve. Mild (1+) eccentric mitral valve insufficiency. Tricuspid Valve Normal tricuspid valve. Mild (1+) tricuspid valve insufficiency. Pulmonary artery systolic pressure is 34 mmHg. Aortic Valve Normal aortic valve. Trisinus/trileaflet aortic valve. Pulmonic Valve Normal pulmonic valve. Great Vessels Normal aortic root. The pulmonary artery is normal size. Normal inferior vena cava. Pericardium/Pleural No pericardial effusion. MMode/2D Measurements & Calculations LVIDd: 5.7 cm IVSd: 1.2 cm Ao root diam: 2.9 cm LVIDs: 3.5 cm LVPWd: 1.2 cm RVDd: 3.3 cm FS: 38.5 % LAV(MOD-bp): 59.5 ml LVAd ap4: 30.8 cm2 LVAd ap2: 30.1 cm2 LAV(MOD-bp) Indexed: 29.5 ml/m2 LVLd ap4: 8.1 cm LVLd ap2: 7.9 cm LAV(MOD-sp2): 55.2 ml EDV(MOD-sp4): 99.0 ml EDV(MOD-sp2): 100.8 ml LAV(MOD-sp4): 55.8 ml EDV(sp4-el): 99.7 ml EDV(sp2-el): 97.4 ml LVAs ap4: 17.0 cm2 LVAs ap2: 16.3 cm2 LVLs ap4: 6.1 cm LVLs ap2: 6.9 cm ESV(MOD-sp4): 39.9 ml ESV(MOD-sp2): 34.9 ml ESV(sp4-el): 39.8 ml ESV(sp2-el): 32.8 ml EF(MOD-sp4): 59.7 % EF(MOD-sp2): 65.4 % EF(sp4-el): 60.0 % SV(MOD-sp4): 59.0 ml SV(MOD-sp2): 65.9 ml SV(sp4-el): 59.8 ml LA dimension(2D): 3.4 cm LA A4 area: 17.6 cm2 RA A4 area: 13.3 cm2 Time Measurements MV dec time: 0.26 sec Doppler Measurements & Calculations MV E max tim: 61.2 cm/sec Lat Peak E' Tim: 4.4 cm/sec Med Peak E' Tim: 5.4 cm/sec MV A max tim: 104.9 cm/sec E/E' lat: 14.1 E/E' med: 11.3 MV E/A: 0.58 MV V2 max: 122.3 cm/sec MV P1/2t max tim: 68.7 cm/sec Ao V2 max: 127.3 cm/sec MV max P.0 mmHg MV P1/2t: 83.7 msec Ao max P.5 mmHg MV V2 mean: 63.5 cm/sec MV dec slope: 240.5 cm/sec2 Ao V2 mean: 88.5 cm/sec MV mean P.9 mmHg Ao mean P.6 mmHg MV V2 VTI: 22.9 cm MVA(P1/2t): 2.6 cm2 Ao V2 VTI: 32.3 cm AV (velocity ratio): 0.72 LV V1 max: 95.4 cm/sec PA V2 max: 115.3 cm/sec PI dec slope: 175.7 cm/sec2 LV V1 max P.6 mmHg PA V2 mean: 76.3 cm/sec LV V1 mean P.1 mmHg LV V1 mean: 67.9 cm/sec LV V1 VTI: 23.2 cm TR max tim: 276.0 cm/sec TR max P.5 mmHg ECHO/Echo Complete Interpretation Summary Normal LV size. Mild concentric left ventricular hypertrophy. Left ventricular systolic function is normal. The estimated ejection fraction is 55 %. Stage 1 diastolic dysfunction. Pulmonary artery systolic pressure is 34 mmHg. Ordering Physician: Vielka Sanders Referring Physician: Sheridan Zaman Performed By: Kanchan Jackson, MITCH, RVT
== END | disposition home or self-care (01) ==
LOC: CVS 10:58
PROVIDERS: PCP Internal Medicine; Referring Provider Physician Assistant Medical; Visit Provider Physician Assistant Medical
DX: R06.02 Shortness of breath (principal); I47.1 Supraventricular tachycardia
CPT/HCPCS: 93306

== ENCOUNTER → 2023-06-03 | Outpatient (CLI) | payer MEDICARE, SELFPAY ==
[2023-06-03 10:23] LABS: Potassium 3.5 mmol/L (3.5-5.1)
== END | disposition home or self-care (01) ==
LOC: LABSPEC 09:52
PROVIDERS: PCP Internal Medicine; Visit Provider Internal Medicine
DX: E87.5 Hyperkalemia (principal)
CPT/HCPCS: 84132

== ENCOUNTER → 2023-06-18 | Outpatient (CLI) | payer MEDICARE, SELFPAY ==
--- NOTE | 2023-06-18 11:07 | STRESSREP ---
Stress Test Report Pharmacologic myocardial perfusion stress test. 83-year-old lady with a history of chest pain Resting EKG demonstrates sinus rhythm with a rate of 98 bpm. Left bundle branch block. Resting blood pressure is 132/92 mmHg. 0.4 mg of regadenoson was infused per usual protocol followed by rapid intravenous saline flush injection. Continuous EKG monitoring was performed. The maximum heart rate was 118 bpm which was 86% of max impacted heart rate the maximum workload was 1 metabolic equivalent. At rest there were no ST or T wave changes noted to suggest ischemia and at peak infusion nonspecific ST changes were noted which did not meet the criteria for ischemia. No clinical angina is noted. The final blood pressure was 148/88 mmHg. Myocardial perfusion protocol. 11.4 mCi of technetium 99m sestamibi was injected at rest. 0.4 mg of regadenoson was infused per usual protocol. At peak infusion 33.8 mCi of technetium 99m sestamibi was injected stress images were obtained stress and rest images were reconstructed and compared in the short axis vertical long and horizontal long axis. Gated images were also obtained. Perfusion SPECT analysis: Review of the stress images demonstrate normal uptake of tracer noted in all areas of the myocardium. The resting images similar demonstrated normal uptake of tracer noted in all areas of the myocardium. No areas of reversibility are noted to suggest ischemia and no previous infarct is noted. Gated SPECT analysis: The gated ejection fraction is 45%. Conclusion: Normal pharmacologic myocardial perfusion stress test. Low normal ejection fraction.
== END | disposition home or self-care (01) ==
PROVIDERS: PCP Internal Medicine; Referring Provider Nurse Practitioner Family; Visit Provider Nurse Practitioner Family
DX: R06.02 Shortness of breath (principal); I47.29 Other ventricular tachycardia; I44.2 Atrioventricular block, complete; I45.10 Unspecified right bundle-branch block; I47.10 Supraventricular tachycardia, unspecified; I10 Essential (primary) hypertension; Z95.0 Presence of cardiac pacemaker
CPT/HCPCS: 78452; 93017; A9500; A4216; J2785

== ENCOUNTER 2023-07-28 09:30 | Outpatient (RCR) | payer MEDICARE, SELFPAY ==
--- NOTE | 2023-06-13 15:59 | HP.PTEVAL ---
Patient's Visit Information Visit Information Visit Information: EFMI AZEVEDO is a 83 year old F referred to Physical Therapy by Dr. Sheridan Zaman MD with a diagnosis of UPPER/LOWER BACK PAIN AND UNSTEADY GAIT. Date of Evaluation: 06/13/23 Physical Therapist: Cristela Kaur PT, Cert MDT Visit Plan Frequency: 2-3x /Week Duration: 4-6 Weeks Plan: *PACEMAKER* Balance Training. Neutral Spine Core Stability Exercises and Aidan LE Hip Flexor, Hamstring and Calf Stretching to help reduce stress to the Lumbar Spine with all Daily Activities. Aidan LE Strengthening. Instruction in Proper Posture Control, Body Mechanics, and Appropriate Activity Modifications. HEP Instruction. [facility] Member. See Exercise Log from last episode of care with PT. Subjective Subjective: Work/Leisure: RETIRED. LIVES WITH IN RANCH HOME WITH LAUNDRY ON FIRST FLOOR. WALK-IN SHOWER. Present symptoms: AIDAN LOW BACK STIFFNESS IN THE MORNINGS MAKING IT DIFFICULT TO STAND UP STRAIGHT. PATIENTS CHIEF COMPLAINT IS LEFT LOW BACK PAIN AND SHE REPORTS IT RADIATES UP INTO HER LEFT SHOULDER BLADE AREA ESPECIALLY IF SHE IS ACTIVE. UNSTEADY WALKING. SCHEDULED FOR STRESS TEST FRIDAY TO CHECK FOR BLOCKAGE DUE TO ABDNOMAL EKG. HAS PACEMAKER. Present since: CHRONIC Pain Scale: WORST 7/10, LEAST 2/10 Currently: CURRENT 2/10 Is it getting better, worse or staying the same: GETTING WORSE Commenced as a result of: NO APPARENT REASON Symptoms at onset: LBP Worse: BEING ON FEET AND CARRYING THINGS LIKE LAUNDRY. BEING ON FEET FOR EXTENDED PERIODS OF TIME. DOING THINGS INVOLVING BENDING. WALKING. ESPECIALLY WALKING WITHOUT AD. Better: USING CANE, USING GROCERY CART, SITTING DOWN, LYING DOWN. MOTRIN (TAKING 6 TO 9 A DAY - TAKES THE EDGE OFF BUT DOESN'T GET RID OF IT). HEATED RICE PACK. Disturbed sleep: NO Previous history/Previous treatment: PHYSICAL THERAPY. NO BACK SURGERY. NO FLETCHER'S PRIOR TO SEPTEMBER 2022. NO CHIROPRACTIC. Treatment this episode: SEPTEMBER 2022 FLETCHER VIA PAIN MGMT BY DR. COX WITHOUT BENEFIT. Coughing/sneezing/straining: NEGATIVE Gait: NO RECENT FALLS. WALKING INDEP'LY WITH CANE. HAS HR'S AND GRAB BARS AT STEPS AT HOME AND DOES STEPS WITH CANE OR HR'S INDEP'LY. Bowel or Bladder Dysfunction: A LITTLE BIT OF URGE INCONTINENCE. Accidents: NO Unexplained weight loss: NO Imaging: NONE RECENT. PMH/Recent major surgery: PATIENT DENIES ANY RECENT NEW MAJOR MEDICAL CONDITIONS. PMH BELOW FROM [facility] EMR. Anxiety COVID-19 Carotid stenosis Complete heart block 11/17/18 Essential (primary) hypertension GERD (gastroesophageal reflux disease) History of colonic polyps Hyperlipidemia Non-sustained ventricular tachycardia Obesity PVCs (premature ventricular contractions) Palpitations Paroxysmal SVT (supraventricular tachycardia) Premature ventricular contractions Right bundle branch block (RBBB) Sciatica History of hysterectomy History of knee replacement procedure of right knee History of open reduction and internal fixation (ORIF) procedure History of total left knee replacement Presence of permanent cardiac pacemaker 11/18/18 Objective Objective: Sitting/Standing Posture: POOR. FH. RSH'S. DECREASED LORDOSIS. INCREASED KYPHOSIS. R LATERAL SHIFT. STANDS WITH AIDAN KNEE FLEXION AND PPT. Active Correction of posture: NE ON PAIN BUT ONLY ABLE TO PARTIALLY CORRECT. Other Observations: THIS PATIENT AMBULATES INDEP'LY INTO PT WITH SLOW GAIT PATTERN WITH STRAIGHT CANE, VERY SHORT AIDAN STRIDE LENGTH AND NO LOB. LIMPING ON LLE. STEP TO PATTERN. GOOD SEQUENCING WITH CANE. INCREASED TRUNK FLEXION. UNABLE TO TRANSFER SIT TO STAND WITHOUT UE ASSIST. AIDAN LE EDEMA L>R. PATIENT REPORTS THIS IS CHRONIC AND LLE HAS BEEN WORSE SINCE L TKR 2016 Sensory deficit: AIDAN LE LIGHT TOUCH SENSATION GROSSLY INTACT AND SYMMETRICAL ROM deficit: AIDAN HIP FLEXOR, HS AND CALF TIGHTNESS Motor deficit: R HIP 4-/5, KNEE 4/5, ANKLE 5/5. L HIP 3+/5, KNEE 4-/5, ANKLE 4/5. Dural Signs: NEGATIVE AIDAN LE'S. Lumbar mvmt loss: flex - NIL ext - NATHEN R SG - NATHEN L SG - NATHEN PATIENT C/O INCREASED L LB PAIN WITH L SG TESTING. Core strength: POOR Palpation: TENDERNESS WITH PALPATION OF L LUMBAR PARASPINALS, LEFT BUTTOCK REGION AND ALONG L IT BAND TO KNEE. SEE TUG AND STS TESTS BELOW. Balance/Special Test Scores Oswestry Low Back Score: 22 TUG Test Time Seconds: 20.92 30 Second Chair Rise Test Seconds: 3 Goals Goal 1:: PATIENT WILL COMPLETE 6 STANDS IN 30 SECS WITH ONE UE ASSIST TO DEMONSTRATE IMPROVED FUNCTIONAL STRENGTH Goal Time Frame: 4-6 Weeks Goal 2:: PATIENT WILL COMPLETE TUG IN < [address] CANE TO DEMONSTRATE IMPROVED GAIT STABILITY Goal Time Frame: 4-6 Weeks Goal 3:: PATIENT WILL AMBULATE [address] CANE INDEP'LY TO IMPROVE ACTIVITY TOLERANCE Goal Time Frame: 4-6 Weeks Goal 4:: PATIENT WILL BE INDEP WITH GYM AND HEP'S FOR CONTINUED IMPROVEMENT ONCE FORMAL PHYSICAL THERAPY CONCLUDES. Goal Time Frame: 4-6 Weeks Anticipated Interventions Patient/Client Instruction: Educate patient on: Condition, Plan of Care and Risk Factors For the Purpose of:: To improve self management Therapeutic Exercise to Include: Strength training, Body mechanics, Postural training, Flexibilty training, Gait and locomotor training, Neuromotor development, In an aquatic setting and Dynamic Lumbar Stabilization For the Purpose of:: To decrease pain, To increase ROM, To improve muscle performance and motor function, To increase tolerance to activity/condition/position, To improve ability of physical actions for home/community/work/leisure and To improve gait and locomotor functions Text: Thank you for the opportunity to evaluate your patient. For Medicare and Medicare HMO plans, please review the plan of care and approve it. It will need to be FAXED BACK to us at [phone] for Medicare purposes. For Medicare only, by signing this I certify the plan of care. Please let me know if there are questions or concerns regarding this plan of care. Physician Signature: Date:
--- NOTE | 2023-07-10 10:06 | HP.PTREVAL ---
Re-Evaluation Intro: Dr. Sheridan Zaman MD, It has been my pleasure to treat FEMI AZEVEDO over the last 8 visits for UPPER/LOWER BACK PAIN AND UNSTEADY GAIT. Please see the progress note below for an update on the physical therapy plan of care! Subjective Subjective: PATIENT REPORTS THERAPY IS STARTING TO HELP. SHE REPORTS SHE DOESN'T HAVE MUCH PAIN IN HER HIP AND HER BALANCE IS GETTING BETTER. PATIENT REPORTS SHE CAN TELL HER BALANCE IS BETTER BECAUSE WHEN SHE SHOWERS SHE CAN TURN AROUND HOLDING ON WITH ONE HAND INSTEAD OF TWO WITHOUT FEELING LIKE SHE IS GOING TO FALL. GOING TO [employer] AFTER PT. Objective Objective/Function: PATIENT WAS SEEN TODAY FOR RE-ASSESSMENT OF PROGRESS TOWARD THE SET PT GOALS AND THE NEED FOR FURTHER PHYSICAL THERAPY VS READINESS FOR DISCHARGE. PATIENT IS MAKING SLOW PROGRESS WITH PT AND IS A GOOD CANDIDATE TO CONTINUE PT BASED ON PROGRESS MADE AND ROOM FOR FURTHER IMPROVEMENT. PATIENT IS AGREEABLE. UPON EXAM TODAY: THIS PATIENT AMBULATES INDEP'LY INTO PT X > 300 FEET WITH A STRAIGHT CANE AND IMPROVED STRIDE LENGTH AND CADANCE. Motor deficit: R HIP 4-/5, KNEE 4/5, ANKLE 5/5. L HIP 3+/5, KNEE 4-/5, ANKLE 4/5. Dural Signs: NEGATIVE AIDAN LE'S. Lumbar mvmt loss: flex - NIL ext - NATHEN R SG - NATHEN L SG - NATHEN PATIENT C/O INCREASED L LB PAIN WITH L SG TESTING TODAY. Core strength: POOR Palpation: TENDERNESS WITH PALPATION OF L LUMBAR PARASPINALS, LEFT BUTTOCK REGION AND ALONG L IT BAND PROXIMALLY BUT NOT ALL THE WAY DOWN TO KNEE TODAY. SEE IMPROVMENTS IN TUG AND STS TESTS BELOW. Plan Plan Plan: *PACEMAKER* (Patient wants to be able to get out of a chair easier). Continue PT 2x's a wk x 10 visits: Balance Training. Neutral Spine Core Stability Exercises and Aidan LE Hip Flexor, Hamstring and Calf Stretching to help reduce stress to the Lumbar Spine with all Daily Activities. Aidan LE Strengthening. Instruction in Proper Posture Control, Body Mechanics, and Appropriate Activity Modifications. HEP Instruction. [facility] Sneaker Member. See Exercise Log from last episode of care with PT. Balance/Gait/Functional tests Balance/Special Test Scores Oswestry Low Back Score: 13 TUG Test Time Seconds: 16.59 Tug Test: 20-30sec.=variable mobility 30 Second Chair Rise Test Seconds: 5 Goals Goals Goal 1:: PATIENT WILL COMPLETE 6 STANDS IN 30 SECS WITH ONE UE ASSIST TO DEMONSTRATE IMPROVED FUNCTIONAL STRENGTH Goal Time Frame: 4-6 Weeks Goal Progress: Progressing Goal 2:: PATIENT WILL COMPLETE TUG IN < [address] CANE TO DEMONSTRATE IMPROVED GAIT STABILITY Goal Time Frame: 4-6 Weeks Goal Progress: Goal Met Goal 3:: PATIENT WILL AMBULATE [address] CANE INDEP'LY TO IMPROVE ACTIVITY TOLERANCE Goal Time Frame: 4-6 Weeks Goal Progress: Goal Met Goal 4:: PATIENT WILL BE INDEP WITH GYM AND HEP'S FOR CONTINUED IMPROVEMENT ONCE FORMAL PHYSICAL THERAPY CONCLUDES. Goal Time Frame: 4-6 Weeks Goal Progress: Progressing Goal 5:: NEW GOAL: PATIENT WILL COMPLETE TUG IN < [address] CANE TO DEMONSTRATE IMPROVED GAIT STABILITY Goal Time Frame: 4-6 Weeks Anticipated Interventions Anticipated Interventions Patient/Client Instruction: Educate patient on: Condition, Plan of Care and Risk Factors For the Purpose of:: To improve self management Therapeutic Exercise to Include: Strength training, Body mechanics, Postural training, Flexibilty training, Gait and locomotor training, Neuromotor development, In an aquatic setting and Dynamic Lumbar Stabilization For the Purpose of:: To decrease pain, To increase ROM, To improve muscle performance and motor function, To increase tolerance to activity/condition/position, To improve ability of physical actions for home/community/work/leisure and To improve gait and locomotor functions Re-Evaluation Ending Re-evaluation ending: Please do not hesitate to contact me at [phone] by phone or if you have questions or concerns regarding this new plan of care! Sincerely, Cristela Kaur, PT, Cert MDT
--- NOTE | 2023-10-16 08:24 | HP.PT.NRP ---
Patient Information Patient Information: FEMI AZEVEDO was seen in my office for initial evaluation on 06/13/23. The following Plan of Care was established for this patient: POC Established Initial Frequency: 2-3x /Week Initial Duration: 4-6 Weeks Anticipated Interventions Patient/Client Instruction: Educate patient on: Condition, Plan of Care and Risk Factors For the Purpose of:: To improve self management Therapeutic Exercise to Include: Strength training, Body mechanics, Postural training, Flexibilty training, Gait and locomotor training, Neuromotor development, In an aquatic setting and Dynamic Lumbar Stabilization For the Purpose of:: To decrease pain, To increase ROM, To improve muscle performance and motor function, To increase tolerance to activity/condition/position, To improve ability of physical actions for home/community/work/leisure and To improve gait and locomotor functions Last Seen Last Seen: This patient was last seen in our office 07/28/23. Pertinent comments regarding their Physical therapy will appear below: This patient has not returned to Physical Therapy and is appropriate to return to MD for further follow-up as needed. At this point I will be discontinuing this patient from physical therapy. I would be happy to see this patient again in the future if found appropriate by the physician. Thank you! Cristela Kaur, PT, Cert MDT Balance/Gait/Functional tests Balance/Special Test Scores Oswestry Low Back Score: 13 TUG Test Time Seconds: 16.59 Tug Test: 20-30sec.=variable mobility 30 Second Chair Rise Test Seconds: 5
== END 2023-07-28 19:00 | disposition home or self-care (01) ==
LOC: PT 09:30
PROVIDERS: PCP Internal Medicine; Referring Provider Internal Medicine; Visit Provider Internal Medicine
DX: M54.50 Low back pain, unspecified (principal); R26.81 Unsteadiness on feet
CPT/HCPCS: 97110; 97162; 97164; 97530

== ENCOUNTER → 2023-07-31 | Outpatient (CLI) | payer MEDICARE, SELFPAY ==
--- NOTE | 2023-07-31 13:55 | BD_ITS ---
STUDY: DUAL ENERGY X-RAY ABSORPTIOMETRY / DXA REASON FOR EXAM: Female, 83 years old. 733.00OsteoporosisBONE DENSITY REASON FOR EXAM TECHNIQUE: Bone Mineral Density (BMD) measurements of lumbar spine and bilateral hips were obtained. COMPARISON: Comparison is made with prior study of July 26, 2021. FINDINGS: Lumbar Spine (L1-L4): g/cm2 (1.000) / T-score (0.2) / Z-score (2.8) Findings are suggestive of normal bone density with a low fracture risk. Left Femur Total: g/cm2 (0.772) / T-score (-1.4) / Z-score (0.9) Left Femoral Neck: g/cm2 (0.655) / T-score (-1.7) / Z-score (0.7) Right Femur Total: g/cm2 (0.833) / T-score (-0.9) / Z-score (1.4) Right Femoral Neck: g/cm2 (0.666) / T-score (-1.6) / Z-score (0.8) The T-Scores on the most recent prior examination were: Lumbar Spine (L1-L4): There has been improvement of bone density since the previous examination. Left Femur Total: which represents a worsening of 2.2%. Right Femur Total: which represents an improvement of 2%. BD/Dexa Bone Density Study IMPRESSION: The patient is considered osteopenic as outlined below according to World David Organization (WHO) criteria with a moderate fracture risk. There has been improvement of bone density since the previous examination. Reference Information: The T-score is the number of standard deviations above or below the standard which is normal for young adults at their peak bone mineral density. The World Health Organization (WHO) interprets the T-scores as follows: Above -1 Normal bone density Between -1 and -2.5 Osteopenia Equal to / or below -2.5 Osteoporosis As a practical clinical guideline, osteopenia may be graded as follows: Mild -1 through -1.5 Moderate -1.6 through -2.0 Severe -2.1 through -2.4 The Z-score is the number of standard deviations above or below age-matched controls. A Z-score of less than -1.5 would be considered abnormal. References: 1. NIH Osteoporosis and Related Bone Diseases www osteo.org 2. International Society for Clinical Densitometry www iscd.org 3. National Osteoporosis Foundation www nof.org Electronically Signed: Dayton Sheikh MD at 12:32 EST ,
== END | disposition home or self-care (01) ==
LOC: OPBD 13:53
PROVIDERS: PCP Internal Medicine; Referring Provider Internal Medicine; Visit Provider Internal Medicine
DX: M81.0 Age-related osteoporosis without current pathological fracture (principal)
CPT/HCPCS: 77080

== ENCOUNTER 2023-11-18 08:08 | Emergency (ER) | payer MEDICARE, SELFPAY ==
[2023-11-18 08:09] VITALS: BP 171/71; PULSE 66; RESP 18; TEMP 36.7; O2SAT 97; BMI 34.2
[2023-11-18 08:14] VITALS: BMI 34.2
--- NOTE | 2023-11-18 08:55 | EDS_ITS ---
HPI History of Present Illness Chief Complaint: Dizziness Detail of Chief Complaint: Vertigo and frequency Informant: patient Onset/Context/Timing Onset: Today Context: Sudden Onset Timing: Intermittent (Symptoms when patient changes position.) Quality: 1 spinning sensation when she sits upright and frequency, urinated 4 times Location: In her ear and Current Severity: Present only when patient changes position Worsened by: Rising from supine to sitting position Relieved by: Remaining still Associated Symptoms Associated Symptoms: No other symptoms other than what is been documented Narrative Narrative: Patient is an 83-year-old woman. She has history of nonsustained V. tach, complete heart block, essential hypertension and vertigo. She reports spinning sensation when she changes position is difficult to an upright position. She denies double vision, blurred vision loss of vision. No trouble with speech or swallowing. She denies paresthesia, anesthesia or motor weakness. She denies cardiac or respiratory symptoms. She denies GI symptoms. She does report frequency. She denies hematuria or dysuria. She states it feels abnormal when she stops urinating. She denies back or flank pain. She denies fever, chills night sweats. Prior similar symptoms: Yes (Benign paroxysmal positional vertigo) Recent Illness/Hospitalization: No PFSH PFSH Medical History Non-sustained ventricular tachycardia COVID-19 Essential (primary) hypertension History of colonic polyps Complete heart block (11/17/18) Obesity Sciatica Hyperlipidemia Premature ventricular contractions Right bundle branch block (RBBB) PVCs (premature ventricular contractions) Carotid stenosis Anxiety GERD (gastroesophageal reflux disease) Palpitations Paroxysmal SVT (supraventricular tachycardia) Home Medications ?Medication ?Instructions ?Recorded ?Last Taken ?Type cholecalciferol (vitamin D3) 25 3,000 unit PO DAILY supplement 06/08/18 Unknown History mcg (1,000 unit) capsule metoprolol succinate 25 mg 25 mg PO DAILY 08/03/19 Unknown History tablet,extended release 24 hr ibuprofen 200 mg tablet (Advil) 600 mg PO Q6H PRN 07/31/21 Unknown History aspirin 81 mg tablet,delayed 81 mg PO DAILY 08/06/22 Unknown History release (Adult Low Dose Aspirin) sertraline 25 mg tablet 25 mg PO QDAY depression 08/06/22 Unknown History Allergy/AdvReac Type Severity Reaction Status Date / Time latex AdvReac lightheaded,sweaty Verified 11/18/23 08:09 hands Family History Mother Breast cancer Diabetes Father Heart disease Cancer Surgical History History of open reduction and internal fixation (ORIF) procedure History of total left knee replacement Presence of permanent cardiac pacemaker (11/18/18) History of knee replacement procedure of right knee History of hysterectomy Social History Smoking Status: Never smoker alcohol intake: current alcohol intake frequency: holidays/special occasions o nly Alcohol type: beer and wine substance use type: does not use caffeine: Yes Type: carbonated beverages, coffee and tea what type of physical activity do you participate in: other details: Silver sneakers, lanre chi frequency: 3-4 times per week duration: 30-45 minutes/day seatbelt use: always do you feel safe at home: Yes ROS ROS ED Constitutional Constitutional ED: Denies chills, fever(s), subjective, sweats or weight loss Eyes Eyes: Denies blurry vision, change in vision or diplopia ENT ENT ED: Denies ear pain, rhinorrhea or sore throat Cardiovascular Cardiovascular: Denies chest pain, orthopnea, palpitations, paroxysmal nocturnal dyspnea or racing heartbeat Respiratory/Chest Respiratory/Chest: Denies cough, dyspnea, dyspnea on exertion, orthopnea or paroxysmal nocturnal dyspnea Gastrointestinal Gastrointestinal: Denies abdominal pain, diarrhea, melena, nausea or vomiting Genitourinary Genitourinary ED: Reports urinary frequency; Denies dysuria or hematuria Musculoskeletal Musculoskeletal: Denies arthralgias, back pain or myalgias Integumentary Denies rash Neurologic Neurologic: Reports other Details: Document in the HPI narrative ; Denies headache(s), paresthesias or weakness Psychiatric Psychiatric: Denies anxiety or depression Endocrine Endocrinology: Denies cold intolerance or heat intolerance EXAM Physical Exam Const Vital Signs: 11/18/23 08:09 11/18/23 10:08 11/18/23 12:00 Temperature 98.0 F Temperature Source Oral Pulse Rate 66 61 60 Respiratory Rate 18 16 16 Blood Pressure 171/71 H 158/73 H 165/74 H Blood Pressure Mean 104 101 104 Pulse Ox 97 95 98 Oxygen Delivery Method Room Air Room Air Room Air 11/18/23 14:00 Temperature Temperature Source Pulse Rate 60 Respiratory Rate 16 Blood Pressure 160/72 H Blood Pressure Mean 101 Pulse Ox 99 Oxygen Delivery Method Room Air Positive well nourished and well developed Constitutional Narrative: BMI is 34.2. General Appearance ED: well developed HEENT Reports moist mucous membranes HEENT Narrative: Head is atraumatic and normocephalic. Ears normal. TMs normal. Eyes PERRL and EOMs intact bilaterally Eyes Narrative: There is no nystagmus with central gaze or lateral gaze. General Eye ED: Negative for pale conjunctiva or scleral icterus Neck no lymphadenopathy, supple and no JVD Chest Wall inspection of chest normal and palpation of chest normal Resp normal respiratory effort and clear to auscultation bilaterally Cardio regular rate, regular rhythm, S1 normal heart sound, S2 normal heart sound and no murmurs GI normal to inspection, nondistended, normoactive bowel sounds, non-tender, non- distended and no masses; Negative for hepatosplenomegaly Back/Spine no CVA tenderness Extremity normal to inspection Neuro oriented x3, CN's II-XII intact bilaterally and no sensory deficits noted Neuro Narrative: The eye askew test and the hand test are both negative. There is no dysmetria. Anthony-Hallpike maneuver was performed at 0941. Anthony-Hallpike maneuver is positive. Once urine specimen has been obtained will perform Theresa maneuver. Sensorium / Orientation: alert Motor Exam: strength 5/5 throughout Psych mental status grossly normal Skin no rashes or lesions noted, no wounds and skin turgor normal MDM MDM MDM Narrative Medical decision making narrative: Will need to complete Anthony-Hallpike maneuver. Patient's history and physical is suggestive of paroxysmal benign positional vertigo. Doubt stroke. With patient reporting frequency and discomfort when she stops urinating suspect she may have a urinary tract infection. Will obtain CBC to assess white count differential. BMP to assess renal function to determine if antibiotic dose needs to be adjusted. History & Record Review Additional record(s) reviewed:: Prior outpatient record (Patient was seen in [facility]2021 for COVID. She also was seen at outside facility February 2022 for spinal stenosis lumbar region.) and Prior ED visit (Patient was seen November 20, 2018 for dizziness. She was diagnosed with diagnosis of dizziness.) Lab Data Attestation: I reviewed the patient's lab results. Lab results narrative: White count is 4.1. Patient has prior results of hyponatremia. H&H is unremarkable. There is a mild shift. Basic metabolic panel reveals a glucose of 117 with a normal CO2 anion gap. Estimated GFR is 91. Urinalysis positive for ketones otherwise negative. Labs: Laboratory Results - last 24 hr 11/18/23 11/18/23 08:55 11:40 WBC 4.1 L RBC 4.94 Hgb 13.9 Hct 43.1 MCV 87.2 MCH 28.1 MCHC 32.3 RDW Std Deviation 42.3 RDW Coeff of Eric 13.4 Plt Count 201 MPV 9.0 Immature Gran % (Auto) 0.200 Neut % (Auto) 71.5 H Lymph % (Auto) 19.2 [place] % (Auto) 7.4 Eos % (Auto) 1.0 Baso % (Auto) 0.7 Absolute Neuts (auto) 2.9 Absolute Lymphs (auto) 0.78 L Nucleated RBC % 0 Sodium 142 Potassium 3.5 Chloride 110 H Carbon Dioxide 29.0 Anion Gap 3 L BUN 21 H Creatinine 0.66 Estim Creat Clear Calc 62.30 Est GFR (MDRD) Af Amer 110 Est GFR (MDRD) Non-Af 91 BUN/Creatinine Ratio 31.9 H Glucose 117 H Calcium 9.4 Urine Color Straw Urine Clarity Clear Urine pH 8.0 Ur Specific [place] 1.010 Urine Protein Negative Urine Glucose (UA) Normal Urine Ketones 5 H Urine Occult Blood Negative Urine Nitrite Negative Urine Bilirubin Negative Urine Urobilinogen Normal Ur Leukocyte Esterase Negative Urine RBC 0 SEEN Urine WBC 0 SEEN Ur Squamous Epith Cells 0 SEEN Urine Bacteria 0 SEEN Urine Mucus 0 SEEN Treatment and Re-Evaluation :: While waiting for me to perform Theresa maneuver patient was doing exercises she was told to do if she gets vertigo. She believes her vertigo was resolved. She stood up. Is able to walk. She states she is no longer spinning. Therefore, will discharge to home Discharge Plan Triage Chief Complaint: Dizziness Other Complaint: Complaint ED Provider: Harvey Jean Dx/Rx/DC Orders Clinical Impression: Benign paroxysmal positional vertigo, Complete heart block, Essential (primary) hypertension, Frequency of urination Instructions: ED BPV Vertigo Prescriptions: No Action sertraline 25 mg tablet 25 mg PO QDAY ibuprofen [Advil] 200 mg tablet 600 mg PO Q6H PRN aspirin [Adult Low Dose Aspirin] 81 mg tablet,delayed release (DR/EC) 81 mg PO DAILY cholecalciferol (vitamin D3) 1,000 UNIT capsule 3,000 unit PO DAILY metoprolol succinate 25 mg tablet extended release 24 hr 25 mg PO DAILY Primary Care Provider: Sheridan Zaman Referrals: Sheridan Zaman MD [Primary Care Provider] - As Needed Print Language: Turkmen Disposition Disposition: Home, Self Care
[2023-11-18 09:26] LABS: Absolute Lymphocyte Count 0.78 X10^3/uL (0.83-4.51); Absolute Neutrophil Count 2.9 X10^3/uL (2.0-7.7); Basophil# 0.03 X10^3/uL; Basophil% 0.7 % (0-1); Eosinophil# 0.04 X10^3/uL; Hematocrit 43.1 % (37-47); Hemoglobin 13.9 g/dL (12.0-15.0); Lymphocyte # 0.78 X10^3/ul (0.83-4.51); Lymphocyte % 19.2 % (19-41); Mean Corp Hgb Conc 32.3 g/dL (32-36); Mean Corpuscular Hgb 28.1 pg (27.0-32.0); Mean Corpuscular Volume 87.2 fL (81-99); Monocyte% 7.4 % (0-10); NRBC Flagged by Analyzer 0 % (0-5); Neutrophil # 2.91 X10^3/uL (2.7-7.7); Neutrophil % 71.5 % (47-70); Platelet Count 201 K/mm3 (150-450); RBC Distribution Width CV 13.4 % (11.6-14.6); RBC Distribution Width SD 42.3 fl (35.1-43.9); Red Blood Count 4.94 M/mm3 (4.2-5.4); White Blood Count 4.1 K/mm3 (4.4-11.0)
[2023-11-18 09:42] LABS: Anion Gap 3 (5-15); BUN 21 mg/dL (7-18); BUN/Creat Ratio 31.9 RATIO (10-20); Calcium,Total 9.4 mg/dL (8.5-10.1); Chloride 110 mmol/L (98-107); Creatinine, Serum 0.66 mg/dL (0.55-1.02); EST Glomerular Filtration Rate 91 mL/min (>60); Est Glom Filt Rate - Afr Amer 110 mL/min (>60); Glucose 117 mg/dL (74-106); Potassium 3.5 mmol/L (3.5-5.1); Sodium Level 142 mmol/L (136-145)
[2023-11-18 10:08] VITALS: BP 158/73; PULSE 61; RESP 16; O2SAT 95
[2023-11-18 11:59] LABS: Bacteria 0 SEEN /hpf (None Seen); Mucous, Urine 0 SEEN /hpf (<or=2+); Red Blood Cells-Urine 0 SEEN /hpf (0-5); Squamous Epithelial Cells - UA 0 SEEN /hpf (5-10); White Blood Cells 0 SEEN /hpf (0-5)
[2023-11-18 12:00] VITALS: BP 165/74; PULSE 60; RESP 16; O2SAT 98
[2023-11-18 12:04] LABS: Color, Urine Straw (Yellow); Glucose, Dipstick Normal (Normal); Ketone-Dipstick 5 mg/dl (Negative); Leukocyte Esterase-Dipstick Negative /ul (Negative); Nitrite-Dipstick Negative (Negative); Occult Blood-Urine Negative /ul (Negative); Protein-Dipstick Negative (Negative); Urine Bilirubin Dipstick Negative (Negative); Urine Clarity Clear (Clear); Urine Urobilinogen Normal (Normal)
[2023-11-18 14:00] VITALS: BP 160/72; PULSE 60; RESP 16; O2SAT 99
[2023-11-18 14:27] VITALS: BP 170/115; PULSE 59; RESP 16; TEMP 36.7; O2SAT 99
== END 2023-11-18 14:40 | disposition home or self-care (01) ==
PROVIDERS: Emergency Provider Emergency Medicine; PCP Internal Medicine; Visit Provider Emergency Medicine
DX: H81.10 Benign paroxysmal vertigo, unspecified ear (principal); I44.2 Atrioventricular block, complete; I47.19 Other supraventricular tachycardia; R35.0 Frequency of micturition; I10 Essential (primary) hypertension; Z95.0 Presence of cardiac pacemaker; Z79.899 Other long term (current) drug therapy; Z86.16 Personal history of COVID-19
CPT/HCPCS: 80048; 81001; 85025; 99283; A4216

== ENCOUNTER → 2024-11-01 | Outpatient (CLI) | payer MEDICARE, SELFPAY ==
--- NOTE | 2024-11-01 13:17 | BI_ITS ---
EXAM: SCRN MAMM (CAD)W/BOBO BILAT DATE: 11/01/2024 CLINICAL HISTORY: F, Age 84 y/o , SCREENING BREAST CANCER RISK ASSESSMENT: Has not been calculated TECHNIQUE: Bilateral screening digital breast tomosynthesis with 2D and 3D images. Computer aided detection. COMPARISON: Prior exam(s) dated 10/05/2022 and 07/26/2021. FINDINGS: TISSUE DENSITY: The breast tissue is composed of scattered area of fibroglandular density. Bilateral Breast Mammographic Findings: There are no suspicious masses, suspicious cluster of microcalcifications, architectural distortion or secondary signs of malignancy identified in either breast. Benign vascular calcifications are seen in both breasts. Benign-appearing round microcalcifications are seen in both breasts. A cardiac pacemaker device is identified in the left pectoral region which does obscure a small amount of breast tissue in this location. BI/SCRN MAMM (CAD)W/BOBO BILAT IMPRESSION: OVERALL FINAL ASSESSMENT: BIRADS 2 BENIGN FINDING RECOMMENDATION: Routine annual follow-up in 1 Year A letter with findings and recommendations will be mailed to the patient. Reading Location: [id number]
== END | disposition home or self-care (01) ==
LOC: OPBI 13:16
PROVIDERS: PCP Internal Medicine; Referring Provider Internal Medicine; Visit Provider Internal Medicine
DX: Z12.31 Encounter for screening mammogram for malignant neoplasm of breast (principal)
CPT/HCPCS: 77063; 77067

== ENCOUNTER 2025-03-28 10:30 | Outpatient (RCR) | payer MEDICARE, SELFPAY ==
--- NOTE | 2025-03-04 14:31 | HP.PTEVAL_ITS ---
Patient's Visit Information Visit Information Visit Information: FEMI AZEVEDO is a 85 year old F referred to Physical Therapy by Dr. Sheridan Zaman MD with a diagnosis of Cervical pain, L shoulder pain. Date of Evaluation: 03/02/25 Physical Therapist: Yusuf Holm DPT Visit Plan Frequency: 2x /Week Duration: 4 Weeks Plan: 1) cerivcal distraction manually 2) cervical retraction 3) pec stretch postural strengthening Subjective Subjective: Pt. is here today for her initial evaluation with diagnosis of cervicalgia and L shoulder pain. Pt. reports having pain for a few months now, but seems like it is getting worse. Pt. reports pain into her L shoulder and down her arm at times. Pt. has some N/T in the same region. Pt. reports no marked weakness. Pt. is sleeping okay, but does have some issues in the AMs. Pt. has not doing any exercises at the home. Pt. has a marked flexed posture Pt. reports improved symptoms with improved posture. Pt. is hopeful to reduce symptoms in order to get back all recreational activities without limitations. Pain Cervical spine: Pain Intensity (Out of 10): 3 L shoulder: Pain Intensity (Out of 10): 1 Objective Objective: POSTURE: Pt. has FH posture with increased thoracic kyphosis. [place]: pt. has tenderness in her cervical spine along C4-C7. Hypomobility throughout. NEURO: nromal DTR and nromal sensation in BUEs ROM: CERVICAL SPINE: flexion ni loss NE, ext mod loss mild increase NW, SB mod loss Krishna mild increase WN MMT: Pt. has 4/5 throuhgout BUEs, normal cork tile floor layer strength. CERVICAL ISO: 5/5 Balance/Special Test Scores Oswestry Neck Score: 14 Goals Goal 1:: LTG: Pt. to be I with HEP. Goal Time Frame: 4-6 Weeks Goal 2:: STG: pt. to sleep withotu increase in symptoms. Goal Time Frame: 2 Weeks Goal 3:: LTG: Pt. to have increased cervical spine ROM by 25% in all directions Goal Time Frame: 4-6 Weeks Goal 4:: LTG: Pt. to have no L shoulder pain. Goal Time Frame: 4-6 Weeks Rehabilitation Potential Physical Therapy Diagnosis: Pt. has signs and symptoms consistent with Cervicalgia and L shoulder pain. Pt. would benefit from PT to address her cervical pain and and L shoulder pain with cervical ROM and distraction. Rehabilitation Potential: Excellent Anticipated Interventions Patient/Client Instruction: Educate patient on: Condition, Plan of Care, Risk Factors and Benefits of Fitness Program For the Purpose of:: To foster healthy habits, To improve decision making, To facilitate caregiver knowledge, To improve self management, To prevent re-injury and To improve ability to perform tasks related to life management Therapeutic Exercise to Include: Strength training, Power training, Flexibilty training, Passive ROM, Active ROM, [place] Exercises and Scapular Strength/Stabilization For the Purpose of:: To decrease pain, To decrease swelling/inflammation, To increase ROM, To improve nutrient delivery to tissue, To increase oxygenation perfusion, To improve muscle performance and motor function, To improve ability to perform ADL's, To improve health of tissue, To decrease soft tissue restriction, To increase flexibility/ROM and To improve endurance Manual Therapy Techniques to Include: Mobilization and Passive ROM For the Purpose of:: To decrease pain, To increase ROM, To improve nutrient delivery to tissue, To increase oxygenation perfusion and To improve muscle performance and motor function Text: Thank you for the opportunity to evaluate your patient. For Medicare and Medicare HMO plans, please review the plan of care and approve it. It will need to be FAXED BACK to us at [phone] for Medicare purposes. For Medicare only, by signing this I certify the plan of care. Please let me know if there are questions or concerns regarding this plan of care. Physician Signature: Dat e:
--- NOTE | 2025-03-28 11:28 | HP.PTDCSUM ---
Discharge Summary D/C summary: It has been my pleasure to treat DESTINI AZEVEDO referred by Dr. Sheridan Zaman MD, with the diagnosis of Cervical pain, L shoulder pain for a total of 9 visit(s). Discharge Date: 03/28/25 Please see the following information for a summary of their discharge status. Subjective Subjective: Pt. is here today for her re assessment. Pt. reports that her neck is doing better. She did have some increased L shoulder pain yesterday, but attributed this to lifting her rollator in and out of the car several times. Better today. Pt. does have continued intermittent tingling in her L hand as well. Pt. reports being 85% better overall. Pain Cervical spine: Pain Intensity (Out of 10): 0 L shoulder: Pain Intensity (Out of 10): 0 Left Hand: Pain Intensity (Out of 10): 1 Objective Objective/Function: CERVICAL ROM: ext min/mod loss NE, flex nil loss NE, SB min/mod loss bilat NE, rotation min/mod loss NE bilat. Pt. is sleeping better, does have to re adjust at night due to slight increase in L arm issues. Pt. has decent strength throughout, BUEs. Pt. reports no pain with testing. Pt. is doing well. Destini and I agree that she is ready to be DC to HEP at this point in time. I gave her B shoulder and cervical exercises to complete. Pt. will be DC from PT at this point in time. Goals Goal 1:: LTG: Pt. to be I with HEP. Goal Progress: Goal Met Goal 2:: STG: pt. to sleep without increase in symptoms. Goal Progress: Progressing Goal 3:: LTG: Pt. to have increased cervical spine ROM by 25% in all directions Goal Progress: Goal Met Goal 4:: LTG: Pt. to have no L shoulder pain. Goal Progress: Goal Met Plan Plan: DC to HEP. D/C Information d/c sentence: If there are questions or concerns regarding this patient's physical therapy, please feel free to call me at [phone]. Thank you for the referral of this patient. Sincerely, Yusuf Moran Sipos, DPT Balance/Gait/Functional tests Balance/Special Test Scores Oswestry Neck Score: 7
== END 2025-03-28 13:38 | disposition home or self-care (01) ==
LOC: PT 10:30
PROVIDERS: PCP Internal Medicine; Referring Provider Internal Medicine; Visit Provider Internal Medicine
DX: M54.2 Cervicalgia (principal); M79.602 Pain in left arm; M79.10 Myalgia, unspecified site
CPT/HCPCS: 97110; 97140; 97161; 97530

== ENCOUNTER 2025-05-05 12:37 | Outpatient (CLI) | payer MEDICARE, SELFPAY ==
[2025-05-05 13:42] LABS: Red Blood Cells-Urine 0 SEEN /hpf (0-5)
[2025-05-05 14:13] LABS: Hematocrit 43.9 % (37-47); Hemoglobin 14.7 g/dL (12.0-15.0); Immature Granulocytes Count 0.010 X10^3/uL (0.0-0.0); Mean Corp Hgb Conc 33.5 g/dL (32-36); Mean Corpuscular Volume 88.5 fL (81-99); Mean Platelet Vol. 9.8 fl (6.2-12.0); NRBC Flagged by Analyzer 0 % (0-5); Platelet Count 211 K/mm3 (150-450); RBC Distribution Width CV 13.5 % (11.6-14.6); RBC Distribution Width SD 43.8 fl (35.1-43.9); Red Blood Count 4.96 M/mm3 (4.2-5.4); White Blood Count 3.4 K/mm3 (4.4-11.0)
[2025-05-05 14:33] LABS: AST(SGOT) 17 U/L (<=31); Alanine Aminotransfer ALT/SGPT 13 U/L (<=34); Albumin, Serum 4.2 g/dL (3.4-4.8); Alkaline Phosphatase 70 U/L (35-104); Anion Gap 10 (5-15); BUN 21 mg/dL (4-19); BUN/Creat Ratio 29.4 RATIO (10-20); Calcium,Total 9.2 mg/dL (7.6-11.0); Carbon Dioxide 25.9 mmol/L (21.0-32.0); Chloride 107 mmol/L (98-108); Globulin 2.5 g/dL (2.2-4.2); Glucose 107 mg/dL (70-99); Potassium 4.3 mmol/L (3.3-5.1)
[2025-05-05 14:39] LABS: Color, Urine Yellow (Yellow); Glucose, Dipstick Normal (Normal); Ketone-Dipstick Negative (Negative); Leukocyte Esterase-Dipstick 500 /ul (Negative); Nitrite-Dipstick Positive (Negative); Occult Blood-Urine 10 /ul (Negative); Protein-Dipstick 30 mg/dl (Negative); Specific Gravity, Urine 1.020 (1.002-1.030); Urine Bilirubin Dipstick Negative (Negative)
[2025-05-05 14:46] LABS: Mucous, Urine 1+ /hpf (<or=2+); Squamous Epithelial Cells - UA 0-5 SEEN /hpf (5-10)
[2025-05-05 15:00] LABS: Creatinine, Urine (random) 127.00 mg/dL (28.00-217.00); Microalbumin,Random Urine 27.2 mg/L (<20 mg/L)
== END 2025-05-05 23:59 | disposition home or self-care (01) ==
LOC: LABSPEC 12:38
PROVIDERS: PCP Internal Medicine; Visit Provider Internal Medicine
DX: I10 Essential (primary) hypertension (principal); R73.09 Other abnormal glucose
CPT/HCPCS: 80053; 81001; 82043; 82570; 85025; 87086; 87088; 87186